=== PATIENT | female | born 1930 | race Caucasian/White ===

== ENCOUNTER 2016-09-08 09:53 | Inpatient (IN) | payer MEDICARE, OTHER ==
[2016-09-08] MEDS ORDERED: SODIUM CHLORIDE 0.9% 500 ML IV STA (10:07)
[2016-09-08] MEDS ORDERED: SODIUM CHLORIDE 0.9% 1,000 ML IV STA (10:07)
[2016-09-08] MEDS ORDERED: IPRATROPIUM-ALBUTEROL 3 ML NEB INHALATION STA (10:07)
--- NOTE | 2016-09-08 10:09 | ED ---
General Adult HPI - General Chief complaint: Shortness of Breath Stated complaint: SOB Time Seen by Provider: 09/08/16 10:06 Source: patient, RN notes reviewed, old records reviewed Mode of arrival: wheelchair Limitations: no limitations - History of Present Illness Initial comments: This is an 86-year-old female yesterday for evaluation. This patient presents today for evaluation of source of breath cough and congestion. Low-grade fever starting yesterday. Patient's significant history of COPD. Patient states her symptoms it is getting worse since yesterday, states this is been Going on and off for a week or so. Patient denies any chest pain. Denies any known sick contacts no recent hospitalizations. Family did just take trip to [place] and come back. No issues on [place]. - Related Data Home Medications Medication Instructions Recorded Confirmed Candesartan [Atacand] 16 mg PO DAILY 09/08/16 09/08/16 Digoxin [Digitek] 125 mcg PO DAILY 09/08/16 09/08/16 Fish Oil/Dha/Epa [Fish Oil 1,200 1 cap PO DAILY 09/08/16 09/08/16 mg Fish Oil] Glimepiride [Amaryl] 2 mg PO DAILY 09/08/16 09/08/16 Glucosamine HCl/Chondr Ye A Na 1 tab PO BID 09/08/16 09/08/16 [Osteo Bi-Flex Caplet] Hydrochlorothiazide [Hydrodiuril] 25 mg PO DAILY 09/08/16 09/08/16 Metoprolol Tartrate [Lopressor] 100 mg PO DAILY 09/08/16 09/08/16 Simvastatin [Zocor] 20 mg PO DAILY 09/08/16 09/08/16 Warfarin Sodium [Coumadin] 1.25 mg PO SUTUWETHSA 09/08/16 09/08/16 Warfarin [Coumadin] 2.5 mg PO MOFR 09/08/16 09/08/16 metFORMIN HCL [Glucophage] 500 mg PO BID 09/08/16 09/08/16 Allergies Allergy/AdvReac Type Severity Reaction Status Date / Time No Known Allergies Allergy Verified 09/08/16 11:26 Review of Systems ROS Statement: Those systems with pertinent positive or pertinent negative responses have been documented in the HPI. ROS Other: All systems not noted in ROS Statement are negative. Past Medical History Past Medical History: COPD, Diabetes Mellitus History of Any Multi-Drug Resistant Organisms: None Reported Past Surgical History: Tonsillectomy Past Psychological History: No Psychological Hx Reported Smoking Status: Former smoker Past Alcohol Use History: Occasional Past Drug Use History: None Reported General Exam Limitations: no limitations General appearance: alert, in no apparent distress Head exam: Present: atraumatic, normocephalic, normal inspection Eye exam: Present: normal appearance, PERRL, EOMI. Absent: scleral icterus, conjunctival injection, periorbital swelling ENT exam: Present: normal exam, mucous membranes moist Neck exam: Present: normal inspection. Absent: tenderness, meningismus, lymphadenopathy Respiratory exam: Present: normal lung sounds bilaterally, wheezes. Absent: respiratory distress, rales, rhonchi, stridor Cardiovascular Exam: Present: regular rate, normal rhythm, normal heart sounds. Absent: systolic murmur, diastolic murmur, rubs, gallop, clicks GI/Abdominal exam: Present: soft, normal bowel sounds. Absent: distended, tenderness, guarding, rebound, rigid Extremities exam: Present: normal inspection, full ROM, normal capillary refill. Absent: tenderness, pedal edema, joint swelling, calf tenderness Back exam: Present: normal inspection Neurological exam: Present: alert, oriented X3, CN II-XII intact Psychiatric exam: Present: normal affect, normal mood Skin exam: Present: warm, dry, intact, normal color. Absent: rash Course Vital Signs 09/08/16 09/08/16 09/08/16 09:55 10:28 10:40 Temperature 99.4 F Pulse Rate 75 89 89 Respiratory 18 Rate Blood Pressure 131/58 O2 Sat by Pulse 93 L Oximetry - Reevaluation(s) Reevaluation #1: 09/08/16 12:15 Patient is resting comfortably after breathing treatment EKG Findings - EKG Comments: EKG Findings:: EKG shows sinus rhythm rate of 93, OK 252, QRS 136, QTC 135 Medical Decision Making - Medical Decision Making 86. ER for evaluation. Patient with cough congestion and fever. Patient does have positive pneumonia, will bit for IV antibiotics and breathing treatments. - Lab Data Result diagrams: 09/08/16 10:12 09/08/16 10:12 Lab Results 09/08/16 09/08/16 09/08/16 Range/Units 10:12 10:12 10:12 WBC 18.1 H (3.8-10.6) k/uL RBC 4.00 (3.80-5.40) m/uL Hgb 12.1 (11.4-16.0) gm/dL Hct 36.8 (34.0-46.0) % MCV 91.8 (80.0-100.0) fL MCH 30.3 (25.0-35.0) pg MCHC 33.0 (31.0-37.0) g/dL RDW 13.5 (11.5-15.5) % Plt Count 288 (150-450) k/uL Neutrophils % 87 % Lymphocytes % 6 % Monocytes % 5 % Eosinophils % 0 % Basophils % 0 % Neutrophils # 15.8 H (1.3-7.7) k/uL Lymphocytes # 1.1 (1.0-4.8) k/uL Monocytes # 0.9 (0-1.0) k/uL Eosinophils # 0.1 (0-0.7) k/uL Basophils # 0.1 (0-0.2) k/uL PT (9.0-12.0) sec INR (<1.1) APTT (22.0-30.0) sec Sodium 139 (137-145) mmol/L Potassium 4.9 (3.5-5.1) mmol/L Chloride 99 (98-107) mmol/L Carbon Dioxide 25 (22-30) mmol/L Anion Gap 15 mmol/L BUN 32 H (7-17) mg/dL Creatinine 1.19 H (0.52-1.04) mg/dL Est GFR (MDRD) Af Amer 52 (>60 ml/min/1.73 sqM) Est GFR (MDRD) Non-Af 43 (>60 ml/min/1.73 sqM) Glucose 249 H (74-99) mg/dL Calcium 8.6 (8.4-10.2) mg/dL Magnesium 1.7 (1.6-2.3) mg/dL Total Bilirubin 1.4 H (0.2-1.3) mg/dL AST 36 (14-36) U/L ALT 38 (9-52) U/L Alkaline Phosphatase 65 (38-126) U/L Total Creatine Kinase <20 L (30-135) U/L CK-MB (CK-2) 0.5 (0.0-2.4) ng/mL CK-MB (CK-2) Rel Index 0.0 Troponin I 0.018 (0.000-0.034) ng/mL NT-Pro-B Natriuret Pep pg/mL Total Protein 6.7 (6.3-8.2) g/dL Albumin 3.4 L (3.5-5.0) g/dL 09/08/16 09/08/16 Range/Units 10:12 10:12 WBC (3.8-10.6) k/uL RBC (3.80-5.40) m/uL Hgb (11.4-16.0) gm/dL Hct (34.0-46.0) % MCV (80.0-100.0) fL MCH (25.0-35.0) pg MCHC (31.0-37.0) g/dL RDW (11.5-15.5) % Plt Count (150-450) k/uL Neutrophils % % Lymphocytes % % Monocytes % % Eosinophils % % Basophils % % Neutrophils # (1.3-7.7) k/uL Lymphocytes # (1.0-4.8) k/uL Monocytes # (0-1.0) k/uL Eosinophils # (0-0.7) k/uL Basophils # (0-0.2) k/uL PT 13.7 H (9.0-12.0) sec INR 1.4 (<1.1) APTT 26.3 (22.0-30.0) sec Sodium (137-145) mmol/L Potassium (3.5-5.1) mmol/L Chloride (98-107) mmol/L Carbon Dioxide (22-30) mmol/L Anion Gap mmol/L BUN (7-17) mg/dL Creatinine (0.52-1.04) mg/dL Est GFR (MDRD) Af Amer (>60 ml/min/1.73 sqM) Est GFR (MDRD) Non-Af (>60 ml/min/1.73 sqM) Glucose (74-99) mg/dL Calcium (8.4-10.2) mg/dL Magnesium (1.6-2.3) mg/dL Total Bilirubin (0.2-1.3) mg/dL AST (14-36) U/L ALT (9-52) U/L Alkaline Phosphatase (38-126) U/L Total Creatine Kinase (30-135) U/L CK-MB (CK-2) (0.0-2.4) ng/mL CK-MB (CK-2) Rel Index Troponin I (0.000-0.034) ng/mL NT-Pro-B Natriuret Pep 1470 pg/mL Total Protein (6.3-8.2) g/dL Albumin (3.5-5.0) g/dL - Radiology Data Radiology results: report reviewed (Chest x-ray 2 views positive for pneumonia) , image reviewed Disposition Clinical Impression: Acute exacerbation of chronic obstructive airways disease, Community acquired pneumonia Disposition: ADMITTED IP TO THIS HOSP Condition: Fair Referrals: Adiel Dennison MD [Primary Care Provider] - 1-2 days
[2016-09-08 10:27] LABS: Basophils # (A) 0.1 k/uL (0-0.2); Basophils % (A) 0 %; CH 31.5; CHCM 34.5; Eosinophils # (A) 0.1 k/uL (0-0.7); Eosinophils % (A) 0 %; HCT 36.8 % (34.0-46.0); HGB 12.1 gm/dL (11.4-16.0); Luc # (Auto) 0.16; Luc % (Auto) 1; Lymphocytes # (A) 1.1 k/uL (1.0-4.8); Lymphocytes % (A) 6 %; MCH 30.3 pg (25.0-35.0); MCV 91.8 fL (80.0-100.0); Monocytes # (A) 0.9 k/uL (0-1.0); Monocytes % (A) 5 %; Neutrophils # (A) 15.8 k/uL (1.3-7.7); Neutrophils % (A) 87 %; RDW 13.5 % (11.5-15.5); WBC 18.1 k/uL (3.8-10.6); WBC (Perox) 17.62
--- NOTE | 2016-09-08 10:32 | XR ---
EXAMINATION TYPE: XR chest 2V DATE OF EXAM: 09/08/2016 10:25 AM COMPARISON: CT chest 05/16/2015 INDICATION: Difficulty breathing short of breath cough TECHNIQUE: Frontal and lateral views of the chest are obtained. FINDINGS: The heart size is normal. The pulmonary vasculature is normal. Infiltrates are blunted bilateral costophrenic angles. Correlate for atelectasis. There is a posterior left apex 1.9 cm nodule. This was present on the CT of 05/16/2015. IMPRESSION: 1. Stable nodule left upper lobe. Follow-up chest x-ray in 6 months is recommended for stability over the course of 2 years. 2. Small infiltrates of the costophrenic angles. Correlate for atelectasis.
[2016-09-08 10:38] LABS: Calcium 8.6 mg/dL (8.4-10.2); Magnesium 1.7 mg/dL (1.6-2.3); Potassium 4.9 mmol/L (3.5-5.1); Total Bilirubin 1.4 mg/dL (0.2-1.3); Total Protein 6.7 g/dL (6.3-8.2)
[2016-09-08] MEDS ORDERED: LEVOFLOXACIN 750MG-D5W PMX 750 MG in DEXTROSE/WATER 1 150ML.BAG IVPB STA (10:41)
[2016-09-08] MEDS ORDERED: LEVOFLOXACIN 750MG-D5W PMX 750 MG in DEXTROSE/WATER 1 150ML.BAG IVPB SCH (10:45)
[2016-09-08 10:59] LABS: Creatine Kinase <20 U/L (30-135)
[2016-09-08 11:02] LABS: INR 1.4 (<1.1); Partial Thromboplastin Time 26.3 sec (22.0-30.0); Prothrombin Time 13.7 sec (9.0-12.0)
[2016-09-08 11:12] LABS: Creatine Kinase MB 0.5 ng/mL (0.0-2.4); Troponin I 0.018 ng/mL (0.000-0.034)
[2016-09-08] MEDS ORDERED: PNEUMONIA PROTOCOL UTILIZED 1 EACH MISC PO PRN (11:27)
[2016-09-08] MEDS: SODIUM CHLORIDE 0.9% 1,000 ML IV SCH (13:14)
[2016-09-08] MEDS: IPRATROPIUM-ALBUTEROL 3 ML NEB INHALATION SCH ×2 (15:35→19:12)
[2016-09-08 17:40] LABS: Glucose,Whole Blood 75 mg/dL (75-99)
[2016-09-08] MEDS: WARFARIN 2.5 MG TAB PO SCH (20:16)
[2016-09-08 21:38] LABS: Glucose,Whole Blood 62 mg/dL (75-99)
[2016-09-08 22:09] LABS: Glucose,Whole Blood 130 mg/dL (75-99)
[2016-09-08] MEDS: INSULIN LISPRO (humaLOG) 300 UNIT/3 ML VIAL SQ SCH (22:19)
[2016-09-09] MEDS: SODIUM CHLORIDE 0.9% 1,000 ML IV SCH ×4 (00:49→17:44)
[2016-09-09 00:56] LABS: Glucose,Whole Blood 122 mg/dL (75-99)
[2016-09-09] MEDS: metFORMIN 500 MG TAB PO SCH ×3 (01:08→22:24)
[2016-09-09] MEDS ORDERED: METOPROLOL TARTRATE 50 MG TAB PO STA (01:14)
--- NOTE | 2016-09-09 06:31 | HP ---
DATE OF ADMISSION: CHIEF COMPLAINT: Cough and fever. HISTORY OF PRESENT ILLNESS: This 86-year-old female presents to the emergency room with a cough and congestion for the past about 4 days. The patient was having some fever during the night and some dyspnea on exertion. The patient in view of this presents to the emergency room. Evaluation reveals the patient has a small pneumonia at the left base. The patient has a low-grade temperature, but elevated white count of 18,000. The patient is otherwise not feeling too bad at rest. The patient denies any chest pain. She just returned from [place] on a flight, that was about 4 days ago. Past medical history is significant for hypertension for the past 12 years, history of diabetes mellitus for the past 12 years. History of chronic atrial fibrillation, rate controlled with medications and on anticoagulation with no unusual bleeding. She does have a history of COPD. No history of any lung disease, liver disease, kidney disease, ulcers, TB, hepatitis. No history of any rheumatic fever, myocardial infarction or CVA. Past surgical history is significant for tonsillectomy. She has had 2 previous pregnancies. She had a colonoscopy about 3 to 4 years ago. PERSONAL HISTORY: The patient is an ex-smoker, quit smoking in 1968 used to smoke 3/4 pack per day for about 35 years. Alcohol occasional. Pneumovax 5 years ago. She has had previous Zostavax. She did have an annual seasonal flu shot on 04/28/16. ALLERGIES: None known. Medications at present include: 1. Coumadin 1.25 mg 5 days a week and 2.5 mg 2 days a week. 2. She takes glucosamine, fish oil. 3. Metformin 500 mg b.i.d. 4. Zocor 20 mg daily. 5. Metoprolol tartrate 100 mg daily. 6. Hydrochlorothiazide 25 mg daily. 7. Glimepiride 2 mg daily. 8. Digoxin 0.125 mg daily. 9. Atacand 16 mg daily. SOCIAL HISTORY: Patient is and lives with her spouse FAMILY MEDICAL HISTORY: Father at the age of 49, he had a CVA. Mother at the age of 87, had coronary artery disease. A brother at the age of 79 coronary artery disease. The patient has a son 58 and a son 55, both in good health. REVIEW OF SYSTEMS: NEURO: Denies any headaches, dizziness. No double vision, blurred vision. No symptoms of TIA, syncope, seizures. PSYCH: No anxiety, depression. CARDIAC: Denies chest pain, angina, palpitations. RESPIRATORY: Present complaint of cough, mild shortness of breath especially with activity. No hemoptysis. No chest pain. GI: No nausea, vomiting. Appetite fair. No diarrhea or constipation. : No symptoms of dysuria, hematuria. EXTREMITIES: No pain. CONSTITUTIONAL: Some fever, no chills. SKIN: No rashes. MUSCULOSKELETAL: Chronic degenerative arthritis. PHYSICAL EXAMINATION: Pleasant female in no distress at present. Vital signs revealed temperature 99.4, pulse 79, respirations 18, blood pressure 93/57, pulse ox 95% on room air. HEENT: Normocephalic. NECK: No JVD. Chest is clear to auscultation with generalized decreased air flow. Occasional scattered rhonchi. CARDIAC: Distant heart sounds. S1, S2 with no gallops. Systolic murmur 2/6 left sternal border. Irregular rhythm. ABDOMEN: Soft, no palpable masses. Bowel sounds normal. No organomegaly. No abdominal bruits. Extremities reveal trace edema. NEUROLOGIC: Awake, alert, oriented with well coordinated movements. LABORATORY ASSESSMENT: Chest x-ray which reveals a small infiltrate of the left base. CBC reveals an elevated white count of 18,100, hemoglobin 12.1. The patient does have a left shift. PT, INR reveals an INR 1.4. BUN 32, creatinine 1.19. Glucose was 249. An influenza A and B not detected. ASSESSMENT: 1. Left lower lobe pneumonia. 2. Chronic obstructive pulmonary disease. 3. Chronic atrial fibrillation. 4. Diabetes mellitus. 5. Hypertension. PLAN: The patient is admitted to the hospital, given updrafts, oxygen, IV antibiotics. Continued on Coumadin. The patient with Levaquin expect pro time to jump up. The patient's PT, INR will be monitored daily. Patient's condition was discussed with the patient and spouse. Prognosis remains guarded.
[2016-09-09 07:43] LABS: Glucose,Whole Blood 86 mg/dL (75-99)
[2016-09-09] MEDS: DIGOXIN 125 MCG TAB PO SCH (08:20)
[2016-09-09] MEDS: METOPROLOL TARTRATE 50 MG TAB PO SCH (08:20)
[2016-09-09] MEDS: ENOXAPARIN 40 MG/0.4 ML SYRINGE SQ SCH (08:20)
[2016-09-09] MEDS: INSULIN LISPRO (humaLOG) 300 UNIT/3 ML VIAL SQ SCH ×4 (08:21→22:24)
[2016-09-09] MEDS: IPRATROPIUM-ALBUTEROL 3 ML NEB INHALATION SCH ×4 (08:22→19:40)
--- NOTE | 2016-09-09 08:34 | XR ---
EXAMINATION TYPE: XR chest 2V DATE OF EXAM: 09/09/2016 7:53 AM HISTORY: Difficulty breathing. REFERENCE: Previous study dated 09/08/2016. FINDINGS: The lungs are overinflated. The heart is mildly prominent. There is a stable left upper lob e pulmonary nodule. There is a right lower lobe infiltrate. There are small, bilateral effusions. IMPRESSION: 1. EVIDENCE OF OLD GRANULOMATOUS DISEASE. 2. COPD. 3. MILD CARDIOMEGALY. 4. RIGHT LOWER LOBE INFILTRATE. 5. SMALL, BILATERAL EFFUSIONS.
[2016-09-09 08:49] LABS: INR 1.6 (<1.1); Prothrombin Time 15.5 sec (9.0-12.0)
[2016-09-09 11:42] LABS: Glucose,Whole Blood 171 mg/dL (75-99)
[2016-09-09 17:11] LABS: Glucose,Whole Blood 137 mg/dL (75-99)
[2016-09-09] MEDS: WARFARIN 2.5 MG TAB PO SCH (17:46)
[2016-09-09 20:59] LABS: Glucose,Whole Blood 219 mg/dL (75-99)
[2016-09-09] MEDS ORDERED: LEVOFLOXACIN 750MG-D5W PMX 750 MG in DEXTROSE/WATER 1 150ML.BAG IVPB SCH (21:00)
[2016-09-09] MEDS ORDERED: WARFARIN 1.25 MG TAB PO ONE (22:45)
[2016-09-10] MEDS: SODIUM CHLORIDE 0.9% 1,000 ML IV SCH ×2 (06:17→23:31)
[2016-09-10 07:38] LABS: Glucose,Whole Blood 108 mg/dL (75-99)
[2016-09-10] MEDS: INSULIN LISPRO (humaLOG) 300 UNIT/3 ML VIAL SQ SCH ×4 (07:50→21:26)
--- NOTE | 2016-09-10 08:17 | PN ---
CHIEF COMPLAINT: Re-evaluation. HISTORY OF PRESENT ILLNESS: This 86-year-old female was admitted to the hospital with fever, cough, leukocytosis and chest x-ray suggestive of pneumonia. The patient is actually feeling fairly well, has not had any major symptoms. She did have a tachycardia during the night. She has chronic atrial fibrillation. Patient's vital signs otherwise have remained stable and the initial low blood pressures. REVIEW OF SYSTEMS: NEURO: Denies any headaches, dizziness. PSYCH: No anxiety. CARDIAC: No chest pain, angina, palpitation. RESPIRATORY: No shortness of breath, cough. GI: No nausea, vomiting, abdominal pain, diarrhea. : No symptoms of dysuria or hematuria. EXTREMITIES: No pain. CONSTITUTIONAL: No fever or chills. PHYSICAL EXAMINATION: Pleasant female in no distress. Vital signs recorded: Temperature 98.1, pulse 120, respirations 24, blood pressure 100/51, pulse ox 97% on 2 L. HEENT: Normocephalic. NECK: No JVD. Chest is clear to auscultation with mild decreased air flow in bilateral bases. CARDIAC: Distant heart sounds. S1, S2 with no gallops. Systolic murmur 2/6 left sternal border. ABDOMEN: Soft. Bowel sounds present. EXTREMITIES: No edema. No tenderness. NEUROLOGIC: Awake, alert, oriented with well-coordinated movements. Laboratory assessment with the chest x-ray reported to have a right lower lobe infiltrate. Mild cardiomegaly, COPD changes and small bilateral effusions. INR was 1.6. Blood sugars mildly elevated. ASSESSMENT: 1. Pneumonia. 2. Chronic obstructive pulmonary disease. 3. Chronic atrial fibrillation. 4. Atrial fibrillation with rapid ventricular rate. 5. Anticoagulated status. 6. Diabetes mellitus. PLAN: The patient is stable. Continue present medical regimen. The patient will be given an extra dose of Coumadin tonight. Lovenox will be discontinued tomorrow. Patient's prognosis guarded.
[2016-09-10] MEDS: IPRATROPIUM-ALBUTEROL 3 ML NEB INHALATION SCH (08:28)
[2016-09-10] MEDS: metFORMIN 500 MG TAB PO SCH ×2 (08:47→20:55)
[2016-09-10] MEDS: DIGOXIN 125 MCG TAB PO SCH (08:47)
[2016-09-10] MEDS: ENOXAPARIN 40 MG/0.4 ML SYRINGE SQ SCH (08:47)
[2016-09-10] MEDS: METOPROLOL TARTRATE 50 MG TAB PO SCH (08:47)
[2016-09-10 09:13] VITALS: BMI 28.6
[2016-09-10 10:10] LABS: INR 2.1 (<1.1); Prothrombin Time 19.8 sec (9.0-12.0)
[2016-09-10 10:20] LABS: CH 31.2; CHCM 33.4; HCT 30.3 % (34.0-46.0); HDW 3.17; MCH 30.8 pg (25.0-35.0); MCHC 32.9 g/dL (31.0-37.0); MCV 93.8 fL (80.0-100.0); Mean Platelet Volume 8.7; RBC 3.23 m/uL (3.80-5.40); RDW 13.5 % (11.5-15.5); WBC 9.1 k/uL (3.8-10.6)
[2016-09-10 11:28] LABS: Anion Gap 10 mmol/L; Blood Urea Nitrogen 32 mg/dL (7-17); Calcium 7.9 mg/dL (8.4-10.2); Carbon Dioxide 21 mmol/L (22-30); Chloride 108 mmol/L (98-107); Glucose 199 mg/dL (74-99); Non-African American GFR(MDRD) 53 (>60 ml/min/1.73 sqM); Potassium 4.1 mmol/L (3.5-5.1); Sodium 139 mmol/L (137-145)
[2016-09-10] MEDS: IPRATROPIUM 0.5 MG/2.5 ML NEBU INHALATION SCH ×2 (11:33→20:07)
[2016-09-10] MEDS: LEVALBUTEROL NEB (CONC) 1.25 MG/0.5 ML AMP INHALATION SCH ×2 (11:33→20:07)
[2016-09-10 12:01] LABS: Glucose,Whole Blood 132 mg/dL (75-99)
[2016-09-10 17:14] LABS: Glucose,Whole Blood 245 mg/dL (75-99)
[2016-09-10] MEDS: WARFARIN 2.5 MG TAB PO SCH (17:36)
[2016-09-10 21:18] LABS: Glucose,Whole Blood 184 mg/dL (75-99)
[2016-09-10] MEDS ORDERED: METOPROLOL TARTRATE 50 MG TAB PO SCH (23:00)
--- NOTE | 2016-09-11 06:54 | PN ---
CHIEF COMPLAINT: Re-evaluation. HISTORY OF PRESENT ILLNESS: This is an 86-year-old who was admitted to the hospital with some low-grade fever, leukocytosis, cough and congestion. The patient has underlying COPD. X-ray findings suggest pneumonia. Patient actually feeling relatively well. REVIEW OF SYSTEMS: NEURO: Denies any headaches, dizziness. PSYCH: Anxiety. CARDIAC: No chest pain, angina, palpitation. RESPIRATORY: No shortness of breath. Does have some cough. No hemoptysis. GI: No nausea, vomiting, abdominal pain, diarrhea. : No symptoms of dysuria, hematuria. EXTREMITIES: No pain. CONSTITUTIONAL: No fever or chills. PHYSICAL EXAMINATION: A pleasant female in no distress. Vital signs recorded. Temperature 97.4, pulse 93, earlier it was 131. The patient's respirations are 20, blood pressure 109/53, pulse ox 99% on 2 L. HEENT: Normocephalic. NECK: No JVD. CHEST: Some decreased air flow at the right base with few crackles. CARDIAC: Distant heart sounds. S1, S2, no gallops. Systolic murmur 2/6 left sternal border. Irregular rhythm. ABDOMEN: Soft. Bowel sounds present. EXTREMITIES: No edema. NEUROLOGIC: Awake, alert, oriented with well coordinated movements. Laboratory assessment was a CBC which revealed white count down to 9100, hemoglobin 10. INR 2.1. Electrolytes normal. BUN 32, creatinine 1.0. ASSESSMENT: 1. Pneumonia. 2. Chronic atrial fibrillation with rapid ventricular rate at times. 3. Diabetes mellitus. 4. Chronic obstructive pulmonary disease. PLAN: The patient is stable. Continue present medical regimen. The patient's condition discussed with the patient. Prognosis guarded. Potential discharge home in the next 24 to 48 hours.
[2016-09-11] MEDS: LEVALBUTEROL NEB (CONC) 1.25 MG/0.5 ML AMP INHALATION SCH ×3 (07:31→20:16)
[2016-09-11] MEDS: IPRATROPIUM 0.5 MG/2.5 ML NEBU INHALATION SCH ×3 (07:31→20:16)
[2016-09-11 07:34] LABS: Glucose,Whole Blood 162 mg/dL (75-99)
[2016-09-11] MEDS: INSULIN LISPRO (humaLOG) 300 UNIT/3 ML VIAL SQ SCH ×4 (08:15→22:13)
[2016-09-11 08:31] LABS: INR 2.3 (<1.1); Prothrombin Time 22.1 sec (9.0-12.0)
[2016-09-11] MEDS: METOPROLOL TARTRATE 50 MG TAB PO SCH ×2 (08:39→20:47)
[2016-09-11] MEDS: metFORMIN 500 MG TAB PO SCH ×2 (08:39→20:47)
[2016-09-11] MEDS: DIGOXIN 125 MCG TAB PO SCH (08:39)
[2016-09-11 12:32] LABS: Glucose,Whole Blood 184 mg/dL (75-99)
[2016-09-11 16:59] LABS: Glucose,Whole Blood 121 mg/dL (75-99)
[2016-09-11] MEDS: LEVOFLOXACIN 750 MG TAB PO SCH (20:46)
--- NOTE | 2016-09-11 21:34 | PN ---
CHIEF COMPLAINT: Re-evaluation. HISTORY OF PRESENT ILLNESS: This is an 86-year-old female who was admitted to the hospital with a fever, leukocytosis and a lung infiltrate. The patient was felt to have pneumonia. She also has underlying history of COPD and chronic atrial fibrillation. The patient has exhibited some rapid ventricular rate at times, lasting briefly. The patient was on Lopressor. This was switched over the Xopenex. REVIEW OF SYSTEMS: NEURO: Denies any headaches, dizziness. PSYCH: No anxiety. CARDIAC: No chest pain, angina, palpitation. RESPIRATORY: No shortness of breath. Some cough. No hemoptysis. GI: No nausea, vomiting, abdominal pain, diarrhea. : No symptoms of dysuria, hematuria. EXTREMITIES: No pain. CONSTITUTIONAL: No fever or chills. PHYSICAL EXAMINATION: Pleasant female in no distress. Vital signs revealed that patient has been afebrile. Temperature 97.4, pulse 95, respirations 20, blood pressure 91/64, pulse ox of 97% on 2 L. HEENT: Normocephalic. NECK: No JVD. Chest is clear to auscultation with decreased air flow at the bases. CARDIAC: Distant heart sounds. S1, S2 with no gallops. Irregular rhythm. Systolic murmur 2/6, left sternal border. ABDOMEN: Soft, protuberant. Bowel sounds active. Extremities reveal trace edema. Neurologically awake, alert, oriented with well-coordinated movements. LABORATORY ASSESSMENT: INR of 2.3. Blood sugar is mildly elevated, being covered with medication. Patient's general condition is stable. Potential discharge home tomorrow.
[2016-09-11 21:48] LABS: Glucose,Whole Blood 133 mg/dL (75-99)
[2016-09-12 07:19] LABS: Glucose,Whole Blood 113 mg/dL (75-99)
[2016-09-12] MEDS: INSULIN LISPRO (humaLOG) 300 UNIT/3 ML VIAL SQ SCH ×4 (07:48→21:31)
[2016-09-12] MEDS: DIGOXIN 125 MCG TAB PO SCH (08:16)
[2016-09-12] MEDS: METOPROLOL TARTRATE 50 MG TAB PO SCH ×2 (08:16→20:18)
[2016-09-12] MEDS: metFORMIN 500 MG TAB PO SCH ×2 (08:16→20:18)
[2016-09-12] MEDS: LEVALBUTEROL NEB (CONC) 1.25 MG/0.5 ML AMP INHALATION SCH ×3 (09:15→20:07)
[2016-09-12] MEDS: IPRATROPIUM 0.5 MG/2.5 ML NEBU INHALATION SCH ×3 (09:15→20:07)
[2016-09-12 09:18] LABS: INR 2.8 (<1.1); Prothrombin Time 26.8 sec (9.0-12.0)
[2016-09-12 12:23] LABS: Glucose,Whole Blood 136 mg/dL (75-99)
[2016-09-12] MEDS: DIGOXIN 62.5 MCG TAB PO SCH (12:29)
--- NOTE | 2016-09-12 14:22 | XR ---
EXAMINATION TYPE: XR chest 2V DATE OF EXAM: 09/12/2016 2:12 PM COMPARISON: September 09, 2016 HISTORY: Shortness of breath TECHNIQUE: Frontal and lateral views of the chest are obtained. FINDINGS: Scattered senescent parenchymal changes noted. Hyperinflation compatible with COPD. Increasing right basilar infiltrate and bilateral small effusions. Persistent left upper lobe nodule. Heart size is stable. Mediastinal structures are stable and grossly unremarkable. No evidence for hilar prominence. Degenerative changes dorsal spine. IMPRESSION: 1. Increasing right basilar infiltrate and bilateral small effusions.
[2016-09-12 17:02] LABS: Glucose,Whole Blood 116 mg/dL (75-99)
[2016-09-12] MEDS: WARFARIN 2.5 MG TAB PO SCH (17:16)
[2016-09-12 21:32] LABS: Glucose,Whole Blood 179 mg/dL (75-99)
[2016-09-13] MEDS ORDERED: MENTHOL (NICE) LOZENGE MUCOUS MEM PRN ×2 (03:47→04:17)
[2016-09-13 07:21] LABS: Glucose,Whole Blood 147 mg/dL (75-99)
[2016-09-13] MEDS: INSULIN LISPRO (humaLOG) 300 UNIT/3 ML VIAL SQ SCH ×4 (08:01→21:20)
[2016-09-13] MEDS: DIGOXIN 62.5 MCG TAB PO SCH (08:09)
[2016-09-13] MEDS: DIGOXIN 125 MCG TAB PO SCH (08:09)
[2016-09-13] MEDS: METOPROLOL TARTRATE 50 MG TAB PO SCH ×2 (08:09→21:20)
[2016-09-13] MEDS: metFORMIN 500 MG TAB PO SCH ×2 (08:09→21:20)
[2016-09-13] MEDS: LEVALBUTEROL NEB (CONC) 1.25 MG/0.5 ML AMP INHALATION SCH ×3 (08:20→19:56)
[2016-09-13] MEDS: IPRATROPIUM 0.5 MG/2.5 ML NEBU INHALATION SCH ×3 (08:20→19:56)
[2016-09-13] MEDS ORDERED: FUROSEMIDE 20 MG TAB PO STA (08:28)
[2016-09-13 08:39] LABS: CH 30.9; CHCM 32.8; HCT 34.2 % (34.0-46.0); HDW 3.05; HGB 11.2 gm/dL (11.4-16.0); MCHC 32.7 g/dL (31.0-37.0); MCV 94.5 fL (80.0-100.0); Mean Platelet Volume 6.7; RBC 3.62 m/uL (3.80-5.40); RDW 13.1 % (11.5-15.5); WBC 8.2 k/uL (3.8-10.6)
[2016-09-13 08:48] LABS: INR 3.8 (<1.1); Prothrombin Time 36.9 sec (9.0-12.0)
[2016-09-13] MEDS ORDERED: DIGOXIN 62.5 MCG TAB PO SCH (09:00)
--- NOTE | 2016-09-13 10:58 | P.PN ---
Subjective Principal diagnosis: Pneumonia History present illness: This 86-year-old female was admitted to the hospital with a fever, leukocytosis and it lung infiltrate. Patient does have underlying COPD. Working diagnosis of pneumonia. Patient's general condition is improved. She does have a history of chronic atrial fibrillation. She did have episodes of A. fib with rapid ventricular rate. She is feeling better today. Her metoprolol and digoxin have been increased. Her albuterol as been switched over to Xopenex. Patient feels better today. She does complain of generalized weakness still. Have recommended rehabilitation. Patient's in agreement and we'll make arrangements for transfer to nursing rehab. REVIEW OF SYSTEMS: Neuro: Denies any headaches dizziness. Psych: Denies anxiety depression feels oriented. Cardiac: Denies chest pain and angina palpitations. Respiratory: Improved shortness of breath and cough. GI: Denies nausea vomiting or abdominal pain. No diarrhea or constipation, no bowel movement yet. : Denies dysuria hematuria. Extremities: Denies pain. No edema. Skin: Intact. Constitutional: No fever, chills. Objective - Vital Signs Vital signs: Vital Signs Temp 98.6 F 09/13/16 07:00 Pulse 100 09/13/16 08:35 Resp 16 09/13/16 08:00 BP 114/58 09/13/16 07:00 Pulse Ox 91 L 09/13/16 07:00 Intake & Output 09/12/16 09/13/16 09/13/16 18:59 06:59 18:59 Intake Total 200 Balance 200 Intake: Oral 200 Other: Voiding Method Toilet Toilet Bedside Commode Bedside Commode # Voids 2 2 1 PHYSICAL EXAMINATION: Cooperative, at present in no acute distress. HEENT: Neck supple. No JVD. Chest: Clear to auscultation increased percussion note bilateral Cardiac: Normal S1-S2 irregularly irregular rhythm with no gallops systolic murmur 2/6 left sternal border. Abdomen: Soft bowel sounds present. Extremities: Trace edema no tenderness Neurologically: Awake, alert, oriented with well-coordinated movements. - Labs CBC & Chem 7: 09/13/16 08:20 09/10/16 09:29 Labs: Abnormal Lab Results - Last 24 Hours (Table) 09/12/16 09/12/16 09/12/16 Range/Units 12:13 17:01 21:28 RBC (3.80-5.40) m/uL Hgb (11.4-16.0) gm/dL PT (9.0-12.0) sec POC Glucose (mg/dL) 136 H 116 H 179 H (75-99) mg/dL 09/13/16 09/13/16 09/13/16 Range/Units 07:19 08:20 08:20 RBC 3.62 L (3.80-5.40) m/uL Hgb 11.2 L (11.4-16.0) gm/dL PT 36.9 H (9.0-12.0) sec POC Glucose (mg/dL) 147 H (75-99) mg/dL Assessment and Plan Plan: ASSESSMENT: 1. Right lower lobe community-acquired pneumonia. 2. COPD. 3. Atrial fibrillation chronic. 4. Atrial fibrillation with rapid ventricular rate episodic. 5. Hypertension. 6. Anticoagulative status. 7. Degenerative arthritis. PLAN: Patient is stable at present continue present regimen. Patient was given 1 dose of Lasix this morning because of small pleural effusions bilateral. Patient otherwise is feeling improved compared to yesterday. Still has some debility and will plan for prison rehabilitation. Patient and spouse are in agreement continue to hold Coumadin.
--- NOTE | 2016-09-13 11:34 | PN ---
CHIEF COMPLAINT: Re-evaluation. HISTORY OF PRESENT ILLNESS: This 86-year-old female was admitted to the hospital with a right lower lobe pneumonia, chronic obstructive pulmonary disease exacerbation and atrial fibrillation, chronic. The patient has had episodes of atrial fibrillation with RVR. Denies any chest pain. He feels much better. Does have dyspnea though with minimal activity. Has decreased cough. No hemoptysis. GI: No nausea vomiting. Appetite good. No diarrhea. The patient feels much improved except for the dyspnea. REVIEW OF SYSTEMS: NEURO: Denies any headaches, dizziness. PSYCH: No anxiety. CARDIAC: No chest pain, angina, palpitation. RESPIRATORY: Denies shortness of breath at rest. Does have dyspnea with activity. EXTREMITIES: No pain. GI: No nausea, vomiting, abdominal pain, diarrhea. : No symptoms of dysuria, hematuria. CONSTITUTIONAL: No fever or chills. PHYSICAL EXAMINATION: Pleasant female at present in no distress. Vital signs recorded earlier were temperature 97.9, pulse 117, respirations 18, blood pressure 106/54, and pulse ox 95% on 2 liters. HEENT: Normocephalic. NECK: No JVD. Chest is clear to auscultation with decreased air flow right base. CARDIAC: Distant heart sounds. S1, S2 with no gallops. Systolic murmur 2/6 left sternal border. ABDOMEN: Soft. Bowel sounds present. EXTREMITIES: No edema. NEUROLOGIC: Awake, alert, oriented with well coordinated movements. LABORATORY ASSESSMENT: INR of 2.8. Blood sugar was 113 this morning. Chest x-ray reveals some increased infiltrate at the right base with bilateral basal pleural small effusions. ASSESSMENT: 1. Right lower lobe pneumonia, clinically improving. 2. Mild worsening of x-ray, which would be expected. 3. Chronic obstructive pulmonary disease with no wheezing. 4. Chronic atrial fibrillation with intermittent tachycardia. 5. History of hypertension. PLAN: The patient is stable. Continue present medical regimen. The patient's condition discussed with the patient, spouse and son. Hospital transfer to a nursing facility for rehab. The patient may require oxygen with ambulation. Digoxin has been increased up. We will continue to monitor the patient closely. Patient's condition discussed with the patient. Prognosis guarded. I see no reason to start patient on steroids. Her cough is much improved. She is not wheezing. Prognosis remains guarded.
[2016-09-13 12:15] LABS: Glucose,Whole Blood 145 mg/dL (75-99)
[2016-09-13 16:57] LABS: Glucose,Whole Blood 207 mg/dL (75-99)
[2016-09-13 21:06] LABS: Glucose,Whole Blood 210 mg/dL (75-99)
[2016-09-13] MEDS: LEVOFLOXACIN 750 MG TAB PO SCH (21:20)
[2016-09-14 07:36] LABS: Glucose,Whole Blood 140 mg/dL (75-99)
[2016-09-14 07:54] LABS: INR 2.9 (<1.1); Prothrombin Time 28.4 sec (9.0-12.0)
[2016-09-14 07:58] VITALS: BP 92/64; RESP 18; TEMP 97
[2016-09-14] MEDS: INSULIN LISPRO (humaLOG) 300 UNIT/3 ML VIAL SQ SCH ×2 (08:00→12:06)
[2016-09-14] MEDS: DIGOXIN 62.5 MCG TAB PO SCH (08:01)
[2016-09-14] MEDS: METOPROLOL TARTRATE 50 MG TAB PO SCH (08:01)
[2016-09-14] MEDS: metFORMIN 500 MG TAB PO SCH (08:01)
[2016-09-14] MEDS: DIGOXIN 125 MCG TAB PO SCH (08:01)
--- NOTE | 2016-09-14 08:19 | P.DS ---
Providers Date of admission: 09/08/16 11:28 Attending physician: Adiel Dennison Primary care physician: Adiel Dennison Hospital Course: 86-year-old female admitted to the hospital with cough fever and some shortness of breath. Patient noted to have a pneumonia. She is placed on Levaquin leukocytosis resolves no further fever. Continues to have some shortness of breath especially with activity. Patient also on updrafts. She has underlying COPD. She has history of chronic atrial fibrillation at times heart rate was elevated. Patient's medication has been increased with better control the heart rate. She has some dyspnea on exertion. She needs oxygen with activity. Patient is can be transferred to nursing facility for rehabilitation. History of hypertension. Coumadin be monitored with an INR target of between 2 and 3. Coumadin be up to 1.25 mg daily 5 days a week. May need to be adjusted up after Levaquin is done. Levaquin be continued for 5 more days. Final diagnosis 1. Pneumonia 2. COPD 3. Chronic atrial fibrillation with rapid ventricular rate intermittently 4. Debility 5. Diabetes mellitus type 2 Patient Condition at Discharge: Fair Plan - Discharge Summary New Discharge Prescriptions: Levofloxacin [Levaquin] 500 mg PO DAILY #5 tab Discharge Medication List Candesartan [Atacand] 16 mg PO DAILY 09/08/16 [History] Digoxin [Digitek] 125 mcg PO DAILY 09/08/16 [History] Fish Oil/Dha/Epa [Fish Oil 1,200 mg Fish Oil] 1 cap PO DAILY 09/08/16 [History] Glimepiride [Amaryl] 2 mg PO DAILY 09/08/16 [History] Glucosamine HCl/Chondr Ey A Na [Osteo Bi-Flex Caplet] 1 tab PO BID 09/08/16 [ History] Hydrochlorothiazide [Hydrodiuril] 25 mg PO DAILY 09/08/16 [History] Simvastatin [Zocor] 20 mg PO DAILY 09/08/16 [History] Warfarin Sodium [Coumadin] 1.25 mg PO SUTUWETHSA 09/08/16 [History] metFORMIN HCL [Glucophage] 500 mg PO BID 09/08/16 [History] Levofloxacin [Levaquin] 500 mg PO DAILY #5 tab 09/14/16 [Rx] Metoprolol Tartrate [Lopressor] 100 mg PO BID tab 02/06/17 [Rx] Follow up Appointment(s)/Referral(s): Adiel Dennison MD [Primary Care Provider] - 1 Week Patient Instructions/Handouts: Type 2 Diabetes in Adults (DC) Discharge Disposition: HOME SELF-CARE
[2016-09-14] MEDS: LEVALBUTEROL NEB (CONC) 1.25 MG/0.5 ML AMP INHALATION SCH ×2 (09:22→12:53)
[2016-09-14] MEDS: IPRATROPIUM 0.5 MG/2.5 ML NEBU INHALATION SCH ×2 (09:22→12:53)
[2016-09-14 09:34] VITALS: PULSE 64
[2016-09-14 11:56] LABS: Glucose,Whole Blood 135 mg/dL (75-99)
== END 2016-09-14 13:02 | DRG 190 ==
LOC: EC 09:53 → 4MS4W 11:28
PROVIDERS: ADMIT Internal Medicine; ATTEND Internal Medicine
DX: J44.0 Chronic obstructive pulmonary disease with (acute) lower respiratory infection (principal); J18.9 Pneumonia, unspecified organism; E11.9 Type 2 diabetes mellitus without complications; I48.2 Chronic atrial fibrillation; J44.1 Chronic obstructive pulmonary disease with (acute) exacerbation; I10 Essential (primary) hypertension; M19.90 Unspecified osteoarthritis, unspecified site; Z79.01 Long term (current) use of anticoagulants; Z79.84 Long term (current) use of oral hypoglycemic drugs; Z79.899 Other long term (current) drug therapy; Z87.891 Personal history of nicotine dependence; Z82.49 Family history of ischemic heart disease and other diseases of the circulatory system
CPT/HCPCS: 36415; 71020; 80048; 80053; 80162; 82550; 82553; 83605; 83735; 83880; 84484; 85025; 85027; 85610; 85730; 87040; 87502; 93005; 94640; 94760; 96361; 96365; 96366; 99285

== ENCOUNTER 2018-04-28 09:41 | Inpatient (IN) | payer MEDICARE, OTHER ==
[2018-04-28] MEDS ORDERED: methylPREDNISolone SOD SUCCI 125 MG/2 ML VIAL IV STA (10:11)
[2018-04-28] MEDS ORDERED: IPRATROPIUM-ALBUTEROL 3 ML NEB INHALATION STA (10:11)
--- NOTE | 2018-04-28 10:15 | ED ---
SOB HPI - General Chief Complaint: Shortness of Breath Stated Complaint: Low O2 Time Seen by Provider: 04/28/18 10:07 Source: patient, RN notes reviewed Mode of arrival: wheelchair Limitations: no limitations - History of Present Illness Initial Comments: This is a 88-year-old female history of COPD who states she did have exertional dyspnea since last night. She states she does have COPD she uses a puffer all time she states is just worsening usual today. It was also noted that she had a pulse oximetry in the mid to high 70s at home today. She had no fevers chills nausea vomiting sweats no chest pain cough or phlegm production. No other modifying factors. She did deny any chest pain she has coughed up some phlegm that is yellow in color she states. No fevers chills or sweats MD Complaint: shortness of breath - Related Data Home Medications Medication Instructions Recorded Confirmed Candesartan [Atacand] 16 mg PO DAILY 09/08/16 04/28/18 Digoxin [Digitek] 125 mcg PO Q48H 09/08/16 04/28/18 Glucosamine/Chondr Ye A Sod [Osteo 1 tab PO BID 09/08/16 04/28/18 Bi-Flex Caplet] Simvastatin [Zocor] 20 mg PO Q48H 09/08/16 04/28/18 Warfarin Sodium [Coumadin] 1.25 mg PO SUTUTHSA 09/08/16 09/08/16 metFORMIN HCL [Glucophage] 500 mg PO BID 09/08/16 04/28/18 Furosemide [Lasix] 20 mg PO DAILY 04/28/18 04/28/18 Magnesium Oxide [Magox 400] 400 mg PO DAILY 04/28/18 04/28/18 Repaglinide [Prandin] 0.5 mg PO AC-BID 04/28/18 04/28/18 Warfarin [Coumadin] 2 mg PO MOWEFR 04/28/18 04/28/18 Previous Rx's Medication Instructions Recorded Metoprolol Tartrate [Lopressor] 100 mg PO BID tab 09/14/16 Allergies Allergy/AdvReac Type Severity Reaction Status Date / Time No Known Allergies Allergy Verified 04/28/18 09:51 Review of Systems ROS Statement: Those systems with pertinent positive or pertinent negative responses have been documented in the HPI. ROS Other: All systems not noted in ROS Statement are negative. Past Medical History Past Medical History: Atrial Fibrillation, COPD, Diabetes Mellitus, Hyperlipidemia, Hypertension Additional Past Medical History / Comment(s): NIDDM type II. History of Any Multi-Drug Resistant Organisms: None Reported Past Surgical History: Tonsillectomy Additional Past Surgical History / Comment(s): Several colonoscopies-normal Past Anesthesia/Blood Transfusion Reactions: No Reported Reaction Additional Past Anesthesia/Blood Transfusion Reaction / Comment(s): Pt has clausterphobia r/t elevators Past Psychological History: No Psychological Hx Reported Smoking Status: Former smoker - Past Family History Father Additional Family Medical History / Comment(s): Father at the age of 49 yrs from an aneurysm. Mother Family Medical History: No Reported History Additional Family Medical History / Comment(s): Mother lived to be 87yrs old. General Exam - General Exam Comments Initial Comments: This is a well-developed well-nourished awake alert oriented 3 female Limitations: no limitations General appearance: alert, in no apparent distress Head exam: Present: atraumatic, normocephalic, normal inspection Eye exam: Present: normal appearance, PERRL, EOMI. Absent: scleral icterus, conjunctival injection, periorbital swelling ENT exam: Present: normal exam, mucous membranes moist Neck exam: Present: normal inspection. Absent: tenderness, meningismus, lymphadenopathy Respiratory exam: Present: decreased breath sounds (Scattered wheezes). Absent : respiratory distress, wheezes, rales, rhonchi, stridor Cardiovascular Exam: Present: regular rate, normal rhythm, normal heart sounds. Absent: systolic murmur, diastolic murmur, rubs, gallop, clicks GI/Abdominal exam: Present: soft, normal bowel sounds. Absent: distended, tenderness, guarding, rebound, rigid Extremities exam: Present: normal inspection, full ROM, normal capillary refill. Absent: tenderness, pedal edema, joint swelling, calf tenderness Back exam: Present: normal inspection Neurological exam: Present: alert, oriented X3, CN II-XII intact Psychiatric exam: Present: normal affect, normal mood Skin exam: Present: warm, dry, intact, normal color. Absent: rash Course Vital Signs 04/28/18 04/28/18 04/28/18 09:50 10:40 10:51 Temperature 98.6 F Pulse Rate 79 66 68 Respiratory 20 18 Rate Blood Pressure 98/46 99/50 O2 Sat by Pulse 92 L 98 Oximetry 04/28/18 10:54 Temperature Pulse Rate 68 Respiratory Rate Blood Pressure O2 Sat by Pulse Oximetry Medical Decision Making - Medical Decision Making I did discuss the findings with the patient also Dr. Dennison. Patient be admitted with CT the chest and consultation by Dr. Villarreal. - Lab Data Result diagrams: 04/28/18 10:12 04/28/18 10:12 Lab Results 04/28/18 04/28/18 04/28/18 Range/Units 10:12 10:12 10:12 WBC 16.3 H (3.8-10.6) k/uL RBC 3.75 L (3.80-5.40) m/uL Hgb 10.7 L (11.4-16.0) gm/dL Hct 34.8 (34.0-46.0) % MCV 92.9 (80.0-100.0) fL MCH 28.6 (25.0-35.0) pg MCHC 30.8 L (31.0-37.0) g/dL RDW 15.7 H (11.5-15.5) % Plt Count 372 (150-450) k/uL Neutrophils % 89 % Lymphocytes % 5 % Monocytes % 4 % Eosinophils % 0 % Basophils % 1 % Neutrophils # 14.6 H (1.3-7.7) k/uL Lymphocytes # 0.8 L (1.0-4.8) k/uL Monocytes # 0.7 (0-1.0) k/uL Eosinophils # 0.1 (0-0.7) k/uL Basophils # 0.1 (0-0.2) k/uL Hypochromasia Moderate PT (9.0-12.0) sec INR (<1.2) APTT (22.0-30.0) sec Sodium 139 (137-145) mmol/L Potassium 5.8 H (3.5-5.1) mmol/L Chloride 103 (98-107) mmol/L Carbon Dioxide 23 (22-30) mmol/L Anion Gap 13 mmol/L BUN 39 H (7-17) mg/dL Creatinine 1.42 H (0.52-1.04) mg/dL Est GFR (CKD-EPI)AfAm 39 (>60 ml/min/1.73 sqM) Est GFR (CKD-EPI)NonAf 34 (>60 ml/min/1.73 sqM) Glucose 330 H (74-99) mg/dL Calcium 8.4 (8.4-10.2) mg/dL Magnesium 2.5 H (1.6-2.3) mg/dL Total Bilirubin 0.7 (0.2-1.3) mg/dL AST 25 (14-36) U/L ALT 13 (9-52) U/L Alkaline Phosphatase 57 (38-126) U/L Total Creatine Kinase <20 L (30-135) U/L CK-MB (CK-2) 0.5 (0.0-2.4) ng/mL CK-MB (CK-2) Rel Index Troponin I 0.016 (0.000-0.034) ng/mL NT-Pro-B Natriuret Pep pg/mL Total Protein 6.7 (6.3-8.2) g/dL Albumin 3.4 L (3.5-5.0) g/dL 04/28/18 04/28/18 Range/Units 10:12 10:12 WBC (3.8-10.6) k/uL RBC (3.80-5.40) m/uL Hgb (11.4-16.0) gm/dL Hct (34.0-46.0) % MCV (80.0-100.0) fL MCH (25.0-35.0) pg MCHC (31.0-37.0) g/dL RDW (11.5-15.5) % Plt Count (150-450) k/uL Neutrophils % % Lymphocytes % % Monocytes % % Eosinophils % % Basophils % % Neutrophils # (1.3-7.7) k/uL Lymphocytes # (1.0-4.8) k/uL Monocytes # (0-1.0) k/uL Eosinophils # (0-0.7) k/uL Basophils # (0-0.2) k/uL Hypochromasia PT 26.7 H (9.0-12.0) sec INR 3.0 H (<1.2) APTT 30.2 H (22.0-30.0) sec Sodium (137-145) mmol/L Potassium (3.5-5.1) mmol/L Chloride (98-107) mmol/L Carbon Dioxide (22-30) mmol/L Anion Gap mmol/L BUN (7-17) mg/dL Creatinine (0.52-1.04) mg/dL Est GFR (CKD-EPI)AfAm (>60 ml/min/1.73 sqM) Est GFR (CKD-EPI)NonAf (>60 ml/min/1.73 sqM) Glucose (74-99) mg/dL Calcium (8.4-10.2) mg/dL Magnesium (1.6-2.3) mg/dL Total Bilirubin (0.2-1.3) mg/dL AST (14-36) U/L ALT (9-52) U/L Alkaline Phosphatase (38-126) U/L Total Creatine Kinase (30-135) U/L CK-MB (CK-2) (0.0-2.4) ng/mL CK-MB (CK-2) Rel Index Troponin I (0.000-0.034) ng/mL NT-Pro-B Natriuret Pep 1990 pg/mL Total Protein (6.3-8.2) g/dL Albumin (3.5-5.0) g/dL - EKG Data -: EKG Interpreted by Me (Atrial fibrillation rate 66 QRS 134 QT since QTC/427 left exodeviation left) - Radiology Data Radiology results: report reviewed (I did review the imaging and report and did discuss the findings with radiologist. Patient does have evidence of a hydropneumothorax on the right approximately 5-10%. Push some infiltrate on the left), image reviewed Disposition Clinical Impression: COPD with exacerbation, Hydropneumothorax, Leukocytosis Disposition: ADMITTED IP TO THIS [facility] Condition: Stable Referrals: Adiel Dennison MD [Primary Care Provider] - 1-2 days
[2018-04-28 10:34] LABS: Basophils # (A) 0.1 k/uL (0-0.2); Basophils % (A) 1 %; Eosinophils # (A) 0.1 k/uL (0-0.7); Eosinophils % (A) 0 %; HCT 34.8 % (34.0-46.0); HGB 10.7 gm/dL (11.4-16.0); Hypochromasia Moderate; Lymphocytes # (A) 0.8 k/uL (1.0-4.8); Lymphocytes % (A) 5 %; MCH 28.6 pg (25.0-35.0); MCHC 30.8 g/dL (31.0-37.0); MCV 92.9 fL (80.0-100.0); Mean Platelet Volume 6.8; Monocytes # (A) 0.7 k/uL (0-1.0); Monocytes % (A) 4 %; Neutrophils # (A) 14.6 k/uL (1.3-7.7); Neutrophils % (A) 89 %; Platelet Count 372 k/uL (150-450); RBC 3.75 m/uL (3.80-5.40); RDW 15.7 % (11.5-15.5); WBC 16.3 k/uL (3.8-10.6)
[2018-04-28 10:45] LABS: Albumin 3.4 g/dL (3.5-5.0); Calcium 8.4 mg/dL (8.4-10.2); Magnesium 2.5 mg/dL (1.6-2.3); Potassium 5.8 mmol/L (3.5-5.1); Total Bilirubin 0.7 mg/dL (0.2-1.3); Total Protein 6.7 g/dL (6.3-8.2)
[2018-04-28 10:48] LABS: Partial Thromboplastin Time 30.2 sec (22.0-30.0); Prothrombin Time 26.7 sec (9.0-12.0)
--- NOTE | 2018-04-28 10:51 | XR ---
"EXAMINATION TYPE: XR chest 2V DATE OF EXAM: 04/28/2018 COMPARISON: Chest x-ray September 12, 2016. CT chest May 16, 2015. HISTORY: History of COPD with shortness of breath TECHNIQUE: Frontal and lateral views of the chest are obtained. FINDINGS: There is calcified 1.7 cm nodule or granuloma superior aspect left lower lobe fat is redem onstrated. There is right greater than left bibasilar opacity felt to reflect small to borderline mod erate size right pleural fluid collection, there is small air component in the right lateral base or pneumothorax with focal round opacity favoring compressive atelectasis. There is more patchy left bas ilar atelectasis and/or infiltrate felt present. The cardiac silhouette size remains within normal li mits. The osseous structures are demineralized. IMPRESSION: New small right basilar hydropneumothorax with associated right basilar atelectasis and/ or infiltrate. Patchy left basilar atelectasis and/or infiltrate is present. Findings of right-sided pneumothorax communicated to ordering ER doctor via telephone at time of dict ation. A Document Only message has been documented for Blake Greer MD in the [employer] | Critical Re sult system on 04/28/2018 10:49 AM, Message ID [id number]."
[2018-04-28 10:57] LABS: Creatine Kinase <20 U/L (30-135)
[2018-04-28 11:10] LABS: Creatine Kinase MB 0.5 ng/mL (0.0-2.4); Troponin I 0.016 ng/mL (0.000-0.034)
[2018-04-28] MEDS ORDERED: PIPERACILLIN-TAZOBACTAM 3.375 GM in DEXTROSE/WATER 1 50ML.BAG IVPB STA (12:29)
--- NOTE | 2018-04-28 13:08 | CT ---
EXAMINATION TYPE: CT chest wo con DATE OF EXAM: 04/28/2018 COMPARISON: May 16, 2015 HISTORY: Fluid on lungs CT DLP: [address] of the chest was performed with lung and mediastinal window settings submitted. The la ck of contrast limits evaluation of the vascular, mediastinal and parenchymal structures including th e upper abdomen. LUNGS: Large calcified nodule seen superior segment left lower lobe is unchanged. Right-sided pleural effusion measures 19.6 cm craniocaudal dimension by 4.7 cm AP dimension. Right-sided pneumothorax id entified with hydropneumothorax component. Pneumothorax is estimated at 15-20% and is greatest at the right lung base with small apical component. Scattered areas of subpleural fibrosis. MEDIASTINUM/IVANA: Thoracic aorta is of normal caliber with limited evaluation given lack of contrast . The heart is not enlarged. No evidence for mediastinal mass. No lymph nodes greater than 1cm. UPPER ABDOMEN: No significant abnormality is seen. OTHER: No significant other abnormality. IMPRESSION: 1. Right-sided hydropneumothorax estimated at 15-20%. 2. Right-sided pleural effusion.
[2018-04-28] MEDS: INSULIN ASPART 100 UNIT/ML 1 ML 10 ML VIAL SQ SCH ×3 (14:15→21:03)
[2018-04-28 14:23] LABS: Glucose,Whole Blood 231 mg/dL (75-99)
[2018-04-28] MEDS: IPRATROPIUM-ALBUTEROL 3 ML NEB INHALATION SCH ×2 (15:40→22:13)
[2018-04-28] MEDS: SODIUM CHLORIDE 0.9% 1,000 ML IV SCH (15:52)
[2018-04-28 17:40] LABS: Glucose,Whole Blood 248 mg/dL (75-99)
[2018-04-28] MEDS ORDERED: WARFARIN 1.25 MG TAB PO SCH (18:00)
[2018-04-28] MEDS ORDERED: methylPREDNISolone SOD SUCCI 125 MG/2 ML VIAL IV SCH (18:00)
[2018-04-28] MEDS: REPAGLINIDE 1 MG TAB PO SCH (18:34)
[2018-04-28] MEDS: metFORMIN 500 MG TAB PO SCH (18:35)
[2018-04-28 19:06] LABS: Potassium 5.3 mmol/L (3.5-5.1)
[2018-04-28] MEDS: METOPROLOL TARTRATE 50 MG TAB PO SCH (20:18)
[2018-04-28] MEDS ORDERED: NON-FORMULARY DRUG (Glucosamine/Chondr Su A Sod [Osteo Bi-Flex Caplet] 1 TAB) PO SCH (21:00)
[2018-04-28 21:01] LABS: Glucose,Whole Blood 275 mg/dL (75-99)
--- NOTE | 2018-04-29 07:10 | HP ---
HISTORY AND PHYSICAL DATE OF ADMISSION: 04/28/2018. DATE OF SERVICE: 04/28/2018. CHIEF COMPLAINT: Shortness of breath with activity. HISTORY OF PRESENT ILLNESS: This is an 88-year-old female who was brought in the emergency room by the spouse because she was having some dyspnea on exertion with usual activity. At rest, she was feeling fairly well. The patient does have a history of chronic atrial fibrillation, chronic COPD, and chronic congestive cardiac failure. The patient has been actually doing fairly well without any symptoms suggestive of any infection or decompensation of congestive cardiac failure. The patient evaluated in the emergency room with a chest x- ray which revealed a hydropneumothorax on the right side. A CAT scan of the chest was done without contrast, which revealed the patient has about 20% pneumothorax on the right side with hydrothorax. The patient denies any chest pain, any trauma. She is admitted to the hospital in view of this. At the time of evaluation, the patient is in no distress, actually eating her dinner. She does have a history of chronic respiratory failure and uses oxygen on a continuous basis. She does use updrafts at home. She has had no recent episodes of severe coughing. Has had no previous episodes of pneumothorax. No history of any malignancy. She does have a calcified round nodule in the lung on the left side, which has been stable. The patient is on anticoagulation. PAST MEDICAL HISTORY: Past medical history is significant for hypertension for the past 12 years, history of diabetes mellitus for the past about 12 years, history of chronic atrial fibrillation, rate controlled with medication and on anticoagulation with no unusual bleeding. She does have a history of COPD. No history of any other lung disease or liver disease, kidney disease, ulcers, TB, hepatitis. No history of any rheumatic fever, myocardial infarction, CVA. PAST SURGICAL HISTORY: Past surgical history is significant for tonsillectomy. She had 2 previous pregnancies. She had a colonoscopy about 5 years ago. PERSONAL HISTORY: Patient is an ex-smoker, quit smoking in 1968. She smoked 3/4 of a pack per day for about 35 years. Alcohol occasional. VACCINATION HISTORY: Pneumovax about 6 years ago and has been vaccinated for shingles. Does get annual flu vaccine. ALLERGIES: None known. SOCIAL HISTORY: Patient is , lives with her spouse. FAMILY MEDICAL HISTORY: Father at age of 49. He had history of CVA. Mother at the age of 87, had coronary artery disease. A brother at the age of 79, coronary artery disease. Patient has a son 59 and son 56, both in good health. MEDICATIONS: Medications include: 1. Coumadin 2.5 mg Wednesday, Wednesday, Wednesday and 1.25 mg the other 4 days of the week. 2. Magnesium 400 mg daily. 3. Digoxin 125 mcg every other day. 4. Lasix 20 mg daily. 5. Prandin 0.5 mg a.c. b.i.d. 6. Atacand 16 mg daily. 7. Simvastatin 20 mg every other day. 8. Metformin 500 mg b.i.d. 9. Metoprolol tartrate 100 mg b.i.d. 10.She does take glucosamine. REVIEW OF SYSTEMS: NEURO: Denies any headaches, dizziness. No double vision, blurred vision. No symptoms of TIA, syncope, seizures. PSYCH: No anxiety, depression. CARDIAC: Denies chest pain, angina, palpitation. RESPIRATORY: Denies shortness of breath. Does have dyspnea with minimal activity such as walking to the bathroom. Does have mild chronic cough with no significant sputum production. GI: No nausea, vomiting, abdominal pain, diarrhea, constipation, hematochezia, melena. : No symptoms of dysuria, hematuria, urgency. Does have some frequency. EXTREMITIES: Denies pain. Does have mild chronic edema for which she takes Lasix, inadequately controlled. MUSCULOSKELETAL: Some chronic arthritic pain. CONSTITUTIONAL: No fever or chills. HEMATOLOGICAL: No anemia or bleeding disorder. ENDOCRINE: History of diabetes mellitus, well controlled. SKIN: No rashes. EYES: Adequate vision. EARS: Adequate hearing. PHYSICAL EXAMINATION: Pleasant female at present. No distress. Vital signs reveal temperature 99, pulse 88, respirations 18, blood pressure 103/70, pulse ox 95% on room air. HEENT: Normocephalic. Neck no JVD. Pupils are reactive. Oral cavity is moist. Neck reveals no JVD, carotid bruits or thyromegaly. Decreased range of motion of the neck. CHEST EXAMINATION: Equal percussion note bilaterally with some dullness on percussion on the right base. CARDIAC: Distant heart sounds S1, S2 with no gallops. Lungs reveal generalized decreased air flow. No rhonchi or wheezing appreciated. CARDIAC: Normal S1, S2 with no gallops, murmurs. ABDOMEN: Soft. Bowel sounds present. Extremities reveal no edema. NEUROLOGICALLY: Awake, alert, oriented x3 with well-coordinated movements. LABORATORY ASSESSMENT: Laboratory assessment was as mentioned above with chest x-ray which reveals pulmonary nodule left lung, stable, right hydropneumothorax. White count 16.3, hemoglobin 10.7. INR 3.0. Sodium 139, potassium 5.8, chloride 103, CO2 content 23, BUN 39, creatinine 1.42. Glucose was 330 at the time of admission in the ER. Repeat electrolytes reveal potassium 5.3. Magnesium was 2.5. Troponin 0.016. BNP 1990. Albumin 3.4. ASSESSMENT: 1. Right pneumothorax and pleural effusion. 2. Chronic obstructive pulmonary disease. 3. Chronic atrial fibrillation. 4. Anticoagulated status. 5. Hyperkalemia. 6. Chronic kidney disease, stage 3. PLAN: Continue present regimen with updrafts, oxygen. Pulmonary consult. Follow up chest x- rays. The patient at present does not seem to require a chest tube, but we will closely keep an eye on the patient's pneumothorax. Suspect the patient may have ruptured a bleb. The patient's condition discussed with the patient. Prognosis guarded. The patient's blood sugars are elevated. The patient does not need to be on steroids. We will discontinue that. Prognosis guarded. Will hold the Coumadin at present. MMODL / IJN: [id number] /
[2018-04-29 07:33] LABS: Glucose,Whole Blood 177 mg/dL (75-99)
[2018-04-29] MEDS ORDERED: FUROSEMIDE 20 MG TAB PO SCH (09:00)
[2018-04-29] MEDS: IPRATROPIUM-ALBUTEROL 3 ML NEB INHALATION SCH ×4 (09:08→20:11)
[2018-04-29] MEDS: REPAGLINIDE 1 MG TAB PO SCH ×2 (09:27→18:10)
[2018-04-29] MEDS: INSULIN ASPART 100 UNIT/ML 1 ML 10 ML VIAL SQ SCH ×4 (09:27→22:23)
[2018-04-29] MEDS: ATORVASTATIN 10 MG TAB PO SCH (09:28)
[2018-04-29] MEDS: metFORMIN 500 MG TAB PO SCH ×2 (09:28→18:10)
[2018-04-29] MEDS: MAGNESIUM OXIDE 400 MG TAB PO SCH (09:28)
[2018-04-29] MEDS: DIGOXIN 125 MCG TAB PO SCH (09:28)
[2018-04-29] MEDS: METOPROLOL TARTRATE 50 MG TAB PO SCH ×2 (09:28→22:07)
[2018-04-29 10:07] LABS: Calcium 8.9 mg/dL (8.4-10.2); Digoxin 0.5 ng/mL; Potassium 4.9 mmol/L (3.5-5.1)
[2018-04-29] MEDS: LOSARTAN 50 MG TAB PO SCH (10:50)
[2018-04-29] MEDS: FUROSEMIDE 10 MG/ML 2 ML VIAL IV SCH (10:53)
--- NOTE | 2018-04-29 11:07 | XR ---
EXAMINATION TYPE: XR chest 2V DATE OF EXAM: 04/29/2018 COMPARISON: 04/28/2018 HISTORY: Follow-up pneumothorax TECHNIQUE: Frontal and lateral views of the chest are obtained. FINDINGS: Right basilar hydropneumothorax is present. Overall no interval progression noted. Stable left upper lobe nodule. No evidence for infiltrate. No evidence for atelectasis. Heart size is stable. Mediastinal structures are stable and grossly unremarkable. No evidence for hilar prominence. Degenerative changes dorsal spine. IMPRESSION: 1. Right basilar hydropneumothorax is present. Overall no interval progression noted.
[2018-04-29 12:07] LABS: Glucose,Whole Blood 120 mg/dL (75-99)
[2018-04-29] MEDS: SODIUM CHLORIDE 0.9% 1,000 ML IV SCH (13:49)
[2018-04-29 14:09] VITALS: BMI 27.3
[2018-04-29 17:42] LABS: Glucose,Whole Blood 129 mg/dL (75-99)
[2018-04-29] MEDS ORDERED: WARFARIN 2 MG TAB PO SCH (18:00)
--- NOTE | 2018-04-29 18:19 | CONS ---
CONSULTATION Luba Cah is an 88-year-old female who is well known to me with a history of COPD. She in fact had been recently undergoing pulmonary rehab in our office. She comes into the ER at [facility] yesterday. I was only asked to see this patient about an hour, hour and a half ago. This patient comes into the ER with shortness of breath on exertion as noticed by her . Her thought that she was not looking right and brought her in for further evaluation. When she came into the ER, she was found to have a right-sided hydropneumothorax on CT scan as well as x-ray and was admitted for further evaluation. She denied any recent fever or chills but had a cough with some whitish sputum production. She denied any injury to her right chest. PAST MEDICAL HISTORY: Positive for atrial fibrillation, for which she is on anticoagulation with Coumadin as well. History of COPD, history of congestive heart failure with recent pulmonary edema and previous CT scan of the chest showing evidence of bilateral pleural effusions, more on the right than the left, that have subsequently resolved on the left. The patient also has a history of a lung nodule 1.8 cm in the left lower lobe which was PET-scan negative. There had been previously masslike consolidation of the left lower lobe which had resolved as well on a previous CT and PET in 2017. FAMILY HISTORY: Positive for heart disease in her mother, CVA in her father. SOCIAL HISTORY: Patient used to smoke cigarettes, quit at age 51. She does not drink alcohol excessively, but drinks occasionally. MEDICATIONS PRIOR TO ADMISSION: 1. Warfarin. 2. Magnesium oxide. 3. Digoxin. 4. Lasix. 5. Prandin. 6. Atacand. 7. Zocor. 8. Glucophage. 9. Lopressor. 10.Glucosamine. 11.Budesonide 0.5 mg by aerosol twice a day. 12.DuoNeb, which is albuterol with Atrovent, 4 times a day as needed. REVIEW OF SYSTEMS: Noncontributory. PHYSICAL EXAMINATION: Patient was lying in bed. She seemed slightly short of breath. She had no jugular venous distention. Pupils were equal. Chest revealed decreased breath sounds on the right in the base with dullness to percussion in the base but anteriorly resonant. Left side revealed an occasional wheeze. Cardiovascular system was in S1, S2. No S3. No S4. Short systolic murmur was heard. ABDOMEN: Soft. There was no pedal edema. LABS: Sodium 140, potassium 4.9, chloride 106, bicarb 25, BUN 51, creatinine 1.49, glucose of 163, calcium 8.9. Digoxin 0.5. CT scan of the chest and chest x-ray were personally reviewed by me which showed evidence of a right-sided pneumothorax with pleural effusion, some small mediastinal shift at the lower cuts towards the left. There is a left lower lobe calcified lung nodule. Chest x-ray from 04/29/2018 was also reviewed and compared to the previous chest x-ray and continues to show the same findings. IMPRESSION AT THIS TIME: 1. Right-sided pneumothorax with possible hemothorax, as the patient is on Coumadin. 2. Pleural effusion which may be related to patient's history of congestive heart failure. 3. Hyperkalemia. 4. Uncontrolled diabetes mellitus. 5. History of atrial fibrillation. 6. Mild anemia with a hemoglobin of 10.7, which may be in part due to hemothorax. 7. Elevated white blood cell count, etiology of which is unclear. At this point in time, we would place the patient on 100% non-rebreather in the hope of resolving the nitrogen in the pneumothorax area. Would have Cardiothoracic Surgery further evaluate the patient. If her pneumothorax does not improve and the lung appears to be trapped, she may require further intervention, not limited to chest tube, but may need video-assisted thoracoscopic surgery. 1. Chronic obstructive pulmonary disease with FEV1 at 1.05 L; that is 65% of predicted. Would hold off on any antibiotics on her, as doubt she has an infection, and would add inhaled steroids and Singulair to her regimen. Continue her on bronchodilators as well. Her prognosis at this time is guarded. She and her were counseled regarding this condition and our approach. MMODL / IJN: [id number] /
[2018-04-29] MEDS: BUDESONIDE 0.5 MG/2 ML NEBU INHALATION SCH (20:11)
[2018-04-29 21:57] LABS: Glucose,Whole Blood 141 mg/dL (75-99)
[2018-04-29] MEDS: FAMOTIDINE 20 MG TAB PO SCH (22:16)
[2018-04-29] MEDS: MONTELUKAST 10 MG TAB PO SCH (22:16)
--- NOTE | 2018-04-29 23:40 | PN ---
PROGRESS NOTE ATTENDING PHYSICIAN: Dr. David Dennison. CHIEF COMPLAINT: Re-evaluation. HISTORY OF PRESENT ILLNESS: This is an 88-year-old who was admitted to the hospital with some dyspnea on exertion. No associated fever, chills, cough, congestion. The patient had no chest pain. Denies any trauma. The patient noted to have a 10%-20% hydropneumothorax on the right side. REVIEW OF SYSTEMS: NEURO: Denies any headaches, dizziness. PSYCH: No anxiety. CARDIAC: No chest pain, angina, palpitation. RESPIRATORY: Denies shortness of breath, cough. GI: No nausea, vomiting, abdominal pain, diarrhea. : No symptoms of dysuria, hematuria. EXTREMITIES: Denies pain, edema. CONSTITUTIONAL: No fever, chills. The patient reports that she has actually been up to the bathroom without any difficulty or shortness of breath, which is a significant improvement from when she had was at home. LABORATORY ASSESSMENT: With a chest x-ray, which is stable reveals again 10%-20% pneumothorax with no progression. Electrolytes are normal. BUN 51, creatinine 1.49 and GFR 32. Sugar 163. ASSESSMENT: 1. Right hemopneumothorax with unclear etiology. 2. History of chronic obstructive pulmonary disease. 3. Chronic kidney disease stage 3. 4. Hypertension. The patient will be re-evaluated by the storm door maker. 5. Diabetes mellitus, adequately controlled. PLAN: The patient is in stable condition. Continue present medical regimen if tolerated. Patient's condition discussed with the patient. Prognosis guarded. Please note, no evidence and there is no suggestion of cholecystitis. MMODL / IJN: [id number] /
--- NOTE | 2018-04-30 06:57 | XR ---
EXAMINATION TYPE: XR chest 2V DATE OF EXAM: 04/30/2018 HISTORY: rt pneumothorax. REFERENCE: Previous study dated 04/29/2018. FINDINGS: The lungs are overinflated. There is a stable left upper lobe pulmonary mass. The patient's right-sided hydropneumothorax has improved. There is a minimal residual air-fluid level. There is so me residual pleural fluid. Heart size is obscured. IMPRESSION: 1. IMPROVING RIGHT-SIDED HYDROPNEUMOTHORAX. 2. RIGHT-SIDED EFFUSION. 3. LEFT-SIDED PULMONARY MASS. 4. UNDERLYING COPD.
[2018-04-30] MEDS: BUDESONIDE 0.5 MG/2 ML NEBU INHALATION SCH ×2 (07:22→19:16)
[2018-04-30] MEDS: IPRATROPIUM-ALBUTEROL 3 ML NEB INHALATION SCH ×4 (07:22→19:16)
[2018-04-30 07:42] LABS: HCT 29.2 % (34.0-46.0); HGB 9.3 gm/dL (11.4-16.0); Hypochromasia Slight; MCH 29.3 pg (25.0-35.0); MCV 91.4 fL (80.0-100.0); Platelet Count 264 k/uL (150-450); RBC 3.19 m/uL (3.80-5.40); RDW 15.5 % (11.5-15.5); WBC 8.9 k/uL (3.8-10.6)
[2018-04-30] MEDS: INSULIN ASPART 100 UNIT/ML 1 ML 10 ML VIAL SQ SCH ×4 (07:59→21:10)
[2018-04-30 08:02] LABS: Glucose,Whole Blood 108 mg/dL (75-99)
[2018-04-30] MEDS: REPAGLINIDE 1 MG TAB PO SCH ×2 (09:58→18:03)
[2018-04-30] MEDS: LOSARTAN 50 MG TAB PO SCH (09:59)
[2018-04-30] MEDS: FAMOTIDINE 20 MG TAB PO SCH ×2 (09:59→20:54)
[2018-04-30] MEDS: metFORMIN 500 MG TAB PO SCH ×2 (09:59→18:04)
[2018-04-30] MEDS: MAGNESIUM OXIDE 400 MG TAB PO SCH (09:59)
[2018-04-30] MEDS: METOPROLOL TARTRATE 50 MG TAB PO SCH ×2 (09:59→23:54)
[2018-04-30] MEDS: FUROSEMIDE 10 MG/ML 2 ML VIAL IV SCH (10:03)
--- NOTE | 2018-04-30 11:28 | P.GSCN ---
History of Present Illness Consult date: 04/30/18 Reason for Consult: Right-sided hydropneumothorax. Requesting physician: Adiel Dennison History of present illness: This is an 88-year-old female patient who is followed by Dr. Adiel Dennison on an outpatient basis. She has a past medical history significant for chronic atrial fibrillation on home Coumadin therapy, chronic COPD, chronic congestive heart failure, type 2 diabetes mellitus, hyperlipidemia, hypertension, history of pneumonia in 2017, history of cataracts, and a remote history of nicotine dependence she quit in 1968. On , 04/28/2018 while at home her noticed that the patient looked pale, had increase in her cough and progressive shortness of breath. Subsequently she presented to the emergency department here at [facility] with the above mentioned symptoms. She denies any fever, nausea, vomiting, dizziness, or pain. She does report that her cough was productive with yellow thick sputum. She denies any home oxygen use, although reports she does use nebulizer treatments at home. Subsequently while in the emergency department a chest x-ray was completed which showed findings of a right-sided hydropneumothorax and a calcified 1.7 cm nodule granuloma to her left upper lobe. For further evaluation a computed tomography scan of her chest was completed which demonstrated a right-sided hydropneumothorax estimated at 15-20%, right sided pleural effusion and a large calcified nodule to her left upper lobe. A 12-lead EKG was also completed which showed her to be in atrial fibrillation with left bundle branch block and a heart rate of 66. Subsequently due to the patient's symptoms, chest x-ray and CT scan results the patient was admitted for further evaluation and treatment. Dr. Curiel from cardiothoracic surgery was subsequently consulted for further treatment recommendations. Review of Systems A 14 point review of systems was completed and was negative except as mentioned in the HPI. Past Medical History Past Medical History: Atrial Fibrillation, COPD, Diabetes Mellitus, Hyperlipidemia, Hypertension Additional Past Medical History / Comment(s): NIDDM type II. History of Any Multi-Drug Resistant Organisms: None Reported Past Surgical History: Ear Surgery, Tonsillectomy Additional Past Surgical History / Comment(s): Several colonoscopies-normal Past Anesthesia/Blood Transfusion Reactions: No Reported Reaction Additional Past Anesthesia/Blood Transfusion Reaction / Comm: Pt has clausterphobia r/t elevators Past Psychological History: No Psychological Hx Reported Smoking Status: Former smoker (Quit smoking in 1968.) Past Alcohol Use History: Rare Past Drug Use History: None Reported - Past Family History Father Additional Family Medical History / Comment(s): Father at the age of 49 yrs from a brain aneurysm. Mother Family Medical History: No Reported History Additional Family Medical History / Comment(s): Mother lived to be 87yrs old. Medications and Allergies Home Medications Medication Instructions Recorded Confirmed Type Candesartan [Atacand] 16 mg PO DAILY 09/08/16 04/28/18 History Digoxin [Digitek] 125 mcg PO Q48H 09/08/16 04/28/18 History Glucosamine/Chondr Ye A Sod [Osteo 1 tab PO BID 09/08/16 04/28/18 History Bi-Flex Caplet] Simvastatin [Zocor] 20 mg PO Q48H 09/08/16 04/28/18 History Warfarin Sodium [Coumadin] 1.25 mg PO SUTUTHSA 09/08/16 04/28/18 History metFORMIN HCL [Glucophage] 500 mg PO BID 09/08/16 04/28/18 History Metoprolol Tartrate [Lopressor] 100 mg PO BID tab 09/14/16 04/28/18 Rx Furosemide [Lasix] 20 mg PO DAILY 04/28/18 04/28/18 History Magnesium Oxide [Magox 400] 400 mg PO DAILY 04/28/18 04/28/18 History Repaglinide [Prandin] 0.5 mg PO AC-BID 04/28/18 04/28/18 History Warfarin [Coumadin] 2.5 mg PO MOWEFR 04/28/18 04/28/18 History Allergies Allergy/AdvReac Type Severity Reaction Status Date / Time No Known Allergies Allergy Verified 04/28/18 09:51 Surgical - Exam Vital Signs Temp Pulse Resp BP Pulse Ox 98.6 F 79 20 98/46 92 L 04/28/18 09:50 04/28/18 09:50 04/28/18 09:50 04/28/18 09:50 04/28/18 09:50 - General well developed, well nourished, no distress, no pain - Eyes PERRL, normal ocular movement - ENT normal pinna, normal nares, normal mucosa, no hearing loss, no congestion, dentures (Dentures to her lowers.) - Neck Neck is supple, no lymphadenopathy. no masses, no bruits, trachea midline, no venous distension - Respiratory Lung sounds with expiratory wheezes throughout, diminished bilateral bases right greater than her left. Respirations are symmetrical and non-labored. Oxygen saturation are 100% on a 15 L nonrebreather mask. - Cardiovascular Irregular rhythm with controlled rate. S1 and S2 present, negative for S3, gallop or murmur. No edema present. Sequential compression devices in place to bilateral lower extremities. - Abdomen Abdomen is soft, nontender and nondistended. Active bowel sounds to all 4 abdominal quadrants. No organomegaly. No guarding or rigidity. - Genitourinary Deferred - Rectum Deferred - Integumentary no rash, no growths, no abnormal pigmentation - Neurologic normal coordination, normal sensation - Musculoskeletal normal gait, normal posture - Psychiatric oriented to time, oriented to person, oriented to place, speech is normal, memory intact Results - Labs 04/30/18 06:56 04/29/18 07:53 Abnormal Lab Results - Last 24 Hours (Table) 04/29/18 04/29/18 04/29/18 Range/Units 11:55 17:25 21:31 RBC (3.80-5.40) m/uL Hgb (11.4-16.0) gm/dL Hct (34.0-46.0) % POC Glucose (mg/dL) 120 H 129 H 141 H (75-99) mg/dL 04/30/18 04/30/18 Range/Units 06:56 07:48 RBC 3.19 L (3.80-5.40) m/uL Hgb 9.3 L (11.4-16.0) gm/dL Hct 29.2 L (34.0-46.0) % POC Glucose (mg/dL) 108 H (75-99) mg/dL - Imaging Chest x-ray: report reviewed, image reviewed CT scan - chest: report reviewed, image reviewed EKG: image reviewed Assessment and Plan (1) COPD with exacerbation Current Visit: Yes Status: Acute Code(s): J44.1 - CHRONIC OBSTRUCTIVE PULMONARY DISEASE W (ACUTE) EXACERBATION SNOMED Code(s): 284462324 (2) Hydropneumothorax Current Visit: Yes Status: Acute Code(s): J94.8 - OTHER SPECIFIED PLEURAL CONDITIONS SNOMED Code(s): 97541199 (3) Diabetes mellitus type 2 in obese Current Visit: Yes Status: Acute Code(s): E11.69 - TYPE 2 DIABETES MELLITUS WITH OTHER SPECIFIED COMPLICATION; E66.9 - OBESITY, UNSPECIFIED SNOMED Code(s) : 19165865 (4) Chronic atrial fibrillation Current Visit: Yes Status: Acute Code(s): I48.2 - CHRONIC ATRIAL FIBRILLATION SNOMED Code(s): 344287141 (5) History of Coumadin therapy Current Visit: Yes Status: Acute Code(s): Z92.29 - PERSONAL HISTORY OF OTHER DRUG THERAPY SNOMED Code(s): 713426454 (6) Hyperlipidemia Current Visit: Yes Status: Acute Code(s): E78.5 - HYPERLIPIDEMIA, UNSPECIFIED SNOMED Code(s): 56599517 Plan: The patient was seen and examined. Her chart and diagnostics were reviewed. Her case was discussed with Dr. Curiel from cardiothoracic surgery. This time we will order a incentive spirometry to be used every hour while awake. Patient may need a right thoracentesis. Continue medical management per Dr. Dennison's recommendations. Pulmonary management and oxygen management per Dr. EMILY Salcedo. GI and DVT prophylaxis. We will continue to monitor her chest x-ray results. More recommendations to follow based on patient's clinical course. Thank you Dr. Dennison for this consult and we look forward to working with you in the care of your patient. Time with Patient: Greater than 30
[2018-04-30 12:00] LABS: Glucose,Whole Blood 187 mg/dL (75-99)
[2018-04-30] MEDS: SODIUM CHLORIDE 0.9% 1,000 ML IV SCH (12:13)
--- NOTE | 2018-04-30 16:02 | PN ---
PROGRESS NOTE She was seen on 04/30/2018. She is less short of breath, sitting comfortably in bed. On physical examination, her vitals are stable. She is afebrile. Her chest reveals decreased breath sounds on the right. Cardiovascular system reveals S1, S2. Abdomen is soft. There is trace pedal edema. LABS: Labs are reviewed. Hemoglobin is 9.3. Chest x-ray shows significant improvement in the right-sided hydropneumothorax. IMPRESSION AT THIS TIME: 1. Right-sided pneumothorax with possible hemothorax versus hydropneumothorax. 2. Anemia, which may in part be due to bleeding. 3. Medical debility. 4. Chronic obstructive pulmonary disease. At this point in time, continue using the 100% non-rebreather. There seems to be some improvement in her pneumothorax. Hopefully the oxygen will help the to be resolved from the pocket. We will follow her closely and anticipate possible discharge tomorrow if she continues to improve. MMODL / IJN: [id number] /
[2018-04-30 17:24] LABS: Glucose,Whole Blood 161 mg/dL (75-99)
[2018-04-30 20:45] LABS: Glucose,Whole Blood 120 mg/dL (75-99)
[2018-04-30] MEDS: MONTELUKAST 10 MG TAB PO SCH (20:54)
--- NOTE | 2018-04-30 23:20 | PN ---
PROGRESS NOTE ATTENDING PHYSICIAN: Dr. David Dennison. CHIEF COMPLAINT: Re-evaluation. HISTORY OF PRESENT ILLNESS: This 88-year-old female was admitted to the hospital with dyspnea on exertion. She has underlying history of COPD. The patient's chest x-ray suggested hydropneumothorax on the right side. The patient basically has no symptoms from that. She denies any chest pain, cough. She does have shortness of breath which is chronic. GI: No nausea, vomiting. REVIEW OF SYSTEMS: NEURO: Denies any headaches, dizziness. PSYCH: No anxiety. CARDIAC: No chest pain, angina, palpitations. RESPIRATORY: Denies shortness of breath, cough. GI: No nausea, vomiting, abdominal pain, diarrhea. : No symptoms of dysuria, hematuria. EXTREMITIES: No pain. CONSTITUTIONAL: No fever, chills. PHYSICAL EXAMINATION: Pleasant female in no distress. Vital signs reveal temperature 97.2, pulse 50, respirations 18, blood pressure 107/62, pulse ox of 100% on 15L non-rebreather. HEENT: Normocephalic. NECK: Decreased range of motion. No JVD. CHEST: Clear to auscultation with mild generalized decreased air flow on percussion, not symmetrical bilaterally. CARDIAC: Sounds S1, S2 with no gallop. Systolic murmur 2/6 left sternal border. ABDOMEN: Soft. Bowel sounds present. Extremities reveal no edema. Neurologically, awake, alert, oriented with well-coordinated movements. LABORATORY ASSESSMENT: Chest x-ray which revealed some improvement. Blood sugars adequately controlled. ASSESSMENT: 1. Right pneumohydrothorax. 2. Chronic obstructive pulmonary disease. 3. Diabetes mellitus. 4. Hypertension. PLAN: The patient at present is stable. Continue present medical regimen. Patient's condition discussed with the patient in the occupational psychologist. Noted thoracic surgeon's evaluation. Will continue present medical regimen. Patient potential discharge home tomorrow if x-ray remains stable. MMODL / IJN: [id number] /
--- NOTE | 2018-05-01 07:31 | XR ---
EXAMINATION TYPE: XR chest 2V DATE OF EXAM: 05/01/2018 HISTORY: rt pneumothorax. REFERENCE: Previous study dated 04/30/2018. FINDINGS: No definite pneumothorax is seen at this time. There is right basilar airspace disease with a concomitant effusion. There is a stable left upper lobe pulmonary mass. There is underlying COPD. The heart is not enlarged. IMPRESSION: I CAN NO LONGER RECOGNIZE A RIGHT-SIDED PNEUMOTHORAX.
[2018-05-01 07:39] VITALS: BP 140/61; RESP 16; TEMP 98.2
[2018-05-01] MEDS: BUDESONIDE 0.5 MG/2 ML NEBU INHALATION SCH (07:40)
[2018-05-01] MEDS: IPRATROPIUM-ALBUTEROL 3 ML NEB INHALATION SCH (07:40)
[2018-05-01 07:44] VITALS: PULSE 72
[2018-05-01 07:45] LABS: Glucose,Whole Blood 115 mg/dL (75-99)
[2018-05-01] MEDS: INSULIN ASPART 100 UNIT/ML 1 ML 10 ML VIAL SQ SCH (07:47)
[2018-05-01] MEDS: REPAGLINIDE 1 MG TAB PO SCH (07:52)
[2018-05-01] MEDS: FAMOTIDINE 20 MG TAB PO SCH (07:55)
[2018-05-01] MEDS: metFORMIN 500 MG TAB PO SCH (07:55)
[2018-05-01] MEDS: FUROSEMIDE 10 MG/ML 2 ML VIAL IV SCH (07:55)
[2018-05-01] MEDS: DIGOXIN 125 MCG TAB PO SCH (07:56)
[2018-05-01] MEDS: ATORVASTATIN 10 MG TAB PO SCH (07:56)
[2018-05-01] MEDS: METOPROLOL TARTRATE 50 MG TAB PO SCH (07:56)
[2018-05-01] MEDS: MAGNESIUM OXIDE 400 MG TAB PO SCH (07:56)
[2018-05-01] MEDS: LOSARTAN 50 MG TAB PO SCH (07:56)
[2018-05-01 08:17] LABS: HGB 9.5 gm/dL (11.4-16.0); Hypochromasia Slight; MCH 28.8 pg (25.0-35.0); MCHC 31.8 g/dL (31.0-37.0); MCV 90.6 fL (80.0-100.0); Platelet Count 250 k/uL (150-450); RBC 3.31 m/uL (3.80-5.40); RDW 15.5 % (11.5-15.5); WBC 6.8 k/uL (3.8-10.6)
[2018-05-01 08:21] LABS: INR 1.8 (<1.2); Prothrombin Time 16.2 sec (9.0-12.0)
[2018-05-01 09:20] LABS: Calcium 8.6 mg/dL (8.4-10.2)
--- NOTE | 2018-05-01 13:24 | PN ---
PROGRESS NOTE DATE OF SERVICE: 05/01/2018. She has been hemodynamically stable overnight. She is back to baseline as far as shortness of breath. PHYSICAL EXAMINATION: On physical examination, blood pressure 140/61, respiratory rate of 16, pulse rate 71, temperature 98.2, O2 saturation is 100% on a non-rebreather. HEENT was non-rebreather mask in place. Chest reveals diminished breath sounds on the right, but fair air entry. Left is relatively clear. Cardiovascular system reveals an S1, S2. ABDOMEN: Soft. There is trace pedal edema. LABS: Reveals a hemoglobin of 9.5, PT/INR 1.8. Chest x-ray done this morning shows resolution of right-sided pneumothorax. There seems to be atelectasis and/or effusion in the right lower zone. IMPRESSION: Spontaneous right-sided pneumothorax with possible hemothorax versus hydro thorax which the patient has improved with conservative care. Agree with discharge planning with close outpatient followup. The patient was counseled regarding her condition and this approach. I would like to thank you for allowing me the privilege of participating in her care. MMODL / IJN: [id number] /
== END 2018-05-01 11:31 | disposition home or self-care (01) | DRG 200 ==
LOC: EC 09:41 → 5MS5E 12:30 → 4MS4W 15:08
PROVIDERS: ADMIT Internal Medicine; ATTEND Internal Medicine
DX: J93.9 Pneumothorax, unspecified (principal); J94.8 Other specified pleural conditions; J44.1 Chronic obstructive pulmonary disease with (acute) exacerbation; J96.10 Chronic respiratory failure, unspecified whether with hypoxia or hypercapnia; I13.0 Hypertensive heart and chronic kidney disease with heart failure and stage 1 through stage 4 chronic kidney disease, or unspecified chronic kidney disease; E11.22 Type 2 diabetes mellitus with diabetic chronic kidney disease; E87.5 Hyperkalemia; I48.2 Chronic atrial fibrillation; N18.3 Chronic kidney disease, stage 3 (moderate); I50.9 Heart failure, unspecified; R91.1 Solitary pulmonary nodule; I44.7 Left bundle-branch block, unspecified; D64.9 Anemia, unspecified; E78.5 Hyperlipidemia, unspecified; E66.9 Obesity, unspecified; F40.240 Claustrophobia; Z68.27 Body mass index [BMI] 27.0-27.9, adult; Z99.81 Dependence on supplemental oxygen; Z79.01 Long term (current) use of anticoagulants; Z79.84 Long term (current) use of oral hypoglycemic drugs; Z79.899 Other long term (current) drug therapy; Z87.891 Personal history of nicotine dependence; Z87.01 Personal history of pneumonia (recurrent); Z86.69 Personal history of other diseases of the nervous system and sense organs; Z82.49 Family history of ischemic heart disease and other diseases of the circulatory system; Z82.3 Family history of stroke
CPT/HCPCS: 36415; 71046; 71250; 80048; 80051; 80053; 80162; 82550; 82553; 83735; 83880; 84484; 85025; 85027; 85610; 85730; 93005; 94640; 96365; 96375; 96376; 99285

== ENCOUNTER → 2019-02-06 | Outpatient (CLI) | payer MEDICARE, OTHER ==
--- NOTE | 2019-02-06 13:53 | CT ---
EXAMINATION TYPE: CT chest wo con DATE OF EXAM: 02/06/2019 COMPARISON: 04/28/2018 HISTORY: Follow up COPD, Lung nodule, afib. CT DLP: 285.8 mGycm. Automated Exposure Control for Dose Reduction was Utilized. TECHNIQUE: CT scan of the thorax is performed without IV contrast. FINDINGS: LUNGS: Large calcified granuloma left upper lobe stable. Correlate for underlying COPD. Biapical pleu ral thickening. Areas of subsegmental consolidation most typical scar or atelectasis. There is a smal l right pleural effusion with subsegmental consolidation. Density along the lateral margin the right lower lobe likely is related to compressive atelectasis rather than neoplasm but should be followed s hort-term basis with resolution of pleural fluid.. MEDIASTINUM: Lack of IV contrast is noted to limit evaluation for mediastinal and especially hilar ad enopathy. There are no definitive greater than 1 cm hilar or mediastinal lymph nodes. No pericardia l effusion is seen. Calcification of the aortic valve suspected with coronary artery calcification al so noted. The heart is enlarged. OTHER: Suspect tiny gallstones. Splenic granuloma noted. Hypertrophic and degenerative change of the spine. IMPRESSION: 1. COPD with large left upper lobe granuloma. 2. Right sided small pleural effusion with suspected compressive atelectasis. Follow to resolution. 3. Cardiomegaly with the dense coronary artery calcification. There also is calcification of the aort ic valve.
== END | disposition home or self-care (01) ==
LOC: RADCTMAIN 12:53
PROVIDERS: ATTEND Internal Medicine Pulmonary Disease
DX: J44.9 Chronic obstructive pulmonary disease, unspecified (principal); I48.91 Unspecified atrial fibrillation; I25.10 Atherosclerotic heart disease of native coronary artery without angina pectoris; I51.7 Cardiomegaly; J84.10 Pulmonary fibrosis, unspecified; I70.0 Atherosclerosis of aorta
CPT/HCPCS: 71250

== ENCOUNTER → 2019-07-11 | Outpatient (CLI) | payer MEDICARE, OTHER ==
--- NOTE | 2019-07-12 10:21 | CT ---
EXAMINATION TYPE: CT chest wo con DATE OF EXAM: 07/11/2019 COMPARISON: 02/06/2019, 04/28/2018, 05/16/2015 HISTORY: 89-year-old female follow-up COPD TECHNIQUE: Contiguous axial scanning of the chest without IV contrast. Coronal and sagittal reconstru ctions performed. CT DLP: 416 mGycm Automated exposure control for dose reduction was used. FINDINGS: Heart upper limits of normal in size without pericardial effusion. Mild aortic valvular calcification s and scattered three-vessel coronary artery calcifications are present. Aorta normal caliber with moderate atherosclerotic arch calcifications and conventional branching lauren wendy. Calcified left tracheobronchial angle lymph nodes and left hilar lymph nodes compatible with pr ior granulomatous disease. Borderline enlarged caliber to the main right and left pulmonary arteries at 2.5 cm suggest underlyin g pulmonary arterial hypertension. The enlarged 1.1 cm precarinal lymph node remains unchanged from 04/28/2018 suggesting a chronic posti nflammatory, benign etiology. 1.5 cm hypodense nodule right lobe of the thyroid gland with additional underlying smaller nodularity unchanged back to at least 04/28/2018. There is a residual small right basilar pleural effusion, similar to 02/06/2019. Adjacent subpleural ro unded density measuring 2.5 cm at the posterior right base is unchanged from 02/06/2019. Contiguous irregular 4.0 x 2.0 cm elongated opacity posterior right base unchanged from 02/06/2019, new from 05/16/2015. Focal irregular subpleural density right middle lobe measures 2.8 x 0.8 cm, unchanged from 02/06/2019. Focal patchy subpleural density anterior left midlung stable back to 04/28/2018. Some patchy ground gl ass and nodularity just adjacent medially anterior left midlung stable from that time as well, probab ly pleural parenchymal scarring. 4 mm peripheral left midlung pulmonary nodule, axial image 21 appears to be new. Large calcified granuloma superior segment left lower lobe. Underlying mild emphysema. Some interstitial thickening at the lung bases. Tiny hiatal hernia. Layering gravel within the gallbladder. Moderate atherosclerosis chronic calcifi cations of the abdominal aorta. Calcified granulomas within the spleen. 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 IMPRESSION: 1. CONTINUED SMALL RIGHT PLEURAL EFFUSION LIKELY ASSOCIATED WITH RIGHT BASILAR PLEURAL PARENCHYMAL SC ARRING. 2. 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 SUBPLEURAL RIGHT MIDDLE LOBE DENSITY PROBABLY ADDITIONAL PLEURAL PARENCHYMAL SCARRING IS A SUBPLEURAL DENSITY IN THE ANTERIOR LEFT MIDLUNG. 3. IRREGULAR FOCAL OPACITY POSTERIOR RIGHT BASE MEASURES 4.0 X 2.0 CM, STABLE FOR 5 MONTHS COULD REPR ESENT ADDITIONAL SCARRING. CONTINUED FOLLOW-UP RECOMMENDED. 4. A 4 MM LEFT MIDLUNG PULMONARY NODULE IS NEW. FOLLOW-UP IN 6 MONTHS TO REASSESS. 5. COPD WITH MILD EMPHYSEMA AND UNDERLYING AREAS OF INTERSTITIAL FIBROSIS. 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 PRIOR GRANULOMATOUS DISEASE. 6. TINY HIATAL HERNIA, SOME LAYERING GRAVEL IN THE GALLBLADDER, AND DISH WITHIN THE THORACIC SPINE.
== END | disposition home or self-care (01) ==
LOC: RADCTMAIN 13:19
PROVIDERS: ATTEND Internal Medicine Pulmonary Disease
DX: J90 Pleural effusion, not elsewhere classified (principal); J98.4 Other disorders of lung; R91.1 Solitary pulmonary nodule; J43.9 Emphysema, unspecified; K44.9 Diaphragmatic hernia without obstruction or gangrene
CPT/HCPCS: 71250

== ENCOUNTER 2019-10-22 16:54 | Inpatient (IN) | payer MEDICARE, OTHER ==
[2019-10-22] MEDS ORDERED: SODIUM CHLORIDE 0.9% 500 ML 500 ML IV STA (17:17)
[2019-10-22] MEDS ORDERED: ACETAMINOPHEN TAB 500 MG TAB PO STA (17:27)
[2019-10-22] MEDS ORDERED: SODIUM CHLORIDE 0.9% 1,000 ML IV ONE ×2 (18:06→22:37)
--- NOTE | 2019-10-22 18:09 | ED ---
Weakness HPI - General Chief complaint: Weakness Stated complaint: weakness Time Seen by Provider: 10/22/19 17:00 Source: patient Mode of arrival: EMS Limitations: no limitations - History of Present Illness Initial comments: The patient is an 89-year-old female past history of A. fib, COPD, diabetes who presents emergency room with reported generalized weakness. The patient is a very poor historian. She states she's felt weak for the past 3 days. She normally ambulates with a walker and has become somewhat difficult for her. EMS was called to her house today because she was found on the toilet and was unable to get up. They were supposed to provide a lift assist however the requested that they take her to the hospital. The patient had an episode of diarrhea today and diarrhea yesterday. She states it was brown in color. Denies melenic stools or hematochezia. She denies any issues with urination. She denies a cough, chest pain or shortness of breath denies any abdominal pain. She denies any headaches or visual changes. No vertiginous symptoms or ataxia. No syncope or presyncope. According to the medication list the patient is on Coumadin. She denies any pain. No rashes. The patient provides very limited history. EMS found the patient to be in A. fib with a rapid rate. Patient is unsure if she has a history of A. fib. There are no other alleviating, precipitating or modifying factors - Related Data Home Medications Medication Instructions Recorded Confirmed Candesartan [Atacand] 16 mg PO DAILY 09/08/16 10/22/19 Digoxin [Digitek] 125 mcg PO DAILY 09/08/16 10/23/19 Glucosamine/Chondr Ye A Sod [Osteo 1 tab PO DAILY 09/08/16 10/23/19 Bi-Flex Caplet] Simvastatin [Zocor] 20 mg PO DAILY 09/08/16 10/23/19 Warfarin Sodium [Coumadin] 1.25 mg PO SUTUTHSA 09/08/16 10/22/19 metFORMIN HCL [Glucophage] 500 mg PO BID 09/08/16 10/22/19 Furosemide [Lasix] 20 mg PO DAILY 04/28/18 10/22/19 Repaglinide [Prandin] 0.5 mg PO AC-BID 04/28/18 10/22/19 Warfarin [Coumadin] 2.5 mg PO MOWEFR 04/28/18 10/22/19 Metoprolol Tartrate [Lopressor] 50 mg PO BID 10/23/19 10/23/19 Previous Rx's Medication Instructions Recorded Ipratropium-Albuterol Nebulize 3 ml INHALATION RT-QID ampul.neb 05/01/18 [Duoneb 0.5 mg-3 mg/3 ml Soln] Allergies Allergy/AdvReac Type Severity Reaction Status Date / Time No Known Allergies Allergy Verified 10/23/19 10:04 Review of Systems ROS Statement: Those systems with pertinent positive or pertinent negative responses have been documented in the HPI. ROS Other: All systems not noted in ROS Statement are negative. Past Medical History Past Medical History: Atrial Fibrillation, COPD, Diabetes Mellitus, Hyperlipidemia, Hypertension Additional Past Medical History / Comment(s): NIDDM type II. History of Any Multi-Drug Resistant Organisms: None Reported Past Surgical History: Ear Surgery, Tonsillectomy Additional Past Surgical History / Comment(s): Several colonoscopies-normal Past Anesthesia/Blood Transfusion Reactions: No Reported Reaction Additional Past Anesthesia/Blood Transfusion Reaction / Comment(s): Pt has clausterphobia r/t elevators Past Psychological History: No Psychological Hx Reported Smoking Status: Former smoker Past Alcohol Use History: Rare Past Drug Use History: None Reported - Past Family History Father Additional Family Medical History / Comment(s): Father at the age of 49 yrs from a brain aneurysm. Mother Family Medical History: No Reported History Additional Family Medical History / Comment(s): Mother lived to be 87yrs old. General Exam Limitations: no limitations General appearance: alert, in no apparent distress Head exam: Present: atraumatic, normocephalic, normal inspection Eye exam: Present: normal appearance, PERRL, EOMI. Absent: scleral icterus, conjunctival injection, periorbital swelling ENT exam: Present: normal exam, mucous membranes moist Neck exam: Present: normal inspection. Absent: tenderness, meningismus, lymphadenopathy Respiratory exam: Present: normal lung sounds bilaterally. Absent: respiratory distress, wheezes, rales, rhonchi, stridor Cardiovascular Exam: Present: tachycardia, irregular rhythm, normal heart sounds. Absent: systolic murmur, diastolic murmur, rubs, gallop, clicks GI/Abdominal exam: Present: soft, normal bowel sounds. Absent: distended, tenderness, guarding, rebound, rigid Extremities exam: Present: normal inspection, full ROM, normal capillary refill. Absent: tenderness, pedal edema, joint swelling, calf tenderness Back exam: Present: normal inspection Neurological exam: Present: alert, oriented X3, CN II-XII intact Psychiatric exam: Present: normal affect, normal mood Skin exam: Present: warm, dry, intact, normal color. Absent: rash Course Vital Signs 10/22/19 10/22/19 10/22/19 16:59 17:59 18:53 Temperature 103.0 F H Pulse Rate 138 H 135 H Pulse Rate [ 137 H [employer] Service Attendant ] Respiratory 18 20 Rate Blood Pressure 105/79 105/79 O2 Sat by Pulse 98 96 Oximetry 10/22/19 10/22/19 19:30 19:58 Temperature 99.3 F Pulse Rate 125 H 133 H Pulse Rate [ [employer] Service Attendant ] Respiratory 18 18 Rate Blood Pressure 75/55 100/58 O2 Sat by Pulse 96 97 Oximetry EKG Findings - EKG Comments: EKG Findings:: EKG demonstrates atrial relation with a rapid ventricular response. Rate of 133. QRS 118. QTC of 467. No acute ST segment elevations. There is a right bundle branch block that does not meet Sgarbossa criteria. Medical Decision Making - Medical Decision Making Upon arrival the patient is placed into room 3. A thorough history and physical exam was performed. Vitals were obtained and the patient does have a high heart rate. She is found to be in A. fib with RVR. She does have a history of permanent A. fib with a left bundle-branch block. Peripheral IV was establis hed. The patient does have 103 fever. She is given Tylenol for fever control. The patient is given 1500 cc of normal saline. This is slightly under her 30 mL per KG bolus as the patient does have history of congestive heart failure. Laboratories is were conducted and the patient was treated For urine. Auditory studies demonstrate an INR of 2.9. Creatinine is 1.7 which is mildly elevated from patient's previous. Sodium low at 1:30. Lactic acid 2.8. Urinalysis shows moderate leukocyte esterase, 24 red blood cells, 37 white blood cells, moderate white blood cell clumps and many bacteria. Influenza A and B are negative. Chest x-ray does demonstrate a pleural effusion on the right. CT of the abdomen and pelvis demonstrates signs of pyelonephritis on the left. I reevaluated the patient. Her heart rate has improved from 160 to the 110s. Her blood pressure was stable around 100 systolic. The patient will be maintained on 100 mL/h. The patient was given a dose of Rocephin after blood cultures were obtained. I call discuss case with Dr. Gutierrez accepted admission of the [facility]. She is currently awaiting a bed on the telemetry floor - Lab Data Result diagrams: 10/23/19 06:27 10/23/19 06:27 Lab Results 10/22/19 10/22/19 10/22/19 Range/Units 17:41 17:41 17:41 WBC 9.0 (3.8-10.6) k/uL RBC 3.62 L (3.80-5.40) m/uL Hgb 10.4 L (11.4-16.0) gm/dL Hct 32.4 L (34.0-46.0) % MCV 89.4 (80.0-100.0) fL MCH 28.7 (25.0-35.0) pg MCHC 32.1 (31.0-37.0) g/dL RDW 14.8 (11.5-15.5) % Plt Count 176 (150-450) k/uL Neutrophils % 91 % Lymphocytes % 4 % Monocytes % 4 % Eosinophils % 0 % Basophils % 0 % Neutrophils # 8.2 H (1.3-7.7) k/uL Lymphocytes # 0.3 L (1.0-4.8) k/uL Monocytes # 0.3 (0-1.0) k/uL Eosinophils # 0.0 (0-0.7) k/uL Basophils # 0.0 (0-0.2) k/uL PT 28.3 H (9.0-12.0) sec INR 2.9 H (<1.2) APTT 33.0 H (22.0-30.0) sec Sodium 130 L (137-145) mmol/L Potassium 4.9 (3.5-5.1) mmol/L Chloride 101 (98-107) mmol/L Carbon Dioxide 17 L (22-30) mmol/L Anion Gap 12 mmol/L BUN 43 H (7-17) mg/dL Creatinine 1.77 H (0.52-1.04) mg/dL Est GFR (CKD-EPI)AfAm 29 (>60 ml/min/1.73 sqM) Est GFR (CKD-EPI)NonAf 26 (>60 ml/min/1.73 sqM) Glucose 142 H (74-99) mg/dL Lactic Ac Sepsis Rflx Plasma Lactic Acid Jorgito (0.7-2.0) mmol/L Calcium 7.6 L (8.4-10.2) mg/dL Total Bilirubin 0.9 (0.2-1.3) mg/dL AST 33 (14-36) U/L ALT 13 (4-34) U/L Alkaline Phosphatase 61 (38-126) U/L Creatine Kinase 111 (30-135) U/L Troponin I (0.000-0.034) ng/mL Total Protein 5.6 L (6.3-8.2) g/dL Albumin 2.8 L (3.5-5.0) g/dL TSH 1.240 (0.465-4.680) mIU/L Urine Color Urine Appearance (Clear) Urine pH (5.0-8.0) Ur Specific Downs (1.001-1.035) Urine Protein (Negative) Urine Glucose (UA) (Negative) Urine Ketones (Negative) Urine Blood (Negative) Urine Nitrite (Negative) Urine Bilirubin (Negative) Urine Urobilinogen (<2.0) mg/dL Ur Leukocyte Esterase (Negative) Urine RBC (0-5) /hpf Urine WBC (0-5) /hpf Urine WBC Clumps (None) /hpf Ur Squamous Epith Cells (0-4) /hpf Amorphous Sediment (None) /hpf Urine Bacteria (None) /hpf Granular Casts (0) /lpf Urine Mucus (None) /hpf Influenza Type A RNA (Not Detectd) Influenza Type B (PCR) (Not Detectd) RSV (PCR) (Negative) 10/22/19 10/22/19 10/22/19 Range/Units 17:41 17:41 17:41 WBC (3.8-10.6) k/uL RBC (3.80-5.40) m/uL Hgb (11.4-16.0) gm/dL Hct (34.0-46.0) % MCV (80.0-100.0) fL MCH (25.0-35.0) pg MCHC (31.0-37.0) g/dL RDW (11.5-15.5) % Plt Count (150-450) k/uL Neutrophils % % Lymphocytes % % Monocytes % % Eosinophils % % Basophils % % Neutrophils # (1.3-7.7) k/uL Lymphocytes # (1.0-4.8) k/uL Monocytes # (0-1.0) k/uL Eosinophils # (0-0.7) k/uL Basophils # (0-0.2) k/uL PT (9.0-12.0) sec INR (<1.2) APTT (22.0-30.0) sec Sodium (137-145) mmol/L Potassium (3.5-5.1) mmol/L Chloride (98-107) mmol/L Carbon Dioxide (22-30) mmol/L Anion Gap mmol/L BUN (7-17) mg/dL Creatinine (0.52-1.04) mg/dL Est GFR (CKD-EPI)AfAm (>60 ml/min/1.73 sqM) Est GFR (CKD-EPI)NonAf (>60 ml/min/1.73 sqM) Glucose (74-99) mg/dL Lactic Ac Sepsis Rflx Plasma Lactic Acid Jorgito 2.8 H* (0.7-2.0) mmol/L Calcium (8.4-10.2) mg/dL Total Bilirubin (0.2-1.3) mg/dL AST (14-36) U/L ALT (4-34) U/L Alkaline Phosphatase (38-126) U/L Creatine Kinase (30-135) U/L Troponin I 0.014 (0.000-0.034) ng/mL Total Protein (6.3-8.2) g/dL Albumin (3.5-5.0) g/dL TSH (0.465-4.680) mIU/L Urine Color Urine Appearance (Clear) Urine pH (5.0-8.0) Ur Specific Downs (1.001-1.035) Urine Protein (Negative) Urine Glucose (UA) (Negative) Urine Ketones (Negative) Urine Blood (Negative) Urine Nitrite (Negative) Urine Bilirubin (Negative) Urine Urobilinogen (<2.0) mg/dL Ur Leukocyte Esterase (Negative) Urine RBC (0-5) /hpf Urine WBC (0-5) /hpf Urine WBC Clumps (None) /hpf Ur Squamous Epith Cells (0-4) /hpf Amorphous Sediment (None) /hpf Urine Bacteria (None) /hpf Granular Casts (0) /lpf Urine Mucus (None) /hpf Influenza Type A RNA Not Detected (Not Detectd) Influenza Type B (PCR) Not Detected (Not Detectd) RSV (PCR) Negative (Negative) 10/22/19 10/22/19 Range/Units 18:33 18:37 WBC (3.8-10.6) k/uL RBC (3.80-5.40) m/uL Hgb (11.4-16.0) gm/dL Hct (34.0-46.0) % MCV (80.0-100.0) fL MCH (25.0-35.0) pg MCHC (31.0-37.0) g/dL RDW (11.5-15.5) % Plt Count (150-450) k/uL Neutrophils % % Lymphocytes % % Monocytes % % Eosinophils % % Basophils % % Neutrophils # (1.3-7.7) k/uL Lymphocytes # (1.0-4.8) k/uL Monocytes # (0-1.0) k/uL Eosinophils # (0-0.7) k/uL Basophils # (0-0.2) k/uL PT (9.0-12.0) sec INR (<1.2) APTT (22.0-30.0) sec Sodium (137-145) mmol/L Potassium (3.5-5.1) mmol/L Chloride (98-107) mmol/L Carbon Dioxide (22-30) mmol/L Anion Gap mmol/L BUN (7-17) mg/dL Creatinine (0.52-1.04) mg/dL Est GFR (CKD-EPI)AfAm (>60 ml/min/1.73 sqM) Est GFR (CKD-EPI)NonAf (>60 ml/min/1.73 sqM) Glucose (74-99) mg/dL Lactic Ac Sepsis Rflx Y Plasma Lactic Acid Jorgito (0.7-2.0) mmol/L Calcium (8.4-10.2) mg/dL Total Bilirubin (0.2-1.3) mg/dL AST (14-36) U/L ALT (4-34) U/L Alkaline Phosphatase (38-126) U/L Creatine Kinase (30-135) U/L Troponin I (0.000-0.034) ng/mL Total Protein (6.3-8.2) g/dL Albumin (3.5-5.0) g/dL TSH (0.465-4.680) mIU/L Urine Color Yellow Urine Appearance Cloudy H (Clear) Urine pH 5.5 (5.0-8.0) Ur Specific Downs 1.014 (1.001-1.035) Urine Protein 2+ H (Negative) Urine Glucose (UA) Negative (Negative) Urine Ketones 1+ H (Negative) Urine Blood Moderate H (Negative) Urine Nitrite Negative (Negative) Urine Bilirubin Negative (Negative) Urine Urobilinogen <2.0 (<2.0) mg/dL Ur Leukocyte Esterase Moderate H (Negative) Urine RBC 24 H (0-5) /hpf Urine WBC 37 H (0-5) /hpf Urine WBC Clumps Moderate H (None) /hpf Ur Squamous Epith Cells <1 (0-4) /hpf Amorphous Sediment Rare H (None) /hpf Urine Bacteria Many H (None) /hpf Granular Casts 3 (0) /lpf Urine Mucus Rare H (None) /hpf Influenza Type A RNA (Not Detectd) Influenza Type B (PCR) (Not Detectd) RSV (PCR) (Negative) Disposition Clinical Impression: History of Coumadin therapy, Atrial fibrillation with RVR, Pyelonephritis, Sepsis, Lactic acidosis, Pleural effusion Disposition: ADMITTED IP TO THIS HOSP Condition: Serious Is patient prescribed a controlled substance at d/c from ED?: No Decision to Admit Reason: Admit from EC Decision Date: 10/22/19 Decision Time: 20:07
[2019-10-22 18:21] LABS: Albumin 2.8 g/dL (3.5-5.0); Calcium 7.6 mg/dL (8.4-10.2); Potassium 4.9 mmol/L (3.5-5.1); Total Bilirubin 0.9 mg/dL (0.2-1.3); Total Protein 5.6 g/dL (6.3-8.2)
[2019-10-22 18:28] LABS: Basophils % (A) 0 %; Eosinophils % (A) 0 %; HCT 32.4 % (34.0-46.0); HGB 10.4 gm/dL (11.4-16.0); Lymphocytes # (A) 0.3 k/uL (1.0-4.8); Lymphocytes % (A) 4 %; MCH 28.7 pg (25.0-35.0); MCHC 32.1 g/dL (31.0-37.0); MCV 89.4 fL (80.0-100.0); Mean Platelet Volume 8.3; Monocytes # (A) 0.3 k/uL (0-1.0); Monocytes % (A) 4 %; Neutrophils # (A) 8.2 k/uL (1.3-7.7); Neutrophils % (A) 91 %; Platelet Count 176 k/uL (150-450); RBC 3.62 m/uL (3.80-5.40); RDW 14.8 % (11.5-15.5)
[2019-10-22 18:33] LABS: INR 2.9 (<1.2); Prothrombin Time 28.3 sec (9.0-12.0)
[2019-10-22 18:55] LABS: Amorphous Sediment,Urine Rare /hpf; Appearance,Urine Cloudy (Clear); Bacteria,Urine Many /hpf; Bilirubin,Urine Negative (Negative); Blood,Urine Moderate (Negative); Color,Urine Yellow; Glucose,Urine (UA) Negative (Negative); Granular Casts,Urine 3 /lpf (0); Ketones,Urine 1+ (Negative); Leukocyte Esterase,Urine Moderate (Negative); Mucus,Urine Rare /hpf; Nitrite,Urine Negative (Negative); PH, Urine 5.5 (5.0-8.0); Protein,Urine 2+ (Negative); RBC,Urine 24 /hpf (0-5); Specific Gravity,Urine 1.014 (1.001-1.035); Squamous Epithelial Cell,Urine <1 /hpf (0-4); Urobilinogen,Urine <2.0 mg/dL (<2.0); WBC,Urine 37 /hpf (0-5)
--- NOTE | 2019-10-22 18:59 | XR ---
EXAMINATION TYPE: XR chest 2V DATE OF EXAM: 10/22/2019 COMPARISON: 05/01/2018 HISTORY: Weakness TECHNIQUE: FINDINGS: There is blunting of the costophrenic angles. There is no heart failure. Heart is shifted s lightly to the right side. There is large calcified granuloma left upper lobe. There are chest leads. IMPRESSION: Small pleural effusions. Old granulomatous disease. No pneumothorax. No significant ford e compared to last exam.
[2019-10-22] MEDS ORDERED: cefTRIAXone IN SWFI 1,000 MG/10 ML SYRINGE IVP STA (19:04)
--- NOTE | 2019-10-22 19:49 | CT ---
EXAMINATION TYPE: CT abdomen pelvis wo con DATE OF EXAM: 10/22/2019 COMPARISON: None HISTORY: fever, UTI CT DLP: 606.3 mGycm Automated exposure control for dose reduction was used. Multiple axial sections were obtained from the diaphragm to the floor the pelvis with no contrast. There are small bilateral pleural effusions. There is some patchy infiltrate and consolidation right lower lobe. There are calcified splenic granulomata. Heart is slightly enlarged. There is no pericard ial effusion. Liver shows no focal defect. The bile ducts are not dilated. There is calcification in the dependent gallbladder consistent with multiple tiny gallstones. There is no pancreatic mass. Stomach is intact. There is no adrenal mass. Kidneys have normal size. There is 3.5 cm cortical cyst lower pole right ki dney. There is 2 cm cortical cyst interpolar right kidney. The ureters are not dilated. There is no h ydronephrosis. There is some mild left side parapelvic edema. There is no retroperitoneal adenopathy. Bladder distends smoothly. There is no inguinal hernia. There is 3 cm cyst on the right ovary. Uteru s is retroverted. There is probably posterior uterine fibroid. There are spondylotic changes in the l umbar spine. There is no compression fracture. There is a mild degenerative first-degree L4-5 spondyl olisthesis. The bony pelvis is intact. There is some hypertrophic degenerative changes in the hip freeman nts. There are some sigmoid diverticula. There is no evidence of diverticulitis. Appendix is posterior and appears normal. There is no mesenteric edema. There is no ascites or free air. There is no sign of a bowel obstructio n. There is very minimal fat stranding in the left paracolic gutter. IMPRESSION: Multiple small gallstones. Right renal cysts. Mild fat stranding on the left side involving the descending colon and proximal sigmoid colon without definite sign of diverticulitis. This could relate to previous episode of inflammation. There are so me sigmoid diverticula. There is mild left-sided peripelvic edema without evidence of any significant hydronephrosis or hydro ureter. This could relate to pyelonephritis.
[2019-10-22] MEDS ORDERED: NALOXONE 0.4 MG/ML 1 ML VIAL IV PRN (20:08)
[2019-10-22] MEDS ORDERED: ACETAMINOPHEN TAB 325 MG TAB PO PRN (20:08)
[2019-10-22] MEDS: SODIUM CHLORIDE 0.9% 1,000 ML IV SCH (20:22)
[2019-10-22 21:03] LABS: Glucose,Whole Blood 237 mg/dL (75-99)
[2019-10-22] MEDS ORDERED: METOPROLOL TARTRATE 50 MG TAB PO STA ×2 (22:24→22:44)
--- NOTE | 2019-10-23 03:23 | P.HPIM ---
History of Present Illness H&P Date: 10/22/19 Chief Complaint: fatigue, frequent urination 89 year old female with hypertension, currently hypotensive, P afib on coumadin, diabetes mellitus well controlled A1C 5.7 >6 months ago comes in due to urinary symptoms and fatigue. she suspected having urinary tract infection, as she had frequent urination of very small amount each time, with sensation of incomplete emptying of her bladder and dysuria . denies any hematuria or foul smell. denies any fever, chills, abd or back pain. denies any nausea or vomiting. in the ED she was found to have hypotension and lactic acidosis , admitted for treatment of urinary tract infection patient added that she has had loose bowel movement 1-2 times daily for past 3 days, non bloody no bharathi, no abd pain she uses a walker at home, denies any falls. patient uses blood thinners for afib. she also has COPD, currently at baseline, no home oxygen use, she uses inhalers at home Review of Systems Pertinent positives as noted in HPI. All other systems were reviewed and are negative Past Medical History Past Medical History: Atrial Fibrillation, COPD, Diabetes Mellitus, Hyperlipidemia, Hypertension Additional Past Medical History / Comment(s): NIDDM type II. History of Any Multi-Drug Resistant Organisms: None Reported Past Surgical History: Ear Surgery, Tonsillectomy Additional Past Surgical History / Comment(s): Several colonoscopies-normal Past Anesthesia/Blood Transfusion Reactions: No Reported Reaction Additional Past Anesthesia/Blood Transfusion Reaction / Comment(s): Pt has clausterphobia r/t elevators Past Psychological History: No Psychological Hx Reported Smoking Status: Former smoker Past Alcohol Use History: Rare Past Drug Use History: None Reported - Past Family History Father Additional Family Medical History / Comment(s): Father at the age of 49 yrs from a brain aneurysm. Mother Family Medical History: No Reported History Additional Family Medical History / Comment(s): Mother lived to be 87yrs old. Medications and Allergies Home Medications Medication Instructions Recorded Confirmed Type Candesartan [Atacand] 16 mg PO DAILY 09/08/16 10/22/19 History Digoxin [Digitek] 125 mcg PO Q48H 09/08/16 10/22/19 History Glucosamine/Chondr Ye A Sod [Osteo 1 tab PO BID 09/08/16 10/22/19 History Bi-Flex Caplet] Simvastatin [Zocor] 20 mg PO Q48H 09/08/16 10/22/19 History Warfarin Sodium [Coumadin] 1.25 mg PO SUTUTHSA 09/08/16 10/22/19 History metFORMIN HCL [Glucophage] 500 mg PO BID 09/08/16 10/22/19 History Furosemide [Lasix] 20 mg PO DAILY 04/28/18 10/22/19 History Magnesium Oxide [Magox 400] 400 mg PO DAILY 04/28/18 10/22/19 History Repaglinide [Prandin] 0.5 mg PO AC-BID 04/28/18 10/22/19 History Warfarin [Coumadin] 2.5 mg PO MOWEFR 04/28/18 10/22/19 History Budesonide [Pulmicort] 0.5 mg INHALATION RT-BID nebu 05/01/18 10/22/19 Rx Ipratropium-Albuterol Nebulize 3 ml INHALATION RT-QID ampul.neb 05/01/18 10/22/19 Rx [Duoneb 0.5 mg-3 mg/3 ml Soln] Montelukast [Singulair] 10 mg PO HS tab 05/01/18 10/22/19 Rx Metoprolol Tartrate [Lopressor] 50 mg PO BID 10/22/19 10/22/19 History Allergies Allergy/AdvReac Type Severity Reaction Status Date / Time No Known Allergies Allergy Verified 04/28/18 09:51 Physical Exam Vitals: Vital Signs Temp Pulse Pulse Resp BP Pulse Ox 10/22/19 19:58 133 H 18 100/58 97 10/22/19 19:30 99.3 F 125 H 18 75/55 96 10/22/19 18:53 135 H 20 105/79 96 10/22/19 17:59 137 H 10/22/19 16:59 103.0 F H 138 H 18 105/79 98 Intake and Output 10/22/19 10/22/19 10/22/19 06:59 14:59 22:59 Other: Weight 66.224 kg Constitutional: No acute distress, conversant, pleasant Eyes: Anicteric sclerae, moist conjunctiva, Pupils equal round reactive to light ENMT: NC/AT Oropharynx clear, no erythema, exudates Neck: Supple, FROM, no masses, or JVD No carotid bruits No thyromegaly Lungs: Clear to auscultation Clear to percussion Normal respiratory effort, no accessory muscle use Cardiovascular: Heart regular in rate and rhythm, No murmurs, gallops, or rubs No peripheral edema Abdominal: Soft Nontender, no guarding, rebound or rigidity Abdomen moving with respiration Normoactive bowel sounds No hepatomegaly, No splenomegaly No palpable mass No abdominal wall hernia noted Skin: Normal temperature, tone, texture, turgor No induration No subcutaneous nodules No rash, lesions No ulcers Extremities: No digital cyanosis No clubbing Pedal pulses intact and symmetrical Radial pulses intact and symmetrical No calf tenderness Psychiatric: Alert and oriented to person, place and time Appropriate affect fair judgement Neuro Muscles Strength 5/5 in all 4 extremities Sensation to light touch grossly present throughout Cranial nerves II-XII grossly intact No focal sensory deficits Lymphatics: no palpable cervical or supraclavicular , or inguinal lymph nodes Results CBC & Chem 7: 10/22/19 17:41 10/22/19 17:41 Labs: Abnormal Lab Results - Last 24 Hours (Table) 10/22/19 10/22/19 10/22/19 Range/Units 17:41 17:41 17:41 RBC 3.62 L (3.80-5.40) m/uL Hgb 10.4 L (11.4-16.0) gm/dL Hct 32.4 L (34.0-46.0) % Neutrophils # 8.2 H (1.3-7.7) k/uL Lymphocytes # 0.3 L (1.0-4.8) k/uL PT 28.3 H (9.0-12.0) sec INR 2.9 H (<1.2) APTT 33.0 H (22.0-30.0) sec Sodium 130 L (137-145) mmol/L Carbon Dioxide 17 L (22-30) mmol/L BUN 43 H (7-17) mg/dL Creatinine 1.77 H (0.52-1.04) mg/dL Glucose 142 H (74-99) mg/dL POC Glucose (mg/dL) (75-99) mg/dL Plasma Lactic Acid Jorgito (0.7-2.0) mmol/L Calcium 7.6 L (8.4-10.2) mg/dL Total Protein 5.6 L (6.3-8.2) g/dL Albumin 2.8 L (3.5-5.0) g/dL Urine Appearance (Clear) Urine Protein (Negative) Urine Ketones (Negative) Urine Blood (Negative) Ur Leukocyte Esterase (Negative) Urine RBC (0-5) /hpf Urine WBC (0-5) /hpf Urine WBC Clumps (None) /hpf Amorphous Sediment (None) /hpf Urine Bacteria (None) /hpf Urine Mucus (None) /hpf 10/22/19 10/22/19 10/22/19 Range/Units 17:41 18:37 21:02 RBC (3.80-5.40) m/uL Hgb (11.4-16.0) gm/dL Hct (34.0-46.0) % Neutrophils # (1.3-7.7) k/uL Lymphocytes # (1.0-4.8) k/uL PT (9.0-12.0) sec INR (<1.2) APTT (22.0-30.0) sec Sodium (137-145) mmol/L Carbon Dioxide (22-30) mmol/L BUN (7-17) mg/dL Creatinine (0.52-1.04) mg/dL Glucose (74-99) mg/dL POC Glucose (mg/dL) 237 H (75-99) mg/dL Plasma Lactic Acid Jorgito 2.8 H* (0.7-2.0) mmol/L Calcium (8.4-10.2) mg/dL Total Protein (6.3-8.2) g/dL Albumin (3.5-5.0) g/dL Urine Appearance Cloudy H (Clear) Urine Protein 2+ H (Negative) Urine Ketones 1+ H (Negative) Urine Blood Moderate H (Negative) Ur Leukocyte Esterase Moderate H (Negative) Urine RBC 24 H (0-5) /hpf Urine WBC 37 H (0-5) /hpf Urine WBC Clumps Moderate H (None) /hpf Amorphous Sediment Rare H (None) /hpf Urine Bacteria Many H (None) /hpf Urine Mucus Rare H (None) /hpf Assessment and Plan Assessment: 89-year-old female with diabetes mellitus well-controlled A1c 5.7 more than 6 months ago, on oral hypoglycemic agents, paroxysmal A. fib on digoxin and metoprolol and Coumadin, history of hypertension currently hypotensive Patient came in due to suspected urinary tract infection with frequent urination and incomplete emptying of her bladder she also reported feeling fatigue. She was found to have hyponatremia and acute urinary tract infection in the ED she was also hypotensive with lactic acidosis patient admitted as an inpatient with anticipated length of stay more than 2 midnights Plan: Acute urinary tract infection Hypotension with history of hypertension Hypovolemic Hyponatremia secondary to dehydration Anion gap metabolic acidosis secondary to lactic acidosis A. fib with RVR on Coumadin metoprolol and digoxin Plan Aggressive IV fluid hydration, with normal saline boluses as needed Monitor electrolytes closely Follow-up cultures Patient started on Rocephin Resume digoxin and metoprolol with hold parameters for hypotension Hold diuretics and candesartan, due to hypotension Diet as tolerated consistent carbohydrate diet Insulin sliding scale for diabetes, hold oral hypoglycemic agents Follow-up lactic acid Cardiac monitoring Chronic conditions CK D stage III, avoid nephrotoxic meds COPD compensated, resume inhalers Chronic anemia most likely secondary to chronic disease Hyperlipidemia resume home meds CODE STATUS full code DVT prophylaxis: On Coumadin for A. fib Discussed with: Patient, ER, RN Anticipated length of stay more than [address]: Home A total of 60 minutes was spent on the care of this complex patient more than 50% of the time was spent in counseling and care coordination.
[2019-10-23 06:13] LABS: Glucose,Whole Blood 146 mg/dL (75-99)
[2019-10-23] MEDS: METOPROLOL TARTRATE 50 MG TAB PO SCH ×2 (06:49→18:37)
[2019-10-23] MEDS: INSULIN ASPART (NovoLOG) 100 UNIT/ML VIAL SQ SCH ×4 (06:50→21:49)
[2019-10-23 06:58] LABS: Basophils # (A) 0.1 k/uL (0-0.2); Basophils % (A) 0 %; Eosinophils % (A) 0 %; HCT 35.1 % (34.0-46.0); HGB 10.8 gm/dL (11.4-16.0); Hypochromasia Moderate; Lymphocytes # (A) 0.7 k/uL (1.0-4.8); Lymphocytes % (A) 5 %; MCHC 30.7 g/dL (31.0-37.0); MCV 94.2 fL (80.0-100.0); Mean Platelet Volume 8.1; Monocytes # (A) 0.5 k/uL (0-1.0); Monocytes % (A) 4 %; Neutrophils # (A) 11.6 k/uL (1.3-7.7); Neutrophils % (A) 89 %; Platelet Count 218 k/uL (150-450); RBC 3.73 m/uL (3.80-5.40); RDW 14.9 % (11.5-15.5); WBC 13.1 k/uL (3.8-10.6)
[2019-10-23 07:09] LABS: Potassium 4.8 mmol/L (3.5-5.1)
[2019-10-23] MEDS: IPRATROPIUM-ALBUTEROL 3 ML NEB INHALATION SCH ×4 (07:10→20:33)
[2019-10-23] MEDS: BUDESONIDE 0.5 MG/2 ML NEBU INHALATION SCH ×2 (07:10→20:33)
[2019-10-23 08:22] LABS: INR 2.6 (<1.2); Prothrombin Time 25.1 sec (9.0-12.0)
[2019-10-23] MEDS: ATORVASTATIN 10 MG TAB PO SCH (09:40)
[2019-10-23] MEDS: SODIUM CHLORIDE 0.9% 1,000 ML IV SCH ×3 (09:40→20:47)
--- NOTE | 2019-10-23 11:46 | CONS ---
CONSULTATION Mrs. Cha is an 89-year-old female who is seen for cardiac evaluation. This patient's emergency room chart as well as old charts reviewed and laboratory tests were reviewed. This patient has a known history of atrial fibrillation, history of diabetes or hypertension. Patient came to the emergency room with a complaint of generalized weakness for last 2 to 3 days and patient was found on the toilet. She also had diarrhea for a couple of days. When the EMS arrived, patient was in atrial fibrillation with a rapid ventricular response. The patient did not have any nausea or vomiting, but the patient was found to be febrile in the emergency room. PAST MEDICAL HISTORY: Includes history of COPD, diabetes, hypertension, hyperlipidemia. Patient had several colonoscopy done in the past which were normal. THE PATIENT HAS A: Home medications include Lopressor 100 mg b.i.d., DuoNeb, Pulmicort, Prandin, Coumadin, Glucophage, and Zocor. Lanoxin 0.125 mg q.48 hours and Atacand 16 mg daily. PHYSICAL EXAMINATION: At present reveals an 89-year-old female who does not appear to be in any acute distress. Patient's initial heart rate was 138. Heart rate now is 95-100 per minute. HEENT examination is negative. Neck is supple. There is no increase in jugular venous pressure. Both the carotid pulses are felt. There is no bruit. Chest is symmetrical. Heart, the PMI is not felt. First and second heart sounds are normal. There is no evidence of any murmur. Lungs are clinically clear to auscultation and percussion. Abdomen is soft. Extremities, peripheral pulsations are 1+. EKG shows evidence of atrial fibrillation with a rapid ventricular response. Patient's white count is 13,100. The INR is 2.6. Creatinine is 1.6. Chest x-ray does not show any evidence of heart failure. FINAL IMPRESSION: 1. This patient is admitted with urosepsis and possible pyelonephritis. The patient had a high temperature in the emergency room. 2. Atrial fibrillation with a rapid ventricular response. At present, the patient is not in any acute respiratory distress and heart rate is 95-100 per minute. RECOMMENDATION: We will continue Lopressor 50 mg b.i.d., further adjustment the medications will be made as necessary. Echo and Doppler study will be done and we will discontinue the Lanoxin. MMODL / IJN: [id number] /
--- NOTE | 2019-10-23 12:16 | P.PN ---
Subjective Progress Note Date: 10/23/19 Principal diagnosis: UTI sepsis Patient was seen and examined. No acute events overnight. Patient reports urinary hesitancy. She denies any dysuria. She denies any abdominal pain. She denies any dizziness, chest pain, shortness of breath or palpitations. No nausea or vomiting. No fever or chills. Objective - Vital Signs Vital signs: Vital Signs Temp 98.8 F 10/23/19 07:55 Pulse 116 H 10/23/19 11:15 Resp 18 10/23/19 07:55 BP 98/50 10/23/19 07:55 Pulse Ox 97 10/23/19 07:55 Intake & Output 10/22/19 10/23/19 10/23/19 18:59 06:59 18:59 Intake Total 1400 2089 Balance 1400 2089 Weight 66.224 kg 70.5 kg Intake: IV 1400 800 Sodium Chloride 0.9% 1, 400 800 000 ml @ 100 mls/hr IV . Q10H [facility] Rx#:[id number] Sodium Chloride 0.9% 1, 1000 000 ml @ 999 mls/hr IV . Q1H1M [facility] Rx#:[id number] Intake, IV Titration 50 Amount cefTRIAXone 1 gm In 50 Sodium Chloride 0.9% 50 ml @ 100 mls/hr IVPB Q24HR [facility] Rx#:[id number] Oral 1240 Other: Voiding Method Toilet Toilet Diaper Diaper # Voids 1 - Exam General: [non toxic], [no distress], [appears at stated age] Derm: [warm], [dry] Head: [atraumatic], [normocephalic], [symmetric] Eyes: [EOMI], [no lid lag], [anicteric sclera] Mouth: [no lip lesion], [mucus membranes moist] Cardiovascular: [S1S2 irregular], [no murmur], [positive DP pulse bilateral], Lungs: [CTA bilateral], [no rhonchi, no rales] , [no accessory muscle use] Abdominal: [soft], [ nontender to palpation], [no guarding], [no appreciable organomegaly] Ext: [no gross muscle atrophy], [no edema], [no contractures] Neuro: [no focal neuro deficits] Psych: [Alert], [oriented], [appropriate affect] - Labs CBC & Chem 7: 10/23/19 06:27 10/23/19 06:27 Labs: Abnormal Lab Results - Last 24 Hours (Table) 10/22/19 10/22/19 10/22/19 Range/Units 17:41 17:41 17:41 WBC (3.8-10.6) k/uL RBC 3.62 L (3.80-5.40) m/uL Hgb 10.4 L (11.4-16.0) gm/dL Hct 32.4 L (34.0-46.0) % MCHC (31.0-37.0) g/dL Neutrophils # 8.2 H (1.3-7.7) k/uL Lymphocytes # 0.3 L (1.0-4.8) k/uL PT 28.3 H (9.0-12.0) sec INR 2.9 H (<1.2) APTT 33.0 H (22.0-30.0) sec Sodium 130 L (137-145) mmol/L Carbon Dioxide 17 L (22-30) mmol/L BUN 43 H (7-17) mg/dL Creatinine 1.77 H (0.52-1.04) mg/dL Glucose 142 H (74-99) mg/dL POC Glucose (mg/dL) (75-99) mg/dL Plasma Lactic Acid Jorgito (0.7-2.0) mmol/L Calcium 7.6 L (8.4-10.2) mg/dL Total Protein 5.6 L (6.3-8.2) g/dL Albumin 2.8 L (3.5-5.0) g/dL Urine Appearance (Clear) Urine Protein (Negative) Urine Ketones (Negative) Urine Blood (Negative) Ur Leukocyte Esterase (Negative) Urine RBC (0-5) /hpf Urine WBC (0-5) /hpf Urine WBC Clumps (None) /hpf Amorphous Sediment (None) /hpf Urine Bacteria (None) /hpf Urine Mucus (None) /hpf 10/22/19 10/22/19 10/22/19 Range/Units 17:41 18:37 21:02 WBC (3.8-10.6) k/uL RBC (3.80-5.40) m/uL Hgb (11.4-16.0) gm/dL Hct (34.0-46.0) % MCHC (31.0-37.0) g/dL Neutrophils # (1.3-7.7) k/uL Lymphocytes # (1.0-4.8) k/uL PT (9.0-12.0) sec INR (<1.2) APTT (22.0-30.0) sec Sodium (137-145) mmol/L Carbon Dioxide (22-30) mmol/L BUN (7-17) mg/dL Creatinine (0.52-1.04) mg/dL Glucose (74-99) mg/dL POC Glucose (mg/dL) 237 H (75-99) mg/dL Plasma Lactic Acid Jorgito 2.8 H* (0.7-2.0) mmol/L Calcium (8.4-10.2) mg/dL Total Protein (6.3-8.2) g/dL Albumin (3.5-5.0) g/dL Urine Appearance Cloudy H (Clear) Urine Protein 2+ H (Negative) Urine Ketones 1+ H (Negative) Urine Blood Moderate H (Negative) Ur Leukocyte Esterase Moderate H (Negative) Urine RBC 24 H (0-5) /hpf Urine WBC 37 H (0-5) /hpf Urine WBC Clumps Moderate H (None) /hpf Amorphous Sediment Rare H (None) /hpf Urine Bacteria Many H (None) /hpf Urine Mucus Rare H (None) /hpf 10/23/19 10/23/19 10/23/19 Range/Units 06:12 06:27 06:27 WBC 13.1 H (3.8-10.6) k/uL RBC 3.73 L (3.80-5.40) m/uL Hgb 10.8 L (11.4-16.0) gm/dL Hct (34.0-46.0) % MCHC 30.7 L (31.0-37.0) g/dL Neutrophils # 11.6 H (1.3-7.7) k/uL Lymphocytes # 0.7 L (1.0-4.8) k/uL PT (9.0-12.0) sec INR (<1.2) APTT (22.0-30.0) sec Sodium 135 L (137-145) mmol/L Carbon Dioxide 14 L (22-30) mmol/L BUN 42 H (7-17) mg/dL Creatinine 1.66 H (0.52-1.04) mg/dL Glucose 137 H (74-99) mg/dL POC Glucose (mg/dL) 146 H (75-99) mg/dL Plasma Lactic Acid Jorgito (0.7-2.0) mmol/L Calcium 8.0 L (8.4-10.2) mg/dL Total Protein (6.3-8.2) g/dL Albumin (3.5-5.0) g/dL Urine Appearance (Clear) Urine Protein (Negative) Urine Ketones (Negative) Urine Blood (Negative) Ur Leukocyte Esterase (Negative) Urine RBC (0-5) /hpf Urine WBC (0-5) /hpf Urine WBC Clumps (None) /hpf Amorphous Sediment (None) /hpf Urine Bacteria (None) /hpf Urine Mucus (None) /hpf 10/23/19 Range/Units 07:57 WBC (3.8-10.6) k/uL RBC (3.80-5.40) m/uL Hgb (11.4-16.0) gm/dL Hct (34.0-46.0) % MCHC (31.0-37.0) g/dL Neutrophils # (1.3-7.7) k/uL Lymphocytes # (1.0-4.8) k/uL PT 25.1 H (9.0-12.0) sec INR 2.6 H (<1.2) APTT (22.0-30.0) sec Sodium (137-145) mmol/L Carbon Dioxide (22-30) mmol/L BUN (7-17) mg/dL Creatinine (0.52-1.04) mg/dL Glucose (74-99) mg/dL POC Glucose (mg/dL) (75-99) mg/dL Plasma Lactic Acid Jorgito (0.7-2.0) mmol/L Calcium (8.4-10.2) mg/dL Total Protein (6.3-8.2) g/dL Albumin (3.5-5.0) g/dL Urine Appearance (Clear) Urine Protein (Negative) Urine Ketones (Negative) Urine Blood (Negative) Ur Leukocyte Esterase (Negative) Urine RBC (0-5) /hpf Urine WBC (0-5) /hpf Urine WBC Clumps (None) /hpf Amorphous Sediment (None) /hpf Urine Bacteria (None) /hpf Urine Mucus (None) /hpf Microbiology - Last 24 Hours (Table) 10/22/19 17:41 Blood Culture Gram Stain - Preliminary Blood 10/22/19 17:41 Blood Culture - Final Blood 10/22/19 18:37 Urine Culture - Preliminary Urine,Catheterized Assessment and Plan Assessment: UTI sepsis Hypovolemic hyponatremia Anion gap metabolic acidosis secondary to lactic acidosis Atrial fibrillation with rapid ventricular rate Acute kidney injury on Chronic kidney disease stage III COPD stable Chronic anemia Dyslipidemia Patient meets sepsis criteria. She is tachycardic, leukocytosis, positive lactic acid, positive source of infection. Influenza negative. RSV negative. Urinalysis showing moderate leukocyte esterase. Urine culture growing gram- negative sean. Plans: Continue Rocephin 1 g IV daily. Will follow urine and bl ood cultures. Continue normal saline at 100 mL per hour. Tylenol as needed for fever. Patient sodium has improved from 130 to 135. Plans: Continue IVF as above. Repeat BMP tomorrow morning. Her lactic acidosis is resolved. Her bicarbonate has gone from 17-14. This could also be a component of chronic kidney disease. Plans: Continue IVF as above. Daily BMP. Current rate 118. As seen on EKG. Plans: Continue metoprolol. Continue Coumadin. Consult cardiology for further recommendations. Follow echocardiogram. Creatinine 1.77-1.66. Baseline around 1.5. Likely due to dehydration. Plans: IVF as above. Repeat BMP tomorrow morning. Plans: DuoNeb as needed for shortness of breath or wheezing. Hemoglobin 10.8. Normocytic. Plans: Continue to monitor. Repeat CBC tomorrow morning. Plans: Continue Lipitor. [Patient admitted for UTI sepsis. Found to be in A. fib with RVR. Cardiology on board. She is pending clinical improvement. Likely DC in 1-2 days.]
[2019-10-23 12:24] LABS: Glucose,Whole Blood 167 mg/dL (75-99)
--- NOTE | 2019-10-23 13:00 | ECHOF ---
Referral Reason:atrial fib MEASUREMENTS -------- HEIGHT: 162.6 cm WEIGHT: 70.3 kg BP: 98/50 RVIDd: 4.0 cm (< 3.3) IVSd: 1.1 cm (0.6 - 1.1) LVIDd: 3.1 cm (3.9 - 5.3) LVPWd: 1.1 cm (0.6 - 1.1) IVSs: 1.8 cm LVIDs: 2.2 cm LVPWs: 1.6 cm LA Diam: 3.2 cm (2.7 - 3.8) LAESV Index (A-L): 37.29 ml/m Ao Diam: 3.1 cm (2.0 - 3.7) AV Cusp: 1.6 cm (1.5 - 2.6) MV EXCURSION: 14.577 mm (> 18.000) MV EF SLOPE: 108 mm/s (70 - 150) EPSS: 0.7 cm AV maxP.55 mmHg AV meanP.95 mmHg RAP: 5.00 mmHg RVSP: 36.85 mmHg TAPSE: 11.43 mm FINDINGS -------- Atrial fibrillation. This was a technically adequate study. The left ventricular size is normal. There is borderline concentric left ventricular hypertrophy. Overall left ventricular systolic function is low-normal with, an EF between 50 - 55 %. Apical sep leah LV wall motion is hypokinetic. The right ventricle is moderately enlarged. LA is moderately dilated 34-39 ml/m2 The right atrium is normal in size. Interatrial and interventricular septum intact. There is mild aortic valve sclerosis. There is mild aortic regurgitation. There is mild aortic st enosis present. Peak/mean gradient across the Aortic Valve is 18.55mmHg / 10.95mmHg. Mild mitral annular calcification present. There is trace to mild mitral regurgitation. Mild tricuspid regurgitation present. There is mild pulmonary hypertension. The right ventricular systolic pressure, as measured by Doppler, is 36.85mmHg. There is no pulmonic regurgitation present. The aortic root size is normal. Normal inferior vena cava with normal inspiratory collapse consistent with estimated right atrial pre ssure of 5 mmHg. There is no pericardial effusion. CONCLUSIONS -------- 1. Atrial fibrillation. 2. This was a technically adequate study. 3. The left ventricular size is normal. 4. There is borderline concentric left ventricular hypertrophy. 5. Overall left ventricular systolic function is low-normal with, an EF between 50 - 55 %. 6. Apical septum LV wall motion is hypokinetic. 7. The right ventricle is moderately enlarged. 8. LA is moderately dilated 34-39 ml/m2 9. The right atrium is normal in size. 10. Interatrial and interventricular septum intact. 11. There is mild aortic valve sclerosis. 12. There is mild aortic regurgitation. 13. There is mild aortic stenosis present. 14. Peak/mean gradient across the Aortic Valve is 18.55mmHg / 10.95mmHg. 15. Mild mitral annular calcification present. 16. There is trace to mild mitral regurgitation. 17. Mild tricuspid regurgitation present. 18. There is mild pulmonary hypertension. 19. The right ventricular systolic pressure, as measured by Doppler, is 36.85mmHg. 20. There is no pulmonic regurgitation present. 21. The aortic root size is normal. 22. Normal inferior vena cava with normal inspiratory collapse consistent with estimated right atrial pressure of 5 mmHg. 23. There is no pericardial effusion. [employer] LOADING MACHINE OPERATOR: Tangela Watts RDCS
[2019-10-23] MEDS: PIPERACILLIN-TAZOBACTAM 3.375 GM in SODIUM CHLORIDE 0.9% 100 ML IVPB SCH ×2 (15:51→21:49)
[2019-10-23] MEDS ORDERED: ACETAMINOPHEN TAB 325 MG TAB PO STA (16:47)
[2019-10-23 17:36] LABS: Glucose,Whole Blood 314 mg/dL (75-99)
[2019-10-23] MEDS ORDERED: WARFARIN 2.5 MG TAB PO SCH (18:00)
[2019-10-23] MEDS ORDERED: DILTIAZEM 5 MG/ML 10 ML VIAL IVP STA ×2 (18:27→18:47)
[2019-10-23] MEDS ORDERED: DILTIAZEM 125 MG in SODIUM CHLORIDE 0.9% 100 ML IV SCH (18:30)
[2019-10-23] MEDS ORDERED: SODIUM CHLORIDE 0.9% 500 ML 500 ML IV ONE (18:50)
[2019-10-23] MEDS ORDERED: DILTIAZEM DRIP BOLUS FROM BAG 1 MG SOLN IV STA (18:53)
[2019-10-23] MEDS ORDERED: SODIUM CHLORIDE 0.9% 500 ML 200 ML IV ONE (18:56)
[2019-10-23] MEDS ORDERED: niCARdipine 20 MG in SODIUM CHLORIDE 0.9% 192 ML IV SCH (19:00)
[2019-10-23 20:02] LABS: Glucose,Whole Blood 242 mg/dL (75-99)
[2019-10-23] MEDS ORDERED: SODIUM CHLORIDE 0.9% 500 ML 250 ML IV ONE (20:10)
[2019-10-23] MEDS ORDERED: SODIUM CHLORIDE 0.9% 250 ML IV ONE ×2 (20:29→21:49)
[2019-10-23] MEDS: MONTELUKAST 10 MG TAB PO SCH (21:49)
[2019-10-23] MEDS: DILTIAZEM 125 MG in SODIUM CHLORIDE 0.9% 100 ML IV SCH (23:11)
[2019-10-24 06:17] LABS: Glucose,Whole Blood 163 mg/dL (75-99)
[2019-10-24 06:21] LABS: INR 2.9 (<1.2); Prothrombin Time 28.3 sec (9.0-12.0)
[2019-10-24] MEDS: SODIUM CHLORIDE 0.9% 1,000 ML IV SCH ×3 (06:49→21:16)
[2019-10-24] MEDS: INSULIN ASPART (NovoLOG) 100 UNIT/ML VIAL SQ SCH ×4 (06:49→21:16)
[2019-10-24] MEDS ORDERED: DIGOXIN 125 MCG TAB PO SCH (09:00)
[2019-10-24] MEDS: IPRATROPIUM-ALBUTEROL 3 ML NEB INHALATION SCH ×4 (09:23→20:27)
[2019-10-24] MEDS: BUDESONIDE 0.5 MG/2 ML NEBU INHALATION SCH ×2 (09:23→20:27)
[2019-10-24 09:29] LABS: HCT 25.5 % (34.0-46.0); MCH 28.8 pg (25.0-35.0); MCHC 32.1 g/dL (31.0-37.0); MCV 89.8 fL (80.0-100.0); Mean Platelet Volume 8.7; Platelet Count 130 k/uL (150-450); RBC 2.84 m/uL (3.80-5.40); RDW 15.1 % (11.5-15.5); WBC 3.4 k/uL (3.8-10.6)
[2019-10-24 09:31] LABS: HGB 8.2 gm/dL (11.4-16.0)
[2019-10-24] MEDS: PIPERACILLIN-TAZOBACTAM 3.375 GM in SODIUM CHLORIDE 0.9% 100 ML IVPB SCH ×2 (09:51→21:16)
[2019-10-24] MEDS: METOPROLOL TARTRATE 50 MG TAB PO SCH ×2 (09:52→21:15)
[2019-10-24 09:53] LABS: Albumin 2.2 g/dL (3.5-5.0); Calcium 7.4 mg/dL (8.4-10.2); Magnesium 2.1 mg/dL (1.6-2.3); Total Bilirubin 0.2 mg/dL (0.2-1.3); Total Protein 4.7 g/dL (6.3-8.2)
[2019-10-24 12:12] LABS: Glucose,Whole Blood 166 mg/dL (75-99)
--- NOTE | 2019-10-24 12:56 | P.PN ---
Subjective Progress Note Date: 10/24/19 This is an 89-year-old female with history of hypertension, paroxysmal H or fibrillation, diabetes, hyperlipidemia, presented to the hospital with symptoms of generalized weakness, and she was found on the toilet. She had also had diarrhea for the couple of days prior to her admission here. On presentation here patient was found to be in atrial fibrillation with rapid ventricular response, she was seen in consultation by Dr. VC Perez yesterday. Last evening the patient's heart rate again went up into the 1:30 range and she was put back on the Cardizem. Her blood pressure at that time was around 80 systolic. Echocardiogram with Doppler study was performed which revealed an ejection fraction of 50-55%. Blood pressure this morning 108/50, 96/50, heart rate in the 80s, 100% on room air. We will discontinue the IV Cardizem drip. Continue metoprolol 50 mg one tablet by mouth twice a day. Objective - Vital Signs Vital signs: Vital Signs Temp 97.7 F 10/24/19 09:00 Pulse 84 10/24/19 09:35 Resp 18 10/24/19 09:00 BP 96/53 10/24/19 09:00 Pulse Ox 100 10/24/19 09:00 Intake & Output 10/23/19 10/24/19 10/24/19 18:59 06:59 18:59 Intake Total 2726 1340 240 Output Total 250 Balance 2726 1340 -10 Weight 73.9 kg 73.9 kg Intake: IV 800 1100 Sodium Chloride 0.9% 1, 800 1100 000 ml @ 100 mls/hr IV . Q10H [facility] Rx#:[id number] Intake, IV Titration 50 Amount cefTRIAXone 1 gm In 50 Sodium Chloride 0.9% 50 ml @ 100 mls/hr IVPB Q24HR [facility] Rx#:[id number] Oral 1876 240 240 Output: Urine 250 Other: Voiding Method Toilet Toilet Toilet Diaper # Voids 3 1 2 - Exam PHYSICAL EXAMINATION: GENERAL: 89-year-old female in no acute distress at the time of my examination HEENT: Head is atraumatic, normocephalic. Pupils equal, round. Sclera anicteric. Conjunctiva are clear. Mucous membranes of the mouth are moist. Neck is supple. There is no elevated jugular venous pressure. No carotid bruit is heard. HEART EXAMINATION: Heart S1 and S2 irregularly irregular CHEST EXAMINATION: Lungs are clear to auscultation and precussion. No chest wall tenderness is noted on palpation or with deep breathing. ABDOMEN: Soft, nontender. Bowel sounds are heard. No organomegaly noted. EXTREMITIES: 2+ peripheral pulses with no evidence of peripheral edema and no calf tenderness noted. NEUROLOGIC patient is awake, alert and oriented 3. . - Labs CBC & Chem 7: 10/24/19 05:47 10/24/19 05:47 Labs: Abnormal Lab Results - Last 24 Hours (Table) 10/23/19 10/23/19 10/24/19 Range/Units 17:35 20:00 05:47 WBC (3.8-10.6) k/uL RBC (3.80-5.40) m/uL Hgb (11.4-16.0) gm/dL Hct (34.0-46.0) % Plt Count (150-450) k/uL PT 28.3 H (9.0-12.0) sec INR 2.9 H (<1.2) Sodium (137-145) mmol/L Chloride (98-107) mmol/L Carbon Dioxide (22-30) mmol/L BUN (7-17) mg/dL Creatinine (0.52-1.04) mg/dL Glucose (74-99) mg/dL POC Glucose (mg/dL) 314 H 242 H (75-99) mg/dL Calcium (8.4-10.2) mg/dL AST (14-36) U/L Total Protein (6.3-8.2) g/dL Albumin (3.5-5.0) g/dL 10/24/19 10/24/19 10/24/19 Range/Units 05:47 05:47 06:16 WBC 3.4 L (3.8-10.6) k/uL RBC 2.84 L (3.80-5.40) m/uL Hgb 8.2 L D (11.4-16.0) gm/dL Hct 25.5 L (34.0-46.0) % Plt Count 130 L (150-450) k/uL PT (9.0-12.0) sec INR (<1.2) Sodium 132 L (137-145) mmol/L Chloride 109 H (98-107) mmol/L Carbon Dioxide 16 L (22-30) mmol/L BUN 41 H (7-17) mg/dL Creatinine 1.74 H (0.52-1.04) mg/dL Glucose 141 H (74-99) mg/dL POC Glucose (mg/dL) 163 H (75-99) mg/dL Calcium 7.4 L (8.4-10.2) mg/dL AST 42 H (14-36) U/L Total Protein 4.7 L (6.3-8.2) g/dL Albumin 2.2 L (3.5-5.0) g/dL 10/24/19 Range/Units 12:07 WBC (3.8-10.6) k/uL RBC (3.80-5.40) m/uL Hgb (11.4-16.0) gm/dL Hct (34.0-46.0) % Plt Count (150-450) k/uL PT (9.0-12.0) sec INR (<1.2) Sodium (137-145) mmol/L Chloride (98-107) mmol/L Carbon Dioxide (22-30) mmol/L BUN (7-17) mg/dL Creatinine (0.52-1.04) mg/dL Glucose (74-99) mg/dL POC Glucose (mg/dL) 166 H (75-99) mg/dL Calcium (8.4-10.2) mg/dL AST (14-36) U/L Total Protein (6.3-8.2) g/dL Albumin (3.5-5.0) g/dL Microbiology - Last 24 Hours (Table) 10/22/19 18:37 Urine Culture - Preliminary Urine,Catheterized Gram Neg Bacilli 10/22/19 17:41 Blood Culture Gram Stain - Preliminary Blood Blood Culture - Preliminary Escherichia coli Assessment and Plan Plan: Assessment and plan #1 urosepsis and possible polynephritis #2 persistent atrial fibrillation with rapid ventricular response #3 diabetes #4 hypertension #5 hyperlipidemia Plan From cardiology's perspective, we'll discontinue the IV Cardizem drip and continue current dose of beta fercho. Continue Coumadin. We will follow this patient along with you now on an as needed basis only, please don't hesitate to call with any questions. DNP note has been reviewed, I agree with a documented findings and plan of care. Patient was seen and examined.
--- NOTE | 2019-10-24 13:18 | P.PN ---
Subjective Progress Note Date: 10/24/19 Principal diagnosis: UTI sepsis Patient was seen and examined. No acute events overnight. Patient reports urinary hesitancy. She denies any dysuria. She denies any abdominal pain. She denies any dizziness, chest pain, shortness of breath or palpitations. No nausea or vomiting. No fever or chills. Patient complains of difficulty moving her left leg today. This problem is new and was not present before admission. Patient states that she has difficulty lifting her left leg and pulling it over her right leg. She denies any pain. Objective - Vital Signs Vital signs: Vital Signs Temp 98.1 F 10/24/19 12:30 Pulse 88 10/24/19 12:30 Resp 18 10/24/19 12:30 BP 102/64 10/24/19 12:30 Pulse Ox 98 10/24/19 12:30 Intake & Output 10/23/19 10/24/19 10/24/19 18:59 06:59 18:59 Intake Total 2726 1340 480 Output Total 250 Balance 2726 1340 230 Weight 73.9 kg 73.9 kg Intake: IV 800 1100 Sodium Chloride 0.9% 1, 800 1100 000 ml @ 100 mls/hr IV . Q10H [facility] Rx#:[id number] Intake, IV Titration 50 Amount cefTRIAXone 1 gm In 50 Sodium Chloride 0.9% 50 ml @ 100 mls/hr IVPB Q24HR [facility] Rx#:[id number] Oral 1876 240 480 Output: Urine 250 Other: Voiding Method Toilet Toilet Toilet Diaper # Voids 3 1 2 - Exam General: [non toxic], [no distress], [appears at stated age] Derm: [warm], [dry] Head: [atraumatic], [normocephalic], [symmetric] Eyes: [EOMI], [no lid lag], [anicteric sclera] Mouth: [no lip lesion], [mucus membranes moist] Cardiovascular: [S1S2 irregular], [no murmur], [positive DP pulse bilateral], Lungs: [CTA bilateral], [no rhonchi, no rales] , [no accessory muscle use] Abdominal: [soft], [ nontender to palpation], [no guarding], [no appreciable organomegaly] Ext: [no gross muscle atrophy], [no edema], [no contractures], [left hip non- tender to palpation, limited range of motion difficulty with adduction] Neuro: [no focal neuro deficits] Psych: [Alert], [oriented], [appropriate affect] - Labs CBC & Chem 7: 10/24/19 05:47 10/24/19 05:47 Labs: Abnormal Lab Results - Last 24 Hours (Table) 10/23/19 10/23/19 10/24/19 Range/Units 17:35 20:00 05:47 WBC (3.8-10.6) k/uL RBC (3.80-5.40) m/uL Hgb (11.4-16.0) gm/dL Hct (34.0-46.0) % Plt Count (150-450) k/uL PT 28.3 H (9.0-12.0) sec INR 2.9 H (<1.2) Sodium (137-145) mmol/L Chloride (98-107) mmol/L Carbon Dioxide (22-30) mmol/L BUN (7-17) mg/dL Creatinine (0.52-1.04) mg/dL Glucose (74-99) mg/dL POC Glucose (mg/dL) 314 H 242 H (75-99) mg/dL Calcium (8.4-10.2) mg/dL AST (14-36) U/L Total Protein (6.3-8.2) g/dL Albumin (3.5-5.0) g/dL 10/24/19 10/24/19 10/24/19 Range/Units 05:47 05:47 06:16 WBC 3.4 L (3.8-10.6) k/uL RBC 2.84 L (3.80-5.40) m/uL Hgb 8.2 L D (11.4-16.0) gm/dL Hct 25.5 L (34.0-46.0) % Plt Count 130 L (150-450) k/uL PT (9.0-12.0) sec INR (<1.2) Sodium 132 L (137-145) mmol/L Chloride 109 H (98-107) mmol/L Carbon Dioxide 16 L (22-30) mmol/L BUN 41 H (7-17) mg/dL Creatinine 1.74 H (0.52-1.04) mg/dL Glucose 141 H (74-99) mg/dL POC Glucose (mg/dL) 163 H (75-99) mg/dL Calcium 7.4 L (8.4-10.2) mg/dL AST 42 H (14-36) U/L Total Protein 4.7 L (6.3-8.2) g/dL Albumin 2.2 L (3.5-5.0) g/dL 10/24/19 Range/Units 12:07 WBC (3.8-10.6) k/uL RBC (3.80-5.40) m/uL Hgb (11.4-16.0) gm/dL Hct (34.0-46.0) % Plt Count (150-450) k/uL PT (9.0-12.0) sec INR (<1.2) Sodium (137-145) mmol/L Chloride (98-107) mmol/L Carbon Dioxide (22-30) mmol/L BUN (7-17) mg/dL Creatinine (0.52-1.04) mg/dL Glucose (74-99) mg/dL POC Glucose (mg/dL) 166 H (75-99) mg/dL Calcium (8.4-10.2) mg/dL AST (14-36) U/L Total Protein (6.3-8.2) g/dL Albumin (3.5-5.0) g/dL Microbiology - Last 24 Hours (Table) 10/22/19 18:37 Urine Culture - Preliminary Urine,Catheterized Gram Neg Bacilli 10/22/19 17:41 Blood Culture Gram Stain - Preliminary Blood Blood Culture - Preliminary Escherichia coli Assessment and Plan Assessment: UTI sepsis with E. coli bacteremia Left hip instability Hypovolemic hyponatremia Anion gap metabolic acidosis secondary to lactic acidosis Atrial fibrillation with rapid ventricular rate Acute kidney injury on Chronic kidney disease stage III COPD stable Chronic anemia Dyslipidemia Patient meets sepsis criteria. She is tachycardic, leukocytosis, positive lactic acid, positive source of infection. Influenza negative. RSV negative. Urinalysis showing moderate leukocyte esterase. Urine culture growing gram- negative sean. Blood culture growing E. coli. Plans: Antibiotics changed to Zosyn. Will follow urine and blood culture sensitivity. Discontinue IVF. Tylenol as needed for fever. Unknown etiology. Plans: Follow PT and OT consultation. Follow left hip x-ray. Patient sodium has improved from 130 to 135 to 132. Plans: Discontinue IVF. Repeat BMP tomorrow morning. Her lactic acidosis is resolved. Her bicarbonate has gone from 17-14-16. This could also be a component of chronic kidney disease. Plans: DC IVF and encourage hydration by mouth. Daily BMP. Current rate 88. As seen on EKG. Plans: Continue metoprolol. Continue Coumadin. Consult cardiology for further recommendations. Follow echocardiogram. Creatinine 1.77-1.66-1.74. Baseline around 1.5. Likely due to dehydration. Plans: DC IVF and encourage hydration by mouth. Repeat BMP tomorrow morning. Plans: DuoNeb as needed for shortness of breath or wheezing. Hemoglobin 10.8-8.2. Normocytic. Likely dilutional. No signs of bleeding. Plans: Continue to monitor. Repeat CBC tomorrow morning. Plans: Continue Lipitor. [Patient admitted for UTI sepsis. Found to be bacteremic, repeat blood cultures pending. Found to be in A. fib with RVR. Cardiology on board. She is pending clinical improvement. Likely DC in 1-2 days.]
--- NOTE | 2019-10-24 13:40 | XR ---
EXAMINATION TYPE: XR Hip Limited LT DATE OF EXAM: 10/24/2019 CLINICAL HISTORY: Left hip instability TECHNIQUE: AP view of the left hip is obtained. COMPARISON: None. FINDINGS: Diffuse osseous demineralization is seen. No gross evidence of left hip acute displaced fra cture although limited by patient body habitus and positioning. Mild sclerosis of the left sacroiliac joint and mild arthropathy of the left femoral acetabular joint with minimal acetabular roof scleros is. IMPRESSION: There is no gross evidence of acute displaced left rib fracture although limited by posi tioning and patient body habitus.
[2019-10-24 17:11] LABS: Glucose,Whole Blood 202 mg/dL (75-99)
[2019-10-24] MEDS ORDERED: WARFARIN 2.5 MG TAB PO SCH (18:00)
[2019-10-24] MEDS: DILTIAZEM 125 MG in SODIUM CHLORIDE 0.9% 100 ML IV SCH (18:25)
[2019-10-24 20:37] LABS: Glucose,Whole Blood 259 mg/dL (75-99)
[2019-10-24] MEDS: MONTELUKAST 10 MG TAB PO SCH (21:15)
[2019-10-25 05:52] LABS: Glucose,Whole Blood 130 mg/dL (75-99)
[2019-10-25] MEDS: INSULIN ASPART (NovoLOG) 100 UNIT/ML VIAL SQ SCH ×4 (06:00→20:17)
[2019-10-25] MEDS: SODIUM CHLORIDE 0.9% 1,000 ML IV SCH ×3 (06:00→20:18)
[2019-10-25 06:34] LABS: INR 3.6 (<1.2)
[2019-10-25] MEDS: METOPROLOL TARTRATE 50 MG TAB PO SCH ×2 (09:02→20:17)
[2019-10-25] MEDS: ATORVASTATIN 10 MG TAB PO SCH (09:02)
[2019-10-25] MEDS: PIPERACILLIN-TAZOBACTAM 3.375 GM in SODIUM CHLORIDE 0.9% 100 ML IVPB SCH (09:05)
[2019-10-25] MEDS: IPRATROPIUM-ALBUTEROL 3 ML NEB INHALATION SCH ×4 (09:06→20:57)
[2019-10-25] MEDS: BUDESONIDE 0.5 MG/2 ML NEBU INHALATION SCH ×2 (09:06→20:57)
[2019-10-25] MEDS: VERAPAMIL 40 MG TAB PO SCH ×3 (11:34→22:50)
[2019-10-25 11:56] LABS: Glucose,Whole Blood 233 mg/dL (75-99)
[2019-10-25 12:12] LABS: HCT 24.4 % (34.0-46.0); HGB 7.9 gm/dL (11.4-16.0); Hypochromasia Slight; MCH 29.5 pg (25.0-35.0); MCHC 32.5 g/dL (31.0-37.0); MCV 90.9 fL (80.0-100.0); Mean Platelet Volume 10.8; Platelet Count 150 k/uL (150-450); RBC 2.69 m/uL (3.80-5.40); WBC 2.9 k/uL (3.8-10.6)
[2019-10-25 12:19] LABS: Calcium 7.4 mg/dL (8.4-10.2); Potassium 4.2 mmol/L (3.5-5.1)
--- NOTE | 2019-10-25 12:44 | CDI ---
Documentation Clarification Form Date: 10/25/2019 12:26:09 PM From: Andie Lemus RN CCDS Admit Date: 10/22/2019 08:08:00 PM Patient Name: Luba Cha Visit Number: [id number] Discharge Date: ATTENTION: The Clinical Documentation Specialists (CDI) and [facility] Coding Staff appreciate your assistance in clarifying documentation. Please respond to the clarification below the line at the bottom and electronically sign. The CDI & [facility] Coding staff will review the response and follow-up if needed. Please note: Queries are made part of the Legal Health Record. If you have any questions, please contact the author of this message via ITS. Dr. Doris Clinton History of Congestive heart failure is documented in the ED Note 10/21 History/Risk Factors: 89-year-old female presents to the ED with generalized weakness. Medical History A Fib, COPD AND dm Diagnosed with Sepsis, UTI and Afib RVR Clinical Indicators: Per the ED note 10/21 The patient is given 1500cc of normal saline. This is slightly under her 30 ml per KG bolus as the patient does have history of congestive heart failure. VS/Pulse OX: 10/22/19 105/79 139 18 103.0 F 98% ra Echocardiogram Results:10/22 There is concentric left ventricular hypertrophy. Overall left ventricular systolic function is low normal with, an EF between 50-55%. Apical wall septum LV wall motion is hypokinetic. Mild aortic valve sclerosis, mild aortic regurgitation, mild aortic stenosis Chest X Ray: 10/21 small pleural effusions. Home meds listed on H& - Lopressor 50mg po bid, Lasix 20mg po daily Treatment: 10/21 Lopressor 50mg po x1, 10/22 Lopressor 50mg po bid kip In your professional opinion, can you please clarify the acuity and type of CHF if known? Chronic Diastolic Heart Failure Unable to Determine Heart Failure Ruled Out Other, please specify (Last Revision: November 2017) chronic diastolic MTDD
[2019-10-25 12:46] LABS: Basophils # (M) 0.03 k/uL (0-0.2); Eosinophils # (M) 0.12 k/uL (0-0.7); Lymphocytes # (M) 0.35 k/uL (1.0-4.8); Monocytes # (M) 0.41 k/uL (0-1.0); Neutrophils % (M) 69 %; Nucleated Red Blood Cells 0 /100 WBC (0-0); Total Cells Counted 100
[2019-10-25 12:49] LABS: Crenated RBC Present; Poikilocytosis (M) Present
--- NOTE | 2019-10-25 14:29 | CONS ---
CONSULTATION This patient's electronic medical records and clinical panels reviewed. Patient is admitted with acute pyelonephritis with E coli septicemia. Patient is doing fairly well. She is not in any acute respiratory distress. However, patient's heart rate remains in the range of 100-120, blood pressure is 102/53 mmHg. First and second heart sounds are heard. Lungs are clear to auscultation and percussion. Patient's ejection fraction is 50% to 55%. We will increase the dose of metoprolol to 75 mg b.i.d. and Calan 40 mg t.i.d. is added. MMODL / IJN: [id number] /
--- NOTE | 2019-10-25 15:15 | P.PN ---
Subjective Progress Note Date: 10/25/19 Principal diagnosis: UTI sepsis Patient was seen and examined. No acute events overnight. Patient reports resolution of her urinary hesitancy. She denies any dysuria. She denies any abdominal pain. She denies any dizziness, chest pain, shortness of breath or palpitations. No nausea or vomiting. No fever or chills. Patient with no complaints regarding her left lower extremity today. Objective - Vital Signs Vital signs: Vital Signs Temp 97.7 F 10/25/19 07:44 Pulse 106 H 10/25/19 12:09 Resp 16 10/25/19 11:10 BP 102/53 10/25/19 11:10 Pulse Ox 99 10/25/19 11:10 Intake & Output 10/24/19 10/25/19 10/25/19 18:59 06:59 18:59 Intake Total 816.167 540 360 Output Total 750 200 Balance 66.167 340 360 Weight 73.9 kg 76.3 kg Intake: Intake, IV Titration 96.167 Amount Diltiazem 125 mg In 96.167 Sodium Chloride 0.9% 100 ml @ 5 MG/HR 5 mls/hr IV .Q24H [facility] Rx#:[id number] Oral 720 540 360 Output: Urine 750 200 Other: Voiding Method Toilet Toilet # Voids 1 1 - Exam General: [non toxic], [no distress], [appears at stated age] Derm: [warm], [dry] Head: [atraumatic], [normocephalic], [symmetric] Eyes: [EOMI], [no lid lag], [anicteric sclera] Mouth: [no lip lesion], [mucus membranes moist] Cardiovascular: [S1S2 irregular], [no murmur], [positive DP pulse bilateral], Lungs: [CTA bilateral], [no rhonchi, no rales] , [no accessory muscle use] Abdominal: [soft], [ nontender to palpation], [no guarding], [no appreciable organomegaly] Ext: [no gross muscle atrophy], [no edema], [no contractures] Neuro: [no focal neuro deficits] Psych: [Alert], [oriented], [appropriate affect] - Labs CBC & Chem 7: 10/25/19 05:54 10/25/19 05:54 Labs: Abnormal Lab Results - Last 24 Hours (Table) 10/24/19 10/24/19 10/25/19 Range/Units 17:09 20:36 05:51 WBC (3.8-10.6) k/uL RBC (3.80-5.40) m/uL Hgb (11.4-16.0) gm/dL Hct (34.0-46.0) % Lymphocytes # (Manual) (1.0-4.8) k/uL PT (9.0-12.0) sec INR (<1.2) Sodium (137-145) mmol/L Chloride (98-107) mmol/L Carbon Dioxide (22-30) mmol/L BUN (7-17) mg/dL Creatinine (0.52-1.04) mg/dL Glucose (74-99) mg/dL POC Glucose (mg/dL) 202 H 259 H 130 H (75-99) mg/dL Calcium (8.4-10.2) mg/dL 10/25/19 10/25/19 10/25/19 Range/Units 05:54 05:54 05:54 WBC 2.9 L (3.8-10.6) k/uL RBC 2.69 L (3.80-5.40) m/uL Hgb 7.9 L (11.4-16.0) gm/dL Hct 24.4 L (34.0-46.0) % Lymphocytes # (Manual) 0.35 L (1.0-4.8) k/uL PT 35.0 H (9.0-12.0) sec INR 3.6 H (<1.2) Sodium 133 L (137-145) mmol/L Chloride 113 H (98-107) mmol/L Carbon Dioxide 17 L (22-30) mmol/L BUN 33 H (7-17) mg/dL Creatinine 1.49 H (0.52-1.04) mg/dL Glucose 111 H (74-99) mg/dL POC Glucose (mg/dL) (75-99) mg/dL Calcium 7.4 L (8.4-10.2) mg/dL 10/25/19 Range/Units 11:31 WBC (3.8-10.6) k/uL RBC (3.80-5.40) m/uL Hgb (11.4-16.0) gm/dL Hct (34.0-46.0) % Lymphocytes # (Manual) (1.0-4.8) k/uL PT (9.0-12.0) sec INR (<1.2) Sodium (137-145) mmol/L Chloride (98-107) mmol/L Carbon Dioxide (22-30) mmol/L BUN (7-17) mg/dL Creatinine (0.52-1.04) mg/dL Glucose (74-99) mg/dL POC Glucose (mg/dL) 233 H (75-99) mg/dL Calcium (8.4-10.2) mg/dL Microbiology - Last 24 Hours (Table) 10/22/19 17:41 Blood Culture Gram Stain - Final Blood Blood Culture - Final Escherichia coli 10/24/19 10:24 Blood Culture - Preliminary Blood No Growth after 24 hours 10/24/19 10:30 Blood Culture - Preliminary Blood No Growth after 24 hours 10/22/19 18:37 Urine Culture - Final Urine,Catheterized Escherichia coli Assessment and Plan Assessment: UTI sepsis with E. coli bacteremia Left hip instability Hypovolemic hyponatremia Anion gap metabolic acidosis secondary to lactic acidosis Atrial fibrillation with rapid ventricular rate Acute kidney injury on Chronic kidney disease stage III COPD stable Chronic anemia Dyslipidemia Patient meets sepsis criteria. She is tachycardic, leukocytosis, positive lactic acid, positive source of infection. Influenza negative. RSV negative. Urinalysis showing moderate leukocyte esterase. Urine culture growing E. coli. Blood culture growing E. coli. Plans: Antibiotics changed to Rocephin. Repeat blood culture prelim 24 hours negative, will need negative cultures prior to discharge. Discontinue IVF. Tylenol as needed for fever. Unknown etiology. Hip x-ray within normal limits. Plans: Follow PT and OT consultation. Patient sodium has improved from 130 to 135 to 132 to 133. Plans: Discontinue IVF. Repeat BMP tomorrow morning. Her lactic acidosis is resolved. Her bicarbonate has gone from 17-14-16-17. T his could also be a component of chronic kidney disease. Plans: DC IVF and encourage hydration by mouth. Daily BMP. Current rate 106. As seen on EKG. Echocardiogram shows EF 50-55% with hypokinetic apical septal LV wall. Plans: Continue metoprolol. Continue verapamil. Continue Coumadin. Consult cardiology for further recommendations. Creatinine 1.77-1.66-1.74-1.49. Baseline around 1.5. Likely due to dehydration. Plans: DC IVF and encourage hydration by mouth. Repeat BMP tomorrow morning. Plans: DuoNeb as needed for shortness of breath or wheezing. Hemoglobin 10.8-8.2-7.9. Normocytic. Likely dilutional. No signs of bleeding. Plans: Continue to monitor. Repeat CBC tomorrow morning. Plans: Continue Lipitor. [Patient admitted for UTI sepsis. Found to be bacteremic, repeat blood cultures pending. Found to be in A. fib with RVR. Cardiology on board. She is pending clinical improvement. Likely DC in 1-2 days.]
[2019-10-25 16:59] LABS: Glucose,Whole Blood 188 mg/dL (75-99)
[2019-10-25] MEDS ORDERED: WARFARIN 0.5 MG TAB PO ONE (18:00)
[2019-10-25 20:12] LABS: Glucose,Whole Blood 226 mg/dL (75-99)
[2019-10-25] MEDS: MONTELUKAST 10 MG TAB PO SCH (20:17)
[2019-10-26 06:21] LABS: Glucose,Whole Blood 148 mg/dL (75-99)
[2019-10-26] MEDS: INSULIN ASPART (NovoLOG) 100 UNIT/ML VIAL SQ SCH ×4 (06:29→20:44)
[2019-10-26 07:00] LABS: INR 4.6 (<1.2); Prothrombin Time 45.9 sec (9.0-12.0)
[2019-10-26] MEDS: METOPROLOL TARTRATE 50 MG TAB PO SCH ×2 (08:25→20:44)
[2019-10-26] MEDS: VERAPAMIL 40 MG TAB PO SCH (08:25)
[2019-10-26] MEDS: BUDESONIDE 0.5 MG/2 ML NEBU INHALATION SCH ×2 (08:51→20:00)
[2019-10-26] MEDS: IPRATROPIUM-ALBUTEROL 3 ML NEB INHALATION SCH ×4 (08:51→20:00)
[2019-10-26] MEDS ORDERED: VERAPAMIL 40 MG TAB PO STA (09:52)
[2019-10-26 11:29] LABS: Calcium 7.8 mg/dL (8.4-10.2); Potassium 4.1 mmol/L (3.5-5.1)
--- NOTE | 2019-10-26 11:34 | PN ---
PROGRESS NOTE This patient is admitted with acute pyelonephritis, atrial fibrillation with RVR. Patient is doing better, comfortable. She has been having some nonproductive cough, but she is afebrile. Patient's heart rate still remains in the range of 100 to 110. Blood pressure is 100/60 mmHg. First and second heart sounds are normal. Lungs are clear to auscultation and percussion. We will be increase the dose Calan to 80 mg q.8 hourly. Continue the Lopressor. MMODL / IJN: [id number] /
[2019-10-26 11:37] LABS: Basophils % (A) 1 %; Eosinophils # (A) 0.1 k/uL (0-0.7); Eosinophils % (A) 2 %; HCT 25.9 % (34.0-46.0); HGB 8.4 gm/dL (11.4-16.0); Lymphocytes # (A) 0.7 k/uL (1.0-4.8); Lymphocytes % (A) 17 %; MCH 29.2 pg (25.0-35.0); MCHC 32.3 g/dL (31.0-37.0); MCV 90.5 fL (80.0-100.0); Monocytes # (A) 0.3 k/uL (0-1.0); Monocytes % (A) 8 %; Neutrophils # (A) 2.8 k/uL (1.3-7.7); Neutrophils % (A) 69 %; Platelet Count 189 k/uL (150-450); RBC 2.86 m/uL (3.80-5.40); RDW 15.3 % (11.5-15.5); WBC 4.1 k/uL (3.8-10.6)
[2019-10-26 12:03] LABS: Glucose,Whole Blood 167 mg/dL (75-99)
--- NOTE | 2019-10-26 13:43 | P.PN ---
Subjective Progress Note Date: 10/26/19 Principal diagnosis: UTI sepsis Patient was seen and examined. No acute events overnight. Patient reports resolution of her urinary hesitancy. She denies any dysuria. She denies any abdominal pain. She denies any dizziness, chest pain, shortness of breath or palpitations. No nausea or vomiting. No fever or chills. Patient does report some shortness of breath with exertion to the washroom. Objective - Vital Signs Vital signs: Vital Signs Temp 97.7 F 10/26/19 08:00 Pulse 96 10/26/19 12:17 Resp 20 10/26/19 12:00 BP 103/69 10/26/19 12:00 Pulse Ox 98 10/26/19 12:00 Intake & Output 10/25/19 10/26/19 10/26/19 18:59 06:59 18:59 Intake Total 670 480 Balance 670 480 Weight 77.8 kg Intake: Oral 670 480 Other: Voiding Method Toilet # Voids 1 2 1 # Bowel Movements 0 - Exam General: [non toxic], [no distress], [appears at stated age] Derm: [warm], [dry] Head: [atraumatic], [normocephalic], [symmetric] Eyes: [EOMI], [no lid lag], [anicteric sclera] Mouth: [no lip lesion], [mucus membranes moist] Cardiovascular: [S1S2 irregular], [Hr in the 90s], [positive DP pulse bilateral ], Lungs: [CTA bilateral], [no rhonchi, no rales] , [no accessory muscle use] Abdominal: [soft], [ nontender to palpation], [no guarding], [no appreciable organomegaly] Ext: [no gross muscle atrophy], [no edema], [no contractures] Neuro: [no focal neuro deficits] Psych: [Alert], [oriented], [appropriate affect] - Labs CBC & Chem 7: 10/26/19 06:18 10/26/19 06:18 Labs: Abnormal Lab Results - Last 24 Hours (Table) 10/25/19 10/25/19 10/26/19 Range/Units 16:56 20:10 06:18 RBC (3.80-5.40) m/uL Hgb (11.4-16.0) gm/dL Hct (34.0-46.0) % Lymphocytes # (1.0-4.8) k/uL PT 45.9 H (9.0-12.0) sec INR 4.6 H (<1.2) Sodium (137-145) mmol/L Chloride (98-107) mmol/L Carbon Dioxide (22-30) mmol/L BUN (7-17) mg/dL Creatinine (0.52-1.04) mg/dL Glucose (74-99) mg/dL POC Glucose (mg/dL) 188 H 226 H (75-99) mg/dL Calcium (8.4-10.2) mg/dL 10/26/19 10/26/19 10/26/19 Range/Units 06:18 06:18 06:18 RBC 2.86 L (3.80-5.40) m/uL Hgb 8.4 L (11.4-16.0) gm/dL Hct 25.9 L (34.0-46.0) % Lymphocytes # 0.7 L (1.0-4.8) k/uL PT (9.0-12.0) sec INR (<1.2) Sodium 136 L (137-145) mmol/L Chloride 112 H (98-107) mmol/L Carbon Dioxide 17 L (22-30) mmol/L BUN 29 H (7-17) mg/dL Creatinine 1.34 H (0.52-1.04) mg/dL Glucose 135 H (74-99) mg/dL POC Glucose (mg/dL) 148 H (75-99) mg/dL Calcium 7.8 L (8.4-10.2) mg/dL 10/26/19 Range/Units 12:01 RBC (3.80-5.40) m/uL Hgb (11.4-16.0) gm/dL Hct (34.0-46.0) % Lymphocytes # (1.0-4.8) k/uL PT (9.0-12.0) sec INR (<1.2) Sodium (137-145) mmol/L Chloride (98-107) mmol/L Carbon Dioxide (22-30) mmol/L BUN (7-17) mg/dL Creatinine (0.52-1.04) mg/dL Glucose (74-99) mg/dL POC Glucose (mg/dL) 167 H (75-99) mg/dL Calcium (8.4-10.2) mg/dL Microbiology - Last 24 Hours (Table) 10/24/19 10:24 Blood Culture - Preliminary Blood No Growth after 48 hours 10/24/19 10:30 Blood Culture - Preliminary Blood No Growth after 48 hours 10/22/19 17:41 Blood Culture Gram Stain - Final Blood Blood Culture - Final Escherichia coli Assessment and Plan Assessment: UTI sepsis with E. coli bacteremia Shortness of breath Left hip instability Hypovolemic hyponatremia Anion gap metabolic acidosis secondary to lactic acidosis Atrial fibrillation with rapid ventricular rate Acute kidney injury on Chronic kidney disease stage III COPD stable Chronic anemia Dyslipidemia Patient meets sepsis criteria. She is tachycardic, leukocytosis, positive lactic acid, positive source of infection. Influenza negative. RSV negative. Urinalysis showing moderate leukocyte esterase. Urine culture growing E. coli. Blood culture growing E. coli. Plans: Antibiotics changed to Rocephin. Repeat blood culture prelim 48 hours negative, will need negative cultures prior to discharge. Discontinue IVF. Tylenol as needed for fever. Patient has gained considerable weight during this admission. This is likely related to infused IVF that she received. Plans: Obtain chest x-ray. Unknown etiology. Hip x-ray within normal limits. Plans: Follow PT and OT consultation. Patient sodium has improved from 130 to 136. Plans: Discontinue IVF. Repeat BMP tomorrow morning. Her lactic acidosis is resolved. Her bicarbonate has been at 17. This could also be a component of chronic kidney disease. Plans: DC IVF and encourage hydration by mouth. Daily BMP. Current rate 90s. As seen on EKG. Echocardiogram shows EF 50-55% with hypokinetic apical septal LV wall. Plans: Continue metoprolol. Verapamil increased by cardiology. Continue Coumadin. Consult cardiology for further recommendations. Creatinine 1.77-1.34. Baseline around 1.5. Likely due to dehydration. Plans: DC IVF and encourage hydration by mouth. Repeat BMP tomorrow morning. Plans: DuoNeb as needed for shortness of breath or wheezing. Hemoglobin 10.8-8.4. Normocytic. Likely dilutional. No signs of bleeding. Plans: Continue to monitor. Repeat CBC tomorrow morning. Plans: Continue Lipitor. [Patient admitted for UTI sepsis. Found to be bacteremic, repeat blood cultures pending. Found to be in A. fib with RVR. Cardiology on board, medications adjusted. She is pending clinical improvement. Likely DC in 1-2 days.]
--- NOTE | 2019-10-26 13:54 | XR ---
EXAMINATION TYPE: XR chest 1V portable DATE OF EXAM: 10/26/2019 CLINICAL HISTORY: Difficulty breathing progress study. TECHNIQUE: Single AP portable upright view of the chest is obtained. COMPARISON: Chest x-ray from [address] chest July 11, 2019. FINDINGS: There is background chronic emphysematous change with slightly more prominent small bilate ral pleural effusions and mild central vascular congestion. There is associated bibasilar atelectasis and/or infiltrates. Right-sided volume loss with mediastinal shift remains present. Cardiac silhouet te size is stable and enlarged with atherosclerotic aorta. Large calcified nodule or granuloma superi or aspect left lower lobe redemonstrated. Osseous structures remain demineralized. IMPRESSION: Progressive CHF exacerbation is felt present as there is cardiomegaly with more prominent small bilateral pleural effusions now identified. Associated bibasilar atelectasis and/or infiltrate is seen.
[2019-10-26] MEDS: VERAPAMIL 80 MG TAB PO SCH ×2 (15:18→22:55)
[2019-10-26 16:47] LABS: Glucose,Whole Blood 189 mg/dL (75-99)
[2019-10-26] MEDS ORDERED: WARFARIN 0.5 MG TAB PO ONE (18:00)
[2019-10-26 20:35] LABS: Glucose,Whole Blood 198 mg/dL (75-99)
[2019-10-26] MEDS: MONTELUKAST 10 MG TAB PO SCH (20:44)
[2019-10-26] MEDS: SODIUM CHLORIDE 0.9% 1,000 ML IV SCH (20:45)
[2019-10-27 06:14] LABS: Glucose,Whole Blood 158 mg/dL (75-99)
[2019-10-27] MEDS: INSULIN ASPART (NovoLOG) 100 UNIT/ML VIAL SQ SCH ×4 (06:17→21:13)
[2019-10-27 07:05] LABS: INR 3.9 (<1.2); Prothrombin Time 38.7 sec (9.0-12.0)
[2019-10-27] MEDS: IPRATROPIUM-ALBUTEROL 3 ML NEB INHALATION SCH ×4 (07:17→19:29)
[2019-10-27] MEDS: BUDESONIDE 0.5 MG/2 ML NEBU INHALATION SCH ×2 (07:17→19:29)
[2019-10-27] MEDS ORDERED: FUROSEMIDE 10 MG/ML 4 ML VIAL IV STA (09:13)
[2019-10-27 09:37] LABS: HCT 28.9 % (34.0-46.0); HGB 8.8 gm/dL (11.4-16.0); Hypochromasia Slight; MCH 28.4 pg (25.0-35.0); MCHC 30.6 g/dL (31.0-37.0); MCV 92.7 fL (80.0-100.0); Mean Platelet Volume 8.6; Platelet Count 253 k/uL (150-450); RBC 3.11 m/uL (3.80-5.40); RDW 15.2 % (11.5-15.5); WBC 7.1 k/uL (3.8-10.6)
[2019-10-27] MEDS: VERAPAMIL 80 MG TAB PO SCH ×3 (09:38→21:13)
[2019-10-27] MEDS: METOPROLOL TARTRATE 50 MG TAB PO SCH ×2 (09:38→21:13)
[2019-10-27] MEDS: ATORVASTATIN 10 MG TAB PO SCH (09:39)
[2019-10-27 09:42] LABS: Albumin 2.5 g/dL (3.5-5.0); Calcium 7.9 mg/dL (8.4-10.2); Potassium 4.7 mmol/L (3.5-5.1); Total Bilirubin 0.1 mg/dL (0.2-1.3); Total Protein 5.3 g/dL (6.3-8.2)
--- NOTE | 2019-10-27 10:54 | P.PN ---
Subjective Progress Note Date: 10/27/19 This is an 89-year-old female with history of hypertension, paroxysmal H or fibrillation, diabetes, hyperlipidemia, presented to the hospital with symptoms of generalized weakness, and she was found on the toilet. She had also had diarrhea for the couple of days prior to her admission here. On presentation here patient was found to be in atrial fibrillation with rapid ventricular response, she was seen in consultation by Dr. VC Perez yesterday. Last evening the patient's heart rate again went up into the 1:30 range and she was put back on the Cardizem. Her blood pressure at that time was around 80 systolic. Echocardiogram with Doppler study was performed which revealed an ejection fraction of 50-55%. Blood pressure this morning 108/50, 96/50, heart rate in the 80s, 100% on room air. We will discontinue the IV Cardizem drip. Continue metoprolol 50 mg one tablet by mouth twice a day. 10/27/2019 Patient seen and examined this morning, sitting up in the chair bedside, overall she feels well. Heart rate is under much better control. We will continue the patient on her current medications. Objective - Vital Signs Vital signs: Vital Signs Temp 97.7 F 10/27/19 08:00 Pulse 134 H 10/27/19 08:00 Resp 20 10/27/19 08:00 BP 124/94 10/27/19 08:00 Pulse Ox 97 10/27/19 08:00 Intake & Output 10/26/19 10/27/19 10/27/19 18:59 06:59 18:59 Intake Total 480 240 Balance 480 240 Weight 78.7 kg Intake: Oral 480 240 Other: Voiding Method Toilet # Voids 1 1 - Exam PHYSICAL EXAMINATION: GENERAL: 89-year-old female in no acute distress at the time of my examination HEENT: Head is atraumatic, normocephalic. Pupils equal, round. Sclera anicteric. Conjunctiva are clear. Mucous membranes of the mouth are moist. Neck is supple. There is no elevated jugular venous pressure. No carotid bruit is heard. HEART EXAMINATION: Heart S1 and S2 irregularly irregular CHEST EXAMINATION: Lungs are clear to auscultation and precussion. No chest wall tenderness is noted on palpation or with deep breathing. ABDOMEN: Soft, nontender. Bowel sounds are heard. No organomegaly noted. EXTREMITIES: 2+ peripheral pulses with no evidence of peripheral edema and no calf tenderness noted. NEUROLOGIC patient is awake, alert and oriented 3. . - Labs CBC & Chem 7: 10/27/19 06:11 10/27/19 06:11 Labs: Abnormal Lab Results - Last 24 Hours (Table) 10/26/19 10/26/19 10/26/19 Range/Units 06:18 06:18 12:01 RBC 2.86 L (3.80-5.40) m/uL Hgb 8.4 L (11.4-16.0) gm/dL Hct 25.9 L (34.0-46.0) % MCHC (31.0-37.0) g/dL Lymphocytes # 0.7 L (1.0-4.8) k/uL PT (9.0-12.0) sec INR (<1.2) Sodium 136 L (137-145) mmol/L Chloride 112 H (98-107) mmol/L Carbon Dioxide 17 L (22-30) mmol/L BUN 29 H (7-17) mg/dL Creatinine 1.34 H (0.52-1.04) mg/dL Glucose 135 H (74-99) mg/dL POC Glucose (mg/dL) 167 H (75-99) mg/dL Calcium 7.8 L (8.4-10.2) mg/dL Total Bilirubin (0.2-1.3) mg/dL AST (14-36) U/L ALT (4-34) U/L Total Protein (6.3-8.2) g/dL Albumin (3.5-5.0) g/dL 10/26/19 10/26/19 10/27/19 Range/Units 16:45 20:30 06:11 RBC (3.80-5.40) m/uL Hgb (11.4-16.0) gm/dL Hct (34.0-46.0) % MCHC (31.0-37.0) g/dL Lymphocytes # (1.0-4.8) k/uL PT 38.7 H (9.0-12.0) sec INR 3.9 H (<1.2) Sodium (137-145) mmol/L Chloride (98-107) mmol/L Carbon Dioxide (22-30) mmol/L BUN (7-17) mg/dL Creatinine (0.52-1.04) mg/dL Glucose (74-99) mg/dL POC Glucose (mg/dL) 189 H 198 H (75-99) mg/dL Calcium (8.4-10.2) mg/dL Total Bilirubin (0.2-1.3) mg/dL AST (14-36) U/L ALT (4-34) U/L Total Protein (6.3-8.2) g/dL Albumin (3.5-5.0) g/dL 10/27/19 10/27/19 10/27/19 Range/Units 06:11 06:11 06:12 RBC 3.11 L (3.80-5.40) m/uL Hgb 8.8 L (11.4-16.0) gm/dL Hct 28.9 L (34.0-46.0) % MCHC 30.6 L (31.0-37.0) g/dL Lymphocytes # (1.0-4.8) k/uL PT (9.0-12.0) sec INR (<1.2) Sodium (137-145) mmol/L Chloride 115 H (98-107) mmol/L Carbon Dioxide 15 L (22-30) mmol/L BUN 28 H (7-17) mg/dL Creatinine 1.31 H (0.52-1.04) mg/dL Glucose 141 H (74-99) mg/dL POC Glucose (mg/dL) 158 H (75-99) mg/dL Calcium 7.9 L (8.4-10.2) mg/dL Total Bilirubin 0.1 L (0.2-1.3) mg/dL AST 81 H (14-36) U/L ALT 86 H (4-34) U/L Total Protein 5.3 L (6.3-8.2) g/dL Albumin 2.5 L (3.5-5.0) g/dL Microbiology - Last 24 Hours (Table) 10/24/19 10:24 Blood Culture - Preliminary Blood No Growth after 48 hours 10/24/19 10:30 Blood Culture - Preliminary Blood No Growth after 48 hours Assessment and Plan Plan: Assessment and plan #1 urosepsis and possible polynephritis #2 persistent atrial fibrillation with rapid ventricular response #3 diabetes #4 hypertension #5 hyperlipidemia Plan From cardiology's perspective, we'll continue the patient on her current medications. DNP note has been reviewed, I agree with a documented findings and plan of care. Patient was seen and examined.
[2019-10-27 11:45] LABS: Glucose,Whole Blood 146 mg/dL (75-99)
[2019-10-27 14:15] VITALS: BMI 29.7
--- NOTE | 2019-10-27 15:00 | P.PN ---
Subjective Progress Note Date: 10/27/19 Principal diagnosis: UTI sepsis Patient was seen and examined. No acute events overnight. Patient reports resolution of her urinary hesitancy. She denies any dysuria. She denies any abdominal pain. She denies any dizziness, chest pain, shortness of breath or palpitations. No nausea or vomiting. No fever or chills. Patient does report some shortness of breath with exertion to the washroom. Objective - Vital Signs Vital signs: Vital Signs Temp 97.7 F 10/27/19 08:00 Pulse 88 10/27/19 11:29 Resp 20 10/27/19 08:00 BP 124/94 10/27/19 08:00 Pulse Ox 97 10/27/19 08:00 Intake & Output 10/26/19 10/27/19 10/27/19 18:59 06:59 18:59 Intake Total 480 720 Balance 480 720 Weight 78.7 kg 78.7 kg Intake: Oral 480 720 Other: Voiding Method Toilet # Voids 1 1 1 - Exam General: [non toxic], [no distress], [appears at stated age] Derm: [warm], [dry] Head: [atraumatic], [normocephalic], [symmetric] Eyes: [EOMI], [no lid lag], [anicteric sclera] Mouth: [no lip lesion], [mucus membranes moist] Cardiovascular: [S1S2 irregular], [Hr in the 90s], [positive DP pulse bilateral], Lungs: [Decreased breath sounds bilateral], [Rales at the bases] , [no accessory muscle use] Abdominal: [soft], [ nontender to palpation], [no guarding], [no appreciable organomegaly] Ext: [no gross muscle atrophy], [no edema], [no contractures] Neuro: [no focal neuro deficits] Psych: [Alert], [oriented], [appropriate affect] - Labs CBC & Chem 7: 10/27/19 06:11 10/27/19 06:11 Labs: Abnormal Lab Results - Last 24 Hours (Table) 10/26/19 10/26/19 10/27/19 Range/Units 16:45 20:30 06:11 RBC (3.80-5.40) m/uL Hgb (11.4-16.0) gm/dL Hct (34.0-46.0) % MCHC (31.0-37.0) g/dL PT 38.7 H (9.0-12.0) sec INR 3.9 H (<1.2) Chloride (98-107) mmol/L Carbon Dioxide (22-30) mmol/L BUN (7-17) mg/dL Creatinine (0.52-1.04) mg/dL Glucose (74-99) mg/dL POC Glucose (mg/dL) 189 H 198 H (75-99) mg/dL Calcium (8.4-10.2) mg/dL Total Bilirubin (0.2-1.3) mg/dL AST (14-36) U/L ALT (4-34) U/L Total Protein (6.3-8.2) g/dL Albumin (3.5-5.0) g/dL 10/27/19 10/27/19 10/27/19 Range/Units 06:11 06:11 06:12 RBC 3.11 L (3.80-5.40) m/uL Hgb 8.8 L (11.4-16.0) gm/dL Hct 28.9 L (34.0-46.0) % MCHC 30.6 L (31.0-37.0) g/dL PT (9.0-12.0) sec INR (<1.2) Chloride 115 H (98-107) mmol/L Carbon Dioxide 15 L (22-30) mmol/L BUN 28 H (7-17) mg/dL Creatinine 1.31 H (0.52-1.04) mg/dL Glucose 141 H (74-99) mg/dL POC Glucose (mg/dL) 158 H (75-99) mg/dL Calcium 7.9 L (8.4-10.2) mg/dL Total Bilirubin 0.1 L (0.2-1.3) mg/dL AST 81 H (14-36) U/L ALT 86 H (4-34) U/L Total Protein 5.3 L (6.3-8.2) g/dL Albumin 2.5 L (3.5-5.0) g/dL 10/27/19 Range/Units 11:42 RBC (3.80-5.40) m/uL Hgb (11.4-16.0) gm/dL Hct (34.0-46.0) % MCHC (31.0-37.0) g/dL PT (9.0-12.0) sec INR (<1.2) Chloride (98-107) mmol/L Carbon Dioxide (22-30) mmol/L BUN (7-17) mg/dL Creatinine (0.52-1.04) mg/dL Glucose (74-99) mg/dL POC Glucose (mg/dL) 146 H (75-99) mg/dL Calcium (8.4-10.2) mg/dL Total Bilirubin (0.2-1.3) mg/dL AST (14-36) U/L ALT (4-34) U/L Total Protein (6.3-8.2) g/dL Albumin (3.5-5.0) g/dL Microbiology - Last 24 Hours (Table) 10/24/19 10:24 Blood Culture - Preliminary Blood No Growth after 72 hours 10/24/19 10:30 Blood Culture - Preliminary Blood No Growth after 72 hours Assessment and Plan Assessment: UTI sepsis with E. coli bacteremia Acute systolic CHF exacerbation Left hip instability Anion gap metabolic acidosis secondary to lactic acidosis Atrial fibrillation with rapid ventricular rate Acute kidney injury on Chronic kidney disease stage III COPD stable Chronic anemia Dyslipidemia Patient meets sepsis criteria. She is tachycardic, leukocytosis, positive lactic acid, positive source of infection. Influenza negative. RSV negative. Urinalysis showing moderate leukocyte esterase. Urine culture growing E. coli. Blood culture growing E. coli. Plans: Antibiotics changed to Rocephin. Repeat blood culture prelim 72 hours negative, will need negative cultures prior to discharge. Discontinue IVF. Tylenol as needed for fever. Patient has gained considerable weight during this admission. This is likely related to infused IVF that she received. Chest x-ray shows CHF exacerbation. Plans: 1 dose of Lasix today. Intakes and takes. Daily weights. Unknown etiology. Hip x-ray within normal limits. Plans: Follow PT and OT consultation. Plans for subacute rehab. Her lactic acidosis is resolved. Her bicarbonate is 15. This could also be a component of chronic kidney disease. Plans: Daily BMP. Current rate 90s. As seen on EKG. Echocardiogram shows EF 50-55% with hypokinetic apical septal LV wall. Plans: Continue metoprolol. Verapamil increased by cardiology. Continue Coumadin. Consult cardiology for further rec ommendations. Creatinine 1.77-1.31. Baseline around 1.5. Likely due to dehydration. Plans: DC IVF and encourage hydration by mouth. Repeat BMP tomorrow morning. Plans: DuoNeb as needed for shortness of breath or wheezing. Hemoglobin 10.8-8.8. Normocytic. Likely dilutional. No signs of bleeding. Plans: Continue to monitor. Repeat CBC tomorrow morning. Plans: Continue Lipitor. [Patient admitted for UTI sepsis. Found to be bacteremic, repeat blood cultures negative so far. Found to be in A. fib with RVR. Cardiology on board, medications adjusted. She is pending clinical improvement. Likely DC in 1-2 days.]
[2019-10-27 17:05] LABS: Glucose,Whole Blood 155 mg/dL (75-99)
[2019-10-27] MEDS ORDERED: WARFARIN 0.5 MG TAB PO ONE (18:00)
[2019-10-27 20:39] LABS: Glucose,Whole Blood 169 mg/dL (75-99)
[2019-10-27] MEDS: MONTELUKAST 10 MG TAB PO SCH (21:13)
[2019-10-27] MEDS: SODIUM CHLORIDE 0.9% 1,000 ML IV SCH (21:19)
[2019-10-28 06:32] LABS: Glucose,Whole Blood 126 mg/dL (75-99)
[2019-10-28 06:39] LABS: INR 3.2 (<1.2); Prothrombin Time 30.8 sec (9.0-12.0)
[2019-10-28] MEDS: INSULIN ASPART (NovoLOG) 100 UNIT/ML VIAL SQ SCH ×4 (06:51→21:26)
[2019-10-28] MEDS: IPRATROPIUM-ALBUTEROL 3 ML NEB INHALATION SCH ×4 (07:46→19:18)
[2019-10-28] MEDS: BUDESONIDE 0.5 MG/2 ML NEBU INHALATION SCH ×2 (07:46→19:18)
[2019-10-28] MEDS: VERAPAMIL 80 MG TAB PO SCH ×3 (08:02→21:20)
[2019-10-28] MEDS: METOPROLOL TARTRATE 50 MG TAB PO SCH ×2 (08:02→21:21)
[2019-10-28 11:53] LABS: Glucose,Whole Blood 149 mg/dL (75-99)
--- NOTE | 2019-10-28 12:17 | P.PN ---
Subjective Progress Note Date: 10/28/19 Principal diagnosis: UTI sepsis Patient was seen and examined. No acute events overnight. Patient reports resolution of her urinary hesitancy. She denies any dysuria. She denies any abdominal pain. She denies any dizziness, chest pain, shortness of breath or palpitations. No nausea or vomiting. No fever or chills. Patient does report some shortness of breath with exertion to the washroom which has worsened since yesterday. Patient states that she has urinated but has not been increased since the last couple of days. Objective - Vital Signs Vital signs: Vital Signs Temp 98.1 F 10/28/19 11:47 Pulse 91 10/28/19 11:47 Resp 20 10/28/19 11:47 BP 119/59 10/28/19 11:47 Pulse Ox 100 10/28/19 11:47 Intake & Output 10/27/19 10/28/19 10/28/19 18:59 06:59 18:59 Intake Total 942 250 180 Balance 942 250 180 Weight 78.7 kg 78 kg Intake: Oral 942 250 180 Other: Voiding Method Toilet Toilet Toilet # Voids 1 - Exam General: [non toxic], [no distress], [appears at stated age] Derm: [warm], [dry] Head: [atraumatic], [normocephalic], [symmetric] Eyes: [EOMI], [no lid lag], [anicteric sclera] Mouth: [no lip lesion], [mucus membranes moist] Cardiovascular: [S1S2 irregular], [Hr in the 90s], [positive DP pulse bilateral], Lungs: [Decreased breath sounds bilateral], [Rales at the bases, worse from yesterday] , [no accessory muscle use] Abdominal: [soft], [ nontender to palpation], [no guarding], [no appreciable organomegaly] Ext: [no gross muscle atrophy], [no edema], [no contractures] Neuro: [no focal neuro deficits] Psych: [Alert], [oriented], [appropriate affect] - Labs CBC & Chem 7: 10/27/19 06:11 10/27/19 06:11 Labs: Abnormal Lab Results - Last 24 Hours (Table) 10/27/19 10/27/19 10/28/19 Range/Units 17:04 20:35 05:53 PT 30.8 H (9.0-12.0) sec INR 3.2 H (<1.2) POC Glucose (mg/dL) 155 H 169 H (75-99) mg/dL 10/28/19 10/28/19 Range/Units 06:27 11:31 PT (9.0-12.0) sec INR (<1.2) POC Glucose (mg/dL) 126 H 149 H (75-99) mg/dL Microbiology - Last 24 Hours (Table) 10/24/19 10:24 Blood Culture - Preliminary Blood No Growth after 72 hours 10/24/19 10:30 Blood Culture - Preliminary Blood No Growth after 72 hours Assessment and Plan Assessment: UTI sepsis with E. coli bacteremia Acute systolic CHF exacerbation Left hip instability Anion gap metabolic acidosis secondary to lactic acidosis Atrial fibrillation with rapid ventricular rate Acute kidney injury on Chronic kidney disease stage III COPD stable Chronic anemia Dyslipidemia Patient meets sepsis criteria. She is tachycardic, leukocytosis, positive lactic acid, positive source of infection. Influenza negative. RSV negative. Urinalysis showing moderate leukocyte esterase. Urine culture growing E. coli. Blood culture growing E. coli. Plans: Antibiotics changed to Rocephin. Repeat blood culture prelim 72 hours negative, will need negative cultures prior to discharge. Discontinue IVF. Tylenol as needed for fever. Patient has gained considerable weight during this admission. This is likely related to infused IVF that she received. Chest x-ray shows CHF exacerbation. Plans: Start Lasix 40 mg IV twice a day. Intakes and takes. Daily weights. Repeat BMP tomorrow morning. Repeat chest x-ray tomorrow. Unknown etiology. Hip x-ray within normal limits. Plans: Follow PT and OT consultation. Plans for subacute rehab. Her lactic acidosis is resolved. Her bicarbonate is 15. This could also be a component of chronic kidney disease. Plans: Daily BMP. Current rate 90s. As seen on EKG. Echocardiogram shows EF 50-55% with hypokinetic apical septal LV wall. Plans: Continue metoprolol. Verapamil increased by cardiology. Continue Coumadin. Consult cardiology for further recommendations. Creatinine 1.77-1.31. Baseline around 1.5. Likely due to dehydration. Plans: DC IVF and encourage hydration by mouth. Repeat BMP tomorrow morning. Plans: DuoNeb as needed for shortness of breath or wheezing. Hemoglobin 10.8-8.8. Normocytic. Likely dilutional. No signs of bleeding. Plans: Continue to monitor. Repeat CBC tomorrow morning. Plans: Continue Lipitor. [Patient admitted for UTI sepsis. Found to be bacteremic, repeat blood cultures negative so far. Found to be in A. fib with RVR, Cardiology on board, medications adjusted. Found to be fluid overloaded, receiving Lasix IV. She is pending clinical improvement. Likely DC in 1-2 days.]
[2019-10-28] MEDS: FUROSEMIDE 10 MG/ML 4 ML VIAL IV SCH ×2 (14:12→21:25)
[2019-10-28 17:02] LABS: Glucose,Whole Blood 149 mg/dL (75-99)
[2019-10-28] MEDS ORDERED: WARFARIN 0.5 MG TAB PO ONE (18:00)
[2019-10-28 20:43] LABS: Glucose,Whole Blood 161 mg/dL (75-99)
[2019-10-28] MEDS: MONTELUKAST 10 MG TAB PO SCH (21:20)
[2019-10-28] MEDS: SODIUM CHLORIDE 0.9% 1,000 ML IV SCH (21:27)
[2019-10-29 06:14] LABS: Glucose,Whole Blood 132 mg/dL (75-99)
[2019-10-29 06:40] LABS: Calcium 8.1 mg/dL (8.4-10.2); Potassium 4.2 mmol/L (3.5-5.1)
[2019-10-29 06:43] LABS: INR 2.4 (<1.2); Prothrombin Time 23.5 sec (9.0-12.0)
--- NOTE | 2019-10-29 06:49 | XR ---
EXAMINATION TYPE: XR chest 1V portable DATE OF EXAM: 10/29/2019 HISTORY: CHF. REFERENCE: Previous study dated 10/26/2019. FINDINGS: The heart is enlarged. There is a well-defined calcified granuloma in the left upper lobe. There are bilateral effusions. There is bibasilar airspace disease. There has been very little interv al change in the appearance of the chest. IMPRESSION: NO SIGNIFICANT INTERVAL CHANGE IN THE APPEARANCE OF THE CHEST.
[2019-10-29] MEDS: INSULIN ASPART (NovoLOG) 100 UNIT/ML VIAL SQ SCH ×4 (06:53→21:08)
[2019-10-29] MEDS: FUROSEMIDE 10 MG/ML 4 ML VIAL IV SCH ×2 (07:43→19:47)
[2019-10-29] MEDS: METOPROLOL TARTRATE 50 MG TAB PO SCH ×2 (07:43→19:47)
[2019-10-29] MEDS: ATORVASTATIN 10 MG TAB PO SCH (07:43)
[2019-10-29] MEDS: VERAPAMIL 80 MG TAB PO SCH ×3 (07:43→19:47)
[2019-10-29] MEDS: IPRATROPIUM-ALBUTEROL 3 ML NEB INHALATION SCH ×4 (08:28→21:59)
[2019-10-29] MEDS: BUDESONIDE 0.5 MG/2 ML NEBU INHALATION SCH ×2 (08:28→21:59)
--- NOTE | 2019-10-29 10:26 | P.PN ---
Subjective Progress Note Date: 10/29/19 This is an 89-year-old female with history of hypertension, paroxysmal H or fibrillation, diabetes, hyperlipidemia, presented to the hospital with symptoms of generalized weakness, and she was found on the toilet. She had also had diarrhea for the couple of days prior to her admission here. On presentation here patient was found to be in atrial fibrillation with rapid ventricular response, she was seen in consultation by Dr. VC Perez yesterday. Last evening the patient's heart rate again went up into the 1:30 range and she was put back on the Cardizem. Her blood pressure at that time was around 80 systolic. Echocardiogram with Doppler study was performed which revealed an ejection fraction of 50-55%. Blood pressure this morning 108/50, 96/50, heart rate in the 80s, 100% on room air. We will discontinue the IV Cardizem drip. Continue metoprolol 50 mg one tablet by mouth twice a day. 10/27/2019 Patient seen and examined this morning, sitting up in the chair bedside, overall she feels well. Heart rate is under much better control. We will continue the patient on her current medications. 10/29/2019 Patient seen and examined this morning, hemodynamically stable with a heart rate maintaining in the 70s. Objective - Vital Signs Vital signs: Vital Signs Temp 98.2 F 10/29/19 07:49 Pulse 104 H 10/29/19 08:41 Resp 18 10/29/19 07:49 BP 113/79 10/29/19 07:49 Pulse Ox 98 10/29/19 07:49 Intake & Output 10/28/19 10/29/19 10/29/19 18:59 06:59 18:59 Intake Total 180 460 222 Output Total 400 Balance 180 60 222 Weight 74 kg Intake: Oral 180 460 222 Output: Urine 400 Other: Voiding Method Toilet Toilet Toilet # Voids 3 1 - Exam PHYSICAL EXAMINATION: GENERAL: 89-year-old female in no acute distress at the time of my examination HEENT: Head is atraumatic, normocephalic. Pupils equal, round. Sclera anicteric. Conjunctiva are clear. Mucous membranes of the mouth are moist. Neck is supple. There is no elevated jugular venous pressure. No carotid bruit is heard. HEART EXAMINATION: Heart S1 and S2 irregularly irregular CHEST EXAMINATION: Lungs are clear to auscultation and precussion. No chest wall tenderness is noted on palpation or with deep breathing. ABDOMEN: Soft, nontender. Bowel sounds are heard. No organomegaly noted. EXTREMITIES: 2+ peripheral pulses with no evidence of peripheral edema and no calf tenderness noted. NEUROLOGIC patient is awake, alert and oriented 3. . - Labs CBC & Chem 7: 10/27/19 06:11 10/29/19 05:43 Labs: Abnormal Lab Results - Last 24 Hours (Table) 10/28/19 10/28/19 10/28/19 Range/Units 11:31 16:59 20:35 PT (9.0-12.0) sec INR (<1.2) Chloride (98-107) mmol/L Carbon Dioxide (22-30) mmol/L BUN (7-17) mg/dL Creatinine (0.52-1.04) mg/dL Glucose (74-99) mg/dL POC Glucose (mg/dL) 149 H 149 H 161 H (75-99) mg/dL Calcium (8.4-10.2) mg/dL 10/29/19 10/29/19 10/29/19 Range/Units 05:43 05:43 06:13 PT 23.5 H (9.0-12.0) sec INR 2.4 H (<1.2) Chloride 112 H (98-107) mmol/L Carbon Dioxide 19 L (22-30) mmol/L BUN 35 H (7-17) mg/dL Creatinine 1.49 H (0.52-1.04) mg/dL Glucose 114 H (74-99) mg/dL POC Glucose (mg/dL) 132 H (75-99) mg/dL Calcium 8.1 L (8.4-10.2) mg/dL Microbiology - Last 24 Hours (Table) 10/24/19 10:24 Blood Culture - Preliminary Blood No Growth after 96 hours 10/24/19 10:30 Blood Culture - Preliminary Blood No Growth after 96 hours Assessment and Plan Plan: Assessment and plan #1 urosepsis and possible polynephritis #2 persistent atrial fibrillation with rapid ventricular response #3 diabetes #4 hypertension #5 hyperlipidemia Plan From cardiology's perspective, we'll continue the patient on her current medications. We will follow this patient along with you now on an as-needed basis only, please don't hesitate to call with any questions. DNP note has been reviewed, I agree with a documented findings and plan of care. Patient was seen and examined.
[2019-10-29 11:40] LABS: Glucose,Whole Blood 222 mg/dL (75-99)
[2019-10-29] MEDS ORDERED: POLYETHYLENE GLYCOL 3350 17 GM POWD.PACK PO STA (14:32)
--- NOTE | 2019-10-29 14:36 | P.PN ---
Subjective Progress Note Date: 10/29/19 Principal diagnosis: UTI sepsis Patient was seen and examined. No acute events overnight. Patient reports resolution of her urinary hesitancy. She denies any dysuria. She denies any abdominal pain. She denies any dizziness, chest pain, or palpitations. No nausea or vomiting. No fever or chills. Patient does report some shortness of breath with exertion to the washroom which has persisted since yesterday. Patient states that she has started to urinate more. Requesting stool softener for constipation. Now wants to go home instead of rehab. Objective - Vital Signs Vital signs: Vital Signs Temp 98.2 F 10/29/19 12:00 Pulse 70 10/29/19 12:00 Resp 20 10/29/19 12:00 BP 111/61 10/29/19 12:00 Pulse Ox 98 10/29/19 12:00 Intake & Output 10/28/19 10/29/19 10/29/19 18:59 06:59 18:59 Intake Total 180 460 222 Output Total 400 Balance 180 60 222 Weight 74 kg Intake: Oral 180 460 222 Output: Urine 400 Other: Voiding Method Toilet Toilet Toilet # Voids 3 1 - Exam General: [non toxic], [no distress], [appears at stated age] Derm: [warm], [dry] Head: [atraumatic], [normocephalic], [symmetric] Eyes: [EOMI], [no lid lag], [anicteric sclera] Mouth: [no lip lesion], [mucus membranes moist] Cardiovascular: [S1S2 irregular], [Hr in the 90s], [positive DP pulse bilateral], Lungs: [Decreased breath sounds bilateral], [Rales at the bases, improved from yesterday] , [no accessory muscle use] Abdominal: [soft], [ nontender to palpation], [no guarding], [no appreciable organomegaly] Ext: [no gross muscle atrophy], [no edema], [no contractures] Neuro: [no focal neuro deficits] Psych: [Alert], [oriented], [appropriate affect] - Labs CBC & Chem 7: 10/27/19 06:11 10/29/19 05:43 Labs: Abnormal Lab Results - Last 24 Hours (Table) 10/28/19 10/28/1910/28/20 Range/Units 16:59 20:35 05:43 PT 23.5 H (9.0-12.0) sec INR 2.4 H (<1.2) Chloride (98-107) mmol/L Carbon Dioxide (22-30) mmol/L BUN (7-17) mg/dL Creatinine (0.52-1.04) mg/dL Glucose (74-99) mg/dL POC Glucose (mg/dL) 149 H 161 H (75-99) mg/dL Calcium (8.4-10.2) mg/dL 10/29/19 10/29/19 10/29/19 Range/Units 05:43 06:13 11:22 PT (9.0-12.0) sec INR (<1.2) Chloride 112 H (98-107) mmol/L Carbon Dioxide 19 L (22-30) mmol/L BUN 35 H (7-17) mg/dL Creatinine 1.49 H (0.52-1.04) mg/dL Glucose 114 H (74-99) mg/dL POC Glucose (mg/dL) 132 H 222 H (75-99) mg/dL Calcium 8.1 L (8.4-10.2) mg/dL Microbiology - Last 24 Hours (Table) 10/24/19 10:30 Blood Culture - Preliminary Blood No Growth after 120 hours 10/24/19 10:24 Blood Culture - Preliminary Blood No Growth after 120 hours Assessment and Plan Assessment: UTI sepsis with E. coli bacteremia Acute systolic CHF exacerbation constipation Left hip instability Anion gap metabolic acidosis secondary to lactic acidosis Atrial fibrillation with rapid ventricular rate Acute kidney injury on Chronic kidney disease stage III COPD stable Chronic anemia Dyslipidemia Patient meets sepsis criteria. She is tachycardic, leukocytosis, positive lactic acid, positive source of infection. Influenza negative. RSV negative. Urinalysis showing moderate leukocyte esterase. Urine culture growing E. coli. Blood culture growing E. coli. Plans: Antibiotics changed to Rocephin. Repeat blood culture prelim 120 hours negative, will need negative cultures prior to discharge. Discontinue IVF. Tylenol as needed for fever. Patient has gained considerable weight during this admission. This is likely related to infused IVF that she received. Chest x-ray shows CHF exacerbation. Plans: Continue Lasix 40 mg IV twice a day for one more day. Intakes and takes. Daily weights. Repeat BMP tomorrow morning. Repeat chest x-ray tomorrow. Plans: MiraLAX today. Unknown etiology. Hip x-ray within normal limits. Plans: Follow PT and OT consultation. Plans for subacute rehab versus home. Her lactic acidosis is resolved. Her bicarbonate is 19. This could also be a component of chronic kidney disease. Plans: Daily BMP. Slowly resolving. Current rate 90s. As seen on EKG. Echocardiogram shows EF 50-55% with hypokinetic apical septal LV wall. Plans: Continue metoprolol. Verapamil increased by cardiology. Continue Coumadin. Consult cardiology for further recommendations. Creatinine 1.77-1.31-1.49. Baseline around 1.5. Likely due to dehydration. Plans: DC IVF and encourage hydration by mouth. Repeat BMP tomorrow morning. Plans: DuoNeb as needed for shortness of breath or wheezing. Hemoglobin 10.8-8.8. Normocytic. Likely dilutional. No signs of bleeding. Plans: Continue to monitor. Repeat CBC tomorrow morning. Plans: Continue Lipitor. [Patient admitted for UTI sepsis. Found to be bacteremic, repeat blood cultures negative so far. Found to be in A. fib with RVR, Cardiology on board, medications adjusted. Found to be fluid overloaded, receiving Lasix IV. She is pending clinical improvement. Likely DC in 1-2 days.]
[2019-10-29 16:54] LABS: Glucose,Whole Blood 186 mg/dL (75-99)
[2019-10-29] MEDS ORDERED: WARFARIN 1.25 MG TAB PO ONE (18:00)
[2019-10-29] MEDS: MONTELUKAST 10 MG TAB PO SCH (19:47)
[2019-10-29] MEDS: SODIUM CHLORIDE 0.9% 1,000 ML IV SCH (19:47)
[2019-10-29 20:16] LABS: Glucose,Whole Blood 126 mg/dL (75-99)
[2019-10-30 06:09] LABS: Prothrombin Time 28.9 sec (9.0-12.0)
[2019-10-30 06:11] LABS: Glucose,Whole Blood 144 mg/dL (75-99)
[2019-10-30] MEDS: INSULIN ASPART (NovoLOG) 100 UNIT/ML VIAL SQ SCH ×2 (06:16→12:29)
[2019-10-30 06:21] LABS: Calcium 7.9 mg/dL (8.4-10.2); Potassium 3.7 mmol/L (3.5-5.1)
--- NOTE | 2019-10-30 07:38 | XR ---
EXAMINATION TYPE: XR chest 1V portable DATE OF EXAM: 10/30/2019 Comparison: 10/29/2019 Clinical History: 89-year-old female SOB Findings: Large calcified granuloma projects at the left upper lobe. Right hilar calcified lymph node redemonst rated. Exam is rotated towards the right ultrasound and normal cardiac and mediastinal contours. Hear t remains mildly enlarged. Continued small to moderate effusions with bibasilar opacities. Impression: Rotated exam. Similar mild cardiomegaly and small to moderate effusions with adjacent atelectasis and /or consolidation, possible sequela of CHF.
[2019-10-30] MEDS: BUDESONIDE 0.5 MG/2 ML NEBU INHALATION SCH (09:03)
[2019-10-30] MEDS: IPRATROPIUM-ALBUTEROL 3 ML NEB INHALATION SCH ×2 (09:03→12:37)
[2019-10-30] MEDS: METOPROLOL TARTRATE 50 MG TAB PO SCH (09:12)
[2019-10-30] MEDS: VERAPAMIL 80 MG TAB PO SCH (09:12)
[2019-10-30] MEDS: FUROSEMIDE 10 MG/ML 4 ML VIAL IV SCH (09:12)
[2019-10-30 11:59] LABS: Glucose,Whole Blood 142 mg/dL (75-99)
[2019-10-30] MEDS ORDERED: POLYETHYLENE GLYCOL 3350 17 GM POWD.PACK PO STA (12:00)
--- NOTE | 2019-10-30 12:34 | P.DS ---
Providers Date of admission: 10/22/19 20:08 Expected date of discharge: 10/30/19 Attending physician: Rom Gutierrez MD Consults: 10/23/19 10:13 Consult Physician Stat Consulting Provider: Dexter Perez Consult Reason/Comments: AFib rvR Do you want consulting provider notified?: Yes Primary care physician: [facility] Course: 89-year-old female with PMH of hypertension, paroxysmal A. fib on Coumadin, diabetes mellitus presents the ED for urinary urgency and fatigue. She initially met sepsis criteria with tachycardia, leukocytosis, positive lactic acid and a positive source of infection. Influenza was negative. RSV was negative. Urinalysis showed moderate leukocyte esterase. Patient was started on Rocephin IV and admitted for further workup. Her urine culture came back growing gram-negative rods. Due to her worsening leukocytosis, patient was started on Zosyn. Blood cultures initially grew E. coli that was sensitive to Rocephin. Zosyn was discontinued and patient was continued on Rocephin. She initially had a sodium of 130 which improved to normal limits at the time of discharge, thought to be related to dehydration. Patient was also noted to be in A. fib with RVR for which cardiology was consulted. Echocardiogram is ordered which showed EF 50-55% with hypokinetic apical septal LV wall. Patient was continued on metoprolol and verapamil was added by cardiology. She was anticoagulated with her home dose of Coumadin. Patient was noted to have an elevated creatinine of 1.77 on admission thought to be related to dehydration. She was hydrated and her creatinine was 1.49 at the time of discharge. Patient reported some exertional dyspnea on 10/27/2019. Chest x-ray was ordered which showed findings of CHF. She was started on Lasix IV for diuresis. Her breathing considerably improved during her hospitalization. There was initial plans for subacute rehab but family elected to take the patient home instead. Patient was seen and examined. No acute events overnight. Patient reports improvement in her breathing since admission. She continues to complain of constipation. She denies any chest pain or palpitations. No nausea or vomiting. No fever or chills. General: [non toxic], [no distress], [appears at stated age] Derm: [warm], [dry] Head: [atraumatic], [normocephalic], [symmetric] Eyes: [EOMI], [no lid lag], [anicteric sclera] Mouth: [no lip lesion], [mucus membranes moist] Cardiovascular: [S1S2 irregular], [Hr in the 90s], [positive DP pulse bilateral], Lungs: [Decreased breath sounds bilateral], [Rales at the bases, improved from yesterday] , [no accessory muscle use] Abdominal: [soft], [ nontender to palpation], [no guarding], [no appreciable organomegaly] Ext: [no gross muscle atrophy], [no edema], [no contractures] Neuro: [no focal neuro deficits] Psych: [Alert], [oriented], [appropriate affect] UTI sepsis with E. coli bacteremia Acute systolic CHF exacerbation constipation Left hip instability Anion gap metabolic acidosis secondary to lactic acidosis Atrial fibrillation with rapid ventricular rate Acute kidney injury on Chronic kidney disease stage III COPD stable Chronic anemia Dyslipidemia Patient meets sepsis criteria. She is tachycardic, leukocytosis, positive lactic acid, positive source of infection. Influenza negative. RSV negative. Urinalysis showing moderate leukocyte esterase. Urine culture growing E. coli. Blood culture growing E. coli. Plans: Antibiotics changed to Rocephin. Repeat blood culture prelim 120 hours negative, patient to complete a total of 2 weeks of antibiotics. Discontinue IVF. Tylenol as needed for fever. Patient has gained considerable weight during this admission. This is likely related to infused IVF that she received. Chest x-ray shows CHF exacerbation. Plans: Transition Lasix to oral. Intakes and takes. Daily weights. 6 minute walk test for home O2 eval. Plans: MiraLAX today. Unknown etiology. Hip x-ray within normal limits. Plans: Follow PT and OT consultation. Plans for home. Her lactic acidosis is resolved. Her bicarbonate is 20. This could also be a component of chronic kidney disease. Plans: Daily BMP. Slowly resolving. Current rate 90s. As seen on EKG. Echocardiogram shows EF 50-55% with hypokinetic apical septal LV wall. Plans: Continue metoprolol. Verapamil increased by cardiology. Continue Coumadin. Consult cardiology for further recommendations. Creatinine 1.77-1.31-1.49-1.44. Baseline around 1.5. Likely due to dehydration. Plans: DC IVF and encourage hydration by mouth. Repeat BMP tomorrow morning. Plans: DuoNeb as needed for shortness of breath or wheezing. Hemoglobin 10.8-8.8. Normocytic. Likely dilutional. No signs of bleeding. Plans: Continue to monitor. Repeat CBC tomorrow morning. Plans: Continue Lipitor. [Patient admitted for UTI sepsis. Found to be bacteremic, repeat blood cultures negative. Found to be in A. fib with RVR, Cardiology on board, medications adjusted, currently rate controlled. Found to be fluid overloaded, receiving Lasix IV, transition to oral. She is pending clinical improvement. Likely DC today if she passes 6 minute walk test comfortably. This complex discharge took about 50 minutes to complete.] Pertinent Studies: CT abdomen and pelvis, chest x-ray, echocardiogram, hip x-ray Patient Condition at Discharge: Stable Plan - Discharge Summary Discharge Rx Participant: No New Discharge Prescriptions: New Verapamil [Isoptin] 80 mg PO TID #90 tab Furosemide [Lasix] 40 mg PO BID #60 tablet Levofloxacin [Levaquin] 750 mg PO DAILY 7 Days #7 tab Montelukast [Singulair] 10 mg PO HS #30 tab Continue metFORMIN HCL [Glucophage] 500 mg PO BID Simvastatin [Zocor] 20 mg PO DAILY Candesartan [Atacand] 16 mg PO DAILY Warfarin Sodium [Coumadin] 1.25 mg PO SUTUTHSA Warfarin [Coumadin] 2.5 mg PO MOWEFR Repaglinide [Prandin] 0.5 mg PO AC-BID Ipratropium-Albuterol Nebulize [Duoneb 0.5 mg-3 mg/3 ml Soln] 3 ml INHALATION RT-QID ampul.neb Metoprolol Tartrate [Lopressor] 50 mg PO BID Discontinued Digoxin [Digitek] 125 mcg PO DAILY Glucosamine/Chondr Ye A Sod [Osteo Bi-Flex Caplet] 1 tab PO DAILY Furosemide [Lasix] 20 mg PO DAILY Discharge Medication List Candesartan [Atacand] 16 mg PO DAILY 09/08/16 [History] Simvastatin [Zocor] 20 mg PO DAILY 09/08/16 [History] Warfarin Sodium [Coumadin] 1.25 mg PO SUTUTHSA 09/08/16 [History] metFORMIN HCL [Glucophage] 500 mg PO BID 09/08/16 [History] Repaglinide [Prandin] 0.5 mg PO AC-BID 04/28/18 [History] Warfarin [Coumadin] 2.5 mg PO MOWEFR 04/28/18 [History] Ipratropium-Albuterol Nebulize [Duoneb 0.5 mg-3 mg/3 ml Soln] 3 ml INHALATION RT-QID ampul.neb 05/01/18 [Rx] Metoprolol Tartrate [Lopressor] 50 mg PO BID 10/23/19 [History] Furosemide [Lasix] 40 mg PO BID #60 tablet 10/30/19 [Rx] Levofloxacin [Levaquin] 750 mg PO DAILY 7 Days #7 tab 10/30/19 [Rx] Montelukast [Singulair] 10 mg PO HS #30 tab 10/30/19 [Rx] Verapamil [Isoptin] 80 mg PO TID #90 tab 10/30/19 [Rx] Follow up Appointment(s)/Referral(s): Adiel Dennison MD [Primary Care Provider] - 1-2 days Dexter Perez MD [STAFF PHYSICIAN] - 1 Week Activity/Diet/Wound Care/Special Instructions: [place] Diet: Low-salt Follow-up with PCP within 2 days of discharge. Follow-up with cardiology within 1 week of discharge. Take all medications as advised. Discharge Disposition: HOME SELF-CARE
[2019-10-30 13:02] VITALS: BP 170/50; PULSE 67; RESP 14; TEMP 97.5
[2019-10-30] MEDS ORDERED: WARFARIN 0.5 MG TAB PO ONE (18:00)
--- NOTE | 2019-11-02 08:25 | CDI ---
Documentation Clarification Form Date: 11/02/19 From: Maria Luisa Gamez CCS Phone: If you have a question about this query, please contact Allie Balderas, Contact Officer at [phone] between 8am and 5pm. Admit Date: 10/22/19 Discharge Date:10/30/19 Patient Name: Luba Cha Visit Number: [id number] ATTENTION: The Clinical Documentation Specialists (CDI) and [facility] Coding Staff appreciate your assistance in clarifying documentation. Please respond to the clarification below the line at the bottom and electronically sign. The CDI & [facility] Coding staff will review the response and follow-up if needed. Please note: Queries are made part of the Legal Health Record. If you have any questions, please contact the author of this message via ITS. Dear Conflicting documentation has been found in the medical record: Chronic Diastolic CHF is documented on the query response dated 10/25/19. Acute systolic CHF exacerbation is documented in the PNs, DS. History/Risk Factors: Sepsis, AFIB, HTN, DM Clinical Indicators: PNs 10/27- Found to be fluid overloaded, receiving Lasix IV. Echo: 10/22- The left ventricular size is normal.There is borderline concentric left ventricular hypertrophy.Overall left ventricular systolic function is low- normal with, an EF between 50 - 55 %.Apical septum LV wall motion is hypokinetic. C-Xray: 10/25-Progressive CHF exacerbation is felt present as there is cardiomegaly with more prominent small bilateral pleural effusions now identified.Associated bibasilar atelectasis and/or infiltrate is seen. Treatment: Lasix 40 mg IV In your opinion, what is the most clinically appropriate diagnosis for this patient? Systolic Heart Failure: Acute Chronic Acute on Chronic Diastolic Heart Failure: Acute Chronic Acute on Chronic Other explanation of clinical findings Unable to determine (no explanation for clinical findings) acute systolic CHF exacerbation as documented in my problem list MTDD
== END 2019-10-30 17:24 | disposition home health service (06) | DRG 871 ==
LOC: EC 16:54 → 3SCARD 20:08
PROVIDERS: ADMIT Internal Medicine; ATTEND Internal Medicine
DX: A41.51 Sepsis due to Escherichia coli [E. coli] (principal); I50.21 Acute systolic (congestive) heart failure; I48.21 Permanent atrial fibrillation; E87.2 Acidosis; N10 Acute pyelonephritis; E87.1 Hypo-osmolality and hyponatremia; I13.0 Hypertensive heart and chronic kidney disease with heart failure and stage 1 through stage 4 chronic kidney disease, or unspecified chronic kidney disease; N17.9 Acute kidney failure, unspecified; D63.1 Anemia in chronic kidney disease; I95.9 Hypotension, unspecified; N18.3 Chronic kidney disease, stage 3 (moderate); E11.22 Type 2 diabetes mellitus with diabetic chronic kidney disease; M25.352 Other instability, left hip; E86.0 Dehydration; E86.1 Hypovolemia; K59.00 Constipation, unspecified; I44.7 Left bundle-branch block, unspecified; R39.11 Hesitancy of micturition; E78.5 Hyperlipidemia, unspecified; J44.9 Chronic obstructive pulmonary disease, unspecified; Z71.3 Dietary counseling and surveillance; Z79.899 Other long term (current) drug therapy; Z79.84 Long term (current) use of oral hypoglycemic drugs; Z79.01 Long term (current) use of anticoagulants; Z98.890 Other specified postprocedural states; Z87.891 Personal history of nicotine dependence; Z82.49 Family history of ischemic heart disease and other diseases of the circulatory system
CPT/HCPCS: 36415; 71045; 71046; 73501; 74176; 80048; 80053; 80162; 81001; 82550; 83605; 83735; 84443; 84484; 85025; 85027; 85610; 85730; 87040; 87077; 87086; 87186; 87502; 87634; 93005; 93306; 94640; 96361; 96374; 99285

== ENCOUNTER 2020-07-05 17:55 | Inpatient (IN) | payer MEDICARE, OTHER ==
[2020-07-05] MEDS ORDERED: SODIUM CHLORIDE 0.9% 1,000 ML IV STA (18:00)
[2020-07-05] MEDS ORDERED: DEXTROSE 50% SYRINGE 50 ML IVP STA (18:15)
--- NOTE | 2020-07-05 18:15 | ED ---
General Adult HPI - General Stated complaint: Code Stroke - History of Present Illness Initial comments: Dictation was produced using [employer] dictation software. please excuse any grammatical, word or spelling errors. This patient was cared for during a federal and state declared state of emergency secondary to Covid 19 Chief Complaint: 89-year-old female presents with concerns of stroke History of Present Illness: Is an 89-year-old female she is brought in by EMS for possible CVA. Patient was found to be altered approximately 30 minutes prior to arrival. Last seen normal approximately 2 PM. EMS were received report from patient's family member was that she had a normal day this morning was out and about and seemed to be at her baseline. EMS checked her sugar was found to be low however they deny given dextrose. Throat to the emergency department. EMS says that patient does have a mild facial droop. Therefore she does follow commands. Unable to obtain secondary to mental status PHYSICAL EXAM: General Impression: Alert and oriented 1/3, slow to speak HEENT: Normocephalic atraumatic, extra-ocular movements intact, pupils equal and reactive to light bilaterally, mucous membranes moist. Cardiovascular: Heart regular rate and rhythm Chest: no retractions, no tachypnea Abdomen: abdomen soft, non-tender, non-distended, no organomegaly Musculoskeletal: Pulses present and equal in all extremities, no peripheral edema Motor: no focal deficits noted Neurological: Follows commands, drift to the right lower extremity . To the rest of her extremities. She identifies a pen correctly. She is dysarthric. NIH score is around a 4-5 Skin: Intact with no visualized rashes Psych: Normal affect and mood ED course: 89-year-old female presents with stroke versus hypoglycemia. NIH stroke scale is 45. Last seen normal at 2 PM. Prior to arrival stroke code was activated. Patient went directly to CT. Patient's blood glucose was checked and was found to be 41. Patient was given dextrose. After several seconds patient's mental status improved dramatically. She is now back to normal have a normal conversation is at bedside says that she is at her baseline status. Laboratory evaluation obtained. There is mild lymphocytopenia of 0.7. No leukocytosis. Hemoglobin stable at 10.6. This is around her baseline hemoglobin. Coag panel is negative. Metabolic panel shows acute kidney injury, hyponatremia 132. Mild non-gap acidosis. Troponin 0.146. CT of the brain shows no acute processes. CT angios the head and neck shows atherosclerotic plaque formation at the carotid artery bifurcation and more than 50% stenosis at the origin of both internal carotid arteries. Evaluated at bedside and found to be stable medical condition. Given acute kidney injury and hypoglycemia patient be admitted. At this point given that patient's clinical presentation. Dramatically with administration of glucose patient be admitted for glucose monitoring and fluid hydration to correct acute kidney injury. Case is discussed with Dr. Gutierrez was went accept patient's care. EKG interpretation: Ventricular rate 88, A. fib with RVR, QRS 144, QTc 440. No MN prolongation, no QTC prolongation, no ST or T-wave changes noted. EKG com pared to 10/22/2019 showing no changes. Overall, this EKG is unremarkable - Related Data Home Medications Medication Instructions Recorded Confirmed Candesartan [Atacand] 16 mg PO DAILY 09/08/16 10/22/19 Simvastatin [Zocor] 20 mg PO DAILY 09/08/16 10/23/19 Warfarin Sodium [Coumadin] 1.25 mg PO SUTUTHSA 09/08/16 10/22/19 metFORMIN HCL [Glucophage] 500 mg PO BID 09/08/16 10/22/19 Repaglinide [Prandin] 0.5 mg PO AC-BID 04/28/18 10/22/19 Warfarin [Coumadin] 2.5 mg PO MOWEFR 04/28/18 10/22/19 Metoprolol Tartrate [Lopressor] 50 mg PO BID 10/23/19 10/23/19 Previous Rx's Medication Instructions Recorded Ipratropium-Albuterol Nebulize 3 ml INHALATION RT-QID ampul.neb 05/01/18 [Duoneb 0.5 mg-3 mg/3 ml Soln] Furosemide [Lasix] 40 mg PO BID #60 tablet 10/30/19 Levofloxacin [Levaquin] 750 mg PO DAILY 7 Days #7 tab 10/30/19 Montelukast [Singulair] 10 mg PO HS #30 tab 10/30/19 Verapamil [Isoptin] 80 mg PO TID #90 tab 10/30/19 Allergies Allergy/AdvReac Type Severity Reaction Status Date / Time No Known Allergies Allergy Verified 10/23/19 10:04 Review of Systems ROS Statement: Those systems with pertinent positive or pertinent negative responses have been documented in the HPI. ROS Other: All systems not noted in ROS Statement are negative. Past Medical History Past Medical History: Atrial Fibrillation, COPD, Diabetes Mellitus, Hyperlipid emia, Hypertension Additional Past Medical History / Comment(s): NIDDM type II. History of Any Multi-Drug Resistant Organisms: None Reported Past Surgical History: Ear Surgery, Tonsillectomy Additional Past Surgical History / Comment(s): Several colonoscopies-normal Past Anesthesia/Blood Transfusion Reactions: No Reported Reaction Additional Past Anesthesia/Blood Transfusion Reaction / Comment(s): Pt has clausterphobia r/t elevators Past Psychological History: No Psychological Hx Reported Past Alcohol Use History: Rare Past Drug Use History: None Reported - Past Family History Father Additional Family Medical History / Comment(s): Father at the age of 49 yrs from a brain aneurysm. Mother Family Medical History: No Reported History Additional Family Medical History / Comment(s): Mother lived to be 87yrs old. Course Vital Signs 07/05/20 18:00 Pulse Rate 118 H Respiratory 16 Rate Blood Pressure 111/73 O2 Sat by Pulse 100 Oximetry Medical Decision Making - Lab Data Result diagrams: 07/05/20 18:01 07/05/20 18:01 Lab Results 07/05/20 07/05/20 07/05/20 Range/Units 18:01 18:01 18:01 WBC 4.9 (3.8-10.6) k/uL RBC 3.30 L (3.80-5.40) m/uL Hgb 10.6 L (11.4-16.0) gm/dL Hct 31.4 L (34.0-46.0) % MCV 95.4 (80.0-100.0) fL MCH 32.1 (25.0-35.0) pg MCHC 33.7 (31.0-37.0) g/dL RDW 13.2 (11.5-15.5) % Plt Count 243 (150-450) k/uL MPV 7.5 Neutrophils % 76 % Lymphocytes % 14 % Monocytes % 6 % Eosinophils % 1 % Basophils % 1 % Neutrophils # 3.8 (1.3-7.7) k/uL Lymphocytes # 0.7 L (1.0-4.8) k/uL Monocytes # 0.3 (0-1.0) k/uL Eosinophils # 0.0 (0-0.7) k/uL Basophils # 0.1 (0-0.2) k/uL PT 12.3 H (9.0-12.0) sec INR 1.2 H (<1.2) APTT 24.1 (22.0-30.0) sec Sodium 132 L (137-145) mmol/L Potassium 5.0 (3.5-5.1) mmol/L Chloride 102 (98-107) mmol/L Carbon Dioxide 21 L (22-30) mmol/L Anion Gap 9 mmol/L BUN 82 H (7-17) mg/dL Creatinine 2.51 H (0.52-1.04) mg/dL Est GFR (CKD-EPI)AfAm 19 (>60 ml/min/1.73 sqM) Est GFR (CKD-EPI)NonAf 17 (>60 ml/min/1.73 sqM) Glucose 179 H (74-99) mg/dL POC Glucose (mg/dL) (75-99) mg/dL POC Glu Supervisor [employer] ID Calcium 7.4 L (8.4-10.2) mg/dL Total Bilirubin 0.3 (0.2-1.3) mg/dL AST 27 (14-36) U/L ALT 14 (4-34) U/L Alkaline Phosphatase 60 (38-126) U/L Troponin I (0.000-0.034) ng/mL Total Protein 5.8 L (6.3-8.2) g/dL Albumin 2.9 L (3.5-5.0) g/dL 07/05/20 07/05/20 07/05/20 Range/Units 18:01 18:13 18:25 WBC (3.8-10.6) k/uL RBC (3.80-5.40) m/uL Hgb (11.4-16.0) gm/dL Hct (34.0-46.0) % MCV (80.0-100.0) fL MCH (25.0-35.0) pg MCHC (31.0-37.0) g/dL RDW (11.5-15.5) % Plt Count (150-450) k/uL MPV Neutrophils % % Lymphocytes % % Monocytes % % Eosinophils % % Basophils % % Neutrophils # (1.3-7.7) k/uL Lymphocytes # (1.0-4.8) k/uL Monocytes # (0-1.0) k/uL Eosinophils # (0-0.7) k/uL Basophils # (0-0.2) k/uL PT (9.0-12.0) sec INR (<1.2) APTT (22.0-30.0) sec Sodium (137-145) mmol/L Potassium (3.5-5.1) mmol/L Chloride (98-107) mmol/L Carbon Dioxide (22-30) mmol/L Anion Gap mmol/L BUN (7-17) mg/dL Creatinine (0.52-1.04) mg/dL Est GFR (CKD-EPI)AfAm (>60 ml/min/1.73 sqM) Est GFR (CKD-EPI)NonAf (>60 ml/min/1.73 sqM) Glucose (74-99) mg/dL POC Glucose (mg/dL) 41 L 119 H (75-99) mg/dL POC Glu [employer] ID Bill, Agnieszka Khan, Agnieszka Calcium (8.4-10.2) mg/dL Total Bilirubin (0.2-1.3) mg/dL AST (14-36) U/L ALT (4-34) U/L Alkaline Phosphatase (38-126) U/L Troponin I 0.146 H* (0.000-0.034) ng/mL Total Protein (6.3-8.2) g/dL Albumin (3.5-5.0) g/dL 07/05/20 Range/Units 19:06 WBC (3.8-10.6) k/uL RBC (3.80-5.40) m/uL Hgb (11.4-16.0) gm/dL Hct (34.0-46.0) % MCV (80.0-100.0) fL MCH (25.0-35.0) pg MCHC (31.0-37.0) g/dL RDW (11.5-15.5) % Plt Count (150-450) k/uL MPV Neutrophils % % Lymphocytes % % Monocytes % % Eosinophils % % Basophils % % Neutrophils # (1.3-7.7) k/uL Lymphocytes # (1.0-4.8) k/uL Monocytes # (0-1.0) k/uL Eosinophils # (0-0.7) k/uL Basophils # (0-0.2) k/uL PT (9.0-12.0) sec INR (<1.2) APTT (22.0-30.0) sec Sodium (137-145) mmol/L Potassium (3.5-5.1) mmol/L Chloride (98-107) mmol/L Carbon Dioxide (22-30) mmol/L Anion Gap mmol/L BUN (7-17) mg/dL Creatinine (0.52-1.04) mg/dL Est GFR (CKD-EPI)AfAm (>60 ml/min/1.73 sqM) Est GFR (CKD-EPI)NonAf (>60 ml/min/1.73 sqM) Glucose (74-99) mg/dL POC Glucose (mg/dL) 143 H (75-99) mg/dL POC Glu Super[employer] ID Trini Garzon Calcium (8.4-10.2) mg/dL Total Bilirubin (0.2-1.3) mg/dL AST (14-36) U/L ALT (4-34) U/L Alkaline Phosphatase (38-126) U/L Troponin I (0.000-0.034) ng/mL Total Protein (6.3-8.2) g/dL Albumin (3.5-5.0) g/dL Disposition Clinical Impression: Hypoglycemia, Acute kidney injury Disposition: ADMITTED IP TO THIS HOSP Condition: Fair Referrals: Adiel Dennison MD [Primary Care Provider] - 1-2 days Decision Time: 19:52
[2020-07-05 18:19] LABS: Glucose,Whole Blood 41 mg/dL (75-99)
--- NOTE | 2020-07-05 18:24 | CT ---
EXAMINATION TYPE: CT brain wo con for TPA DATE OF EXAM: 07/05/2020 COMPARISON: None HISTORY: Aphasia, mental status changes. CT DLP: 1161.8 mGycm Automated exposure control for dose reduction was used. There is cerebral atrophy. There is no mass effect nor midline shift. There is no sign of intracrania l hemorrhage. There is some mucosal thickening in the right side sphenoid sinus. The calvarium is int act. There is no evidence of cerebral edema. IMPRESSION: Cerebral atrophy. No acute intracranial abnormality.
[2020-07-05 18:26] LABS: Glucose,Whole Blood 119 mg/dL (75-99)
--- NOTE | 2020-07-05 18:46 | CT ---
EXAMINATION TYPE: CT angio head neck DATE OF EXAM: 07/05/2020 COMPARISON: HISTORY: Aphasia, mental status changes. CT DLP: 423.6 mGycm Automated exposure control for dose reduction was used. CONTRAST: Performed with IV Contrast, patient injected with 65 mL of Isovue 370. There are 3-D post processed images. There is 2 cm densely calcified granuloma in the posterior left upper lobe. There is normal branching pattern of the great vessels on the aortic arch. There is bilateral arterial flow in the subclavian arteries. There is arterial flow in the common internal and external carotid arteries bilaterally. Th ere is moderate plaque at the left carotid artery bifurcation and approximately 60% diameter stenosis . There is similar irregular plaque formation at the right carotid artery bifurcation and estimated m ore than 50% stenosis. I see no definite carotid dissection. There is arterial flow in both vertebral arteries which are fairly symmetric. There is arterial flow in the vertebrobasilar artery system. There is arterial flow in the anterior middle and posterior cerebral arteries. There is cerebral atro phy. There is no mass effect. There is no midline shift. I see no evidence of intracranial aneurysm o r neovascularity. There is normal contrast opacification of the venous sinuses. IMPRESSION: Atherosclerotic plaque formation at the carotid artery bifurcations and more than 50% stenosis at the origins of both internal carotid arteries. No significant intracranial angiographic abnormality. Cerebral atrophy.
[2020-07-05 18:53] LABS: Basophils # (A) 0.1 k/uL (0-0.2); Basophils % (A) 1 %; Eosinophils % (A) 1 %; HCT 31.4 % (34.0-46.0); HGB 10.6 gm/dL (11.4-16.0); Lymphocytes # (A) 0.7 k/uL (1.0-4.8); Lymphocytes % (A) 14 %; MCH 32.1 pg (25.0-35.0); MCHC 33.7 g/dL (31.0-37.0); MCV 95.4 fL (80.0-100.0); Mean Platelet Volume 7.5; Monocytes # (A) 0.3 k/uL (0-1.0); Monocytes % (A) 6 %; Neutrophils # (A) 3.8 k/uL (1.3-7.7); Neutrophils % (A) 76 %; Platelet Count 243 k/uL (150-450); RDW 13.2 % (11.5-15.5); WBC 4.9 k/uL (3.8-10.6)
[2020-07-05 19:05] LABS: Albumin 2.9 g/dL (3.5-5.0); Calcium 7.4 mg/dL (8.4-10.2); Total Bilirubin 0.3 mg/dL (0.2-1.3); Total Protein 5.8 g/dL (6.3-8.2)
[2020-07-05 19:08] LABS: Glucose,Whole Blood 143 mg/dL (75-99)
[2020-07-05] MEDS ORDERED: SODIUM CHLORIDE 0.9% 500 ML 500 ML IV STA (19:23)
[2020-07-05 19:29] LABS: INR 1.2 (<1.2); Partial Thromboplastin Time 24.1 sec (22.0-30.0); Prothrombin Time 12.3 sec (9.0-12.0)
[2020-07-05] MEDS ORDERED: NALOXONE 0.4 MG/ML 1 ML VIAL IV PRN (19:48)
[2020-07-05] MEDS ORDERED: ACETAMINOPHEN TAB 325 MG TAB PO PRN (19:48)
--- NOTE | 2020-07-05 20:30 | XR ---
EXAMINATION TYPE: XR chest 2V DATE OF EXAM: 07/05/2020 COMPARISON: 10/30/2019 HISTORY: Short of breath TECHNIQUE: 2 views FINDINGS: There is blunting of the costophrenic angles and more on the right side. There is no gross heart failure. Heart is shifted slightly to the right side. Thoracic aorta is atheromatous. Bony thor ax is intact. IMPRESSION: There is some pleural fluid and atelectasis and infiltrate at the right lung base with vo lume loss that is not significantly different than old exam. There is improved aeration of the left l yannick base compared to old exam. No heart failure seen.
[2020-07-05 20:48] LABS: Amorphous Sediment,Urine Rare /hpf; Appearance,Urine Cloudy (Clear); Bacteria,Urine Occasional /hpf; Bilirubin,Urine Negative (Negative); Blood,Urine Negative (Negative); Color,Urine Light Yellow; Glucose,Urine (UA) Negative (Negative); Hyaline Casts,Urine 8 /lpf (0-2); Ketones,Urine Negative (Negative); Leukocyte Esterase,Urine Negative (Negative); Mucus,Urine Rare /hpf; Nitrite,Urine Negative (Negative); PH, Urine 6.5 (5.0-8.0); Protein,Urine Trace (Negative); RBC,Urine 1 /hpf (0-5); Specific Gravity,Urine 1.019 (1.001-1.035); Squamous Epithelial Cell,Urine 6 /hpf (0-4); Urobilinogen,Urine <2.0 mg/dL (<2.0); WBC,Urine 5 /hpf (0-5)
[2020-07-06] MEDS ORDERED: METOPROLOL TARTRATE 25 MG TAB PO SCH ×3 (00:15→08:30)
[2020-07-06] MEDS: MONTELUKAST 10 MG TAB PO SCH ×2 (00:21→21:14)
[2020-07-06] MEDS ORDERED: IPRATROPIUM-ALBUTEROL 3 ML NEB INHALATION PRN (00:25)
[2020-07-06] MEDS ORDERED: WARFARIN 2 MG TAB PO ONE ×2 (00:30→18:00)
--- NOTE | 2020-07-06 00:30 | P.HPIM ---
History of Present Illness H&P Date: 07/05/20 Chief Complaint: AMS 89 year old female with Afib on blood thinners, DM patient comes in due to AMS. she reports that this is her second episode, yesterday happened around afternoon, when her tried to call her multiple times, with no respnse he went home and found her with altered mental status (passes out on the couch) he notified EMS, she refused to come to the hospital for evaluation . today , she had another similar episode where she passed out on the couch and her found her passed out after attempting to call her multiple times. his time he notified EMS , who suspected stroke and brought her to the hospital (its not clear if hypoglycemia was detected by EMS, but no dextrose was given en route. ). upon arrival to the ED, code stroke activated, patient found to have low blood sugar of 41 , and immediately improved mental status after given dextrose. her CT of the brain showed no acute pathology, CT angio of head and neck showed 50% internal carotid stenosis. patient also found to have positive COVID 19 she reports that she stays home all the time , he is 89 year old but always out., she denies any fever, chills, denies chest pain, or trouble breathing, denies body aches. she claims losing her taste sensation about couple months ago, and new onset coughing over the past week, productive of clear sputum. she also reports history of COPD not on home oxygen she recently moved with her [facility] to senior assisted living , she uses a walker blood work, positive COVID 19, low blood sugar, LORNE Review of Systems Pertinent positives as noted in HPI. All other systems were reviewed and are negative Past Medical History Past Medical History: Atrial Fibrillation, COPD, Diabetes Mellitus, Hyperlipidemia, Hypertension Additional Past Medical History / Comment(s): NIDDM type II. History of Any Multi-Drug Resistant Organisms: None Reported Past Surgical History: Ear Surgery, Tonsillectomy Additional Past Surgical History / Comment(s): Several colonoscopies-normal Past Anesthesia/Blood Transfusion Reactions: No Reported Reaction Additional Past Anesthesia/Blood Transfusion Reaction / Comment(s): Pt has clausterphobia r/t elevators Past Psychological History: No Psychological Hx Reported Past Alcohol Use History: Rare Past Drug Use History: None Reported - Past Family History Father Additional Family Medical History / Comment(s): Father at the age of 49 yrs from a brain aneurysm. Mother Family Medical History: No Reported History Additional Family Medical History / Comment(s): Mother lived to be 87yrs old. Medications and Allergies Home Medications Medication Instructions Recorded Confirmed Type Candesartan [Atacand] 8 mg PO DAILY 09/08/16 07/05/20 History Simvastatin [Zocor] 10 mg PO HS 09/08/16 07/05/20 History Warfarin Sodium [Coumadin] 1.25 mg PO SUMOTUWETHSA 09/08/16 07/05/20 History metFORMIN HCL [Glucophage] 500 mg PO BID 09/08/16 07/05/20 History Repaglinide [Prandin] 0.5 mg PO BID 04/28/18 07/05/20 History Montelukast [Singulair] 10 mg PO HS #30 tab 10/30/19 07/05/20 Rx Furosemide [Lasix] 20 mg PO HS 07/05/20 07/05/20 History Furosemide [Lasix] 40 mg PO DAILY 07/05/20 07/05/20 History Magnesium 250 mg PO HS 07/05/20 07/05/20 History Metoprolol Tartrate [Lopressor] 25 mg PO BID 07/05/20 07/05/20 History Verapamil [Isoptin] 80 mg PO BID 07/05/20 07/05/20 History Allergies Allergy/AdvReac Type Severity Reaction Status Date / Time No Known Allergies Allergy Verified 07/05/20 21:58 Physical Exam Vitals: Vital Signs Temp Pulse Pulse Resp BP BP Pulse Ox 07/05/20 22:17 99.0 F 120 H 19 103/70 99 07/05/20 18:00 118 H 16 111/73 100 Intake and Output 07/05/20 07/05/20 07/06/20 14:59 22:59 06:59 Other: Weight 72.575 kg Constitutional: No acute distress, conversant, pleasant Eyes: Anicteric sclerae, moist conjunctiva, Pupils equal round reactive to light ENMT: NC/AT Oropharynx clear, no erythema, exudates Neck: Supple, FROM, no masses, or JVD No carotid bruits No thyromegaly Lungs: decrease breath sounds overall, with end expiratory scattered wheezing Clear to percussion Normal respiratory effort, no accessory muscle use Cardiovascular: Heart tachycardia, No murmurs, gallops, or rubs No peripheral edema Abdominal: Soft Nontender, no guarding, rebound or rigidity Abdomen moving with respiration Normoactive bowel sounds No hepatomegaly, No splenomegaly No palpable mass No abdominal wall hernia noted Skin: Normal temperature, tone, texture, turgor No induration No subcutaneous nodules No rash, lesions No ulcers Extremities: No digital cyanosis No clubbing Pedal pulses intact and symmetrical Radial pulses intact and symmetrical No calf tenderness Psychiatric: Alert and oriented to person, place Appropriate affect fair judgement Neuro Muscles Strength 4/5 in all 4 extremities Sensation to light touch grossly present throughout Cranial nerves II-XII grossly intact No focal sensory deficits Lymphatics: no palpable cervical or supraclavicular , or inguinal lymph nodes Results CBC & Chem 7: 07/05/20 18:01 07/05/20 18:01 Labs: Abnormal Lab Results - Last 24 Hours (Table) 07/05/20 07/05/20 07/05/20 Range/Units 18:01 18:01 18:01 RBC 3.30 L (3.80-5.40) m/uL Hgb 10.6 L (11.4-16.0) gm/dL Hct 31.4 L (34.0-46.0) % Lymphocytes # 0.7 L (1.0-4.8) k/uL PT 12.3 H (9.0-12.0) sec INR 1.2 H (<1.2) Sodium 132 L (137-145) mmol/L Carbon Dioxide 21 L (22-30) mmol/L BUN 82 H (7-17) mg/dL Creatinine 2.51 H (0.52-1.04) mg/dL Glucose 179 H (74-99) mg/dL POC Glucose (mg/dL) (75-99) mg/dL Calcium 7.4 L (8.4-10.2) mg/dL Troponin I (0.000-0.034) ng/mL Total Protein 5.8 L (6.3-8.2) g/dL Albumin 2.9 L (3.5-5.0) g/dL Urine Appearance (Clear) Urine Protein (Negative) Ur Squamous Epith Cells (0-4) /hpf Amorphous Sediment (None) /hpf Urine Bacteria (None) /hpf Hyaline Casts (0-2) /lpf Urine Mucus (None) /hpf Coronavirus (PCR) (Not Detectd) 07/05/20 07/05/20 07/05/20 Range/Units 18:01 18:13 18:25 RBC (3.80-5.40) m/uL Hgb (11.4-16.0) gm/dL Hct (34.0-46.0) % Lymphocytes # (1.0-4.8) k/uL PT (9.0-12.0) sec INR (<1.2) Sodium (137-145) mmol/L Carbon Dioxide (22-30) mmol/L BUN (7-17) mg/dL Creatinine (0.52-1.04) mg/dL Glucose (74-99) mg/dL POC Glucose (mg/dL) 41 L 119 H (75-99) mg/dL Calcium (8.4-10.2) mg/dL Troponin I 0.146 H* (0.000-0.034) ng/mL Total Protein (6.3-8.2) g/dL Albumin (3.5-5.0) g/dL Urine Appearance (Clear) Urine Protein (Negative) Ur Squamous Epith Cells (0-4) /hpf Amorphous Sediment (None) /hpf Urine Bacteria (None) /hpf Hyaline Casts (0-2) /lpf Urine Mucus (None) /hpf Coronavirus (PCR) (Not Detectd) 07/05/20 07/05/20 07/05/20 Range/Units 19:06 20:23 21:00 RBC (3.80-5.40) m/uL Hgb (11.4-16.0) gm/dL Hct (34.0-46.0) % Lymphocytes # (1.0-4.8) k/uL PT (9.0-12.0) sec INR (<1.2) Sodium (137-145) mmol/L Carbon Dioxide (22-30) mmol/L BUN (7-17) mg/dL Creatinine (0.52-1.04) mg/dL Glucose (74-99) mg/dL POC Glucose (mg/dL) 143 H (75-99) mg/dL Calcium (8.4-10.2) mg/dL Troponin I (0.000-0.034) ng/mL Total Protein (6.3-8.2) g/dL Albumin (3.5-5.0) g/dL Urine Appearance Cloudy H (Clear) Urine Protein Trace H (Negative) Ur Squamous Epith Cells 6 H (0-4) /hpf Amorphous Sediment Rare H (None) /hpf Urine Bacteria Occasional H (None) /hpf Hyaline Casts 8 H (0-2) /lpf Urine Mucus Rare H (None) /hpf Coronavirus (PCR) Detected A (Not Detectd) Assessment and Plan Assessment: acute metabolic encephalopathy acute hypoglycemia , DM LORNE acute COVID pneumonitis , COPD compensated plan supportive care follow up CRP, CPK, LDH, ferritin TROP for prognostic evaluation gentle IVF hydration monitor blood glucose insuline sliding scale hold nephrotoxic meds, hold ARB supplemental oxygen as needed resume inhalers duonebs as needed afib with RVR, on coumadin resume warfarin CODE STATUS:full code DVT prophylaxis: on coumadin for afib Discussed with: Patient, ER Anticipated length of stay > than [address]: [facility] A total of 75 minutes was spent on the care of this complex patient more than 50% of the time was spent in counseling and care coordination.
[2020-07-06] MEDS: VERAPAMIL 80 MG TAB PO SCH ×2 (00:36→08:30)
[2020-07-06] MEDS: SODIUM CHLORIDE 0.9% 1,000 ML IV SCH ×4 (00:39→21:13)
[2020-07-06 02:07] LABS: Glucose,Whole Blood 95 mg/dL (75-99)
[2020-07-06 04:25] LABS: Glucose,Whole Blood 92 mg/dL (75-99)
[2020-07-06] MEDS ORDERED: METOPROLOL TARTRATE 25 MG TAB PO STA (04:43)
[2020-07-06] MEDS ORDERED: DIGOXIN 250 MCG TAB PO STA (05:05)
[2020-07-06] MEDS ORDERED: SODIUM CHLORIDE 0.9% 500 ML 500 ML IV ONE (05:07)
[2020-07-06 06:10] LABS: Glucose,Whole Blood 108 mg/dL (75-99)
[2020-07-06 06:55] LABS: Glucose,Whole Blood 93 mg/dL (75-99)
[2020-07-06] MEDS: INSULIN ASPART (NovoLOG) 100 UNIT/ML VIAL SQ SCH ×4 (07:30→21:13)
[2020-07-06] MEDS ORDERED: ALBUTEROL HFA INHALER INHALATION PRN (07:47)
[2020-07-06] MEDS ORDERED: IPRATROPIUM-ALBUTEROL 3 ML NEB INHALATION SCH (08:00)
[2020-07-06] MEDS: METOPROLOL TARTRATE 5 MG/5 ML VIAL IVP PRN (08:21)
[2020-07-06] MEDS: dexAMETHasone 2 MG TAB PO SCH (08:29)
[2020-07-06 08:41] LABS: Glucose,Whole Blood 147 mg/dL (75-99)
[2020-07-06] MEDS ORDERED: FUROSEMIDE 40 MG TAB PO SCH (09:00)
[2020-07-06] MEDS ORDERED: METOPROLOL TARTRATE 50 MG TAB PO SCH (09:00)
[2020-07-06] MEDS: AZITHROMYCIN 500 MG in SODIUM CHLORIDE 0.9% 250 ML IVPB SCH (09:45)
[2020-07-06] MEDS: ALBUTEROL HFA INHALER INHALATION SCH ×4 (10:28→20:18)
[2020-07-06 10:38] LABS: INR 1.3 (<1.2); Prothrombin Time 13.3 sec (9.0-12.0)
[2020-07-06] MEDS ORDERED: CALCIUM CHLORIDE 100 MG/ML 10 ML SYRINGE IVP STA (10:50)
[2020-07-06] MEDS ORDERED: DEXTROSE 5% IN WATER 250 ML with AMIODARONE 300 MG IV ONE (11:00)
[2020-07-06 11:09] LABS: Glucose,Whole Blood 158 mg/dL (75-99)
--- NOTE | 2020-07-06 11:48 | P.CRDCN ---
History of Present Illness Consult date: 07/06/20 Requesting physician: Rom Gutierrez Reason for Consult (text): Af w/RVR Chief complaint: "I passed out at home" History of present illness: This is a pleasant 89-year-old female patient with a past medical history of atrial fibrillation who follows with Dr. MAXIMUS Salcedo in the office. Presented to the emergency department with altered mental status. According to the patient she passed out at home. Upon admission she was found to be hypoglycemic with evidence of acute kidney injury with a BUN of 82 and creatinine 2.5. She is also found to be in atrial fibrillation with rapid ventricular response. She did test positive for the coronavirus. Apparently she has been around her son whose has a virus. She was initially admitted to the medical surgical unit but has subsequently and transferred to cardiac stepdown unit. She was given metoprolol IV push along with her oral verapamil and metoprolol and has become hypotensive. She is currently getting IV fluids at 100 mL/hr. troponins have been minimally elevated. Chest x-ray shows some pleural fluid and atelectasis and infiltrate at the right lung base, no heart failure seen. Overall patient is feeling well. She denies any trouble breathing, nausea, vomiting, dizziness or lightheadedness. She said no chest discomfort. She denies complaints of palpitations. Past Medical History Past Medical History: Atrial Fibrillation, COPD, Diabetes Mellitus, Hyperlipidemia, Hypertension Additional Past Medical History / Comment(s): NIDDM type II. History of Any Multi-Drug Resistant Organisms: None Reported Past Surgical History: Ear Surgery, Tonsillectomy Additional Past Surgical History / Comment(s): Several colonoscopies-normal Past Anesthesia/Blood Transfusion Reactions: No Reported Reaction Additional Past Anesthesia/Blood Transfusion Reaction / Comment(s): Pt has clausterphobia r/t elevators Past Psychological History: No Psychological Hx Reported Past Alcohol Use History: Rare Past Drug Use History: None Reported - Past Family History Father Additional Family Medical History / Comment(s): Father at the age of 49 yrs from a brain aneurysm. Mother Family Medical History: No Reported History Additional Family Medical History / Comment(s): Mother lived to be 87yrs old. Medications and Allergies Home Medications Medication Instructions Recorded Confirmed Type Candesartan [Atacand] 8 mg PO DAILY 09/08/16 07/05/20 History Simvastatin [Zocor] 10 mg PO HS 09/08/16 07/05/20 History Warfarin Sodium [Coumadin] 1.25 mg PO SUMOTUWETHSA 09/08/16 07/05/20 History metFORMIN HCL [Glucophage] 500 mg PO BID 09/08/16 07/05/20 History Repaglinide [Prandin] 0.5 mg PO BID 04/28/18 07/05/20 History Montelukast [Singulair] 10 mg PO HS #30 tab 10/30/19 07/05/20 Rx Furosemide [Lasix] 20 mg PO HS 07/05/20 07/05/20 History Furosemide [Lasix] 40 mg PO DAILY 07/05/20 07/05/20 History Magnesium 250 mg PO HS 07/05/20 07/05/20 History Metoprolol Tartrate [Lopressor] 25 mg PO BID 07/05/20 07/05/20 History Verapamil [Isoptin] 80 mg PO BID 07/05/20 07/05/20 History Allergies Allergy/AdvReac Type Severity Reaction Status Date / Time No Known Allergies Allergy Verified 07/05/20 21:58 Physical Exam Vitals: Vital Signs Temp Pulse Pulse Resp BP BP BP 07/06/20 11:07 98.3 F 07/06/20 11:00 61/41 07/06/20 10:45 68 70/37 07/06/20 10:35 66 18 62/40 07/06/20 09:30 120 H 18 85/52 07/06/20 09:07 99.3 F 122 H 19 80/48 07/06/20 08:52 106 H 18 88/56 07/06/20 08:45 105 H 18 89/53 07/06/20 08:39 100.9 F H 118 H 18 91/59 07/06/20 08:25 122 H 18 93/65 07/06/20 08:23 121 H 16 94/41 07/06/20 08:10 133 H 18 76/46 07/06/20 07:30 133 H 07/06/20 07:25 102 F H 133 H 18 99/63 07/06/20 06:30 72 91/61 07/06/20 06:04 99.7 F H 50 L 18 101/63 07/06/20 05:02 138 H 79/56 11/28/20 02:00 98.2 F 117 H 18 92/60 07/05/20 22:17 99.0 F 120 H 19 103/70 07/05/20 18:00 118 H 16 111/73 Pulse Ox 07/06/20 11:07 07/06/20 11:00 07/06/20 10:45 07/06/20 10:35 98 07/06/20 09:30 98 07/06/20 09:07 99 07/06/20 08:52 95 07/06/20 08:45 95 07/06/20 08:39 96 07/06/20 08:25 95 07/06/20 08:23 95 07/06/20 08:10 95 07/06/20 07:30 07/06/20 07:25 94 L 07/06/20 06:30 07/06/20 06:04 98 07/06/20 05:02 07/06/20 02:00 95 07/05/20 22:17 99 07/05/20 18:00 100 Intake and Output 07/05/20 07/06/20 07/06/20 22:59 06:59 14:59 Other: Voiding Method Incontinent # Voids 2 Weight 72.575 kg PHYSICAL EXAMINATION: This is a 89-year-old female in no apparent distress at the time of my examination. VITAL SIGNS: Blood pressure 78/48, heart rate 61, respirations 18, temp 98.3F. Patient is 98 % on 2 L. HEENT: Head is atraumatic, normocephalic. Pupils are equal, round. Sclerae anicteric. Conjunctivae are clear. Mucous membranes of the mouth are moist. Neck is supple. There is no elevated jugular venous pressure. No carotid bruit is heard. CHEST EXAMINATION: Reveal wheezing throughout with crackles to the right lung base. Respirations even and nonlabored. HEART EXAMINATION: [ Heart irregular irregular, positive S1 and S2 with a systolic murmur. ABDOMEN: Soft, nontender. Bowel sounds are heard. No organomegaly noted. EXTREMITIES: 2+ peripheral pulses with no evidence of peripheral edema and no calf tenderness noted. NEUROLOGIC EXAMINATION: Patient is awake, alert and oriented x3. Results 07/05/20 18:01 07/05/20 18:01 Cardiac Enzymes 07/05/20 07/05/20 07/06/20 Range/Units 18:01 18:01 06:34 AST 27 (14-36) U/L Troponin I 0.146 H* 0.206 H* (0.000-0.034) ng/mL Coagulation 07/05/20 07/06/20 Range/Units 18:01 06:34 PT 12.3 H 13.3 H (9.0-12.0) sec APTT 24.1 (22.0-30.0) sec CBC 07/05/20 Range/Units 18:01 WBC 4.9 (3.8-10.6) k/uL RBC 3.30 L (3.80-5.40) m/uL Hgb 10.6 L (11.4-16.0) gm/dL Hct 31.4 L (34.0-46.0) % Plt Count 243 (150-450) k/uL Comprehensive Metabolic Panel 07/05/20 Range/Units 18:01 Sodium 132 L (137-145) mmol/L Potassium 5.0 (3.5-5.1) mmol/L Chloride 102 (98-107) mmol/L Carbon Dioxide 21 L (22-30) mmol/L BUN 82 H (7-17) mg/dL Creatinine 2.51 H (0.52-1.04) mg/dL Glucose 179 H (74-99) mg/dL Calcium 7.4 L (8.4-10.2) mg/dL AST 27 (14-36) U/L ALT 14 (4-34) U/L Alkaline Phosphatase 60 (38-126) U/L Total Protein 5.8 L (6.3-8.2) g/dL Albumin 2.9 L (3.5-5.0) g/dL Current Medications Generic Name Dose Route Start Last Admin Trade Name Freq PRN Reason Stop Dose Admin Acetaminophen 650 mg 07/05/20 19:48 07/06/20 07:33 Acetaminophen Tab 325 Mg Tab PO 650 mg Q6HR PRN Administration Mild Pain or Fever > 100.5 Albuterol Sulfate 2 puff 07/06/20 08:00 07/06/20 10:28 Albuterol Hfa Inhaler INHALATION Not Given RT-QID PETRONA Albuterol Sulfate 2 puff 07/06/20 07:47 Albuterol Hfa Inhaler INHALATION RT-Q2H PRN Shortness Of Breath Or Wheezing Atorvastatin Calcium 10 mg 07/06/20 21:00 Atorvastatin 10 Mg Tab PO HS PETRONA Dexamethasone 6 mg 07/06/20 09:00 07/06/20 08:29 Dexamethasone 2 Mg Tab PO 07/15/20 09:01 6 mg DAILY PETRONA Administration Furosemide 40 mg 07/06/20 10:45 Furosemide 10 Mg/Ml 4 Ml Vial IV Q12HR PETRONA Sodium Chloride 1,000 mls @ 105 mls/hr 07/05/20 20:00 07/06/20 06:32 Saline 0.9% IV Not Given .Q9H32M PETRONA Ceftriaxone Sodium 1 gm/ 50 mls @ 100 mls/hr 07/06/20 09:00 07/06/20 08:29 Sodium Chloride IVPB 100 mls/hr Q24HR PETRONA Administration Azithromycin 500 mg/ Sodium 250 mls @ 250 mls/hr 07/06/20 09:00 07/06/20 09:45 Chloride IVPB 250 mls/hr DAILY PETRONA Administration Amiodarone HCl 300 mg/ 256 mls @ 128 mls/hr 07/06/20 11:00 Dextrose/Water IV 07/06/20 12:59 .Q2H ONE Amiodarone HCl 360 mg/ 200 mls @ 33.333 mls/hr 07/06/20 12:00 Dextrose/Water IV 07/06/20 17:59 .Q6H ONE Protocol 1 MG/MIN Amiodarone HCl 300 mg/ 250 mls @ 25 mls/hr 07/06/20 18:00 Dextrose/Water IV 07/07/20 11:59 .Q10H PETRONA Protocol 0.5 MG/MIN Calcium Gluconate 1 gm/ Sodium 110 mls @ 100 mls/hr 07/06/20 12:00 Chloride IVPB 07/06/20 13:05 ONCE ONE Insulin Aspart 0 unit 07/06/20 07:30 07/06/20 07:30 Insulin Aspart (Novolog) 100 Unit/Ml Vial SQ Not Given AC-TID PETRONA Protocol Magnesium Oxide 200 mg 07/06/20 21:00 Magnesium Oxide 400 Mg Tab PO HS PETRONA Metoprolol Tartrate 5 mg 07/06/20 07:47 07/06/20 08:21 Metoprolol Tartrate 5 Mg/5 Ml Vial IVP 5 mg Q6HR PRN Administration Heart Rate - HIGH (>130) Miscellaneous Information 1 each 07/06/20 00:07 Warfarin Per Pharmacy MISCELLANE DIRECTED PRN Per Protocol Protocol Montelukast Sodium 10 mg 07/06/20 00:15 07/06/20 00:21 Montelukast 10 Mg Tab PO 10 mg HS PETRONA Administration Naloxone HCl 0.2 mg 07/05/20 19:48 Naloxone 0.4 Mg/Ml 1 Ml Vial IV Q2M PRN Opioid Reversal Tiotropium [place] 1 puff 07/06/20 08:00 Tiotropium 18 Mcg/Puff Inhaler INHALATION RT-DAILY PETRONA Warfarin Sodium 1.5 mg 07/06/20 18:00 Warfarin 1.5 Mg Tab PO [id number] PETRONA Intake and Output 07/05/20 07/06/20 07/06/20 22:59 06:59 14:59 Other: Voiding Method Incontinent # Voids 2 Weight 72.575 kg 07/05/20 18:01 07/05/20 18:01 EKG Interpretations (text) Atrial fibrillation with rapid ventricular response Assessment and Plan Assessment: #1 COVID-19 infection #2 atrial fibrillation with rapid ventricular response, chronic, anticoagulated on Coumadin with a subtherapeutic INR #3 hypotension secondary to underlying infection and medications #4 acute kidney injury Plan: From cardiology perspective, continue oral medications. We will discontinue order for amiodarone drip. Hydrate the patient. We will increase Coumadin as he would like INR to be between 2 and 3. We'll continue to follow the patient right further recommendations accordingly. [employer] note has been reviewed, I agree with a documented findings and plan of care. Patient was seen and examined.
[2020-07-06] MEDS ORDERED: AMIODARONE 360 MG in DEXTROSE 5% IN WATER 200 ML IV ONE ×2 (12:00)
[2020-07-06] MEDS ORDERED: CALCIUM GLUCONATE 1 GM in SODIUM CHLORIDE 0.9% 100 ML IVPB ONE (12:00)
[2020-07-06 12:05] LABS: Glucose,Whole Blood 170 mg/dL (75-99)
--- NOTE | 2020-07-06 13:21 | P.PN ---
Subjective Progress Note Date: 07/06/20 Called to patient bedside for A-Team this morning. patient was in AFib with RVR with rates in the 130s-140s. SBP 99/60s. Patient case was reviewed: patient with covid pneumonia, AFib on coumadin, admitted after syncopal episode - denies dyspnea, lightheadedness, headache, chest pain, palps, chills, fevers, n/v, diaphoresis, diarrhea. Feels well and at her baseline per patient. Objective - Vital Signs Vital signs: Vital Signs Temp 98.3 F 07/06/20 11:07 Pulse 61 07/06/20 11:37 Resp 18 07/06/20 10:35 BP 78/48 07/06/20 11:37 Pulse Ox 98 07/06/20 10:35 Intake & Output 07/05/20 07/06/20 07/06/20 18:59 06:59 18:59 Weight 72.575 kg 72.575 kg Other: Voiding Method Incontinent # Voids 2 - Exam Gen: awake, alert, in no distress HEENT: normocephalic, atraumatic, good hearing acuity, moist mucous membranes Resp: CTAB, poor air exchange, no accessory muscle use, no wheezes, +crackles, no rhonchi CVS: good distal perfusion x 4, RRR, no murmurs, clicks, gallops GI: soft, NTTP, ND : no SPT, no CVAT, somers catheter not present MSK: + pitting edema, no clubbing Neuro: non-focal, no sensory deficits, appropriate tone Psych: cooperative, euthymic mood - Labs CBC & Chem 7: 07/05/20 18:01 07/05/20 18:01 Labs: Abnormal Lab Results - Last 24 Hours (Table) 07/05/20 07/05/20 07/05/20 Range/Units 18:01 18:01 18:01 RBC 3.30 L (3.80-5.40) m/uL Hgb 10.6 L (11.4-16.0) gm/dL Hct 31.4 L (34.0-46.0) % Lymphocytes # 0.7 L (1.0-4.8) k/uL PT 12.3 H (9.0-12.0) sec INR 1.2 H (<1.2) Sodium 132 L (137-145) mmol/L Carbon Dioxide 21 L (22-30) mmol/L BUN 82 H (7-17) mg/dL Creatinine 2.51 H (0.52-1.04) mg/dL Glucose 179 H (74-99) mg/dL POC Glucose (mg/dL) (75-99) mg/dL Calcium 7.4 L (8.4-10.2) mg/dL Troponin I (0.000-0.034) ng/mL Total Protein 5.8 L (6.3-8.2) g/dL Albumin 2.9 L (3.5-5.0) g/dL Urine Appearance (Clear) Urine Protein (Negative) Ur Squamous Epith Cells (0-4) /hpf Amorphous Sediment (None) /hpf Urine Bacteria (None) /hpf Hyaline Casts (0-2) /lpf Urine Mucus (None) /hpf Coronavirus (PCR) (Not Detectd) 07/05/20 07/05/20 07/05/20 Range/Units 18:01 18:13 18:25 RBC (3.80-5.40) m/uL Hgb (11.4-16.0) gm/dL Hct (34.0-46.0) % Lymphocytes # (1.0-4.8) k/uL PT (9.0-12.0) sec INR (<1.2) Sodium (137-145) mmol/L Carbon Dioxide (22-30) mmol/L BUN (7-17) mg/dL Creatinine (0.52-1.04) mg/dL Glucose (74-99) mg/dL POC Glucose (mg/dL) 41 L 119 H (75-99) mg/dL Calcium (8.4-10.2) mg/dL Troponin I 0.146 H* (0.000-0.034) ng/mL Total Protein (6.3-8.2) g/dL Albumin (3.5-5.0) g/dL Urine Appearance (Clear) Urine Protein (Negative) Ur Squamous Epith Cells (0-4) /hpf Amorphous Sediment (None) /hpf Urine Bacteria (None) /hpf Hyaline Casts (0-2) /lpf Urine Mucus (None) /hpf Coronavirus (PCR) (Not Detectd) 07/05/20 07/05/20 07/05/20 Range/Units 19:06 20:23 21:00 RBC (3.80-5.40) m/uL Hgb (11.4-16.0) gm/dL Hct (34.0-46.0) % Lymphocytes # (1.0-4.8) k/uL PT (9.0-12.0) sec INR (<1.2) Sodium (137-145) mmol/L Carbon Dioxide (22-30) mmol/L BUN (7-17) mg/dL Creatinine (0.52-1.04) mg/dL Glucose (74-99) mg/dL POC Glucose (mg/dL) 143 H (75-99) mg/dL Calcium (8.4-10.2) mg/dL Troponin I (0.000-0.034) ng/mL Total Protein (6.3-8.2) g/dL Albumin (3.5-5.0) g/dL Urine Appearance Cloudy H (Clear) Urine Protein Trace H (Negative) Ur Squamous Epith Cells 6 H (0-4) /hpf Amorphous Sediment Rare H (None) /hpf Urine Bacteria Occasional H (None) /hpf Hyaline Casts 8 H (0-2) /lpf Urine Mucus Rare H (None) /hpf Coronavirus (PCR) Detected A (Not Detectd) 07/06/20 07/06/20 07/06/20 Range/Units 06:08 06:34 06:34 RBC (3.80-5.40) m/uL Hgb (11.4-16.0) gm/dL Hct (34.0-46.0) % Lymphocytes # (1.0-4.8) k/uL PT 13.3 H (9.0-12.0) sec INR 1.3 H (<1.2) Sodium (137-145) mmol/L Carbon Dioxide (22-30) mmol/L BUN (7-17) mg/dL Creatinine (0.52-1.04) mg/dL Glucose (74-99) mg/dL POC Glucose (mg/dL) 108 H (75-99) mg/dL Calcium (8.4-10.2) mg/dL Troponin I 0.206 H* (0.000-0.034) ng/mL Total Protein (6.3-8.2) g/dL Albumin (3.5-5.0) g/dL Urine Appearance (Clear) Urine Protein (Negative) Ur Squamous Epith Cells (0-4) /hpf Amorphous Sediment (None) /hpf Urine Bacteria (None) /hpf Hyaline Casts (0-2) /lpf Urine Mucus (None) /hpf Coronavirus (PCR) (Not Detectd) 07/06/20 07/06/20 07/06/20 Range/Units 08:37 11:04 12:03 RBC (3.80-5.40) m/uL Hgb (11.4-16.0) gm/dL Hct (34.0-46.0) % Lymphocytes # (1.0-4.8) k/uL PT (9.0-12.0) sec INR (<1.2) Sodium (137-145) mmol/L Carbon Dioxide (22-30) mmol/L BUN (7-17) mg/dL Creatinine (0.52-1.04) mg/dL Glucose (74-99) mg/dL POC Glucose (mg/dL) 147 H 158 H 170 H (75-99) mg/dL Calcium (8.4-10.2) mg/dL Troponin I (0.000-0.034) ng/mL Total Protein (6.3-8.2) g/dL Albumin (3.5-5.0) g/dL Urine Appearance (Clear) Urine Protein (Negative) Ur Squamous Epith Cells (0-4) /hpf Amorphous Sediment (None) /hpf Urine Bacteria (None) /hpf Hyaline Casts (0-2) /lpf Urine Mucus (None) /hpf Coronavirus (PCR) (Not Detectd) Assessment and Plan Assessment: acute metabolic encephalopathy acute hypoglycemia , DM LORNE acute COVID pneumonitis , COPD compensated Paroxysmal Atrial Fibrillation with RVR Hypotension secondary to sepsis and covid plan supportive care follow up CRP, CPK, LDH, ferritin TROP for prognostic evaluation gentle IVF hydration monitor blood glucose insuline sliding scale hold nephrotoxic meds, hold ARB supplemental oxygen as needed resume inhalers duonebs as needed afib with RVR, on coumadin resume warfarin holding AVN blocking agents at this time due to hypotension - IVF for hydration - cardiology consulting and following CODE STATUS:full code DVT prophylaxis: on coumadin for afib I spent 40 minutes of critical care time with this patient today.
[2020-07-06] MEDS: TIOTROPIUM 18 MCG/PUFF INHALER INHALATION SCH (13:24)
[2020-07-06 13:44] LABS: C Reactive Protein 1.3 mg/dL (0.0-0.8)
[2020-07-06 13:51] LABS: Ferritin 83.2 ng/mL (10.0-291.0)
[2020-07-06 14:06] LABS: Glucose,Whole Blood 320 mg/dL (75-99)
[2020-07-06 16:05] LABS: Glucose,Whole Blood 340 mg/dL (75-99)
[2020-07-06] MEDS: FUROSEMIDE 10 MG/ML 4 ML VIAL IV SCH ×2 (16:32→21:14)
--- NOTE | 2020-07-06 17:27 | P.CNPUL ---
History of Present Illness Consult date: 07/06/20 Requesting physician: Rom Gutierrez Reason for consult: abnormal CXR/CT (Small right pleural effusion) Chief complaint: Syncope History of present illness: This is an 82-year-old female patient was brought into the emergency room via EMS for possible CVA. She had been having issues with altered mental status and subsequently had passed out on the couch according to her family. She was adm itted for the same. Earlier this morning she went into atrial fibrillation with a rapid ventricular response and an A team was called. She was treated for the A. fib with RVR and improved. Her chest x-ray had revealed some pleural effusion and atelectasis in the right lung base with volume loss not different than her previous exam in October 2019. Lung actually improved. We are can consulted for the same. She is seen today in consultation on the selective care unit. She is currently sitting up in a chair at the bedside. Awake and alert in no acute distress. No shortness of breath cough or congestion. Maintaining good O2 saturation in the mid 90s on 2 L/m per nasal cannula. She is having some issues with hypotension. Her rate is controlled at 60. Her leroy virus by PCR is positive. Troponin 0.146. 0.206. ProBNP 9390. She is currently on IV diuretics. Review of Systems REVIEW OF SYSTEMS: CONSTITUTIONAL: Denies any recent significant weight loss or weight gain. EYES: Denies change in vision. EARS, NOSE, MOUTH, THROAT: Denies headaches, denies sore throat. CARDIOVASCULAR: Positive for syncopal episode RESPIRATORY: Denies shortness of breath, cough, congestion or hemoptysis. GASTROINTESTINAL: Denies change in appetite, denies abdominal pain GENITOURINARY: Denies hematuria, denies infections. MUSKULOSKELETAL: Denies pain, denies swelling. INTEGUMENTARY: Denies rash, denies eczema. NEUROLOGICAL: Denies recent memory loss, no recent seizure activity. PSYCHIATRIC: Denies anxiety, denies depression. HEMATOLOGIC/LYMPHATIC: Denies anemia, denies enlarged lymph nodes. Past Medical History Past Medical History: Atrial Fibrillation, COPD, Diabetes Mellitus, Hyperlipidemia, Hypertension Additional Past Medical History / Comment(s): NIDDM type II. History of Any Multi-Drug Resistant Organisms: None Reported Past Surgical History: Ear Surgery, Tonsillectomy Additional Past Surgical History / Comment(s): Several colonoscopies-normal Past Anesthesia/Blood Transfusion Reactions: No Reported Reaction Additional Past Anesthesia/Blood Transfusion Reaction / Comment(s): Pt has clausterphobia r/t elevators Past Psychological History: No Psychological Hx Reported Past Alcohol Use History: Rare Past Drug Use History: None Reported - Past Family History Father Additional Family Medical History / Comment(s): Father at the age of 49 yrs from a brain aneurysm. Mother Family Medical History: No Reported History Additional Family Medical History / Comment(s): Mother lived to be 87yrs old. Medications and Allergies Home Medications Medication Instructions Recorded Confirmed Type Candesartan [Atacand] 8 mg PO DAILY 09/08/16 07/05/20 History Simvastatin [Zocor] 10 mg PO HS 09/08/16 07/05/20 History Warfarin Sodium [Coumadin] 1.25 mg PO SUMOTUWETHSA 09/08/16 07/05/20 History metFORMIN HCL [Glucophage] 500 mg PO BID 09/08/16 07/05/20 History Repaglinide [Prandin] 0.5 mg PO BID 04/28/18 07/05/20 History Montelukast [Singulair] 10 mg PO HS #30 tab 10/30/19 07/05/20 Rx Furosemide [Lasix] 20 mg PO HS 07/05/20 07/05/20 History Furosemide [Lasix] 40 mg PO DAILY 07/05/20 07/05/20 History Magnesium 250 mg PO HS 07/05/20 07/05/20 History Metoprolol Tartrate [Lopressor] 25 mg PO BID 07/05/20 07/05/20 History Verapamil [Isoptin] 80 mg PO BID 07/05/20 07/05/20 History Allergies Allergy/AdvReac Type Severity Reaction Status Date / Time No Known Allergies Allergy Verified 07/05/20 21:58 Physical Exam Vitals: Vital Signs Temp Pulse Pulse Resp BP BP BP 07/06/20 12:00 60 18 76/44 86/48 07/06/20 11:37 61 78/48 07/06/20 11:07 98.3 F 07/06/20 11:00 61/41 07/06/20 10:45 68 70/37 07/06/20 10:35 66 18 62/40 07/06/20 09:30 120 H 18 85/52 07/06/20 09:07 99.3 F 122 H 19 80/48 07/06/20 08:52 106 H 18 88/56 07/06/20 08:45 105 H 18 89/53 07/06/20 08:39 100.9 F H 118 H 18 91/59 07/06/20 08:25 122 H 18 93/65 07/06/20 08:23 121 H 16 94/41 07/06/20 08:10 133 H 18 76/46 07/06/20 07:30 133 H 07/06/20 07:25 102 F H 133 H 18 99/63 07/06/20 06:30 72 91/61 07/06/20 06:04 99.7 F H 50 L 18 101/63 07/06/20 05:02 138 H 79/56 07/06/20 02:00 98.2 F 117 H 18 92/60 07/05/20 22:17 99.0 F 120 H 19 103/70 07/05/20 18:00 118 H 16 111/73 Pulse Ox 07/06/20 12:00 96 07/06/20 11:37 07/06/20 11:07 07/06/20 11:00 07/06/20 10:45 07/06/20 10:35 98 07/06/20 09:30 98 07/06/20 09:07 99 07/06/20 08:52 95 07/06/20 08:45 95 07/06/20 08:39 96 07/06/20 08:25 95 07/06/20 08:23 95 07/06/20 08:10 95 07/06/20 07:30 07/06/20 07:25 94 L 07/06/20 06:30 07/06/20 06:04 98 07/06/20 05:02 07/06/20 02:00 95 07/05/20 22:17 99 07/05/20 18:00 100 Intake and Output 07/06/20 07/06/20 07/06/20 06:59 14:59 22:59 Intake Total 60 Balance 60 Intake: Oral 60 Other: Voiding Method Incontinent # Voids 2 GENERAL EXAM: Alert, pleasant 89-year-old female patient, on 2 L nasal cannula comfortable in no apparent distress. HEAD: Normocephalic. EYES: Normal reaction of pupils, equal size. NOSE: Clear with pink turbinates. THROAT: No erythema or exudates. NECK: No masses, no JVD. CHEST: No chest wall deformity. LUNGS: Equal air entry with diminished in the right lung base CVS: S1 and S2 normal with no audible murmur, irregular rhythm. ABDOMEN: No hepatosplenomegaly, normal bowel sounds, no guarding or rigidity. SPINE: No scoliosis or deformity SKIN: No rashes CENTRAL NERVOUS SYSTEM: No focal deficits, tone is normal in all 4 extremities. EXTREMITIES: There is no peripheral edema. No clubbing, no cyanosis. Peripheral pulses are intact. Results - Laboratory Findings CBC and BMP: 07/05/20 18:01 07/05/20 18:01 PT/INR, D-dimer PT 13.3 sec (9.0-12.0) H 07/06/20 06:34 INR 1.3 (<1.2) H 07/06/20 06:34 Abnormal lab findings: Abnormal Labs 07/05/20 07/05/20 07/05/20 18:01 18:01 18:01 RBC 3.30 L Hgb 10.6 L Hct 31.4 L Lymphocytes # 0.7 L PT 12.3 H INR 1.2 H Sodium 132 L Carbon Dioxide 21 L BUN 82 H Creatinine 2.51 H Glucose 179 H POC Glucose (mg/dL) Calcium 7.4 L Troponin I C-Reactive Protein Total Protein 5.8 L Albumin 2.9 L Urine Appearance Urine Protein Ur Squamous Epith Cells Amorphous Sediment Urine Bacteria Hyaline Casts Urine Mucus Coronavirus (PCR) 07/05/20 07/05/20 07/05/20 18:01 18:13 18:25 RBC Hgb Hct Lymphocytes # PT INR Sodium Carbon Dioxide BUN Creatinine Glucose POC Glucose (mg/dL) 41 L 119 H Calcium Troponin I 0.146 H* C-Reactive Protein Total Protein Albumin Urine Appearance Urine Protein Ur Squamous Epith Cells Amorphous Sediment Urine Bacteria Hyaline Casts Urine Mucus Coronavirus (PCR) 07/05/20 07/05/20 07/05/20 19:06 20:23 21:00 RBC Hgb Hct Lymphocytes # PT INR Sodium Carbon Dioxide BUN Creatinine Glucose POC Glucose (mg/dL) 143 H Calcium Troponin I C-Reactive Protein Total Protein Albumin Urine Appearance Cloudy H Urine Protein Trace H Ur Squamous Epith Cells 6 H Amorphous Sediment Rare H Urine Bacteria Occasional H Hyaline Casts 8 H Urine Mucus Rare H Coronavirus (PCR) Detected A 07/06/20 07/06/20 07/06/20 06:08 06:34 06:34 RBC Hgb Hct Lymphocytes # PT INR Sodium Carbon Dioxide BUN Creatinine Glucose POC Glucose (mg/dL) 108 H Calcium Troponin I 0.206 H* C-Reactive Protein 1.3 H Total Protein Albumin Urine Appearance Urine Protein Ur Squamous Epith Cells Amorphous Sediment Urine Bacteria Hyaline Casts Urine Mucus Coronavirus (PCR) 07/06/20 07/06/20 07/06/20 06:34 08:37 11:04 RBC Hgb Hct Lymphocytes # PT 13.3 H INR 1.3 H Sodium Carbon Dioxide BUN Creatinine Glucose POC Glucose (mg/dL) 147 H 158 H Calcium Troponin I C-Reactive Protein Total Protein Albumin Urine Appearance Urine Protein Ur Squamous Epith Cells Amorphous Sediment Urine Bacteria Hyaline Casts Urine Mucus Coronavirus (PCR) 07/06/20 07/06/20 07/06/20 12:03 14:05 16:03 RBC Hgb Hct Lymphocytes # PT INR Sodium Carbon Dioxide BUN Creatinine Glucose POC Glucose (mg/dL) 170 H 320 H 340 H Calcium Troponin I C-Reactive Protein Total Protein Albumin Urine Appearance Urine Protein Ur Squamous Epith Cells Amorphous Sediment Urine Bacteria Hyaline Casts Urine Mucus Coronavirus (PCR) - Diagnostic Findings Chest x-ray: image reviewed Assessment and Plan Assessment: 1 Syncope of unclear etiology, suspect secondary to hypotension related to underlying CoVID 19 infection 2 Atrial fibrillation with a rapid ventricular response, anticoagulated with warfarin 3 Chronic small right pleural effusion 4 Acute kidney injury 5 Diabetes mellitus 6 Hyperlipidemia 7 History of hypertension Plan: The patient was seen and evaluated by Dr. Villarreal Chest x-ray and labs reviewed Does not meet requirements for Remdesivir Continue diuretics Continue bronchodilators We'll continue to follow I, the cosigning physician, performed a history & physical examination of the patient. Lungs sounds diminished in the right lung base. Maintaining good O2 saturations in the 90s on 2 L/m per nasal cannula. I discussed the assessment and plan of care with my nurse practitioner, Mora Cohen. I attest to the above note as dictated by her. Time with Patient: Greater than 30
[2020-07-06 17:55] LABS: Glucose,Whole Blood 332 mg/dL (75-99)
[2020-07-06] MEDS ORDERED: WARFARIN 1.5 MG TAB PO SCH (18:00)
[2020-07-06] MEDS ORDERED: AMIODARONE 300 MG in DEXTROSE 5% IN WATER 250 ML IV SCH ×2 (18:00)
[2020-07-06 20:40] LABS: Glucose,Whole Blood 320 mg/dL (75-99)
[2020-07-06] MEDS ORDERED: FUROSEMIDE 20 MG TAB PO SCH (21:00)
[2020-07-06] MEDS: MAGNESIUM OXIDE 400 MG TAB PO SCH (21:14)
[2020-07-06] MEDS: ATORVASTATIN 10 MG TAB PO SCH (21:14)
[2020-07-06 22:16] LABS: Glucose,Whole Blood 239 mg/dL (75-99)
[2020-07-06 23:58] LABS: Glucose,Whole Blood 200 mg/dL (75-99)
[2020-07-07] MEDS: METOPROLOL TARTRATE 5 MG/5 ML VIAL IVP PRN (01:53)
[2020-07-07 02:02] LABS: Glucose,Whole Blood 184 mg/dL (75-99)
[2020-07-07 04:19] LABS: Glucose,Whole Blood 145 mg/dL (75-99)
--- NOTE | 2020-07-07 05:34 | CONS ---
CONSULTATION DATE OF SERVICE: 07/06/2020 REASON FOR CONSULTATION: Acute COVID-19 pneumonia, in for remdesivir. HISTORY OF PRESENT ILLNESS: The patient is an 89-year-old female who was brought to the ER yesterday. Apparently the patient did have a syncopal episode. The patient passed out on the couch. called EMS. The patient was noticed to have some mental status changes as well. There is no clear history of any seizure activity or any headaches. No nausea, no vomiting. No abdominal pain or diarrhea. On arrival to the ER, the patient was afebrile, however, this morning she spiked a fever of 102 degrees Fahrenheit. The patient also went into atrial fibrillation with RVR. The patient has been seen by the A- Team and did have overall improvement in her heart rate and rhythm. The patient has been mildly hypotensive, though no fever has been recorded since then. She was started on 2 L nasal cannula. However, this evening the patient has been taken off the oxygen is currently saturating 95% on room air. The patient did have a normal white count with lymphopenia. D-dimer was not checked. The patient's CRP is only 1.3 with focus of 0.16. UA was negative. COVID test came back positive. Chest x-ray did shows improvement compared to her previous x-ray. Patient has been admitted to the hospital where the patient was started on dexamethasone. She was continued on her Coumadin along with Rocephin and Zithromax. Infectious Disease was consulted with need for possible remdesivir therapy for underlying COVID-19. At the time of my evaluation, the patient mentioned she is feeling much better since she has been admitted to the hospital. The patient denies any headache. No chest pain. No shortness of breath or cough. No nausea, vomiting, abdominal pain or diarrhea. REVIEW OF SYSTEMS: Positive points have been mentioned in HPI. Rest of systems are negative. PAST MEDICAL HISTORY: Atrial fibrillation, COPD, diabetes mellitus, hypertension, hyperlipidemia. PAST SURGICAL HISTORY: Colonoscopy, tonsillectomy, ear surgery. SOCIAL HISTORY: Denies smoking. Rarely drinks. No drug use. FAMILY HISTORY: Father at age of 49 from brain aneurysm. ALLERGIES: No known drug allergies. MEDICATIONS: The patient is currently on Spiriva, IV fluid, Narcan, Singulair, Coumadin, Lopressor, Mag oxide, NovoLog, Lasix, dexamethasone, Rocephin, Zithromax, Lipitor and Tylenol. PHYSICAL EXAMINATION: VITAL SIGNS: Her blood pressure is 86/48, pulse of 62, temperature 98.6. She is 95% on room air. GENERAL DESCRIPTION: She is an elderly female lying in bed in no distress. No tachypnea or accessory muscles of respiration use. HEENT: Shows slight pallor. No scleral icterus. Oral mucous membranes are dry. NECK: Trachea central, no thyromegaly. LUNGS: Unlabored breathing, decreased breath sounds at the bases, with no wheeze or crackles. HEART: S1, S2, irregular rate and rhythm. ABDOMEN: Soft, no tenderness. No guarding or rigidity. EXTREMITIES: No edema of the feet. SKIN: No rash or mass palpable. NEUROLOGICAL the patient is awake, alert, oriented x3. Mood and affect normal. LABS: Hemoglobin is 10, white count 4.9. BUN of 82, creatinine is 2.51. Liver enzymes are normal. CRP is 1.3. Chest x-ray reported pleural fluid and atelectasis and infiltrate in the lung bases with volume loss, not significantly different and improved aeration of the left lung base. DIAGNOSTIC IMPRESSION: Patient admitted to the hospital with syncopal episode in this patient who did have atrial fibrillation with rapid ventricular response. Could be related to her underlying cardiac etiology. The patient did have a fever and did have a positive COVID-19. However, the chest x-ray did not show any significant pneumonia and the patient is currently saturating 95% on room air and did not have significant elevated inflammatory marker. The patient did have elevated procalcitonin. PLAN: 1. Patient with current clinical status that does not meet criteria for remdesivir. We will continue the patient on dexamethasone, Coumadin, zinc sulfate will be added and we will monitor clinical course closely. If she develops any hypoxemia or any worsening changes on the x-ray, may consider starting her on remdesivir at that point. 2. Continue Rocephin and Zithromax. Repeat elevated procalcitonin with underlying pneumonia not entirely excluded. 3. We will follow on clinical condition and further adjust medication if needed. Thank you for this consultation. Will follow this patient along with you. MMODL / IJN: [id number] /
[2020-07-07 06:40] LABS: Glucose,Whole Blood 124 mg/dL (75-99)
[2020-07-07 08:34] LABS: Prothrombin Time 19.8 sec (9.0-12.0)
[2020-07-07] MEDS: FUROSEMIDE 10 MG/ML 4 ML VIAL IV SCH (08:35)
[2020-07-07] MEDS: SODIUM CHLORIDE 0.9% 1,000 ML IV SCH (08:37)
[2020-07-07] MEDS: dexAMETHasone 2 MG TAB PO SCH (08:37)
[2020-07-07] MEDS: ZINC SULFATE 220 MG CAP PO SCH (08:37)
[2020-07-07 08:49] LABS: Glucose,Whole Blood 135 mg/dL (75-99)
[2020-07-07] MEDS: TIOTROPIUM 18 MCG/PUFF INHALER INHALATION SCH (09:28)
[2020-07-07] MEDS: ALBUTEROL HFA INHALER INHALATION SCH ×4 (09:28→20:23)
[2020-07-07] MEDS: METOPROLOL TARTRATE 25 MG TAB PO SCH ×2 (10:29→21:47)
[2020-07-07] MEDS: AZITHROMYCIN 500 MG in SODIUM CHLORIDE 0.9% 250 ML IVPB SCH (10:29)
[2020-07-07 11:51] LABS: Glucose,Whole Blood 132 mg/dL (75-99)
--- NOTE | 2020-07-07 11:53 | ECHOF ---
Referral Reason:AFIB WITH RVR, ELEVATED TROPS MEASUREMENTS -------- HEIGHT: 162.6 cm WEIGHT: 72.6 kg BP: IVSd: 1.0 cm (0.6 - 1.1) LVIDd: 3.8 cm (3.9 - 5.3) LVPWd: 0.9 cm (0.6 - 1.1) EDV(Teich): 61 ml IVSs: 1.1 cm LVIDs: 2.8 cm LVPWs: 1.2 cm %IVS Thck: 3 % ESV(Teich): 29 ml EF(Teich): 53 % %FS: 27 % SV(Teich): 32 ml Ao Diam: 2.6 cm (2.0 - 3.7) LA Diam: 3.7 cm (2.7 - 3.8) AV Cusp: 0.8 cm (1.5 - 2.6) MR Vmax: 4.45 m/s MR maxP.08 mmHg LVOT Vmax: 0.71 m/s LVOT maxP.03 mmHg AV Vmax: 2.34 m/s AV maxP.98 mmHg AV Vmax: 2.44 m/s AV Vmean: 1.89 m/s AV maxP.90 mmHg AV meanP.07 mmHg AV Env.Ti: 289 ms AV VTI: 54.4 cm TR Vmax: 0.90 m/s TR maxP.21 mmHg RAP: 5.00 mmHg RVSP: 8.21 mmHg FINDINGS -------- This was a technically difficult study with suboptimal views. The left ventricular size is normal. Left ventricular wall thickness is normal. Overall left vent ricular systolic function is mildly impaired with, an EF between 45 - 50 %. Mid Septal wall motion i s delayed, and consistent with conduction delay/bundle branch block. Septal Hypokinesis The right ventricle is normal in size. The left atrial size is normal. The right atrial size is normal. Lumason used Aortic valve is trileaflet and is mildly thickened. There is mild aortic stenosis present. Peak/m quinten gradient across the Aortic Valve is 23.90mmHg / 15.07mmHg. The mitral valve is normal. The mitral valve leaflets are mildly thickened. Moderate mitral regur gitation is present. The tricuspid valve appears structurally normal. Mild tricuspid regurgitation present. Right vent ricular systolic pressure is normal at < 35 mmHg. There is no pulmonic regurgitation present. The aortic root size is normal. IVC Not well visulized. There is no pericardial effusion. CONCLUSIONS -------- 1. The left ventricular size is normal. 2. Left ventricular wall thickness is normal. 3. Overall left ventricular systolic function is mildly impaired with, an EF between 45 - 50 %. 4. Septal wall motion is delayed, and consistent with conduction delay/bundle branch block. 5. Mid Septal Hypokinesis 6. Aortic valve is trileaflet and is mildly thickened. 7. There is mild aortic stenosis present. 8. Peak/mean gradient across the Aortic Valve is 23.90mmHg / 15.07mmHg. 9. The mitral valve leaflets are mildly thickened. 10. Moderate mitral regurgitation is present. 11. Mild tricuspid regurgitation present. 12. There is no pulmonic regurgitation present. 13. There is no pericardial effusion. STORE SHOPPER: Angi Jarquin RDCS
[2020-07-07] MEDS: INSULIN ASPART (NovoLOG) 100 UNIT/ML VIAL SQ SCH ×2 (12:17→17:00)
--- NOTE | 2020-07-07 13:08 | P.PN ---
Subjective Progress Note Date: 07/07/20 No new complaints today. HRs are still elevated to 100-130s, BP is improved to 110s systolic. Patient has no complaints, and is now on room air. Objective - Vital Signs Vital signs: Vital Signs Temp 97.5 F L 07/07/20 10:34 Pulse 133 H 07/07/20 10:34 Resp 16 07/07/20 10:34 BP 100/59 07/07/20 12:28 Pulse Ox 97 07/07/20 10:34 Intake & Output 07/06/20 07/07/20 07/07/20 18:59 06:59 18:59 Intake Total 120 975 956 Output Total 300 1100 900 Balance -180 -125 56 Weight 71.5 kg Intake: IV 720 Azithromycin 500 mg In 250 Sodium Chloride 0.9% 250 ml @ 250 mls/hr IVPB DAILY PETRONA Rx#:[id number] Sodium Chloride 0.9% 1, 420 000 ml @ 105 mls/hr IV . Q9H32M [facility]RONA Rx#:[id number] cefTRIAXone 1 gm In 50 Sodium Chloride 0.9% 50 ml @ 100 mls/hr IVPB Q24HR PETRONA Rx#:[id number] Intake, IV Titration 735 Amount Sodium Chloride 0.9% 1, 735 000 ml @ 105 mls/hr IV . Q9H32M PETRONA Rx#:[id number] Oral 120 240 236 Output: Urine 300 1100 900 Other: Voiding Method Incontinent Bedpan Incontinent # Voids 1 1 2 - Exam Gen: awake, alert, in no distress HEENT: normocephalic, atraumatic, good hearing acuity, moist mucous membranes Resp: CTAB, poor air exchange, no accessory muscle use, no wheezes, +crackles, no rhonchi CVS: good distal perfusion x 4, RRR, no murmurs, clicks, gallops GI: soft, NTTP, ND : no SPT, no CVAT, somers catheter not present MSK: + pitting edema, no clubbing Neuro: non-focal, no sensory deficits, appropriate tone Psych: cooperative, euthymic mood - Labs CBC & Chem 7: 07/05/20 18:01 07/05/20 18:01 Labs: Abnormal Lab Results - Last 24 Hours (Table) 07/06/20 07/06/20 07/06/20 Range/Units 06:34 06:34 14:05 PT (9.0-12.0) sec INR (<1.2) POC Glucose (mg/dL) 320 H (75-99) mg/dL C-Reactive Protein 1.3 H (0.0-0.8) mg/dL Procalcitonin 0.16 H (0.02-0.09) ng/mL 07/06/20 07/06/20 07/06/20 Range/Units 16:03 17:54 20:05 PT (9.0-12.0) sec INR (<1.2) POC Glucose (mg/dL) 340 H 332 H 320 H (75-99) mg/dL C-Reactive Protein (0.0-0.8) mg/dL Procalcitonin (0.02-0.09) ng/mL 07/06/20 07/06/20 07/07/20 Range/Units 22:12 23:53 01:54 PT (9.0-12.0) sec INR (<1.2) POC Glucose (mg/dL) 239 H 200 H 184 H (75-99) mg/dL C-Reactive Protein (0.0-0.8) mg/dL Procalcitonin (0.02-0.09) ng/mL 07/07/20 07/07/20 07/07/20 Range/Units 04:17 06:37 07:50 PT 19.8 H (9.0-12.0) sec INR 2.0 H (<1.2) POC Glucose (mg/dL) 145 H 124 H (75-99) mg/dL C-Reactive Protein (0.0-0.8) mg/dL Procalcitonin (0.02-0.09) ng/mL 07/07/20 07/07/20 Range/Units 08:47 11:49 PT (9.0-12.0) sec INR (<1.2) POC Glucose (mg/dL) 135 H 132 H (75-99) mg/dL C-Reactive Protein (0.0-0.8) mg/dL Procalcitonin (0.02-0.09) ng/mL Assessment and Plan Assessment: acute metabolic encephalopathy acute hypoglycemia , DM LORNE acute COVID pneumonitis , COPD compensated Paroxysmal Atrial Fibrillation with RVR Hypotension secondary to sepsis and covid plan supportive care follow up CRP, CPK, LDH, ferritin TROP for prognostic evaluation gentle IVF hydration monitor blood glucose insuline sliding scale hold nephrotoxic meds, hold ARB supplemental oxygen as needed resume inhalers duonebs as needed afib with RVR, on coumadin resume warfarin continue metoprolol at home dose of 25mg BID holding verapamil - cardiology consulting and following CODE STATUS:full code DVT prophylaxis: on coumadin for afib
--- NOTE | 2020-07-07 15:00 | P.PN ---
Subjective Progress Note Date: 07/07/20 HISTORY OF PRESENT ILLNESS: Patient is admitted to the hospital secondary to A. fib with RVR. Patient was hypotensive yesterday. Blood pressure has improved this morning to 102/69. She remains in A. fib with RVR. PHYSICAL EXAM: Thorough physical exam not completed secondary to limited evaluation/examination and due to Covid19 ASSESSMENT: Covid 19 Chronic persistent atrial fibrillation with rapid ventricular response Hypotension Acute kidney injury PLAN: Continue to monitor blood pressure Resume metoprolol 25 mg twice a day. Continue telemetry monitoring Further recommendations pending patient's course Nurse practitioner note has been reviewed by physician. Signing provider agrees with the documented findings, assessment, and plan of care. Objective - Vital Signs Vital signs: Vital Signs Temp 97.5 F L 07/07/20 10:34 Pulse 133 H 07/07/20 10:34 Resp 16 07/07/20 10:34 BP 100/59 07/07/20 12:28 Pulse Ox 97 07/07/20 10:34 Intake & Output 07/06/20 07/07/20 07/07/20 18:59 06:59 18:59 Intake Total 120 975 956 Output Total 300 1100 900 Balance -180 -125 56 Weight 71.5 kg Intake: IV 720 Azithromycin 500 mg In 250 Sodium Chloride 0.9% 250 ml @ 250 mls/hr IVPB DAILY PETRONA Rx#:[id number] Sodium Chloride 0.9% 1, 420 000 ml @ 105 mls/hr IV . Q9H32M [facility]A Rx#:[id number] cefTRIAXone 1 gm In 50 Sodium Chloride 0.9% 50 ml @ 100 mls/hr IVPB Q24HR [facility]RONA Rx#:[id number] Intake, IV Titration 735 Amount Sodium Chloride 0.9% 1, 735 000 ml @ 105 mls/hr IV . Q9H32M PETRONA Rx#:[id number] Oral 120 240 236 Output: Urine 300 1100 900 Other: Voiding Method Incontinent Bedpan Incontinent # Voids 1 1 2 - Labs CBC & Chem 7: 07/05/20 18:01 07/05/20 18:01 Labs: Abnormal Lab Results - Last 24 Hours (Table) 07/06/20 07/06/20 07/06/20 Range/Units 06:34 16:03 17:54 PT (9.0-12.0) sec INR (<1.2) POC Glucose (mg/dL) 340 H 332 H (75-99) mg/dL Procalcitonin 0.16 H (0.02-0.09) ng/mL 07/06/20 07/06/20 07/06/20 Range/Units 20:05 22:12 23:53 PT (9.0-12.0) sec INR (<1.2) POC Glucose (mg/dL) 320 H 239 H 200 H (75-99) mg/dL Procalcitonin (0.02-0.09) ng/mL 07/07/20 07/07/20 07/07/20 Range/Units 01:54 04:17 06:37 PT (9.0-12.0) sec INR (<1.2) POC Glucose (mg/dL) 184 H 145 H 124 H (75-99) mg/dL Procalcitonin (0.02-0.09) ng/mL 07/07/20 07/07/20 07/07/20 Range/Units 07:50 08:47 11:49 PT 19.8 H (9.0-12.0) sec INR 2.0 H (<1.2) POC Glucose (mg/dL) 135 H 132 H (75-99) mg/dL Procalcitonin (0.02-0.09) ng/mL
[2020-07-07 16:40] LABS: Glucose,Whole Blood 240 mg/dL (75-99)
[2020-07-07] MEDS ORDERED: WARFARIN 1.5 MG TAB PO ONE (18:00)
[2020-07-07 20:48] LABS: Glucose,Whole Blood 307 mg/dL (75-99)
[2020-07-07] MEDS: MONTELUKAST 10 MG TAB PO SCH (21:47)
[2020-07-07] MEDS: MAGNESIUM OXIDE 400 MG TAB PO SCH (21:47)
[2020-07-07] MEDS: ATORVASTATIN 10 MG TAB PO SCH (21:47)
--- NOTE | 2020-07-08 04:22 | PN ---
PROGRESS NOTE DATE OF SERVICE: 07/07/2020 REASON FOR FOLLOWUP: COVID-19 pneumonia. INTERVAL HISTORY: The patient is currently afebrile. The patient is more awake alert. She is breathing comfortably, currently 99% on room air. Denies having any chest pain. No shortness of breath. Minimal cough. No nausea, vomiting, abdominal pain or diarrhea. EXAMINATION: Blood pressure 100/59, pulse of 120, temp 97.4. She is 99% on room air. General description is an elderly female lying in bed in no distress. Respiratory system: Unlabored breathing, decreased breath sounds at the bases, no wheeze. Heart S1, S2. Regular rate and rhythm. Abdomen soft, no tenderness. LABS: No new labs have been obtained today. IMPRESSION/PLAN: Patient with admission to the hospital due to syncopal episode. This patient did have a component of atrial fibrillation with rapid ventricular response. The patient did have a positive COVID testing and did have a fever on admission. However, the patient is currently breathing 99% on room air. She does not qualify for Remdesivir, responding to the dexamethasone, iron sulfate and Coumadin the patient is already on. I am monitoring her closely. 1. This wound 6 of 8 and: The patient is already on and monitor clinical course closely. MMODL / IJN: [id number] /
[2020-07-08 06:48] LABS: Glucose,Whole Blood 189 mg/dL (75-99)
[2020-07-08] MEDS: INSULIN ASPART (NovoLOG) 100 UNIT/ML VIAL SQ SCH ×3 (06:53→18:22)
[2020-07-08] MEDS: ALBUTEROL HFA INHALER INHALATION SCH ×4 (08:24→21:37)
[2020-07-08] MEDS: TIOTROPIUM 18 MCG/PUFF INHALER INHALATION SCH (08:24)
[2020-07-08] MEDS: AZITHROMYCIN 500 MG TAB PO SCH (09:02)
[2020-07-08] MEDS: METOPROLOL TARTRATE 25 MG TAB PO SCH ×3 (09:02→21:23)
[2020-07-08] MEDS: ZINC SULFATE 220 MG CAP PO SCH (09:02)
[2020-07-08] MEDS: dexAMETHasone 2 MG TAB PO SCH (09:02)
[2020-07-08 09:51] LABS: INR 2.5 (<1.2); Prothrombin Time 24.4 sec (9.0-12.0)
--- NOTE | 2020-07-08 10:36 | P.PN ---
Subjective Progress Note Date: 07/08/20 This is a pleasant 89-year-old female patient with a past medical history of atrial fibrillation who follows with Dr. MAXIMUS Salcedo in the office. Presented to the emergency department with altered mental status. According to the patient she passed out at home. Upon admission she was found to be hypoglycemic with evidence of acute kidney injury with a BUN of 82 and creatinine 2.5. She is also found to be in atrial fibrillation with rapid ventricular response. She did test positive for the coronavirus. Patient was seen and examined this morning, heart rate around 118. We will increase her dose of beta fercho to a 3 times a day dose. Let pressure 120/60 with a heart rate of 118, 98% on room air. The time today is 24.4 with an INR of 2.5. Objective - Vital Signs Vital signs: Vital Signs Temp 97.6 F 07/08/20 04:00 Pulse 65 07/08/20 08:00 Resp 18 07/08/20 08:00 BP 121/58 07/08/20 08:00 Pulse Ox 98 07/08/20 08:00 Intake & Output 07/07/20 07/08/20 07/08/20 18:59 06:59 18:59 Intake Total 1192 120 Output Total 1800 Balance -608 120 Weight 71 kg Intake: IV 720 Azithromycin 500 mg In 250 Sodium Chloride 0.9% 250 ml @ 250 mls/hr IVPB DAILY [facility] Rx#:[id number] Sodium Chloride 0.9% 1, 420 000 ml @ 105 mls/hr IV . Q9H32M [facility] Rx#:[id number] cefTRIAXone 1 gm In 50 Sodium Chloride 0.9% 50 ml @ 100 mls/hr IVPB Q24HR [facility] Rx#:[id number] Oral 472 120 Output: Urine 1800 Other: Voiding Method Bedpan Bedpan Incontinent Incontinent # Voids 2 1 - Exam PHYSICAL EXAMINATION: This is a 89-year-old female in no apparent distress at the time of my examination. VITAL SIGNS: Blood pressure 78/48, heart rate 61, respirations 18, temp 98.3F. Patient is 98 % on 2 L. HEENT: Head is atraumatic, normocephalic. Pupils are equal, round. Sclerae anicteric. Conjunctivae are clear. Mucous membranes of the mouth are moist. Neck is supple. There is no elevated jugular venous pressure. No carotid bruit is heard. CHEST EXAMINATION: Reveal wheezing throughout with crackles to the right lung base. Respirations even and nonlabored. HEART EXAMINATION: [ Heart irregular irregular, positive S1 and S2 with a systolic murmur. ABDOMEN: Soft, nontender. Bowel sounds are heard. No organomegaly noted. EXTREMITIES: 2+ peripheral pulses with no evidence of peripheral edema and no calf tenderness noted. NEUROLOGIC EXAMINATION: Patient is awake, alert and oriented x3. - Labs CBC & Chem 7: 07/05/20 18:01 07/05/20 18:01 Labs: Abnormal Lab Results - Last 24 Hours (Table) 07/07/20 07/07/20 07/07/20 Range/Units 11:49 16:39 20:20 PT (9.0-12.0) sec INR (<1.2) POC Glucose (mg/dL) 132 H 240 H 307 H (75-99) mg/dL 07/08/20 07/08/20 Range/Units 06:17 09:16 PT 24.4 H (9.0-12.0) sec INR 2.5 H (<1.2) POC Glucose (mg/dL) 189 H (75-99) mg/dL Assessment and Plan Plan: Assessment and plan #1 COVID-19 Infection #2 persistent atrial fibrillation, anticoagulated with Coumadin #3 acute kidney injury Plan We will increase the dose of beta fercho to 3 times a day, continue the rest of the patient's medications. She may be able to be discharged home once daily by primary and we'll make her a follow-up appointment to see Dr. MAXIMUS Salcedo in the office post discharge. DNP note has been reviewed, I agree with a documented findings and plan of care. Patient was seen and examined.
[2020-07-08 11:55] LABS: Glucose,Whole Blood 127 mg/dL (75-99)
--- NOTE | 2020-07-08 15:36 | P.PN ---
Subjective Progress Note Date: 07/08/20 The patient was seen and examined at the bedside. She reported feeling much better today and had no active complaints. She was reading a book in her bed. The patient's heart rate however continues to be elevated in the 130s-140s with A. fib and RVR. The patient however denied chest pain, shortness of breath, or palpitations. She also denied nausea, vomiting. Objective - Vital Signs Vital signs: Vital Signs Temp 97.6 F 07/08/20 04:00 Pulse 125 H 07/08/20 12:00 Resp 18 07/08/20 12:00 BP 111/71 07/08/20 12:00 Pulse Ox 98 07/08/20 12:00 Intake & Output 07/07/20 07/08/20 07/08/20 18:59 06:59 18:59 Intake Total 1192 120 0 Output Total 1800 Balance -608 120 0 Weight 71 kg Intake: IV 720 Azithromycin 500 mg In 250 Sodium Chloride 0.9% 250 ml @ 250 mls/hr IVPB DAILY [facility] Rx#:[id number] Sodium Chloride 0.9% 1, 420 000 ml @ 105 mls/hr IV . Q9H32M [facility] Rx#:[id number] cefTRIAXone 1 gm In 50 Sodium Chloride 0.9% 50 ml @ 100 mls/hr IVPB Q24HR [facility] Rx#:[id number] Oral 472 120 0 Output: Urine 1800 Other: Voiding Method Bedpan Bedpan Incontinent Incontinent # Voids 2 1 1 - Exam General: Non-toxic, in no acute distress, appears stated age HEENT: NC/AT, anicteric sclerae, moist conjunctiva, no lid-lag, PERRLA Cardiovascular: Irregularly irregular with tachycardia, no murmurs, rubs, or gallops Lungs: Clear to auscultation, normal respiratory effort, no accessory muscle use Abdominal: Soft, non-tender, non-distended, no guarding, rebound, or rigidity Skin: Warm, dry Extremities: No edema or contractures Psychiatric: Alert and oriented to person, place and time, appropriate affect, pleasant Neuro: CN II-XII grossly intact, no focal deficits noted - Labs CBC & Chem 7: 07/05/20 18:01 07/08/20 15:09 Labs: Abnormal Lab Results - Last 24 Hours (Table) 07/07/20 07/07/20 07/08/20 Range/Units 16:39 20:20 06:17 PT (9.0-12.0) sec INR (<1.2) POC Glucose (mg/dL) 240 H 307 H 189 H (75-99) mg/dL 07/08/20 07/08/20 Range/Units 09:16 11:35 PT 24.4 H (9.0-12.0) sec INR 2.5 H (<1.2) POC Glucose (mg/dL) 127 H (75-99) mg/dL Assessment and Plan Plan: A. fib with RVR -Patient's Lopressor increased to 3 times a day -Cardiology recommendations appreciated -Continue cardiac monitoring -Therapeutic on Coumadin LORNE on chronic kidney disease -Obtain BMP -Continue to monitor Covid pneumonia -ID and pulmonary medicine recommendations appreciated -Patient does not meet the criteria for Remdesivir -Continue dexamethasone, zinc, vitamin C, vitamin D, and melatonin -Isolation precautions -SpO2 98-99% on room air -Borderline procalcitonin: Consider discontinuing Antibiotics Type II DM -Lispro insulin sliding scale blood glucose monitoring Acute metabolic encephalopathy, resolved -Hypotension secondary to sepsis and Covid, resolved COPD, not in acute exacerbation -Continue with DuoNeb's and Spiriva DVT prophylaxis -Coumadin Discussed with: Patient, RN Anticipated discharge date: in am Anticipated discharge place: Home A total of 35 minutes was spent on the care of this complex patient more than 50% of the time was spent in counseling and care coordination.
[2020-07-08 15:43] LABS: Calcium 7.8 mg/dL (8.4-10.2); Potassium 4.5 mmol/L (3.5-5.1)
[2020-07-08 16:53] LABS: Glucose,Whole Blood 266 mg/dL (75-99)
[2020-07-08] MEDS ORDERED: WARFARIN 1.5 MG TAB PO ONE (18:00)
[2020-07-08 20:19] LABS: Glucose,Whole Blood 339 mg/dL (75-99)
[2020-07-08] MEDS: MONTELUKAST 10 MG TAB PO SCH (21:23)
[2020-07-08] MEDS: MAGNESIUM OXIDE 400 MG TAB PO SCH (21:23)
[2020-07-08] MEDS: ATORVASTATIN 10 MG TAB PO SCH (21:23)
--- NOTE | 2020-07-08 23:14 | PN ---
PROGRESS NOTE DATE OF SERVICE: 07/08/2020 REASON FOR FOLLOWUP: COVID-19 infection. INTERVAL HISTORY: The patient is currently afebrile. The patient is breathing comfortably on room air. The patient denies having any chest pain or shortness of breath. Minimal cough. No abdominal pain or diarrhea. PHYSICAL EXAMINATION: Blood pressure is 111/71, pulse of 125, temperature 97.6. She is 98% on room air. General description: The patient is an elderly female in the in no distress. Respiratory system: Unlabored breathing, decreased breath sounds in the bases. Heart S1, S2. Abdomen: Soft, nontender. LABS: BUN of 16, creatinine 1.74. DIAGNOSTIC IMPRESSION/PLAN: Patient admitted to the hospital in a patient with syncopal episode. Did have slight hypoxemia and fever with concern for COVID-19 infection which came back positive. She also had elevated procalcitonin. The patient is currently doing well on Dexamethasone, Coumadin, Zinc and continue with Zithromax, discontinue the Rocephin and monitor clinical course closely. MMODL / IJN: [id number] /
[2020-07-09 06:11] LABS: Glucose,Whole Blood 149 mg/dL (75-99)
[2020-07-09] MEDS: INSULIN ASPART (NovoLOG) 100 UNIT/ML VIAL SQ SCH ×3 (06:23→16:31)
[2020-07-09 08:11] LABS: INR 3.8 (<1.2); Prothrombin Time 37.1 sec (9.0-12.0)
[2020-07-09 08:17] LABS: Calcium 7.8 mg/dL (8.4-10.2); Potassium 4.3 mmol/L (3.5-5.1)
[2020-07-09] MEDS: ALBUTEROL HFA INHALER INHALATION SCH ×4 (08:31→21:28)
[2020-07-09] MEDS: dexAMETHasone 2 MG TAB PO SCH (08:55)
[2020-07-09] MEDS: ZINC SULFATE 220 MG CAP PO SCH (08:55)
[2020-07-09] MEDS: METOPROLOL TARTRATE 25 MG TAB PO SCH ×2 (08:55→21:20)
[2020-07-09] MEDS: AZITHROMYCIN 500 MG TAB PO SCH (08:56)
[2020-07-09] MEDS: TIOTROPIUM 18 MCG/PUFF INHALER INHALATION SCH (09:09)
[2020-07-09 11:46] LABS: Glucose,Whole Blood 148 mg/dL (75-99)
--- NOTE | 2020-07-09 12:09 | P.PN ---
Subjective This is a pleasant 89-year-old female past medical history significant for atrial fibrillation, COPD, diabetes mellitus, dyslipidemia and hypertension. She follows in the office with Dr. Salcedo. She is currently being treated for Covid 19. She continues to be in atrial fibrillation with variable ventricular rates. Telemetry tracings indicate rates between 97-130. Blood pressure 103/63 heart rate 132 afebrile maintaining oxygen saturation on nasal cannula. Laboratory data reviewed, INR 3.8, sodium 136, potassium 4.3, creatinine 1.57. Currently maintained on atorvastatin 10 mg at bedtime, metoprolol 25 mg 3 times a day and Coumadin. Patient was not examined secondary to Covid 19 infection. ASSESSMENT Covid 19 Chronic persistent atrial fibrillation on long-term anticoagulation Acute kidney injury Hypertension Dyslipidemia Diabetes mellitus PLAN Increase lopressor to 50 mg at noontime and continue 25 mg BID. If her blood pressure tolerates this increase dose she can be transitioned to 50mg BID. Follow up with Dr. Salcedo in the office in 2 weeks. Nurse Practitioner note has been reviewed, I agree with a documented findings and plan of care. Patient was seen and examined. Objective - Vital Signs Vital signs: Vital Signs Temp 97.9 F 07/09/20 04:00 Pulse 132 H 07/09/20 08:56 Resp 16 07/09/20 08:56 BP 103/63 07/09/20 08:56 Pulse Ox 96 07/09/20 08:56 Intake & Output 07/08/20 07/09/20 07/09/20 18:59 06:59 18:59 Intake Total 120 120 Balance 120 120 Weight 74.5 kg Intake: Oral 120 120 Other: Voiding Method Bedpan Incontinent # Voids 0 1 1 # Bowel Movements 1 - Labs CBC & Chem 7: 07/05/20 18:01 07/09/20 07:12 Labs: Abnormal Lab Results - Last 24 Hours (Table) 07/08/20 07/08/20 07/08/20 Range/Units 11:35 15:09 16:31 PT (9.0-12.0) sec INR (<1.2) Sodium 133 L (137-145) mmol/L Chloride 109 H (98-107) mmol/L Carbon Dioxide 16 L (22-30) mmol/L BUN 68 H (7-17) mg/dL Creatinine 1.74 H (0.52-1.04) mg/dL Glucose 262 H (74-99) mg/dL POC Glucose (mg/dL) 127 H 266 H (75-99) mg/dL Calcium 7.8 L (8.4-10.2) mg/dL 07/08/20 07/09/20 07/09/20 Range/Units 20:14 06:07 07:12 PT 37.1 H (9.0-12.0) sec INR 3.8 H (<1.2) Sodium (137-145) mmol/L Chloride (98-107) mmol/L Carbon Dioxide (22-30) mmol/L BUN (7-17) mg/dL Creatinine (0.52-1.04) mg/dL Glucose (74-99) mg/dL POC Glucose (mg/dL) 339 H 149 H (75-99) mg/dL Calcium (8.4-10.2) mg/dL 07/09/20 Range/Units 07:12 PT (9.0-12.0) sec INR (<1.2) Sodium 136 L (137-145) mmol/L Chloride 109 H (98-107) mmol/L Carbon Dioxide (22-30) mmol/L BUN 63 H (7-17) mg/dL Creatinine 1.57 H (0.52-1.04) mg/dL Glucose 111 H (74-99) mg/dL POC Glucose (mg/dL) (75-99) mg/dL Calcium 7.8 L (8.4-10.2) mg/dL
[2020-07-09] MEDS: METOPROLOL TARTRATE 50 MG TAB PO SCH (12:38)
--- NOTE | 2020-07-09 14:50 | P.PN ---
Subjective Progress Note Date: 07/09/20 HISTORY OF PRESENT ILLNESS This is an 89-year-old female presented to the hospital due to syncop al episode along with slight hypoxia and fever concern for Covid 19 infection which came back positive. She also had elevated pro calcitonin. Patient was started on dexamethasone, zinc, Zithromax and continued on Coumadin. Today, patient continues to have a cough that seems to be less prominent and with continued clear sputum production. She denies any shortness of breath at rest. No chest pain. She denies abdominal pain, nausea vomiting or diarrhea. She has been tachycardic and cardiology has adjusted her metoprolol. PHYSICAL EXAMINATION Gen: This is an 89-year-old female. Patient is at rest and appears to be comfortable and in no acute distress. VS: Afebrile, heart rate 130, blood pressure 107/77, pulse ox 99% on room air. HEENT: Head is atraumatic, normocephalic. Pupils equal, round. Sclerae is anicteric. NECK: Supple. No JVD. No lymphadenopathy. No thyromegaly. LUNGS: Decreased breath sounds at bases but otherwise clear to auscultation. No wheezes or rhonchi. No intercostal retractions. HEART: Regular rate and rhythm. No murmur. ABDOMEN: Soft. Bowel sounds are present. No masses. No tenderness. EXTREMITIES: No pedal edema. NEUROLOGICAL: Patient is awake, alert and oriented x3. ASSESSMENT Covid 19 infection Syncopal episode secondary to Covid 19 Chronic atrial fibrillation with RVR Acute kidney injury Diabetes mellitus type 2 PLAN Continue dexamethasone, zinc, azithromycin and Coumadin. Patient does not qualify for Remdesivir. Continue to monitor oxygen status closely Further recommendations based on patient's clinical course Impression and plan of care have been directed as dictated by the signing physician. Minnie Hernandez nurse practitioner acting as scribe for signing physician. Objective - Vital Signs Vital signs: Vital Signs Temp 98.2 F 07/09/20 11:30 Pulse 130 H 07/09/20 13:12 Resp 16 07/09/20 11:30 BP 107/77 07/09/20 11:30 Pulse Ox 99 07/09/20 11:30 Intake & Output 07/08/20 07/09/20 07/09/20 18:59 06:59 18:59 Intake Total 120 430 Balance 120 430 Weight 74.5 kg Intake: IV 10 Invasive Line 2 10 Oral 120 420 Other: Voiding Method Bedpan Toilet Incontinent Incontinent # Voids 0 1 1 # Bowel Movements 1 - Labs CBC & Chem 7: 07/05/20 18:01 07/09/20 07:12 Labs: Abnormal Lab Results - Last 24 Hours (Table) 07/08/20 07/08/20 07/08/20 Range/Units 15:09 16:31 20:14 PT (9.0-12.0) sec INR (<1.2) Sodium 133 L (137-145) mmol/L Chloride 109 H (98-107) mmol/L Carbon Dioxide 16 L (22-30) mmol/L BUN 68 H (7-17) mg/dL Creatinine 1.74 H (0.52-1.04) mg/dL Glucose 262 H (74-99) mg/dL POC Glucose (mg/dL) 266 H 339 H (75-99) mg/dL Calcium 7.8 L (8.4-10.2) mg/dL 07/09/20 07/09/20 07/09/20 Range/Units 06:07 07:12 07:12 PT 37.1 H (9.0-12.0) sec INR 3.8 H (<1.2) Sodium 136 L (137-145) mmol/L Chloride 109 H (98-107) mmol/L Carbon Dioxide (22-30) mmol/L BUN 63 H (7-17) mg/dL Creatinine 1.57 H (0.52-1.04) mg/dL Glucose 111 H (74-99) mg/dL POC Glucose (mg/dL) 149 H (75-99) mg/dL Calcium 7.8 L (8.4-10.2) mg/dL 07/09/20 Range/Units 11:33 PT (9.0-12.0) sec INR (<1.2) Sodium (137-145) mmol/L Chloride (98-107) mmol/L Carbon Dioxide (22-30) mmol/L BUN (7-17) mg/dL Creatinine (0.52-1.04) mg/dL Glucose (74-99) mg/dL POC Glucose (mg/dL) 148 H (75-99) mg/dL Calcium (8.4-10.2) mg/dL
--- NOTE | 2020-07-09 16:10 | P.PN ---
Subjective Progress Note Date: 07/09/20 Patient is feeling well today. She denies any shortness of breath. Heart rate still not well controlled. Continues to be in A. fib. Objective - Vital Signs Vital signs: Vital Signs Temp 98 F 07/09/20 15:59 Pulse 80 07/09/20 15:59 Resp 16 07/09/20 15:59 BP 102/70 07/09/20 15:59 Pulse Ox 99 07/09/20 15:59 Intake & Output 07/08/20 07/09/20 07/09/20 18:59 06:59 18:59 Intake Total 120 430 Balance 120 430 Weight 74.5 kg Intake: IV 10 Invasive Line 2 10 Oral 120 420 Other: Voiding Method Bedpan Toilet Incontinent Incontinent # Voids 0 1 1 # Bowel Movements 1 - Exam General: The patient is awake and alert, in no distress Eye: there is normal conjunctiva bilaterally. Neck: The neck is supple, there is no JVD. Cardiovascular: Normal S1-S2, no S3-S4, no murmurs. Respiratory: Lungs clear to auscultation bilaterally Gastrointestinal: Abdomen is soft, nontender Musculoskeletal: There is no pedal edema. Neurological:. Speech is normal. Skin: Skin is warm and dry - Labs CBC & Chem 7: 07/05/20 18:01 07/09/20 07:12 Labs: Abnormal Lab Results - Last 24 Hours (Table) 07/08/20 07/08/20 07/09/20 Range/Units 16:31 20:14 06:07 PT (9.0-12.0) sec INR (<1.2) Sodium (137-145) mmol/L Chloride (98-107) mmol/L BUN (7-17) mg/dL Creatinine (0.52-1.04) mg/dL Glucose (74-99) mg/dL POC Glucose (mg/dL) 266 H 339 H 149 H (75-99) mg/dL Calcium (8.4-10.2) mg/dL 07/09/20 07/09/20 07/09/20 Range/Units 07:12 07:12 11:33 PT 37.1 H (9.0-12.0) sec INR 3.8 H (<1.2) Sodium 136 L (137-145) mmol/L Chloride 109 H (98-107) mmol/L BUN 63 H (7-17) mg/dL Creatinine 1.57 H (0.52-1.04) mg/dL Glucose 111 H (74-99) mg/dL POC Glucose (mg/dL) 148 H (75-99) mg/dL Calcium 7.8 L (8.4-10.2) mg/dL Assessment and Plan Assessment: A. fib with RVR -Patient's Lopressor dose adjusted by cardiology -Cardiology recommendations appreciated -Continue cardiac monitoring -Therapeutic on Coumadin LORNE on chronic kidney disease -Creatinine back to baseline around 1.5 -Continue to monitor Covid pneumonia -ID and pulmonary medicine recommendations appreciated -Patient does not meet the criteria for Remdesivir -Continue dexamethasone the 11/16, zinc, vitamin C, vitamin D, and melatonin -Isolation precautions -SpO2 98-99% on room air -Borderline procalcitonin: Antibiotic discontinued. We'll continue to monitor clinical status Type II DM -Lispro insulin sliding scale blood glucose monitoring Acute metabolic encephalopathy, resolved -Hypotension secondary to sepsis and Covid, resolved COPD, not in acute exacerbation -Continue with DuoNeb's and Spiriva DVT prophylaxis -Coumadin Discussed with: Patient, RN Anticipated discharge date: in am Anticipated discharge place: Home A total of 35 minutes was spent on the care of this complex patient more than 50% of the time was spent in counseling and care coordination.
[2020-07-09 16:24] LABS: Glucose,Whole Blood 238 mg/dL (75-99)
[2020-07-09] MEDS ORDERED: WARFARIN 0.5 MG TAB PO ONE (18:00)
[2020-07-09] MEDS: MAGNESIUM OXIDE 400 MG TAB PO SCH (21:19)
[2020-07-09] MEDS: MONTELUKAST 10 MG TAB PO SCH (21:19)
[2020-07-09] MEDS: ATORVASTATIN 10 MG TAB PO SCH (21:19)
[2020-07-09 22:01] LABS: Glucose,Whole Blood 196 mg/dL (75-99)
[2020-07-10 06:22] LABS: Glucose,Whole Blood 107 mg/dL (75-99)
[2020-07-10] MEDS: INSULIN ASPART (NovoLOG) 100 UNIT/ML VIAL SQ SCH ×3 (06:31→17:23)
[2020-07-10 08:19] LABS: Basophils % (A) 0 %; Eosinophils % (A) 0 %; HCT 31.4 % (34.0-46.0); HGB 10.4 gm/dL (11.4-16.0); Lymphocytes # (A) 0.8 k/uL (1.0-4.8); Lymphocytes % (A) 9 %; MCH 31.4 pg (25.0-35.0); MCHC 33.2 g/dL (31.0-37.0); MCV 94.7 fL (80.0-100.0); Mean Platelet Volume 7.5; Monocytes # (A) 0.4 k/uL (0-1.0); Monocytes % (A) 5 %; Neutrophils # (A) 7.5 k/uL (1.3-7.7); Neutrophils % (A) 85 %; Platelet Count 290 k/uL (150-450); RBC 3.31 m/uL (3.80-5.40); RDW 13.1 % (11.5-15.5); WBC 8.8 k/uL (3.8-10.6)
[2020-07-10 08:34] LABS: INR 3.4 (<1.2); Prothrombin Time 33.6 sec (9.0-12.0)
[2020-07-10 08:51] LABS: Calcium 7.9 mg/dL (8.4-10.2); Potassium 4.6 mmol/L (3.5-5.1)
[2020-07-10] MEDS: dexAMETHasone 2 MG TAB PO SCH (08:55)
[2020-07-10] MEDS: ZINC SULFATE 220 MG CAP PO SCH (08:55)
[2020-07-10] MEDS: AZITHROMYCIN 500 MG TAB PO SCH (08:55)
[2020-07-10] MEDS: METOPROLOL TARTRATE 50 MG TAB PO SCH ×3 (08:56→20:35)
[2020-07-10] MEDS: METOPROLOL TARTRATE 25 MG TAB PO SCH ×2 (08:56→09:42)
[2020-07-10] MEDS ORDERED: METOPROLOL TARTRATE 25 MG TAB PO ONE (09:05)
[2020-07-10] MEDS: TIOTROPIUM 18 MCG/PUFF INHALER INHALATION SCH (09:39)
[2020-07-10] MEDS: ALBUTEROL HFA INHALER INHALATION SCH ×4 (09:39→21:21)
[2020-07-10] MEDS ORDERED: BENZONATATE 100 MG CAP PO PRN (10:52)
--- NOTE | 2020-07-10 11:45 | XR ---
EXAMINATION TYPE: XR chest 1V portable DATE OF EXAM: 07/10/2020 COMPARISON: Right chest x-ray 07/05/2020 HISTORY: Shortness of breath, worsening Covid TECHNIQUE: Single frontal view of the chest is obtained. FINDINGS: Calcified nodule persists in the left upper lobe. Patient is rotated. Heart may be enlarge d. Bibasilar increased density persists, there is blunting the right costophrenic angle, the right he midiaphragm is obscured. No evident pneumothorax. IMPRESSION: Basilar pneumonia versus atelectasis, associated effusion. Old granulomatous disease.
[2020-07-10 12:17] LABS: Glucose,Whole Blood 206 mg/dL (75-99)
[2020-07-10] MEDS: guaiFENesin-DM 600/30MG 1 EACH TAB.ER.12H PO SCH ×2 (13:28→21:58)
--- NOTE | 2020-07-10 14:06 | P.PN ---
Subjective Patient is complaining of worsening cough today. No significant shortness of breath. She is treated on room air. Objective - Vital Signs Vital signs: Vital Signs Temp 98.5 F 07/10/20 08:00 Pulse 137 H 07/10/20 12:00 Resp 18 07/10/20 12:00 BP 102/67 07/10/20 12:00 Pulse Ox 97 07/10/20 12:00 Intake & Output 07/09/20 07/10/20 07/10/20 18:59 06:59 18:59 Intake Total 730 240 Balance 730 240 Weight 76 kg Intake: IV 10 Invasive Line 2 10 Oral 720 240 Other: Voiding Method Toilet Toilet Toilet Incontinent Incontinent Incontinent # Voids 1 3 4 - Exam General: The patient is awake and alert, in no distress Eye: there is normal conjunctiva bilaterally. Neck: The neck is supple, there is no JVD. Cardiovascular: Normal S1-S2, no S3-S4, no murmurs. Respiratory: Lungs with scattered rhonchi and wheezing all over the chest Gastrointestinal: Abdomen is soft, nontender Musculoskeletal: There is no pedal edema. Neurological:. Speech is normal. Skin: Skin is warm and dry - Labs CBC & Chem 7: 07/10/20 08:03 07/10/20 08:03 Labs: Abnormal Lab Results - Last 24 Hours (Table) 07/09/20 07/09/20 07/10/20 Range/Units 16:20 21:59 06:21 RBC (3.80-5.40) m/uL Hgb (11.4-16.0) gm/dL Hct (34.0-46.0) % Lymphocytes # (1.0-4.8) k/uL PT (9.0-12.0) sec INR (<1.2) Sodium (137-145) mmol/L Chloride (98-107) mmol/L Carbon Dioxide (22-30) mmol/L BUN (7-17) mg/dL Creatinine (0.52-1.04) mg/dL Glucose (74-99) mg/dL POC Glucose (mg/dL) 238 H 196 H 107 H (75-99) mg/dL Calcium (8.4-10.2) mg/dL 07/10/20 07/10/20 07/10/20 Range/Units 08:03 08:03 08:03 RBC 3.31 L (3.80-5.40) m/uL Hgb 10.4 L (11.4-16.0) gm/dL Hct 31.4 L (34.0-46.0) % Lymphocytes # 0.8 L (1.0-4.8) k/uL PT 33.6 H (9.0-12.0) sec INR 3.4 H (<1.2) Sodium 135 L (137-145) mmol/L Chloride 108 H (98-107) mmol/L Carbon Dioxide 19 L (22-30) mmol/L BUN 63 H (7-17) mg/dL Creatinine 1.52 H (0.52-1.04) mg/dL Glucose 142 H (74-99) mg/dL POC Glucose (mg/dL) (75-99) mg/dL Calcium 7.9 L (8.4-10.2) mg/dL 07/10/20 Range/Units 12:15 RBC (3.80-5.40) m/uL Hgb (11.4-16.0) gm/dL Hct (34.0-46.0) % Lymphocytes # (1.0-4.8) k/uL PT (9.0-12.0) sec INR (<1.2) Sodium (137-145) mmol/L Chloride (98-107) mmol/L Carbon Dioxide (22-30) mmol/L BUN (7-17) mg/dL Creatinine (0.52-1.04) mg/dL Glucose (74-99) mg/dL POC Glucose (mg/dL) 206 H (75-99) mg/dL Calcium (8.4-10.2) mg/dL Assessment and Plan Assessment: A. fib with RVR -Patient's Lopressor dose adjusted by cardiology currently on 50 mg twice daily -Cardiology recommendations appreciated -Continue cardiac monitoring -Therapeutic on Coumadin LORNE on chronic kidney disease -Creatinine back to baseline around 1.5 -Continue to monitor Covid pneumonia -ID and pulmonary medicine recommendations appreciated -Patient does not meet the criteria for Remdesivir -Continue dexamethasone the 12/16, zinc, vitamin C, vitamin D, and melatonin -Isolation precautions -SpO2 98-99% on room air -Borderline procalcitonin on presentation. Started on azithromycin 500 mg daily. Repeat inflammatory markers ordered for today. -Repeat chest x-ray on/ showed bibasilar pneumonia versus atelectasis. Type II DM -Lispro insulin sliding scale blood glucose monitoring Acute metabolic encephalopathy, resolved -Hypotension secondary to sepsis and Covid, resolved COPD, not in acute exacerbation -Continue with DuoNeb's and Spiriva DVT prophylaxis -Coumadin Discussed with: Patient, RN Anticipated discharge date: Pending clinical course Anticipated discharge place: Home A total of 35 minutes was spent on the care of this complex patient more than 50% of the time was spent in counseling and care coordination.
[2020-07-10 15:53] LABS: C Reactive Protein 16.9 mg/L (<10.0)
[2020-07-10 17:19] LABS: Glucose,Whole Blood 224 mg/dL (75-99)
[2020-07-10] MEDS ORDERED: WARFARIN 0.5 MG TAB PO ONE (18:00)
[2020-07-10] MEDS: ATORVASTATIN 10 MG TAB PO SCH (20:10)
[2020-07-10] MEDS: MONTELUKAST 10 MG TAB PO SCH (20:10)
[2020-07-10] MEDS: MAGNESIUM OXIDE 400 MG TAB PO SCH (20:11)
[2020-07-10 21:12] LABS: Glucose,Whole Blood 252 mg/dL (75-99)
--- NOTE | 2020-07-10 23:22 | PN ---
PROGRESS NOTE DATE OF SERVICE: 07/10/2020 REASON FOR FOLLOWUP: COVID-19 infection. INTERVAL HISTORY: The patient is currently afebrile. The patient is breathing more comfortably. The patient denies having any chest pain. She is complaining of cough, but not bringing up any sputum. No nausea, no vomiting. No abdominal pain, no diarrhea. PHYSICAL EXAMINATION: Blood pressure 109/77, pulse 94, temperature 98.1. She is 98% on room air. General description is an elderly female lying in bed in no distress. RESPIRATORY SYSTEM: Unlabored breathing, decreased breath sounds at the bases. No wheeze. HEART: S1, S2. Regular rate and rhythm. ABDOMEN: Soft, no tenderness. LABS: Hemoglobin is 10.4, white count 8.8. BUN of 63, creatinine 1.52. CRP is 16.9. Chest x-ray with no worsening. DIAGNOSTIC IMPRESSION AND PLAN: Patient admitted to hospital after the patient did have a syncopal episode in this patient who did have atrial fibrillation with rapid ventricular response. The patient did have COVID testing, but no evidence of any hypoxemia and the patient seemed to have shown overall improvement on dexamethasone continue on the Coumadin and zinc will be continued and monitor clinical course closely. Continue with supportive care. MMODL / IJN: [id number] /
[2020-07-11 01:50] LABS: Ferritin 78.6 ng/mL (10.0-291.0)
[2020-07-11 06:03] LABS: Glucose,Whole Blood 92 mg/dL (75-99)
[2020-07-11] MEDS: INSULIN ASPART (NovoLOG) 100 UNIT/ML VIAL SQ SCH ×3 (06:14→16:56)
[2020-07-11] MEDS: TIOTROPIUM 18 MCG/PUFF INHALER INHALATION SCH (07:46)
[2020-07-11] MEDS: ALBUTEROL HFA INHALER INHALATION SCH ×4 (07:46→20:21)
[2020-07-11] MEDS: ZINC SULFATE 220 MG CAP PO SCH (08:14)
[2020-07-11] MEDS: AZITHROMYCIN 500 MG TAB PO SCH (08:14)
[2020-07-11] MEDS: METOPROLOL TARTRATE 50 MG TAB PO SCH ×2 (08:14→20:41)
[2020-07-11] MEDS: dexAMETHasone 2 MG TAB PO SCH (08:14)
[2020-07-11] MEDS: guaiFENesin-DM 600/30MG 1 EACH TAB.ER.12H PO SCH ×2 (08:15→20:42)
[2020-07-11 11:11] LABS: INR 3.7 (<1.2); Prothrombin Time 36.3 sec (9.0-12.0)
[2020-07-11 11:18] LABS: Calcium 7.6 mg/dL (8.4-10.2)
[2020-07-11 11:33] LABS: Glucose,Whole Blood 174 mg/dL (75-99)
[2020-07-11] MEDS: DIGOXIN 125 MCG TAB PO SCH (12:41)
--- NOTE | 2020-07-11 14:16 | P.PN ---
Subjective Progress Note Date: 07/11/20 Patient is awake and alert. Shortness of breath has improved. Heart rate is variable going up to 140s. Patient did not get her metoprolol last night secondary to low blood pressure. She is feeling well otherwise. Denies any palpitation at this time. Objective - Vital Signs Vital signs: Vital Signs Temp 98.7 F 07/11/20 12:00 Pulse 150 H 07/11/20 12:00 Resp 20 07/11/20 12:00 BP 107/54 07/11/20 12:00 Pulse Ox 96 07/11/20 12:00 Intake & Output 07/10/20 07/11/20 07/11/20 18:59 06:59 18:59 Intake Total 702 460 Output Total 0 Balance 702 0 460 Weight 75 kg Intake: Oral 702 460 Output: Urine 0 Other: Voiding Method Toilet Incontinent Incontinent # Voids 1 0 1 - Exam General: The patient is awake and alert, in no distress Eye: there is normal conjunctiva bilaterally. Neck: The neck is supple, there is no JVD. Cardiovascular: Normal S1-S2, no S3-S4, no murmurs. Respiratory: Lungs with scattered rhonchi and wheezing all over the chest Gastrointestinal: Abdomen is soft, nontender Musculoskeletal: There is no pedal edema. Neurological:. Speech is normal. Skin: Skin is warm and dry - Labs CBC & Chem 7: 07/10/20 08:03 07/11/20 09:56 Labs: Abnormal Lab Results - Last 24 Hours (Table) 07/10/20 07/10/20 07/10/20 Range/Units 06:30 17:15 21:03 PT (9.0-12.0) sec INR (<1.2) Sodium (137-145) mmol/L Chloride (98-107) mmol/L Carbon Dioxide (22-30) mmol/L BUN (7-17) mg/dL Creatinine (0.52-1.04) mg/dL Glucose (74-99) mg/dL POC Glucose (mg/dL) 224 H 252 H (75-99) mg/dL Calcium (8.4-10.2) mg/dL C-Reactive Protein 16.9 H (<10.0) mg/L 12/03/20 12/03/20 12/03/20 Range/Units 09:56 09:56 11:31 PT 36.3 H (9.0-12.0) sec INR 3.7 H (<1.2) Sodium 134 L (137-145) mmol/L Chloride 110 H (98-107) mmol/L Carbon Dioxide 20 L (22-30) mmol/L BUN 56 H (7-17) mg/dL Creatinine 1.20 H (0.52-1.04) mg/dL Glucose 173 H (74-99) mg/dL POC Glucose (mg/dL) 174 H (75-99) mg/dL Calcium 7.6 L (8.4-10.2) mg/dL C-Reactive Protein (<10.0) mg/L Assessment and Plan Assessment: A. fib with RVR -Patient's Lopressor dose adjusted by cardiology currently on 50 mg twice daily. Also started on digoxin on 07/11. -Cardiology recommendations appreciated -Continue cardiac monitoring -Therapeutic on Coumadin LORNE on chronic kidney disease -Creatinine back to baseline around 1.5 -Continue to monitor Covid pneumonia -ID and pulmonary medicine recommendations appreciated -Patient does not meet the criteria for Remdesivir -Continue dexamethasone the 01/16, zinc, vitamin C, vitamin D, and melatonin -Isolation precautions -SpO2 98-99% on room air -Borderline procalcitonin on presentation. Started on azithromycin 500 mg daily. Repeat inflammatory markers stable -Repeat chest x-ray on showed bibasilar pneumonia versus atelectasis. Type II DM -Lispro insulin sliding scale blood glucose monitoring Acute metabolic encephalopathy, resolved -Hypotension secondary to sepsis and Covid, resolved COPD, not in acute exacerbation -Continue with DuoNeb's and Spiriva DVT prophylaxis -Coumadin Discussed with: Patient, RN Anticipated discharge date: Pending clinical course Anticipated discharge place: Home A total of 35 minutes was spent on the care of this complex patient more than 50% of the time was spent in counseling and care coordination.
[2020-07-11 14:23] VITALS: BMI 28.3
[2020-07-11 16:44] LABS: Glucose,Whole Blood 279 mg/dL (75-99)
[2020-07-11] MEDS ORDERED: WARFARIN 0.5 MG TAB PO ONE (18:00)
[2020-07-11 20:11] LABS: Glucose,Whole Blood 187 mg/dL (75-99)
[2020-07-11] MEDS: MONTELUKAST 10 MG TAB PO SCH (20:41)
[2020-07-11] MEDS: MAGNESIUM OXIDE 400 MG TAB PO SCH (20:42)
[2020-07-11] MEDS: ATORVASTATIN 10 MG TAB PO SCH (20:42)
--- NOTE | 2020-07-11 22:07 | PN ---
PROGRESS NOTE DATE OF SERVICE: 07/11/2020 REASON FOR FOLLOWUP: COVID-19 infection. INTERVAL HISTORY: The patient is currently afebrile. The patient is breathing comfortably. Denies having any chest pain or shortness of breath. She did have cough but not bringing up any sputum. No nausea, no vomiting. No abdominal pain or diarrhea. PHYSICAL EXAMINATION: Blood pressure 105/66, pulse of 120, temperature 98.9. She is 97% on room air. General description is an elderly female lying in bed in no distress. RESPIRATORY SYSTEM: Unlabored breathing with decreased intensity of breath sounds. No wheeze. HEART: S1, S2. Irregular rhythm. ABDOMEN: Soft. No tenderness. LABS: BUN 56, creatinine 1.20. DIAGNOSTIC IMPRESSION AND PLAN: Patient admitted to hospital with shortness of breath which is likely multifactorial in this patient who did have atrial fibrillation with rapid ventricular response. She did have positive COVID test but does not require any supplemental oxygen currently. She is on dexamethasone and zinc; to continue. Monitor her clinical course closely. MMODL / IJN: [id number] /
[2020-07-12] MEDS: INSULIN ASPART (NovoLOG) 100 UNIT/ML VIAL SQ SCH ×3 (06:22→16:50)
[2020-07-12 06:23] LABS: Glucose,Whole Blood 84 mg/dL (75-99)
[2020-07-12] MEDS: dexAMETHasone 2 MG TAB PO SCH (09:04)
[2020-07-12] MEDS: DIGOXIN 125 MCG TAB PO SCH (09:04)
[2020-07-12] MEDS: METOPROLOL TARTRATE 50 MG TAB PO SCH ×2 (09:04→21:08)
[2020-07-12] MEDS: AZITHROMYCIN 500 MG TAB PO SCH (09:04)
[2020-07-12] MEDS: ZINC SULFATE 220 MG CAP PO SCH (09:04)
[2020-07-12] MEDS: guaiFENesin-DM 600/30MG 1 EACH TAB.ER.12H PO SCH ×2 (09:06→21:09)
[2020-07-12] MEDS: ALBUTEROL HFA INHALER INHALATION SCH ×4 (09:14→19:17)
[2020-07-12] MEDS: TIOTROPIUM 18 MCG/PUFF INHALER INHALATION SCH (09:14)
[2020-07-12 11:33] LABS: INR 2.8 (<1.2); Prothrombin Time 26.8 sec (9.0-12.0)
--- NOTE | 2020-07-12 11:38 | P.PN ---
Subjective This is a pleasant 89-year-old female past medical history significant for atrial fibrillation, COPD, diabetes mellitus, dyslipidemia and hypertension. She follows in the office with Dr. Salcedo. She is currently being treated for Covid 19. She continues to be in atrial fibrillation with variable ventricular rates. Telemetry tracings indicate rates between 97-130. Blood pressure 103/63 heart rate 132 afebrile maintaining oxygen saturation on nasal cannula. Laboratory data reviewed, INR 3.8, sodium 136, potassium 4.3, creatinine 1.57. Currently maintained on atorvastatin 10 mg at bedtime, metoprolol 25 mg 3 times a day and Coumadin. 07/12/2020 Echocardiogram revealed mildly impaired LV systolic function with EF 45-50%, mild septal hypokinesia, mild with mean gradient 15 mmHg, moderate MR and mild TR. Blood pressures are better today, 111/64 heart rate remains in the 120- 140's on telemetry. Currently maintained on lopressor 50 mg BID and digoxin 125 mcg daily. At home the patient is maintained on verapamil 80 mg BID, however due to persistent hypotension this has not been resume throughout this admission. Thorough exam not completed secondary to limited evaluation/examination due to COVID 19. Pt was interviewed and information obtained from medical record and nursing staff. ASSESSMENT Covid 19 Chronic persistent atrial fibrillation on long-term anticoagulation with rapid ventricular rates. Acute kidney injury, improving Syncopal episode Hypertension Dyslipidemia Diabetes mellitus with hypoglycemia at home prior to arrival PLAN Continue beta blockers and digoxin. Add amiodarone 400 mg BID to attempt to control her heart rates. Check digoxin level in the morning. Nurse Practitioner note has been reviewed, I agree with a documented findings and plan of care. Patient was seen and examined. Objective - Vital Signs Vital signs: Vital Signs Temp 98.4 F 07/12/20 09:00 Pulse 130 H 07/12/20 09:00 Resp 18 07/12/20 09:00 BP 111/64 07/12/20 09:00 Pulse Ox 96 07/12/20 09:00 Intake & Output 07/11/20 07/12/20 07/12/20 18:59 06:59 18:59 Intake Total 1060 Output Total 500 Balance 1060 -500 Weight 75 kg 78.4 kg Intake: Oral 1060 Output: Urine 500 Other: Voiding Method Diaper Incontinent # Voids 1 - Labs CBC & Chem 7: 07/10/20 08:03 12/03/20 09:56 Labs: Abnormal Lab Results - Last 24 Hours (Table) 07/11/20 07/11/20 07/11/20 Range/Units 09:56 09:56 11:31 PT 36.3 H (9.0-12.0) sec INR 3.7 H (<1.2) Sodium 134 L (137-145) mmol/L Chloride 110 H (98-107) mmol/L Carbon Dioxide 20 L (22-30) mmol/L BUN 56 H (7-17) mg/dL Creatinine 1.20 H (0.52-1.04) mg/dL Glucose 173 H (74-99) mg/dL POC Glucose (mg/dL) 174 H (75-99) mg/dL Calcium 7.6 L (8.4-10.2) mg/dL 07/11/20 07/11/20 Range/Units 16:43 20:10 PT (9.0-12.0) sec INR (<1.2) Sodium (137-145) mmol/L Chloride (98-107) mmol/L Carbon Dioxide (22-30) mmol/L BUN (7-17) mg/dL Creatinine (0.52-1.04) mg/dL Glucose (74-99) mg/dL POC Glucose (mg/dL) 279 H 187 H (75-99) mg/dL Calcium (8.4-10.2) mg/dL
[2020-07-12 11:41] LABS: Glucose,Whole Blood 203 mg/dL (75-99)
--- NOTE | 2020-07-12 14:38 | P.PN ---
Subjective Progress Note Date: 07/12/20 Patient is awake and alert. Heart rate is still not well controlled up to 140s. Objective - Vital Signs Vital signs: Vital Signs Temp 98.9 F 07/12/20 11:32 Pulse 113 H 07/12/20 11:32 Resp 18 07/12/20 11:32 BP 102/66 07/12/20 11:32 Pulse Ox 94 L 07/12/20 11:32 Intake & Output 07/11/20 07/12/20 07/12/20 18:59 06:59 18:59 Intake Total 1060 120 Output Total 500 Balance 1060 -500 120 Weight 75 kg 78.4 kg Intake: Oral 1060 120 Output: Urine 500 Other: Voiding Method Diaper Incontinent # Voids 1 - Exam General: The patient is awake and alert, in no distress Eye: there is normal conjunctiva bilaterally. Neck: The neck is supple, there is no JVD. Cardiovascular: Normal S1-S2, no S3-S4, no murmurs. Respiratory: Lungs with scattered rhonchi and wheezing all over the chest Gastrointestinal: Abdomen is soft, nontender Musculoskeletal: There is no pedal edema. Neurological:. Speech is normal. Skin: Skin is warm and dry - Labs CBC & Chem 7: 07/10/20 08:03 07/11/20 09:56 Labs: Abnormal Lab Results - Last 24 Hours (Table) 07/11/20 07/11/20 07/12/20 Range/Units 16:43 20:10 10:52 PT 26.8 H (9.0-12.0) sec INR 2.8 H (<1.2) POC Glucose (mg/dL) 279 H 187 H (75-99) mg/dL 07/12/20 Range/Units 11:40 PT (9.0-12.0) sec INR (<1.2) POC Glucose (mg/dL) 203 H (75-99) mg/dL Assessment and Plan Assessment: A. fib with RVR -Patient's Lopressor dose adjusted by cardiology currently on 50 mg twice daily. Also started on digoxin on 07/11. Heart rate still not well controlled. Started on amiodarone today. -Cardiology recommendations appreciated -Continue cardiac monitoring -Therapeutic on Coumadin LORNE on chronic kidney disease -Creatinine back to baseline around 1.5 -Continue to monitor Covid pneumonia -ID and pulmonary medicine recommendations appreciated -Patient does not meet the criteria for Remdesivir -Continue dexamethasone the 01/16, zinc, vitamin C, vitamin D, and melatonin -Isolation precautions -SpO2 98-99% on room air -Borderline procalcitonin on presentation. Started on azithromycin 500 mg d aily. Repeat inflammatory markers stable -Repeat chest x-ray on showed bibasilar pneumonia versus atelectasis. Type II DM -Lispro insulin sliding scale blood glucose monitoring Acute metabolic encephalopathy, resolved -Hypotension secondary to sepsis and Covid, resolved COPD, not in acute exacerbation -Continue with DuoNeb's and Spiriva DVT prophylaxis -Coumadin Discussed with: Patient, RN Anticipated discharge date: Pending clinical course Anticipated discharge place: Home A total of 35 minutes was spent on the care of this complex patient more than 50% of the time was spent in counseling and care coordination.
[2020-07-12] MEDS: AMIODARONE 200 MG TAB PO SCH ×2 (16:46→22:48)
[2020-07-12 16:49] LABS: Glucose,Whole Blood 199 mg/dL (75-99)
[2020-07-12] MEDS ORDERED: WARFARIN 1 MG TAB PO ONE (18:00)
[2020-07-12 20:44] LABS: Glucose,Whole Blood 229 mg/dL (75-99)
[2020-07-12] MEDS: MAGNESIUM OXIDE 400 MG TAB PO SCH (21:07)
[2020-07-12] MEDS: ATORVASTATIN 10 MG TAB PO SCH (21:08)
[2020-07-12] MEDS: MONTELUKAST 10 MG TAB PO SCH (21:08)
--- NOTE | 2020-07-12 23:08 | PN ---
PROGRESS NOTE DATE OF SERVICE: 07/12/2020 REASON FOR FOLLOWUP: COVID-19 infection. INTERVAL HISTORY: The patient is currently afebrile. The patient is breathing comfortably on room air. The patient denies having any chest pain or shortness of breath. Minimal cough. No nausea. No vomiting. No abdominal pain or diarrhea. PHYSICAL EXAMINATION: Blood pressure 101/63, pulse of 69, temperature 98.1. She is 97% on room air. General description is an elderly female lying in bed in no distress. RESPIRATORY SYSTEM: Unlabored breathing with decreased breath sounds at the base. No wheeze. HEART: S1, S2. Irregular rhythm. ABDOMEN: Soft. No tenderness. LABS: INR is 2.8. DIAGNOSTIC IMPRESSION AND PLAN: Patient with positive COVID testing in this patient with no hypoxemia. The patient is currently on , dexamethasone and Coumadin along with zinc sulfate. To continue and monitor her clinical course closely. MMODL / IJN: [id number] /
[2020-07-13 06:08] LABS: Glucose,Whole Blood 100 mg/dL (75-99)
[2020-07-13] MEDS: INSULIN ASPART (NovoLOG) 100 UNIT/ML VIAL SQ SCH ×3 (06:34→17:20)
[2020-07-13 07:54] LABS: INR 2.9 (<1.2); Prothrombin Time 27.9 sec (9.0-12.0)
[2020-07-13 07:58] LABS: Calcium 7.7 mg/dL (8.4-10.2); Potassium 5.1 mmol/L (3.5-5.1)
[2020-07-13] MEDS: guaiFENesin-DM 600/30MG 1 EACH TAB.ER.12H PO SCH ×2 (08:18→20:44)
[2020-07-13] MEDS: AZITHROMYCIN 500 MG TAB PO SCH (08:18)
[2020-07-13] MEDS: dexAMETHasone 2 MG TAB PO SCH (08:18)
[2020-07-13] MEDS: ZINC SULFATE 220 MG CAP PO SCH (08:18)
[2020-07-13 08:20] LABS: Digoxin 0.9 ng/mL
[2020-07-13] MEDS: ALBUTEROL HFA INHALER INHALATION SCH ×4 (08:44→20:32)
[2020-07-13] MEDS: TIOTROPIUM 18 MCG/PUFF INHALER INHALATION SCH (08:44)
[2020-07-13] MEDS: METOPROLOL TARTRATE 50 MG TAB PO SCH ×2 (10:01→20:42)
--- NOTE | 2020-07-13 10:34 | P.PN ---
Subjective Progress Note Date: 07/13/20 Patient is awake and alert. She had 2 brief episode of cardiac positive on telemetry monitoring earlier today. She is currently on digoxin, amiodarone, and metoprolol. Nursing staff is holding medication to smoking awaiting cardiology evaluation. Objective - Vital Signs Vital signs: Vital Signs Temp 98.5 F 07/13/20 08:10 Pulse 108 H 07/13/20 08:10 Resp 18 07/13/20 08:10 BP 128/89 07/13/20 08:10 Pulse Ox 95 07/13/20 08:10 Intake & Output 07/12/20 07/13/20 07/13/20 18:59 06:59 18:59 Intake Total 1080 Balance 1080 Weight 74.5 kg Intake: Oral 1080 Other: Voiding Method Diaper Diaper Incontinent Incontinent # Voids 1 1 1 - Exam General: The patient is awake and alert, in no distress Eye: there is normal conjunctiva bilaterally. Neck: The neck is supple, there is no JVD. Cardiovascular: Normal S1-S2, no S3-S4, no murmurs. Respiratory: Lungs with scattered rhonchi and wheezing all over the chest Gastrointestinal: Abdomen is soft, nontender Musculoskeletal: There is no pedal edema. Neurological:. Speech is normal. Skin: Skin is warm and dry - Labs CBC & Chem 7: 07/10/20 08:03 07/13/20 07:27 Labs: Abnormal Lab Results - Last 24 Hours (Table) 07/12/20 07/12/20 07/12/20 Range/Units 10:52 11:40 16:48 PT 26.8 H (9.0-12.0) sec INR 2.8 H (<1.2) Sodium (137-145) mmol/L Chloride (98-107) mmol/L BUN (7-17) mg/dL Creatinine (0.52-1.04) mg/dL POC Glucose (mg/dL) 203 H 199 H (75-99) mg/dL Calcium (8.4-10.2) mg/dL 07/12/20 07/13/20 07/13/20 Range/Units 20:43 06:06 07:27 PT (9.0-12.0) sec INR (<1.2) Sodium 136 L (137-145) mmol/L Chloride 111 H (98-107) mmol/L BUN 51 H (7-17) mg/dL Creatinine 1.26 H (0.52-1.04) mg/dL POC Glucose (mg/dL) 229 H 100 H (75-99) mg/dL Calcium 7.7 L (8.4-10.2) mg/dL 07/13/20 Range/Units 07:27 PT 27.9 H (9.0-12.0) sec INR 2.9 H (<1.2) Sodium (137-145) mmol/L Chloride (98-107) mmol/L BUN (7-17) mg/dL Creatinine (0.52-1.04) mg/dL POC Glucose (mg/dL) (75-99) mg/dL Calcium (8.4-10.2) mg/dL Assessment and Plan Assessment: A. fib with RVR -Patient's Lopressor dose adjusted by cardiology currently on 50 mg 3 times daily. Also started on digoxin on 07/11. Heart rate still not well controlled. Started on amiodarone 07/12 -Cardiology recommendations appreciated -Episode of cardiac positive on telemetry monitoring oxygen at discontinuation of digoxin awaiting cardiology evaluation -Continue cardiac monitoring -Therapeutic on Coumadin LORNE on chronic kidney disease -Creatinine back to baseline around 1.5 -Continue to monitor Covid pneumonia -ID and pulmonary medicine recommendations appreciated -Patient does not meet the criteria for Remdesivir -Continue dexamethasone the 01/16, zinc, vitamin C, vitamin D, and melatonin -Isolation precautions -SpO2 98-99% on room air -Borderline procalcitonin on presentation. Finished 5 days course of azithrom ycin 500 mg daily. Repeat inflammatory markers stable -Repeat chest x-ray on showed bibasilar pneumonia versus atelectasis. Continue incentive spirometer Type II DM -Lispro insulin sliding scale blood glucose monitoring Acute metabolic encephalopathy, resolved -Hypotension secondary to sepsis and Covid, resolved COPD, not in acute exacerbation -Continue with DuoNeb's and Spiriva DVT prophylaxis -Coumadin Discussed with: Patient, RN Anticipated discharge date: Pending clinical course Anticipated discharge place: Home A total of 35 minutes was spent on the care of this complex patient more than 50% of the time was spent in counseling and care coordination.
[2020-07-13 11:56] LABS: Glucose,Whole Blood 153 mg/dL (75-99)
--- NOTE | 2020-07-13 13:19 | P.PN ---
Subjective Progress Note Date: 07/13/20 The pleasant 89-year-old female patient with a past medical history significant for atrial fibrillation, COPD, diabetes, dyslipidemia and hypertension. She follows in the office with Dr. Salcedo. She is currently being treated for cold and 19. She continues to be in atrial fibrillation with better controlled ventricular rates. She was initiated on amiodarone yesterday. She continues to be on beta fercho and digoxin. She did have some slowing of the heart rate last night through the night with pauses up to 2.4 seconds that were asymptomatic. This was while she was in atrial fibrillation. Labs this morning showed a BUN of 51, creatinine 1.26 and INR of 2.9. Overall the patient is feeling okay. She continues to complain of a cough. Activity is limited but stable. Objective - Vital Signs Vital signs: Vital Signs Temp 98.5 F 07/13/20 08:10 Pulse 92 07/13/20 12:24 Resp 16 07/13/20 12:24 BP 111/69 07/13/20 12:24 Pulse Ox 93 L 07/13/20 12:24 Intake & Output 07/12/20 07/13/20 07/13/20 18:59 06:59 18:59 Intake Total 1080 298 Balance 1080 298 Weight 74.5 kg Intake: Oral 1080 298 Other: Voiding Method Diaper Diaper Incontinent Incontinent # Voids 1 1 1 - Exam Thorough exam not completed secondary to limited evaluation/examination due to COVID 19. Pt was interviewed and information obtained from medical record and nursing staff. - Labs CBC & Chem 7: 07/10/20 08:03 07/13/20 07:27 Labs: Abnormal Lab Results - Last 24 Hours (Table) 07/12/20 07/12/20 07/13/20 Range/Units 16:48 20:43 06:06 PT (9.0-12.0) sec INR (<1.2) Sodium (137-145) mmol/L Chloride (98-107) mmol/L BUN (7-17) mg/dL Creatinine (0.52-1.04) mg/dL POC Glucose (mg/dL) 199 H 229 H 100 H (75-99) mg/dL Calcium (8.4-10.2) mg/dL 12/05/20 12/05/20 12/05/20 Range/Units 07:27 07:27 11:45 PT 27.9 H (9.0-12.0) sec INR 2.9 H (<1.2) Sodium 136 L (137-145) mmol/L Chloride 111 H (98-107) mmol/L BUN 51 H (7-17) mg/dL Creatinine 1.26 H (0.52-1.04) mg/dL POC Glucose (mg/dL) 153 H (75-99) mg/dL Calcium 7.7 L (8.4-10.2) mg/dL Assessment and Plan Assessment: #1 COVID-19 infection #2 chronic persistent atrial fibrillation with rapid ventricular response, chronic, anticoagulated on Coumadin with a therapeutic INR #3 for tension #4 acute kidney injury, improving #5 hyperlipidemia #6 diabetes Plan: From cardiology perspective, continue amiodarone, digoxin and metoprolol. Continue to monitor the patient for another 24 hours. Continue to monitor INR to keep between 2 and 3. The patient will need INR monitored closely at home due to being started on amiodarone. We'll continue to follow the patient right further recommendations accordingly. FINISHING ROOM OPERATOR note has been reviewed, I agree with a documented findings and plan of care. Patient was seen and examined.
[2020-07-13] MEDS: AMIODARONE 200 MG TAB PO SCH ×2 (13:52→20:41)
[2020-07-13] MEDS: DIGOXIN 125 MCG TAB PO SCH (13:53)
[2020-07-13 16:52] LABS: Glucose,Whole Blood 261 mg/dL (75-99)
[2020-07-13] MEDS ORDERED: WARFARIN 1 MG TAB PO ONE (18:00)
[2020-07-13 19:54] LABS: Glucose,Whole Blood 204 mg/dL (75-99)
[2020-07-13] MEDS: ATORVASTATIN 10 MG TAB PO SCH (20:41)
[2020-07-13] MEDS: MAGNESIUM OXIDE 400 MG TAB PO SCH (20:42)
[2020-07-13] MEDS: MONTELUKAST 10 MG TAB PO SCH (20:45)
--- NOTE | 2020-07-13 22:05 | PN ---
PROGRESS NOTE DATE OF SERVICE: 07/13/2020 REASON FOR FOLLOWUP: COVID-19 pneumonia. INTERVAL HISTORY: The patient is currently afebrile. The patient is breathing comfortably currently on room air. The patient denies having any chest pain or shortness. Minimal cough. No nausea, no vomiting, no abdominal pain or diarrhea. PHYSICAL EXAMINATION: Blood pressure 139/77, pulse of 90, temperature 98.1. She is 97% on room air. General description is an elderly female lying in bed in no distress. Respiratory system: Unlabored breathing. Decreased breath sounds at the base, no wheeze. Heart S1, S2. Irregular rhythm. Abdomen soft, no tenderness. LABS: BUN of 51, creatinine 1.26, INR is 2.9. DIAGNOSTIC IMPRESSION AND PLAN: Patient with acute COVID-19 pneumonia in this patient with no hemodynamic or respiratory difficulty currently ( ) room air. The patient will be treated with dexamethasone, still getting Coumadin, ( ) discontinued and continue with supportive care thank examination. MMODL / IJN: [id number] /
[2020-07-14] MEDS: INSULIN ASPART (NovoLOG) 100 UNIT/ML VIAL SQ SCH ×4 (06:20→20:49)
[2020-07-14 06:21] LABS: Glucose,Whole Blood 120 mg/dL (75-99)
[2020-07-14] MEDS: ALBUTEROL HFA INHALER INHALATION SCH ×4 (08:15→20:12)
[2020-07-14] MEDS: TIOTROPIUM 18 MCG/PUFF INHALER INHALATION SCH (08:16)
[2020-07-14] MEDS: ZINC SULFATE 220 MG CAP PO SCH (08:27)
[2020-07-14] MEDS: METOPROLOL TARTRATE 50 MG TAB PO SCH ×2 (08:27→20:43)
[2020-07-14] MEDS: dexAMETHasone 2 MG TAB PO SCH (08:27)
[2020-07-14] MEDS: guaiFENesin-DM 600/30MG 1 EACH TAB.ER.12H PO SCH ×2 (08:27→20:49)
[2020-07-14 09:19] LABS: INR 4.2 (<1.2); Prothrombin Time 41.5 sec (9.0-12.0)
--- NOTE | 2020-07-14 11:21 | P.PN ---
Subjective Progress Note Date: 07/14/20 The pleasant 89-year-old female patient with a past medical history significant for atrial fibrillation, COPD, diabetes, dyslipidemia and hypertension. She follows in the office with Dr. Salcedo. She is currently being treated for cold and 19. She continues to be in atrial fibrillation with better controlled ventricular rates. She was initiated on amiodarone yesterday. She continues to be on beta fercho and digoxin. She did have some slowing of the heart rate last night through the night with pauses up to 2.4 seconds that were asymptomatic. This was while she was in atrial fibrillation. Labs this morning showed a BUN of 51, creatinine 1.26 and INR of 2.9. Overall the patient is feeling okay. She continues to complain of a cough. Activity is limited but stable. 07/14/2020 Overall the patient is feeling well today. Continues to complain of a cough. She denies complaints of chest discomfort, palpitations, shortness of breath, dizziness or lightheadedness. Continues to have asymptomatic pauses through the night with the longest pause of 3.2 seconds. Heart rate is currently well c ontrolled in the 80s. She remains in atrial fibrillation. INR today 4.2. Objective - Vital Signs Vital signs: Vital Signs Temp 98.1 F 07/14/20 08:24 Pulse 105 H 07/14/20 08:24 Resp 18 07/14/20 08:24 BP 96/61 07/14/20 08:24 Pulse Ox 91 L 07/14/20 08:24 Intake & Output 07/13/20 07/14/20 07/14/20 18:59 06:59 18:59 Intake Total 535 118 Output Total 400 Balance 135 118 Weight 78.5 kg Intake: Oral 535 118 Output: Urine 400 Other: Voiding Method Diaper Diaper Diaper Incontinent Incontinent Incontinent # Voids 1 1 - Exam Thorough exam not completed secondary to limited evaluation/examination due to COVID 19. Pt was interviewed and information obtained from medical record and nursing staff. - Labs CBC & Chem 7: 07/10/20 08:03 07/13/20 07:27 Labs: Abnormal Lab Results - Last 24 Hours (Table) 07/13/20 07/13/20 07/13/20 Range/Units 11:45 16:51 19:52 PT (9.0-12.0) sec INR (<1.2) POC Glucose (mg/dL) 153 H 261 H 204 H (75-99) mg/dL 07/14/20 07/14/20 Range/Units 06:19 08:30 PT 41.5 H (9.0-12.0) sec INR 4.2 H (<1.2) POC Glucose (mg/dL) 120 H (75-99) mg/dL Assessment and Plan Assessment: #1 COVID-19 infection #2 chronic persistent atrial fibrillation with rapid ventricular response, chronic, anticoagulated on Coumadin with a supratherapeutic INR #3 hypertension #4 acute kidney injury, stable #5 hyperlipidemia #6 diabetes Plan: From cardiology perspective, continue amiodarone and metoprolol. We will discontinue digoxin. Hold Coumadin today due to INR 4.2. Continue to monitor INR to keep between 2 and 3. The patient will need INR monitored closely at home due to being started on amiodarone. We'll continue to follow the patient and provide further recommendations accordingly. MAINTENANCE WORKER note has been reviewed, I agree with a documented findings and plan of care. Patient was seen and examined.
[2020-07-14 11:56] LABS: Glucose,Whole Blood 195 mg/dL (75-99)
--- NOTE | 2020-07-14 12:44 | P.PN ---
Subjective Progress Note Date: 07/14/20 Patient is feeling fairly well today. She had multiple cardiac pauses on telemetry monitoring last night. Objective - Vital Signs Vital signs: Vital Signs Temp 98.1 F 07/14/20 08:24 Pulse 90 07/14/20 11:45 Resp 18 07/14/20 11:50 BP 107/71 07/14/20 11:45 Pulse Ox 91 L 07/14/20 11:50 Intake & Output 07/13/20 07/14/20 07/14/20 18:59 06:59 18:59 Intake Total 535 118 Output Total 400 Balance 135 118 Weight 78.5 kg Intake: Oral 535 118 Output: Urine 400 Other: Voiding Method Diaper Diaper Diaper Incontinent Incontinent Incontinent # Voids 1 1 - Exam General: The patient is awake and alert, in no distress Eye: there is normal conjunctiva bilaterally. Neck: The neck is supple, there is no JVD. Cardiovascular: Normal S1-S2, no S3-S4, no murmurs. Respiratory: Lungs with scattered rhonchi and wheezing all over the chest Gastrointestinal: Abdomen is soft, nontender Musculoskeletal: There is no pedal edema. Neurological:. Speech is normal. Skin: Skin is warm and dry - Labs CBC & Chem 7: 07/10/20 08:03 07/13/20 07:27 Labs: Abnormal Lab Results - Last 24 Hours (Table) 07/13/20 07/13/20 07/14/20 Range/Units 16:51 19:52 06:19 PT (9.0-12.0) sec INR (<1.2) POC Glucose (mg/dL) 261 H 204 H 120 H (75-99) mg/dL 07/14/20 07/14/20 Range/Units 08:30 11:45 PT 41.5 H (9.0-12.0) sec INR 4.2 H (<1.2) POC Glucose (mg/dL) 195 H (75-99) mg/dL Assessment and Plan Assessment: A. fib with RVR -Metoprolol dose adjusted by cardiology. Patient was started on digoxin but had multiple cardiac positive on telemetry monitoring and digoxin was discontinued today. Currently on metoprolol 50 mg twice daily. Started on amiodarone 07/12 -Cardiology recommendations appreciated -Continue cardiac monitoring -Therapeutic on Coumadin LOREN on chronic kidney disease -Creatinine back to baseline around 1.5 -Continue to monitor Covid pneumonia -ID and pulmonary medicine recommendations appreciated -Patient does not meet the criteria for Remdesivir -Continue dexamethasone the 01/16, zinc, vitamin C, vitamin D, and melatonin -Isolation precautions -SpO2 98-99% on room air -Borderline procalcitonin on presentation. Finished 5 days course of azithromycin 500 mg daily. Repeat inflammatory markers stable -Repeat chest x-ray on showed bibasilar pneumonia versus atelectasis. Continue incentive spirometer Type II DM -Lispro insulin sliding scale blood glucose monitoring Acute metabolic encephalopathy, resolved -Hypotension secondary to sepsis and Covid, resolved COPD, not in acute exacerbation -Continue with DuoNeb's and Spiriva DVT prophylaxis -Coumadin Discussed with: Patient, RN Anticipated discharge date: Pending clinical course Anticipated discharge place: Home A total of 35 minutes was spent on the care of this complex patient more than 50% of the time was spent in counseling and care coordination.
[2020-07-14] MEDS: AMIODARONE 200 MG TAB PO SCH ×2 (12:47→20:43)
[2020-07-14 17:12] LABS: Glucose,Whole Blood 234 mg/dL (75-99)
[2020-07-14] MEDS ORDERED: WARFARIN 0.5 MG TAB PO ONE (18:00)
[2020-07-14 20:03] LABS: Glucose,Whole Blood 295 mg/dL (75-99)
[2020-07-14] MEDS: ATORVASTATIN 10 MG TAB PO SCH (20:43)
[2020-07-14] MEDS: MAGNESIUM OXIDE 400 MG TAB PO SCH (20:44)
[2020-07-14] MEDS: MONTELUKAST 10 MG TAB PO SCH (20:45)
--- NOTE | 2020-07-14 20:54 | PN ---
PROGRESS NOTE DATE OF SERVICE: 07/14/2020 REASON FOR FOLLOWUP: COVID-19 infection. INTERVAL HISTORY: The patient is currently afebrile. She has been breathing comfortably on room air. At the time of my evaluation denies having any chest pain or shortness of breath. Minimal cough. No abdominal pain or diarrhea. PHYSICAL EXAMINATION: Blood pressure 98/59 with a pulse of 103, temperature 98.2. General description is an elderly female lying in bed in no distress. Respiratory system: Unlabored breathing, decreased breath sounds at bases, no wheeze. Heart S1, S2. Regular rate and rhythm. Abdomen soft, no tenderness. LABS: INR is 4.2. IMPRESSION/PLAN: Patient with acute COVID-19 positive. This patient did not have significant hypoxemia and was treated with dexamethasone, zinc and Coumadin. We will watch her clinical course closely. Repeat chest x-ray and inflammatory markers tomorrow. Continue supportive care. MMODL / IJN: [id number] /
[2020-07-15 06:12] LABS: Glucose,Whole Blood 119 mg/dL (75-99)
[2020-07-15] MEDS: INSULIN ASPART (NovoLOG) 100 UNIT/ML VIAL SQ SCH ×2 (06:17→11:54)
[2020-07-15] MEDS: ALBUTEROL HFA INHALER INHALATION SCH ×2 (08:48→13:05)
[2020-07-15] MEDS: TIOTROPIUM 18 MCG/PUFF INHALER INHALATION SCH (08:49)
[2020-07-15 09:25] LABS: Basophils % (A) 0 %; Eosinophils % (A) 0 %; Lymphocytes # (A) 0.4 k/uL (1.0-4.8); Lymphocytes % (A) 5 %; MCH 31.1 pg (25.0-35.0); MCHC 33.3 g/dL (31.0-37.0); MCV 93.5 fL (80.0-100.0); Mean Platelet Volume 7.2; Monocytes # (A) 0.4 k/uL (0-1.0); Monocytes % (A) 5 %; Neutrophils # (A) 6.7 k/uL (1.3-7.7); Neutrophils % (A) 89 %; Platelet Count 257 k/uL (150-450); RBC 2.88 m/uL (3.80-5.40); RDW 13.3 % (11.5-15.5); WBC 7.5 k/uL (3.8-10.6)
[2020-07-15 09:42] LABS: INR 4.8 (<1.2); Prothrombin Time 47.3 sec (9.0-12.0)
[2020-07-15 09:47] LABS: Calcium 7.6 mg/dL (8.4-10.2); Magnesium 2.5 mg/dL (1.6-2.3); Potassium 4.9 mmol/L (3.5-5.1)
[2020-07-15] MEDS: guaiFENesin-DM 600/30MG 1 EACH TAB.ER.12H PO SCH (10:18)
[2020-07-15] MEDS: dexAMETHasone 2 MG TAB PO SCH (10:18)
[2020-07-15] MEDS: METOPROLOL TARTRATE 50 MG TAB PO SCH (10:19)
[2020-07-15] MEDS: AMIODARONE 200 MG TAB PO SCH (10:19)
[2020-07-15] MEDS: ZINC SULFATE 220 MG CAP PO SCH (10:19)
[2020-07-15 10:42] VITALS: TEMP 98.7
[2020-07-15 11:50] LABS: Glucose,Whole Blood 118 mg/dL (75-99)
[2020-07-15 13:13] VITALS: BP 113/60; PULSE 58; RESP 18
--- NOTE | 2020-07-15 14:24 | P.PN ---
Subjective This is a pleasant 89-year-old female past medical history significant for atrial fibrillation, COPD, diabetes mellitus, dyslipidemia and hypertension. She follows in the office with Dr. Salcedo. She is currently being treated for Covid 19. She continues to be in atrial fibrillation with variable ventricular rates. Telemetry tracings indicate rates between 97-130. Blood pressure 103/63 heart rate 132 afebrile maintaining oxygen saturation on nasal cannula. Laboratory data reviewed, INR 3.8, sodium 136, potassium 4.3, creatinine 1.57. Currently maintained on atorvastatin 10 mg at bedtime, metoprolol 25 mg 3 times a day and Coumadin. 07/15/2020 Heart rates appear to be controlled on current regimen however INR continues to go up. Blood pressure 113/60 with a heart rate of 58. Laboratory data reviewed, WBC 7.5, hemoglobin 9, platelets 257, INR 4.8, sodium 135, potassium 4.9 and creatinine 1.39. Currently maintained on lopressor 50 mg BID and amiodarone 200 mg BID. Thorough exam not completed secondary to limited evaluation/examination due to COVID 19. Pt was interviewed and information obtained from medical record and nursing staff. ASSESSMENT Covid 19 Chronic persistent atrial fibrillation on long-term anticoagulation with rapid ventricular rates. Acute kidney injury, improving Syncopal episode Hypertension Dyslipidemia Diabetes mellitus with hypoglycemia at home prior to arrival PLAN Hold Coumadin and repeat PT/INR in the morning. Heart rates controlled on current regimen. Nurse Practitioner note has been reviewed, I agree with a documented findings and plan of care. Patient was seen and examined. Objective - Vital Signs Vital signs: Vital Signs Temp 98.7 F 07/15/20 08:00 Pulse 58 L 07/15/20 12:00 Resp 18 07/15/20 12:00 BP 113/60 07/15/20 12:00 Pulse Ox 98 07/15/20 12:00 Intake & Output 07/14/20 07/15/20 07/15/20 18:59 06:59 18:59 Intake Total 354 100 Balance 354 100 Weight 75 kg Intake: Oral 354 100 Other: Voiding Method Diaper Diaper Diaper Incontinent Incontinent Incontinent # Voids 1 2 - Labs CBC & Chem 7: 07/15/20 08:41 07/15/20 08:41 Labs: Abnormal Lab Results - Last 24 Hours (Table) 07/14/20 07/14/2020 Range/Units 17:04 20:02 06:11 RBC (3.80-5.40) m/uL Hgb (11.4-16.0) gm/dL Hct (34.0-46.0) % Lymphocytes # (1.0-4.8) k/uL PT (9.0-12.0) sec INR (<1.2) Sodium (137-145) mmol/L Chloride (98-107) mmol/L Carbon Dioxide (22-30) mmol/L BUN (7-17) mg/dL Creatinine (0.52-1.04) mg/dL Glucose (74-99) mg/dL POC Glucose (mg/dL) 234 H 295 H 119 H (75-99) mg/dL Calcium (8.4-10.2) mg/dL Magnesium (1.6-2.3) mg/dL 07/15/20 07/15/20 07/15/20 Range/Units 08:41 08:41 08:41 RBC 2.88 L (3.80-5.40) m/uL Hgb 9.0 L (11.4-16.0) gm/dL Hct 27.0 L (34.0-46.0) % Lymphocytes # 0.4 L (1.0-4.8) k/uL PT 47.3 H (9.0-12.0) sec INR 4.8 H (<1.2) Sodium 135 L (137-145) mmol/L Chloride 111 H (98-107) mmol/L Carbon Dioxide 21 L (22-30) mmol/L BUN 50 H (7-17) mg/dL Creatinine 1.39 H (0.52-1.04) mg/dL Glucose 102 H (74-99) mg/dL POC Glucose (mg/dL) (75-99) mg/dL Calcium 7.6 L (8.4-10.2) mg/dL Magnesium 2.5 H (1.6-2.3) mg/dL 07/15/20 Range/Units 11:48 RBC (3.80-5.40) m/uL Hgb (11.4-16.0) gm/dL Hct (34.0-46.0) % Lymphocytes # (1.0-4.8) k/uL PT (9.0-12.0) sec INR (<1.2) Sodium (137-145) mmol/L Chloride (98-107) mmol/L Carbon Dioxide (22-30) mmol/L BUN (7-17) mg/dL Creatinine (0.52-1.04) mg/dL Glucose (74-99) mg/dL POC Glucose (mg/dL) 118 H (75-99) mg/dL Calcium (8.4-10.2) mg/dL Magnesium (1.6-2.3) mg/dL
--- NOTE | 2020-07-15 14:43 | P.DS ---
Providers Date of admission: 07/05/20 19:50 Expected date of discharge: 07/15/20 Attending physician: Rom Gutierrez MD Consults: 07/06/20 05:06 Consult Physician Routine Consulting Provider: Lauri Inman Consult Reason/Comments: afib rvr Do you want consulting provider notified?: Yes, Notify in am 07/06/20 07:58 Consult Physician Urgent Consulting Provider: Theresa Villarreal Consult Reason/Comments: pulmonary effusion, COVID, AFib/RVR Do you want consulting provider notified?: Yes 07/06/20 11:41 Consult Physician Routine Consulting Provider: Nahid Kennedy Consult Reason/Comments: remdesivir Do you want consulting provider notified?: Yes Primary care physician: Adiel Dennison Hospital Course: This is a 89-year-old female with past medical history noted below who presented to the emergency room originally with altered mental status. Patient was evaluated in the ER and admitted to the hospital for further evaluation of her medical problems noted below. A. fib with RVR -Metoprolol dose adjusted by cardiology. Currently on metoprolol 50 mg twice daily. Started on amiodarone 07/12 -Patient continued to have multiple cardiac pauses overnight for 2-3 seconds at a time. No significant cardiac pauses during the day. I discussed the findings with the cardiology nurse practitioner who indicated at this is of no concerns at this time as this mostly at night. No further recommendation from cardiology. Patient was cleared for discharge home. Supratherapeutic INR -INR was elevated throughout this hospitalization as patient was on azithromycin and then was started on amiodarone -INR today 4.8 -Coumadin has been on hold for 2 days prior to discharge. Patient was advised to resume Coumadin on 07/18 and start 1 mg daily -Repeat INR as an outpatient. LORNE on chronic kidney disease -Creatinine back to baseline around 1.5 Covid pneumonia -ID and pulmonary medicine recommendations appreciated -Finished Decadron course in the hospital -Patient does not meet the criteria for Remdesivir -Continue dexamethasone the 01/16, zinc, vitamin C, vitamin D, and melatonin -SpO2 98-99% on room air -Borderline procalcitonin on presentation. Finished 5 days course of azithromycin 500 mg daily. Repeat inflammatory markers stable -Repeat chest x-ray on/2 showed bibasilar pneumonia versus atelectasis. Continue incentive spirometer Type II DM -Resume home medication History of hypertension -Blood pressure currently controlled with metoprolol Acute metabolic encephalopathy, resolved -Hypotension secondary to sepsis and Covid, resolved COPD, not in acute exacerbation -Continue with DuoNeb's and Spiriva Patient will be discharged in a stable condition. She will follow-up with cardiology in the office as directed for INR check. Patient Condition at Discharge: Poor Plan - Discharge Summary Discharge Rx Participant: Yes New Discharge Prescriptions: New Zinc Sulfate [Orazinc] 220 mg PO DAILY #30 cap Tiotropium 18 Mcg/Puff [Spiriva] 1 puff INHALATION RT-DAILY #1 inhaler Albuterol Inhaler [Ventolin Hfa Inhaler] 2 puff INHALATION RT-Q2H PRN #1 inhaler PRN Reason: Shortness Of Breath Or Wheezing Amiodarone [Cordarone] 200 mg PO BID #30 tab Warfarin [Coumadin] 1 mg PO DAILY #30 tablet Metoprolol Tartrate [Lopressor] 50 mg PO BID #60 tab Continue metFORMIN HCL [Glucophage] 500 mg PO BID Simvastatin [Zocor] 10 mg PO HS Repaglinide [Prandin] 0.5 mg PO BID Montelukast [Singulair] 10 mg PO HS #30 tab Magnesium 250 mg PO HS Discontinued Candesartan [Atacand] 8 mg PO DAILY Warfarin Sodium [Coumadin] 1.25 mg PO SUMOTUWETHSA Metoprolol Tartrate [Lopressor] 25 mg PO BID Verapamil [Isoptin] 80 mg PO BID Furosemide [Lasix] 20 mg PO HS Furosemide [Lasix] 40 mg PO DAILY Discharge Medication List Simvastatin [Zocor] 10 mg PO HS 09/08/16 [History] metFORMIN HCL [Glucophage] 500 mg PO BID 09/08/16 [History] Repaglinide [Prandin] 0.5 mg PO BID 04/28/18 [History] Montelukast [Singulair] 10 mg PO HS #30 tab 10/30/19 [Rx] Magnesium 250 mg PO HS 07/05/20 [History] Albuterol Inhaler [Ventolin Hfa Inhaler] 2 puff INHALATION RT-Q2H PRN #1 inhaler 07/07/20 [Rx] Tiotropium 18 Mcg/Puff [Spiriva] 1 puff INHALATION RT-DAILY #1 inhaler 07/07/20 [Rx] Zinc Sulfate [Orazinc] 220 mg PO DAILY #30 cap 07/07/20 [Rx] Amiodarone [Cordarone] 200 mg PO BID #30 tab 07/15/20 [Rx] Metoprolol Tartrate [Lopressor] 50 mg PO BID #60 tab 07/15/20 [Rx] Warfarin [Coumadin] 1 mg PO DAILY #30 tablet 07/15/20 [Rx] Follow up Appointment(s)/Referral(s): Adiel Dennison MD [Primary Care Provider] - 1 Week Darian Salcedo MD [STAFF PHYSICIAN] - 3 Days Discharge Disposition: HOME SELF-CARE
[2020-07-15] MEDS ORDERED: WARFARIN 0.5 MG TAB PO ONE (18:00)
--- NOTE | 2020-07-16 13:44 | CDI ---
Documentation Clarification Form Date: 07/16/20 From: Alaina Amanda Phone: If you have a question about this query, please contact Allie Balderas [employer] Developer at [phone] between 8am and 5pm. Admit Date: 07/05/20 Discharge Date:07/15/20 Patient Name: Luba Cha Visit Number: [id number] ATTENTION: The Clinical Documentation Specialists (CDI) and [facility] Coding Staff appreciate your assistance in clarifying documentation. Please respond to the clarification below the line at the bottom and electronically sign. The CDI & [facility] Coding staff will review the response and follow-up if needed. Please note: Queries are made part of the Legal Health Record. If you have any questions, please contact the author of this message via ITS. Dear Dr. Medina CKD is documented in your 07/09 - 07/15 progress notes. History/Risk Factors: Patients Historical BUN/CR/GFR found in the lab reports BUN: 01/29/20 - 50.0, 02/18 - 69.0, 05/23 - 63.0 Creatinine: 01/29/20 - 1.8, 02/18 - 2.0, 05/23 - 1.6 GFR: 01/29/20 - 24.9, 02/18 - 21.9, 05/23 - 28.5 Clinical Indicators: Decreased GFR for greater than 3 months Current BUN/CR/GFR [be sure to date lab values]: BUN - 82, 68, 63, 63, 56, 51, 50 Creatinine - 2.51, 1.74, 1.57, 1.52, 1.20, 1.26, 1.39 GFR - 17, 26, 29, 30, 41, 38, 34 Treatment: Verapamil 80 mg PO BID, Atacand 8 mg PO daily, Zocor 20 mg PO daily In order to capture the severity of condition, please clarify the stage of the CKD, if known: CKD Stage 1 (GFR > 90) CKD Stage 2 (GFR 60-89) CKD Stage 3a (GFR 45-59) CKD Stage 3b (GFR 30-44) CKD Stage 4 (GFR 15-29) CKD Stage 5 (GFR <15) ESRD Other, please specify Unable to determine stage 3 CKD MTDD
== END 2020-07-15 16:16 | disposition home or self-care (01) | DRG 871 ==
LOC: EC 17:55 → 5NMEDONC 19:50 → 4SSUR 21:04 → 3SCARD 07-06 11:23
PROVIDERS: ADMIT Internal Medicine; ATTEND Internal Medicine
DX: A41.89 Other specified sepsis (principal); G93.41 Metabolic encephalopathy; J12.89 Other viral pneumonia; U07.1 COVID-19; E87.1 Hypo-osmolality and hyponatremia; E87.2 Acidosis; I48.19 Other persistent atrial fibrillation; J44.0 Chronic obstructive pulmonary disease with (acute) lower respiratory infection; J90 Pleural effusion, not elsewhere classified; J98.11 Atelectasis; N17.9 Acute kidney failure, unspecified; E11.649 Type 2 diabetes mellitus with hypoglycemia without coma; E11.22 Type 2 diabetes mellitus with diabetic chronic kidney disease; N18.30 Chronic kidney disease, stage 3 unspecified; E78.5 Hyperlipidemia, unspecified; I12.9 Hypertensive chronic kidney disease with stage 1 through stage 4 chronic kidney disease, or unspecified chronic kidney disease; R79.1 Abnormal coagulation profile; R32 Unspecified urinary incontinence; R55 Syncope and collapse; Z79.01 Long term (current) use of anticoagulants; Z79.84 Long term (current) use of oral hypoglycemic drugs; Z79.899 Other long term (current) drug therapy; Z90.89 Acquired absence of other organs; Z87.898 Personal history of other specified conditions; Z82.49 Family history of ischemic heart disease and other diseases of the circulatory system
CPT/HCPCS: 36415; 70450; 70496; 70498; 71045; 71046; 80048; 80053; 80162; 81001; 82550; 82728; 83615; 83735; 83880; 84145; 84484; 85025; 85610; 85730; 86140; 87635; 93005; 93306; 94640; 96361; 96374; 99285